=== PATIENT | female | born 1940 | race Caucasian/White ===

== ENCOUNTER → 2017-09-05 13:53 | Outpatient (CLI) | payer MEDICARE, OTHER, SELFPAY ==
[2017-09-05 15:58] LABS: Absolute Lymphocyte Count 2.33 X10^3/ul (0.83-4.51); Absolute Neutrophil Count 4.5 X10^3/uL (2.0-7.7); Basophil# 0.06 X10^3/uL; Basophil% 0.8 % (0-1); Eosinophil# 0.36 X10^3/uL; Eosinophils% 4.6 % (0-5); Hematocrit 37.7 % (37-47); Hemoglobin 11.7 g/dl (12.0-15.0); Lymphocyte # 2.33 X10^3/ul (4.0); Lymphocyte % 29.8 % (19-41); Mean Corpuscular Volume 93.5 fL (81-99); Mean Platelet Vol. 10.2 fl (6.2-12.0); Monocyte% 7.7 % (0-10); Neutrophil # 4.47 X10^3/uL (2.7-7.7); Platelet Count 322 K/mm3 (150-450); RBC Distribution Width CV 15.4 % (11.6-14.6); RBC Distribution Width SD 52.4 fl (35.1-43.9); Red Blood Count 4.03 M/mm3 (4.2-5.4); White Blood Count 7.8 K/mm3 (4.4-11.0)
[2017-09-05 16:03] LABS: POSITIVE COUNT NO; POSITIVE DIFFERENTIAL NO; POSITIVE MORPHOLOGY NO
[2017-09-05 16:24] LABS: AST(SGOT) 40 U/L (15-37); Alanine Aminotransfer ALT/SGPT 72 U/L (13-56); Albumin, Serum 3.3 g/dL (3.2-5.0); Alkaline Phosphatase 80 U/L (45-117); Anion Gap 7 (5-15); BUN 26 mg/dL (7-18); Calcium,Total 8.6 mg/dL (8.5-10.1); Chloride 104 mmol/L (98-107); Creatinine, Serum 1.13 mg/dL (0.55-1.02); EST Glomerular Filtration Rate 50 mL/min (>60); Est Glom Filt Rate - Afr Amer 60 mL/min (>60); Globulin 3.4 g/dL (2.2-4.2); Glucose 125 mg/dL (70-110); Potassium 3.7 mmol/L (3.5-5.1); Protein, Total 6.7 g/dL (6.4-8.2); Sodium Level 141 mmol/L (136-145); T4 Free Direct 1.46 ng/dL (0.76-1.46); Thyroid Stim Hormone (TSH) 1.63 uIU/mL (0.358-3.74)
== END ==
PROVIDERS: Family Provider Family Medicine; PCP Family Medicine; Visit Provider Family Medicine
DX: E11.9 Type 2 diabetes mellitus without complications (principal); E78.5 Hyperlipidemia, unspecified; R53.83 Other fatigue; L74.9 Eccrine sweat disorder, unspecified; M19.90 Unspecified osteoarthritis, unspecified site; I82.409 Acute embolism and thrombosis of unspecified deep veins of unspecified lower extremity; Z79.899 Other long term (current) drug therapy
CPT/HCPCS: 36415; 80053; 84439; 84443; 85025

== ENCOUNTER → 2017-12-13 07:47 | Outpatient (CLI) | payer MEDICARE, OTHER, SELFPAY ==
--- NOTE | 2017-12-13 13:46 | PFT ---
INTRODUCTION: The patient is a 77-year-old female currently under the care of Dr. Kolb the presents for pulmonary function testing secondary to a diagnosis of high risk medication use. Respiratory therapy reports good patient effort and reports no other concerns. Bronchodilators were used during testing. INTERPRETATION: Forced expiration spirometry demonstrates the presence of a mild large airways obstructive ventilatory defect. There was no significant response to aerosolized bronchodilators, based upon strict ATS criteria. Spirograms are of good quality and plateau gradually indicating slow emptying of the lungs. Body plethysmography was performed and reveals an increased RV to 146% of predicted, indicative of underlying air trapping. Diffusing capacity by single breath CO is mildly reduced at 74% of predicted. IMPRESSION: These pulmonary function studies demonstrate the presence of an irreversible mild large airways obstructive ventilatory defect with associated air trapping and symmetric reduction in diffusing capacity. There are no previous pulmonary function studies available for comparison.
== END ==
PROVIDERS: Family Provider Family Medicine; PCP Family Medicine; Visit Provider Internal Medicine Cardiovascular Disease
DX: Z79.899 Other long term (current) drug therapy (principal)
CPT/HCPCS: 94060; 94726; 94729

== ENCOUNTER 2018-02-13 15:40 | Emergency (ER) | payer MEDICARE, OTHER, SELFPAY ==
[2018-02-13 15:44] VITALS: BP 127/82; PULSE 62; RESP 16; TEMP 36.8; O2SAT 95; BMI 34.4
--- NOTE | 2018-02-13 15:47 | CT_ITS ---
STUDY: CT BRAIN WITHOUT CONTRAST REASON FOR EXAM: Female, 78 years old. Status post fall Coumadin had back of head RADIATION DOSAGE (If Supplied By Facility): CTDIvol = ( 44.99 ) mGy, DLP = ( 880.47 ) mGycm TECHNIQUE: Transaxial CT imaging of the brain was performed without administration of intravenous contrast material. Individualized dose optimization techniques were used for this CT. COMPARISON: MRI July 11, 2014 FINDINGS: There is a focus of right posterior parietal soft tissue swelling. There is soft tissue calcification which is likely chronic in the right parietal region as well seen on prior study. There is hyperostosis frontalis internus. There is mild cerebral atrophy with widening of the extra-axial spaces and ventricular dilatation. There is a focal mostly calcified mass within the left parietal lobe that measures 3.6 x 3.0 x 3.3 cm. On prior study July 11, 2014 this was measured 2.6 x 2.2 x 2 cm. Prior study there was some adjacent mild edema however now the mass is larger and does contain greater than expected edema for a simple meningioma. There is a slightly effaced appearance of the left posterior horn. Normal basal ganglia and thalami. Normal brainstem. There is mild cerebellar atrophy. There is no intracranial hemorrhage. There are no findings of an acute ischemic infarction. Normal visualized paranasal sinuses. CT/Brain/Head without Contrast IMPRESSION: There is a 3.6 x 3.0 x 3.3 cm calcified mass in the left parietal lobe which is larger than prior study when it measured 2.6 x 2.2 x 2 cm and showing more adjacent edema than prior. Although this may represent a meningioma edema is not ordinarily expected. In addition this is greater enlargement of the mass than would be expected with a benign meningioma meningiomas are typically slow in growth. Attention atypical meningioma could potentially have this appearance. Recommend follow-up MRI with gadolinium when clinically appropriate. Right posterior parietal soft tissue swelling no evidence of acute hemorrhage. Electronically Signed: Brisa Soriano MD at 16:18 EDT Tel , Service support ,
--- NOTE | 2018-02-13 15:51 | ED.VISSUMM ---
- ER Visit Summary Date of Service: 02/13/18 Chief Complaint: Patient presents from Dr. balbuena' office because of head trauma. History of Present Illness: The patient is a 78 F who had an appointment to see Dr. Balbuena, her PCP for blood work. Patient's on Coumadin for chronic A. fib. INR is 3.0. She states she uses a walker to ambulate. Her feet became entangled and she fell striking the back of her head. She denies loss of conscious. She denies being dazed. She does complain of mild headache. She denies any neck pain. She denies any paresthesia, anesthesia motor is upper lower extremity. She denies chest pain, palpitations or rapid heartbeat. She denies shortness of breath or difficulty breathing. She denies nausea or vomiting. She denies any upper or lower back pain. She denies any pelvic pain. She denies pain of her upper or lower extremity. Physical Examination: Vital signs are unremarkable. Patient has a sub-cutaneous hematoma with abrasion right occipital area. There is no clinical findings of basal skull fracture. Pupils equal round reactive. Extra muscle intact. There is no subconjunctival hemorrhage. There is no septal deviation hematoma. Uvula is midline. Trachea is midline. There is no stridor or carotid bruit. There is no midline tenderness and she has full active range of motion of the neck without pain. Heart is regular. Lungs are clear to auscultation with good air bilaterally. There is no crepitus or subcutaneous air. Abdomen soft nontender. Is no pain the patient the pelvis. She is alert oriented ?3 with a GCS of 15. Motor is 5/5. Sensations intact. DTRs are symmetric with no clonus or Babinski. Cranial 2 through 12 are intact. Test Results: INR performed at PCPs office is 3.0. Will obtain a CT of the head to rule out intracranial bleed. CT of the head without contrast reveals an enlarging calcific mass that may represent an atypical meningioma. However radiologist commented this has grown and may represent an atypical meningioma. Recommended MRI since there is surrounding edema. There is no evidence of acute intracranial bleed i.e. contusion, subarachnoid hemorrhage, epidural or subdural. Emergency Department Course and Treatment: Patient's primary care physician Dr. Ramirez was paged to arrange outpatient MRI to evaluate this atypical calcific enlarging mass with mild edema. Treatment Plan: Appropriate home-going instructions for closed head injury and outpatient MRI to evaluate calcific mass. Disposition: Discharged to home with outpatient follow-up/MRI. Dr. Hortensia lawrence will make arrangements for outpatient MRI to evaluate enlarging calcific parietal mass Impression: 1. Closed head injury 2. High risk medication, Coumadin 3. Enlarging calcific left parietal mass uncertain etiology This note was generated with [employer] dictation software. It may contain incorrect words, spelling, and punctuation that were not noted in review of the chart prior to signing ED Disposition - Plan for ED Patient: Disposition: Home or Assisted Living Chief Complaint: Fall Instructions: ED Head Injury Closed Referrals: Hortensia Balbuena, [Primary Care Provider] - 5-7 Days Additional Instructions: Contact Dr. Ramirez's office. She will make appropriate arrangements for outpatient MRI to evaluate calcified mass.
[2018-02-13] MEDS: Diphth,Pertuss(Acell),Tet Vac 0.5 ML Vial IM (16:28)
--- NOTE | 2018-02-13 16:39 | NURSING ---
DR CHERI JACOB
[2018-02-13 16:56] VITALS: BP 110/62; PULSE 63; RESP 18; O2SAT 98
== END 2018-02-13 16:57 | disposition home or self-care (01) ==
PROVIDERS: Emergency Provider Emergency Medicine; Family Provider Family Medicine; PCP Family Medicine
DX: S00.03XA Contusion of scalp, initial encounter (principal); W01.0XXA Fall on same level from slipping, tripping and stumbling without subsequent striking against object, initial encounter; Y93.9 Activity, unspecified; Y92.9 Unspecified place or not applicable; Y99.9 Unspecified external cause status; G93.9 Disorder of brain, unspecified; I48.2 Chronic atrial fibrillation; I10 Essential (primary) hypertension; E66.9 Obesity, unspecified; Z79.01 Long term (current) use of anticoagulants; Z79.84 Long term (current) use of oral hypoglycemic drugs; Z79.899 Other long term (current) drug therapy; Z86.711 Personal history of pulmonary embolism
CPT/HCPCS: 70450; 90715; 99283

== ENCOUNTER → 2018-02-17 16:58 | Outpatient (CLI) | payer MEDICARE, OTHER, SELFPAY ==
--- NOTE | 2018-02-17 17:00 | MRI_ITS ---
STUDY: MRI BRAIN WITH AND WITHOUT CONTRAST REASON FOR EXAM: Female, 78 years old. Left parietal lobe mass TECHNIQUE: Standardized multiplanar fat and water weighted pulse sequences were obtained. 8 ml of Gadavist contrast material was administered intravenously for the contrast portion of the examination. COMPARISON: CT of the brain on February 13, 2018 FINDINGS: Normal size of the ventricles and extra-axial spaces for the patient's age. Normal white matter tracts of the supratentorial brain. Normal bilateral basal ganglia. Normal thalami. There is no extra-axial fluid accumulation. Normal flow voids within the major intracranial circulation suggesting patency by spin echo criteria. Normal venous enhancement. There is a dural based relatively homogeneously enhancing mass in left parietal lobe measuring approximately 3.2 x 3.17 cm demonstrating foci of calcification. There is vasogenic edema and mass effect upon the occipital horn of the left lateral ventricle. Differential diagnosis includes atypical meningioma versus extradural metastasis. Clinical correlation recommended Normal sella turcica, pituitary gland, infundibular stalk, optic chiasm and hypothalamus. Normal tectal plate and pineal gland. Normal midbrain, anastacio and medulla. Normal cerebellum. Normal basal cisterns. Normal bilateral temporal bones. Normal bilateral internal auditory canals. Postsurgical changes of the orbits.. Normal visualized paranasal sinuses. Normal calvarium and skull base. Normal visualized soft tissue structures. Normal visualized upper cervical spine. MRI/Brain W/WO Contrast IMPRESSION: Dural based mass in the left parietal lobe with vasogenic edema most likely representing atypical meningioma or perhaps extradural metastasis. Clinical correlation recommended Electronically Signed: Armen Mauro MD at 19:08 EDT , Service support ,
== END ==
PROVIDERS: Family Provider Family Medicine; PCP Family Medicine; Visit Provider Family Medicine
DX: D42.0 Neoplasm of uncertain behavior of cerebral meninges (principal)
CPT/HCPCS: 70553

== ENCOUNTER → 2018-09-11 10:44 | Outpatient (CLI) | payer MEDICARE, OTHER, SELFPAY ==
[2018-09-11 13:05] LABS: BUN 28 mg/dL (7-18); Creatinine, Serum 1.31 mg/dL (0.55-1.02); EST Glomerular Filtration Rate 42 mL/min (>60); Est Glom Filt Rate - Afr Amer 50 mL/min (>60)
== END ==
PROVIDERS: Family Provider Family Medicine; PCP Family Medicine
DX: D32.9 Benign neoplasm of meninges, unspecified (principal)
CPT/HCPCS: 36415; 82565; 84520

== ENCOUNTER → 2018-09-19 13:19 | Outpatient (CLI) | payer MEDICARE, OTHER, SELFPAY ==
[2018-05-01 12:52] VITALS: BMI 32.8
--- NOTE | 2018-09-19 13:25 | MRI_ITS ---
STUDY: MRI BRAIN WITH AND WITHOUT CONTRAST REASON FOR EXAM: Female, 78 years old. Meningioma TECHNIQUE: Standardized multiplanar fat and water weighted pulse sequences were obtained. 8 ml of Gadavist contrast material was administered intravenously for the contrast portion of the examination. COMPARISON: February 17, 2018 FINDINGS: Normal size of the ventricles and extra-axial spaces for the patient's age. There is minor periventricular white matter ischemic change. There is a dural based mass in the left parietal lobe measuring approximately 3.6 x 3.5 x 3.33 cm demonstrating slightly heterogeneous enhancement exhibiting foci of calcification and exhibiting of vasogenic edema and producing mild mass effect upon the occipital horn of the left lateral ventricle. The lesion demonstrates findings consistent with an atypical meningioma. The lesion has increased very slightly in size since prior exam. Normal bilateral basal ganglia. Normal thalami. There is no extra-axial fluid accumulation. Normal flow voids within the major intracranial circulation suggesting patency by spin echo criteria. Normal venous enhancement. There is no enhancing intra-axial or extra-axial abnormality. Normal sella turcica, pituitary gland, infundibular stalk, optic chiasm and hypothalamus. Normal tectal plate and pineal gland. Normal midbrain, anastacio and medulla. Normal cerebellum. Normal basal cisterns. Normal bilateral temporal bones. Normal bilateral internal auditory canals. Postsurgical changes of the orbits. Normal visualized paranasal sinuses. Normal calvarium and skull base. Normal visualized soft tissue structures. Normal visualized upper cervical spine. MRI/Brain W/WO Contrast IMPRESSION: Dural based mass in the left parietal lobe demonstrating characteristics most consistent with atypical meningioma which has increased slightly in size since prior exam. No other significant change Electronically Signed: Armen Mauro MD at 15:56 EST , Service support ,
== END ==
PROVIDERS: Family Provider Family Medicine; PCP Family Medicine
DX: D32.9 Benign neoplasm of meninges, unspecified (principal)
CPT/HCPCS: 70553; A9585

== ENCOUNTER → 2019-01-29 08:36 | Outpatient (CLI) | payer MEDICARE, OTHER, SELFPAY ==
[2018-12-04 13:27] VITALS: BMI 32.1
--- NOTE | 2019-01-29 08:49 | RAD_ITS ---
STUDY: X-RAY CHEST REASON FOR EXAM: Female, 79 years old. Amiodarone therapy TECHNIQUE: PA and lateral views of the chest. COMPARISON: July 11, 2016 chest x-ray FINDINGS: Interstitial markings are minimally prominent. There is a pattern of hyperlucency in the upper lung zones which may represent emphysematous change. Density in the right upper lobe that was seen on prior study is no longer visualized. There is no demonstrated pleural abnormality. Normal size heart. Normal mediastinum and avtar. Normal visualized pulmonary arteries. Normal visualized aortic arch and descending thoracic aorta. There are diffuse degenerative changes of the visualized thoracic spine. Normal visualized ribs, clavicles, and shoulders. There is no demonstrated abnormality of the visualized soft tissue structures of the upper abdomen. RAD/Chest PA and Lateral IMPRESSION: Chronic appearing lung markings no evidence of acute focal infiltrate. Electronically Signed: Brisa Soriano MD at 15:53 EDT Tel , Service support ,
[2019-01-29 09:34] LABS: AST(SGOT) 26 U/L (15-37); Alanine Aminotransfer ALT/SGPT 36 U/L (13-56); Albumin, Serum 3.6 g/dL (3.2-5.0); Alkaline Phosphatase 130 U/L (45-117); Bilirubin, Direct 0.14 mg/dL (0.00-0.30); Cholesterol 178 mg/dL (200); Globulin 3.4 g/dL (2.2-4.2); High Density Lipoprotein 84 mg/dL; T4 Free Direct 1.49 ng/dL (0.76-1.46); Thyroid Stim Hormone (TSH) 1.87 uIU/mL (0.358-3.74); Triglycerides 113 mg/dL; Very Low Density Lipoprotein 23 mg/dL (5-40)
== END ==
PROVIDERS: Family Provider Family Medicine; PCP Family Medicine; Referring Provider Internal Medicine Cardiovascular Disease; Visit Provider Internal Medicine Cardiovascular Disease
DX: I48.0 Paroxysmal atrial fibrillation (principal); I25.10 Atherosclerotic heart disease of native coronary artery without angina pectoris; I10 Essential (primary) hypertension; E78.5 Hyperlipidemia, unspecified
CPT/HCPCS: 36415; 71046; 80061; 80076; 84439; 84443

== ENCOUNTER → 2020-03-26 09:10 | Outpatient (CLI) | payer MEDICARE, OTHER, SELFPAY ==
[2019-05-31 13:18] VITALS: BMI 33.5
[2020-01-02 08:45] VITALS: BMI 33.5
[2020-03-26 09:49] LABS: Absolute Lymphocyte Count 2.83 X10^3/uL (0.83-4.51); Absolute Neutrophil Count 4.7 X10^3/uL (2.0-7.7); Basophil# 0.09 X10^3/uL; Basophil% 1.1 % (0-1); Eosinophil# 0.31 X10^3/uL; Eosinophils% 3.7 % (0-5); Hematocrit 40.5 % (37-47); Hemoglobin 12.8 g/dL (12.0-15.0); Lymphocyte # 2.83 X10^3/ul (4.0); Lymphocyte % 33.4 % (19-41); Mean Corp Hgb Conc 31.6 g/dL (32-36); Mean Corpuscular Hgb 28.4 pg (27.0-32.0); Mean Platelet Vol. 9.9 fl (6.2-12.0); Monocyte# 0.57 X10^3/uL; Monocyte% 6.7 % (0-10); NRBC Flagged by Analyzer 0 % (0-5); Neutrophil # 4.65 X10^3/uL (2.7-7.7); Neutrophil % 54.9 % (47-70); Platelet Count 415 K/mm3 (150-450); RBC Distribution Width CV 15.4 % (11.6-14.6); RBC Distribution Width SD 50.6 fl (35.1-43.9); White Blood Count 8.5 K/mm3 (4.4-11.0)
[2020-03-26 10:04] LABS: International Normalized Ratio 2.8; Prothrombin Time (Protime)PT. 29.4 SECONDS (11.7-14.9)
[2020-03-26 10:28] LABS: AST(SGOT) 21 U/L (15-37); Alanine Aminotransfer ALT/SGPT 30 U/L (13-56); Albumin, Serum 3.6 g/dL (3.2-5.0); Alkaline Phosphatase 144 U/L (45-117); Anion Gap 6 (5-15); BUN 25 mg/dL (7-18); BUN/Creat Ratio 18.8 RATIO (10-20); Calcium,Total 8.9 mg/dL (8.5-10.1); Chloride 107 mmol/L (98-107); Creatinine, Serum 1.33 mg/dL (0.55-1.02); EST Glomerular Filtration Rate 41 mL/min (>60); Est Glom Filt Rate - Afr Amer 49 mL/min (>60); Free T3 2.2 pg/mL (2.18-3.98); Globulin 3.7 g/dL (2.2-4.2); Glucose 157 mg/dL (74-106); Protein, Total 7.3 g/dL (6.4-8.2); Sodium Level 141 mmol/L (136-145); T4 Free Direct 1.38 ng/dL (0.76-1.46); Thyroid Stim Hormone (TSH) 2.08 uIU/mL (0.358-3.74)
== END ==
PROVIDERS: PCP Family Medicine; Referring Provider Family Medicine; Visit Provider Family Medicine
DX: Z51.81 Encounter for therapeutic drug level monitoring (principal); Z79.01 Long term (current) use of anticoagulants; I82.409 Acute embolism and thrombosis of unspecified deep veins of unspecified lower extremity; D68.59 Other primary thrombophilia; E03.9 Hypothyroidism, unspecified; E78.5 Hyperlipidemia, unspecified; R53.83 Other fatigue; I34.1 Nonrheumatic mitral (valve) prolapse
CPT/HCPCS: 36415; 80053; 84439; 84443; 84481; 85025; 85610

== ENCOUNTER 2020-04-23 09:14 | Outpatient (RCR) | payer MEDICARE, OTHER, SELFPAY ==
[2020-01-02 08:45] VITALS: BMI 33.5
[2020-04-23 09:51] LABS: International Normalized Ratio 2.8; Prothrombin Time (Protime)PT. 28.7 SECONDS (11.7-14.9)
== END 2020-04-23 18:00 | disposition home or self-care (01) ==
LOC: LAB 09:14
PROVIDERS: PCP Family Medicine; Referring Provider Family Medicine; Visit Provider Family Medicine
DX: I34.1 Nonrheumatic mitral (valve) prolapse (principal); I82.409 Acute embolism and thrombosis of unspecified deep veins of unspecified lower extremity; Z79.01 Long term (current) use of anticoagulants
CPT/HCPCS: 36415; 85610

== ENCOUNTER 2020-07-13 14:51 | Emergency (ER) | payer MEDICARE, OTHER, SELFPAY ==
[2020-06-26 13:35] VITALS: BMI 34.3
[2020-07-13 14:52] VITALS: BP 144/85; PULSE 80; RESP 16; TEMP 36.3; O2SAT 98; BMI 31.3
--- NOTE | 2020-07-13 15:18 | CT_ITS ---
STUDY: CT ABDOMEN AND PELVIS WITH CONTRAST REASON FOR EXAM: Female, 80 years old. ruq pain RADIATION DOSAGE (If Supplied By Facility): CTDIvol = ( 14.73 ) mGy, DLP = ( 1077.94 ) mGycm TECHNIQUE: Transaxial images were obtained from the dome of the diaphragm to the symphysis pubis without oral contrast. 100 ML ISOVUE 370 was administered. Sagittal and coronal images were reconstructed. Individualized dose optimization techniques were used for this CT. COMPARISON: None. FINDINGS: The visualized lung bases are unremarkable. The visualized portions of the heart are within normal limits. Normal liver. Normal gallbladder and extrahepatic biliary system. Normal spleen. Normal pancreas. There is a small, circumscribed, smooth, low attenuation left adrenal mass, consistent with an adrenal adenoma. Normal right adrenal gland. Normal right kidney. Normal left kidney. Normal visualized stomach. Normal small intestine. There are multiple colonic diverticula consistent with diverticulosis. There is fecal residue of the right (including hepatic flexure) more than left colon. The appendix is visualized and appears normal. There is diffuse atherosclerotic calcification of the abdominal aorta, without a demonstrated aneurysm. Normal inferior vena cava. Normal retroperitoneum. Normal urinary bladder. There is atrophy of the uterus. There are injection granulomata of the right buttock. There are facet dominant degenerative changes of the lumbar spine. T12 compression fracture appears chronic. CT/Abdomen/Pelvis W IV Cont ONLY IMPRESSION: 1. No acute inflammatory process or bowel obstruction. 2. Colonic fecal retention. 3. Chronic changes, as above. Electronically Signed: Maulik Cui MD ([place]) at 17:21 EST , Service support ,
--- NOTE | 2020-07-13 15:30 | EKG12_ITS ---
Test Reason : BACK Blood Pressure : / mmHG Vent. Rate : 067 BPM Atrial Rate : 067 BPM P-R Int : 156 ms QRS Dur : 116 ms QT Int : 428 ms P-R-T Axes : 000 -48 102 degrees QTc Int : 452 ms Normal sinus rhythm Left axis deviation Incomplete left bundle branch block Abnormal ECG Confirmed by ARGELIA LLOYD, LORI ([id number]), desk editor HERNANDO PEREZ ([id number]) on 07/15/2020 8:45:44 AM Referred By: Confirmed By:LORI STOUT MD
--- NOTE | 2020-07-13 15:31 | ED.VISSUMM ---
- ER Visit Summary Date of Service: 07/13/20 Chief Complaint: Back pain History of Present Illness: The patient is a 80 F presenting with back pain. She states this has been going on for the past 1.5 weeks. She states she fell 2 days before Thanksgiving and is unsure if this is related. She states the pain did not start until after Thanksgiving. She has pain of her right shoulder down into her right upper quadrant. She has tried Tylenol at home. She states it worsens with different positions. She denies change when she eats. Denies nausea or vomiting. Denies diarrhea. Denies chest pain or shortness of breath. Denies fever or recent illness. Physical Examination: Vitals are stable. Patient is afebrile. Alert no acute distress. HEENT exam is unremarkable. Neck is supple. Lungs are clear and equal bilaterally. Heart is regular rate and rhythm. Abdomen is soft right upper quadrant tenderness with no guarding or rebound Extremities right shoulder mild posterior tenderness with active full range of motion. Back: No midline tenderness Skin is warm and dry. No focal neurologic deficit. Remainder of exam is unremarkable. Emergency Department Course and Treatment: Patient was given IV fluids, morphine, Zofran. Right rib series shows RIBS: No demonstrated rib fracture. CHEST: Nonacute x-ray examination of the chest. CT abdomen shows no acute inflammatory process or bowel obstruction. Colonic fecal retention. Chronic changes. CBC, chemistries unremarkable other than BUN 24, creatinine 1.37, this is near her baseline. Lipase is normal. Troponin is negative. Patient is feeling improved on reevaluation. She is given prescription for MiraLAX. She will take Tylenol for pain. Advised to follow-up with her primary care physician. Advised return to the ED for worsening complaints. Disposition: Discharge home Impression: Back pain, constipation This note was generated with [employer] dictation software. It may contain incorrect words, spelling, and punctuation that were not noted in review of the chart prior to signing ED Disposition - Plan for ED Patient: Instructions: ED Back and Neck Pain, General Prescriptions: Polyethylene Glycol 3350 [Miralax] 17 gm PO DAILY #10 packet Prescription Printed Referrals: Hortensia Balbuena DO [Primary Care Provider] -
[2020-07-13 15:37] LABS: Absolute Neutrophil Count 5.6 X10^3/uL (2.0-7.7); Basophil# 0.07 X10^3/uL; Basophil% 0.8 % (0-1); Eosinophil# 0.11 X10^3/uL; Eosinophils% 1.3 % (0-5); Hematocrit 39.7 % (37-47); Hemoglobin 12.6 g/dL (12.0-15.0); Lymphocyte % 20.6 % (19-41); Mean Corp Hgb Conc 31.7 g/dL (32-36); Mean Corpuscular Hgb 28.3 pg (27.0-32.0); Mean Corpuscular Volume 89.2 fL (81-99); Mean Platelet Vol. 9.6 fl (6.2-12.0); Monocyte# 0.69 X10^3/uL; Monocyte% 8.4 % (0-10); NRBC Flagged by Analyzer 0 % (0-5); Neutrophil # 5.64 X10^3/uL (2.7-7.7); Neutrophil % 68.5 % (47-70); Platelet Count 379 K/mm3 (150-450); RBC Distribution Width CV 15.9 % (11.6-14.6); RBC Distribution Width SD 51.9 fl (35.1-43.9); Red Blood Count 4.45 M/mm3 (4.2-5.4); White Blood Count 8.2 K/mm3 (4.4-11.0)
[2020-07-13] MEDS: Morphine 4 MG/ML Syringe IV (15:42)
[2020-07-13] MEDS: Ondansetron 4 MG/2 ML Vial IV (15:43)
[2020-07-13 16:14] VITALS: RESP 17
[2020-07-13 16:14] LABS: ALB/GLOB Ratio 0.9 RATIO (0.9-2.4); AST(SGOT) 19 U/L (15-37); Alanine Aminotransfer ALT/SGPT 28 U/L (13-56); Albumin, Serum 3.4 g/dL (3.2-5.0); Alkaline Phosphatase 159 U/L (45-117); Anion Gap 9 (5-15); BUN 24 mg/dL (7-18); BUN/Creat Ratio 17.5 RATIO (10-20); Calcium,Total 8.7 mg/dL (8.5-10.1); Chloride 105 mmol/L (98-107); Creatinine, Serum 1.37 mg/dL (0.55-1.02); EST Glomerular Filtration Rate 39 mL/min (>60); Est Glom Filt Rate - Afr Amer 48 mL/min (>60); Estimated Creatinine Clearance 30.66 ml/min; Globulin 3.6 g/dL (2.2-4.2); Glucose 118 mg/dL (74-106); Lipase 140 U/L (73-393); Potassium 4.1 mmol/L (3.5-5.1); Sodium Level 141 mmol/L (136-145)
--- NOTE | 2020-07-13 16:45 | RAD_ITS ---
STUDY: X-RAY - UNILATERAL RIBS ( RIGHT ) WITH CHEST REASON FOR EXAM: Female, 80 years old. FALL BEFORE THANKSGIVING, CONTINUED PAIN RT POSTERIOR LOWER RIBS, NEAR MIDLINE AND UPPER LUMBAR AREA TECHNIQUE - RIBS: 4 view(s) of the ribs. TECHNIQUE - CHEST: PA COMPARISON: None. FINDINGS - RIBS: Normal visualized ribs without a demonstrated fracture. FINDINGS - CHEST: The lungs are clear and expanded. There is no demonstrated pleural abnormality. Normal size heart. Normal mediastinum and avtar. Normal visualized pulmonary arteries. There is atherosclerotic tortuosity of the aortic arch and descending thoracic aorta. There is demineralization of the osseous structures. There is no demonstrated abnormality of the visualized soft tissue structures of the upper abdomen. RAD/Ribs Uni Min 3V w/PA Chest IMPRESSION: RIBS: No demonstrate a rib fracture. CHEST: Nonacute x-ray examination of the chest. Electronically Signed: Maulik Cui MD ([place]) at 17:16 EST , Service support ,
--- NOTE | 2020-07-13 17:36 | ED.DEP ---
ED Disposition - Plan for ED Patient: Instructions: ED Back and Neck Pain, General Prescriptions: Polyethylene Glycol 3350 [Miralax] 17 gm PO DAILY #10 packet Prescription Printed Referrals: Hortensia Balbuena DO [Primary Care Provider] -
[2020-07-13 18:00] VITALS: BP 119/69; RESP 18; O2SAT 97
== END 2020-07-13 18:01 | disposition home or self-care (01) ==
LOC: ED 16:23
PROVIDERS: Emergency Provider Emergency Medicine; PCP Family Medicine
DX: M54.9 Dorsalgia, unspecified (principal); K59.00 Constipation, unspecified; R10.11 Right upper quadrant pain; M25.511 Pain in right shoulder; I48.91 Unspecified atrial fibrillation; E11.9 Type 2 diabetes mellitus without complications; I10 Essential (primary) hypertension; F41.9 Anxiety disorder, unspecified; Z79.01 Long term (current) use of anticoagulants; Z79.84 Long term (current) use of oral hypoglycemic drugs; Z79.899 Other long term (current) drug therapy
CPT/HCPCS: 71101; 74177; 80053; 83690; 84484; 85025; 93005; 96361; 96374; 96375; 99283; J7030; Q9967; A4216; J2405

== ENCOUNTER 2020-10-09 15:09 | Outpatient (RCR) | payer MEDICARE, OTHER, SELFPAY ==
[2020-09-25 13:30] VITALS: BMI 30.2
[2020-10-09] MEDS: COVID-19 VACC, MRNA(PFIZER)/PF 30 MCG/0.3 ML SYRINGE IM (15:42)
[2020-10-30] MEDS: COVID-19 VACC, MRNA(PFIZER)/PF 30 MCG/0.3 ML SYRINGE IM (15:07)
== END 2021-01-13 23:59 ==
LOC: IMMUN 15:09
PROVIDERS: PCP Family Medicine; Visit Provider Family Medicine
DX: Z23 Encounter for immunization (principal)
CPT/HCPCS: 0001A; 0002A; 91300

== ENCOUNTER → 2020-10-10 13:04 | Outpatient (CLI) | payer MEDICARE, OTHER, SELFPAY ==
[2020-09-25 13:30] VITALS: BMI 30.2
[2020-10-10 15:00] LABS: International Normalized Ratio 1.3; Prothrombin Time (Protime)PT. 15.8 SECONDS (11.7-14.9)
== END ==
PROVIDERS: PCP Family Medicine; Visit Provider Family Medicine
DX: I34.1 Nonrheumatic mitral (valve) prolapse (principal); Z79.01 Long term (current) use of anticoagulants
CPT/HCPCS: 36415; 85610

== ENCOUNTER → 2020-10-17 14:49 | Outpatient (CLI) | payer MEDICARE, OTHER, SELFPAY ==
[2020-09-25 13:30] VITALS: BMI 30.2
[2020-10-17 17:48] LABS: International Normalized Ratio 1.3; Prothrombin Time (Protime)PT. 15.9 SECONDS (11.7-14.9)
== END ==
PROVIDERS: PCP Family Medicine; Visit Provider Family Medicine
DX: I34.1 Nonrheumatic mitral (valve) prolapse (principal); Z79.01 Long term (current) use of anticoagulants
CPT/HCPCS: 36415; 85610

== ENCOUNTER 2021-07-01 15:16 | Emergency (ER) | payer MEDICARE, OTHER, SELFPAY ==
[2021-07-01 15:16] VITALS: BP 125/65; PULSE 89; RESP 16; TEMP 36.2; O2SAT 97; BMI 34.2
--- NOTE | 2021-07-01 15:36 | CT_ITS ---
STUDY: CT SOFT TISSUE NECK WITH CONTRAST REASON FOR EXAM: Female, 81 years old. Right facial and neck swelling RADIATION DOSAGE (If Supplied By Facility): CTDIvol = ( 12.45 ) mGy, DLP = ( 586.37 ) mGycm TECHNIQUE: The patient was scanned in a multi-detector CT scanner. High resolution transaxial imaging was performed following intravenous administration of IV 100mL Isovue-300. Sagittal and coronal images were reconstructed. Individualized dose optimization techniques were used for this CT. COMPARISON: None. FINDINGS: There is induration of the subcutaneous fat lateral to the right mandible there is also associated asymmetric thickening of the right genioglossus muscle medial to the mandible with a few subcentimeter lymph nodes and mild disruption of the perimandibular fat planes. Findings suggest an inflammatory process within the mandible likely due to periodontal disease around a right mandibular molar. There is no organized abscess cavity or air-fluid levels. Normal bilateral parotid glands. Normal bilateral telecommunications engineer spaces. Normal bilateral parapharyngeal spaces. Normal bilateral carotid spaces. Normal bilateral sublingual and submandibular glands and spaces. Normal visualized nasopharynx. Normal retropharyngeal space. Normal perivertebral space. Normal visualized bilateral faucial tonsils. The visualized tongue, tongue base and oropharynx are normal. The visualized cervical lymph nodes (levels I-) are within normal size limits, and maintain normal morphology. There is no demonstrated solid or cystic mass lesion. There is no abnormal contrast enhancement. Normal epiglottis, bilateral vallecula and hypopharynx. The pre-epiglottic and paraglottic adipose spaces are normal. Normal visualized bilateral piriform sinuses, aryepiglottic folds, vocal cords, and arytenoid-cricoid articulations. Normal subglottic trachea. Normal bilateral lobes of the thyroid gland. Normal visualized pulmonary apices. Normal visualized paranasal sinuses. There is multilevel degenerative changes of the cervical spine. CT/Soft Tissue Neck WITH Contrast IMPRESSION: Periodontal disease suspected around the right mandibular molar seen on bone windows 56 through 61, series 2. There is associated soft tissue swelling both medial to and lateral to the right mandible suggesting an inflammatory process. There is no abscess or cutaneous emphysema. There are a few nearby lymph nodes likely reactive. Dental consultation recommended No demonstrated fracture, there are degenerative bony changes No airway narrowing or deviation Electronically Signed: Hernesto Reilly MD at 17:09 EST , Service support ,
--- NOTE | 2021-07-01 15:37 | EX.ED.DYSGE1 ---
HPI History of Present Illness Chief Complaint: Dental Detail of Chief Complaint: Facial swelling Informant: patient Narrative Narrative: Patient presents to the emergency department with facial swelling that initially started about 4 5 days ago. Patient states that she saw ear nose and throat physician the following day on Tuesday and was started on antibiotics. Patient saw a dentist today to have a root canal and they referred her to the emergency department. Patient complains of difficulty swallowing and pain mostly to the right side of her face where the swelling is. Patient denies fevers or chills or sweats. Patient cannot remember what antibiotic she is on in which your nose and throat physician she saw. 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 Depression Essential hypertension Family history of CVA History of DVT (deep vein thrombosis) Hyperlipidemia Hypertension Long-term use of high-risk medication Menieres disease Meningioma Nonrheumatic mitral (valve) prolapse Osteoarthritis Palpitations Paroxysmal atrial fibrillation Type 2 diabetes mellitus Home Medications mirabegron 50 mg PO DAILY 07/11/16 [History Last Taken Unknown] venlafaxine 75 mg PO BID 07/11/16 [History Last Taken Unknown] furosemide 40 mg tablet 40 mg PO DAILY #30 tab 04/12/18 [Rx Last Taken Unknown] lisinopril 5 mg tablet 2.5 mg PO DAILY tab 12/04/18 [History Last Taken Unknown] meclizine 25 mg tablet 12.5 mg PO TID PRN PRN tab 05/16/19 [History Last Taken Unknown] latanoprost 0.005 % eye drops 1 drp OPHTHALMIC DAILY 01/02/20 [History Last Taken Unknown] metformin 500 mg tablet 250 mg PO BID tab 05/22/20 [History Last Taken Unknown] timolol 0.5 % eye drops 1 drp OPHTHALMIC DAILY 05/22/20 [History Last Taken Unknown] warfarin 2 mg tablet 7 mg PO Q OTHER DAY 06/16/20 [History Last Taken Unknown] warfarin 5 mg tablet 5 mg PO QTUTHSASU 06/16/20 [History Last Taken Unknown] amiodarone 200 mg tablet 100 mg PO DAILY #45 tab 07/01/20 [Rx Last Taken Unknown] polyethylene glycol 3350 17 gm PO DAILY #10 packet 07/13/20 [Rx Last Taken Unknown] azelastine 137 mcg (0.1 %) nasal spray aerosol 2 spray INTRANASAL BID #30 ml 09/25/20 [Rx Last Taken Unknown] fluticasone propionate 50 mcg/actuation nasal spray,suspension 2 spray INTRANASAL DAILY #16 g 09/25/20 [Rx Last Taken Unknown] atorvastatin 40 mg tablet 40 mg PO QHS 05/13/21 [History Last Taken Unknown] diltiazem HCl 180 mg capsule,extended release 24 hr 180 mg PO BID #180 cap 05/29/21 [Rx Last Taken Unknown] Allergy/AdvReac Type Severity Reaction Status Date / Time benzonatate Allergy Hives Verified 07/01/21 15:18 [From Ruthann Vazquez] cat dander Allergy Unknown Verified 07/01/21 15:18 Family History Father CAD (coronary artery disease) CHF (congestive heart failure) History of DVT (deep vein thrombosis) Mother Diabetes Grandfather CAD (coronary artery disease) History of DVT (deep vein thrombosis) Grandmother CVA (cerebral vascular accident) Surgical History History of cataract extraction History of tonsillectomy and adenoidectomy History of tubal ligation Social History (Updated 11/13/20 @ 15:02 by Ruben Nunez TANDEM MILL OPERATOR, TANDEM MILL OPERATOR-C) Smoking Status: Former smoker second hand exposure: No alcohol intake: never substance use type: does not use caffeine: No what type of physical activity do you participate in: none ROS ROS ED Constitutional Constitutional ED: Reports systems reviewed and no addt'l complaints, except as documented; Denies body ache(s), change in weight or chills Eyes Eyes: Denies acute decrease in peripheral vision, change in vision, double vision or loss of vision ENT ENT ED: Reports none and other Details: Right-sided facial swelling and redness to skin of face and neck. ; Denies ear pain, lip swelling, loss taste/smell, neck pain, otalgia or sore throat Cardiovascular Cardiovascular: Reports none; Denies abdominal pain, chest pain with activity, leg edema, lightheadedness, palpitations, rapid heart rate or syncope Respiratory/Chest Respiratory/Chest: Reports none; Denies change in mental status, dry cough, dyspnea, hemoptysis, shortness of breath at rest or shortness of breath with exertion Gastrointestinal Gastrointestinal: Reports none; Denies abdominal pain, change in stool character, diarrhea, hematemesis, hematochezia, melena, rectal bleeding or vomiting Genitourinary Genitourinary ED: Reports none; Denies abdominal discomfort, anuria, dysuria, genital pain or polyuria Musculoskeletal Musculoskeletal: Reports none; Denies arthralgias, back pain, difficulty walking, extremity pain, muscle weakness or myalgias Integumentary Reports none; Denies abscess or rash Neurologic Neurologic: Reports none; Denies abnormal gait, confusion, focal weakness, frequent falls, headache(s), loss of vision, numbness, paresthesias, radicular pain, vertigo or weakness Psychiatric Psychiatric: Reports systems reviewed and no addt'l complaints, except as documented and none; Denies behavioral changes, confusion, difficulty concentrating, hallucinations, suicidal ideation, tactile hallucinations or visual hallucinations Endocrine Endocrinology: Denies none, cold intolerance, excessive sweating, fatigue or heat intolerance Hematologic/Lymphatic Hematologic/Lymphatic: Reports none; Denies anemia, easy bleeding or easy bruising Allergic/Immunologic Allergic/Immunologic ED: Denies as per HPI, none, lip swelling, mouth swelling, throat swelling, tongue swelling or hives EXAM Physical Exam Const Vital Signs: 07/01/21 15:16 Temperature 97.2 F L Temperature Source Temporal Pulse Rate 89 Respiratory Rate 16 Blood Pressure 125/65 H Blood Pressure Mean 85 Pulse Ox 97 Oxygen Delivery Method Room Air Positive well nourished and well developed General Appearance ED: well developed and NAD HEENT Reports TM's clear and moist mucous membranes HEENT Narrative: Patient has soft tissue swelling over the right submandibular gland onto the right side of the face over the mandible. There are cellulitic changes and erythema noted involving the right side of the face as well as submandibular region diffusely. normocephalic and atraumatic; Negative for trauma or tenderness Tympanic Membrane ED: Yes TM's clear Eyes PERRL and EOMs intact bilaterally General Eye ED: Negative for pale conjunctiva or scleral icterus Neck no lymphadenopathy, supple and no JVD General: Negative for tenderness Chest Wall inspection of chest normal and palpation of chest normal Chest: Negative for tenderness Resp normal respiratory effort and clear to auscultation bilaterally Effort and Inspection: Negative for respiratory distress or pain with movement Auscultation: Negative for rhonchi, wheezes or diminished lung sounds Cardio regular rate, regular rhythm, S1 normal heart sound, S2 normal heart sound and no murmurs Peripheral Pulses: pulses 2+ throughout GI normal to inspection, nondistended, normoactive bowel sounds, soft to palpation, non-tender, non-distended and no masses Back/Spine no CVA tenderness and no thoracic nor lumbar tenderness Extremity normal to inspection General Extremety ED: Negative for edema General Extremity: Negative for edema Neuro oriented x3, CN's II-XII intact bilaterally, no sensory deficits noted and gait normal Sensorium / Orientation: awake, alert, oriented to person, oriented to place and oriented to time Motor Exam: strength 5/5 throughout and strength abnormal Psych mental status grossly normal Skin no rashes or lesions noted and no wounds MDM MDM MDM Narrative Medical decision making narrative: IV tablets on arrival. Blood cultures were ordered. Patient was started on Zosyn IV. Labs and CT scan of the neck with IV contrast were ordered and those results will be pending. Care of patient will be turned over to evening physician awaiting results and final disposition Discharge Plan Triage Chief Complaint: Dental ED Provider: Konstantin Gee Dx/Rx/DC Orders Prescriptions: No Action timolol 0.5 % drops 1 drp OPHTHALMIC DAILY RF: 0 latanoprost 0.005 % drops 1 drp OPHTHALMIC DAILY RF: 0 warfarin 5 mg tablet 5 mg PO QTUTHSASU RF: 0 warfarin 2 mg tablet 7 mg PO Q OTHER DAY RF: 0 fluticasone propionate 50 mcg/actuation spray,suspension 2 spray INTRANASAL DAILY Qty: 16 RF: 11 azelastine 137 mcg (0.1 %) aerosol,spray 2 spray INTRANASAL BID Qty: 30 RF: 11 atorvastatin 40 mg tablet 40 mg PO QHS RF: 0 venlafaxine 75 MG tablet 75 mg PO BID RF: 0 mirabegron 50 MG tablet extended release 24 hr 50 mg PO DAILY RF: 0 lisinopril 5 mg tablet 2.5 mg PO DAILY RF: 0 metformin 500 mg tablet 250 mg PO BID RF: 0 meclizine 25 mg tablet 12.5 mg PO TID PRN PRN (Reason: Dizziness) RF: 0 polyethylene glycol 3350 17 GM packet 17 gm PO DAILY Qty: 10 RF: 0 furosemide 40 mg tablet 40 mg PO DAILY Qty: 30 RF: 11 amiodarone 200 mg tablet 100 mg PO DAILY Qty: 45 RF: 4 diltiazem HCl 180 mg capsule,extended release 24hr 180 mg PO BID Qty: 180 RF: 3 Primary Care Provider: Hortensia Balbuena
[2021-07-01 16:09] LABS: Absolute Lymphocyte Count 1.65 X10^3/uL (0.83-4.51); Absolute Neutrophil Count 10.9 X10^3/uL (2.0-7.7); Basophil% 0.7 % (0-1); Eosinophils% 1.4 % (0-5); Hematocrit 33.9 % (37-47); Hemoglobin 10.8 g/dL (12.0-15.0); Lymphocyte # 1.65 X10^3/ul (0.83-4.51); Lymphocyte % 11.5 % (19-41); Mean Corp Hgb Conc 31.9 g/dL (32-36); Mean Corpuscular Hgb 27.2 pg (27.0-32.0); Mean Corpuscular Volume 85.4 fL (81-99); Mean Platelet Vol. 9.9 fl (6.2-12.0); Monocyte# 1.45 X10^3/uL; Monocyte% 10.1 % (0-10); NRBC Flagged by Analyzer 0 % (0-5); Neutrophil # 10.94 X10^3/uL (2.7-7.7); Neutrophil % 75.8 % (47-70); Platelet Count 358 K/mm3 (150-450); RBC Distribution Width CV 16.9 % (11.6-14.6); RBC Distribution Width SD 52.6 fl (35.1-43.9); Red Blood Count 3.97 M/mm3 (4.2-5.4); White Blood Count 14.4 K/mm3 (4.4-11.0)
[2021-07-01 16:24] LABS: Anion Gap 9 (5-15); BUN 25 mg/dL (7-18); BUN/Creat Ratio 15.1 RATIO (10-20); Calcium,Total 8.9 mg/dL (8.5-10.1); Chloride 104 mmol/L (98-107); Creatinine, Serum 1.66 mg/dL (0.55-1.02); EST Glomerular Filtration Rate 32 mL/min (>60); Est Glom Filt Rate - Afr Amer 38 mL/min (>60); Estimated Creatinine Clearance 21.99 ml/min; Glucose 154 mg/dL (74-106); Potassium 3.5 mmol/L (3.5-5.1); Sodium Level 139 mmol/L (136-145)
[2021-07-01 16:44] LABS: Lactic Acid 2.4 mmol/L (0.4-1.9)
[2021-07-01] MEDS: 0.9% Normal Saline 1,000 ML 150 ML IV (17:02)
--- NOTE | 2021-07-01 17:46 | NURSING ---
CALLED [facility]. DR HENRY TALKING TO YOSEPH
--- NOTE | 2021-07-01 18:18 | NURSING ---
PENG ON LINE WITH HOSPITALIST
[2021-07-01 19:08] VITALS: BP 125/89; PULSE 76; RESP 17; TEMP 37.6; O2SAT 95
--- NOTE | 2021-07-01 19:25 | ED.RN ---
Sharlene giving report to [facility] at this time as they have called back.
[2021-07-01 19:26] VITALS: BP 131/72; PULSE 78; RESP 16; TEMP 37.1; O2SAT 96
[2021-07-01 20:06] LABS: Reflex Lactate? Y
[2021-07-01 21:08] LABS: Lactic Acid 0.8 mmol/L (0.4-1.9)
== END 2021-07-01 20:50 | disposition short-term general hospital (02) ==
LOC: ED 16:21
PROVIDERS: Emergency Provider Emergency Medicine; PCP Family Medicine
DX: K04.7 Periapical abscess without sinus (principal); R13.10 Dysphagia, unspecified; Z20.822 Contact with and (suspected) exposure to COVID-19; I25.10 Atherosclerotic heart disease of native coronary artery without angina pectoris; E11.9 Type 2 diabetes mellitus without complications; I48.0 Paroxysmal atrial fibrillation; I49.1 Atrial premature depolarization; I34.1 Nonrheumatic mitral (valve) prolapse; E78.5 Hyperlipidemia, unspecified; J45.909 Unspecified asthma, uncomplicated; M19.90 Unspecified osteoarthritis, unspecified site; F32.A Depression, unspecified; F41.9 Anxiety disorder, unspecified; Z79.01 Long term (current) use of anticoagulants; Z79.84 Long term (current) use of oral hypoglycemic drugs; Z79.899 Other long term (current) drug therapy; Z86.718 Personal history of other venous thrombosis and embolism; Z87.891 Personal history of nicotine dependence
CPT/HCPCS: 70491; 80048; 83605; 85025; 87040; 87426; 96361; 96365; 99285; J7030; Q9967; A4216

== ENCOUNTER 2021-10-16 08:29 | Outpatient (CLI) | payer MEDICARE, OTHER, SELFPAY ==
--- NOTE | 2021-10-16 08:40 | RAD_ITS ---
STUDY: X-RAY CHEST REASON FOR EXAM: Female, 81 years old. AMIODARONE therapy. TECHNIQUE: PA and lateral views of the chest. COMPARISON: Chest and right RIBS, 07/13/2020. Two-view chest, 01/29/2019. FINDINGS: The lungs well expanded. There is no acute infiltrate or mass. There is no demonstrated pleural abnormality. Normal size heart. Normal mediastinum and avtar. Normal visualized pulmonary arteries. There is mild atherosclerotic calcification of the aortic arch with tortuosity. Osteopenia of the thoracic spine. There is a compression deformity of what is thought to be the T7 vertebra with accentuation of the thoracic kyphosis. There is an approximate 45% loss of vertebral axial height. This was not present on the prior 2 view chest of 01/29/2019. There is degenerative osteoarthritis of the bilateral shoulders. There is no demonstrated abnormality of the visualized soft tissue structures of the upper abdomen. RAD/Chest PA and Lateral IMPRESSION: 1. No acute cardiopulmonary disease or major intrathoracic change. 2. Age-indeterminate compression deformity of what is thought to be T7 vertebral. Electronically Signed: Jim Mustafa DO at 17:04 EST Reading Location ID and State: [id number] Tel [phone], Service support ,
[2021-10-16 09:55] LABS: AST(SGOT) 16 U/L (15-37); Alanine Aminotransfer ALT/SGPT 21 U/L (13-56); Albumin, Serum 3.7 g/dL (3.2-5.0); Alkaline Phosphatase 112 U/L (45-117); Bilirubin, Direct 0.12 mg/dL (0.00-0.30); Cholesterol 175 mg/dL (200); Globulin 3.4 g/dL (2.2-4.2); High Density Lipoprotein 95 mg/dL; Protein, Total 7.1 g/dL (6.4-8.2); Thyroid Stim Hormone (TSH) 1.82 uIU/mL (0.358-3.74); Triglycerides 116 mg/dL; Very Low Density Lipoprotein 23 mg/dL (5-40)
== END 2021-10-16 23:59 | disposition home or self-care (01) ==
PROVIDERS: PCP Family Medicine; Referring Provider Internal Medicine Cardiovascular Disease; Visit Provider Internal Medicine Cardiovascular Disease
DX: E78.00 Pure hypercholesterolemia, unspecified (principal); I48.0 Paroxysmal atrial fibrillation; Z79.899 Other long term (current) drug therapy
CPT/HCPCS: 36415; 71046; 80061; 80076; 84443

== ENCOUNTER → 2023-05-24 | Outpatient (CLI) | payer MEDICARE, OTHER, SELFPAY ==
--- NOTE | 2023-05-24 14:35 | RAD_ITS ---
STUDY: X-RAY CHEST REASON FOR EXAM: Female, 83 years old. Amiodarone TECHNIQUE: Frontal and lateral views of the chest. COMPARISON: 10/16/2021. FINDINGS: There is hyperinflation of the lungs consistent with chronic obstructive lung disease (COPD). No infiltrates or effusions. There is no demonstrated pleural abnormality. There is borderline cardiomegaly. Normal mediastinum and avtar. Normal visualized pulmonary arteries. Normal visualized aortic arch and descending thoracic aorta. There are diffuse degenerative changes of the visualized thoracic spine. Stable multiple partial compression fractures, most pronounced at T7. Normal visualized ribs, clavicles, and shoulders. There is no demonstrated abnormality of the visualized soft tissue structures of the upper abdomen. RAD/Chest PA and Lateral IMPRESSION: There are findings consistent with COPD. There is no evidence of acute chest disease. Electronically Signed: Alvarado Shea MD at 17:58 EDT ,
[2023-05-24 16:14] LABS: ALB/GLOB Ratio 0.9 RATIO (0.9-2.4); AST(SGOT) 17 U/L (15-37); Alanine Aminotransfer ALT/SGPT 25 U/L (13-56); Albumin, Serum 3.6 g/dL (3.2-5.0); Alkaline Phosphatase 138 U/L (45-117); Anion Gap 6 (5-15); BUN 42 mg/dL (7-18); Calcium,Total 9.1 mg/dL (8.5-10.1); Chloride 108 mmol/L (98-107); Cholesterol 220 mg/dL (200); Creatinine, Serum 2.21 mg/dL (0.55-1.02); EST Glomerular Filtration Rate 23 mL/min (>60); Est Glom Filt Rate - Afr Amer 27 mL/min (>60); Globulin 3.9 g/dL (2.2-4.2); Glucose 128 mg/dL (74-106); High Density Lipoprotein 71 mg/dL; Potassium 4.7 mmol/L (3.5-5.1); Protein, Total 7.5 g/dL (6.4-8.2); Sodium Level 141 mmol/L (136-145); Thyroid Stim Hormone (TSH) 1.97 uIU/mL (0.358-3.74); Triglycerides 134 mg/dL; Very Low Density Lipoprotein 27 mg/dL (5-40)
== END | disposition home or self-care (01) ==
LOC: RAD 14:32
PROVIDERS: PCP Family Medicine; Referring Provider Nurse Practitioner Gerontology; Visit Provider Nurse Practitioner Gerontology
DX: Z79.899 Other long term (current) drug therapy (principal)
CPT/HCPCS: 36415; 71046; 80053; 80061; 84443

== ENCOUNTER → 2023-06-08 | Outpatient (CLI) | payer MEDICARE, OTHER, SELFPAY ==
[2023-06-08 12:34] LABS: Anion Gap 5 (5-15); BUN 36 mg/dL (7-18); BUN/Creat Ratio 23.4 RATIO (10-20); Calcium,Total 8.9 mg/dL (8.5-10.1); Chloride 111 mmol/L (98-107); Creatinine, Serum 1.54 mg/dL (0.55-1.02); EST Glomerular Filtration Rate 34 mL/min (>60); Est Glom Filt Rate - Afr Amer 41 mL/min (>60); Glucose 141 mg/dL (74-106); Potassium 5.3 mmol/L (3.5-5.1); Sodium Level 142 mmol/L (136-145)
== END | disposition home or self-care (01) ==
LOC: LAB 10:17
PROVIDERS: PCP Family Medicine; Referring Provider Nurse Practitioner Gerontology; Visit Provider Nurse Practitioner Gerontology
DX: I10 Essential (primary) hypertension (principal)
CPT/HCPCS: 36415; 80048

== ENCOUNTER → 2023-09-05 | Outpatient (CLI) | payer MEDICARE, OTHER, SELFPAY ==
--- NOTE | 2023-09-06 05:43 | PFTCOMP_ITS ---
COMPLETE PULMONARY FUNCTION TEST INTERPRETATION Brief HPI: Patient is an 83-year-old female, currently under the care of Nereida Alejandre, who presents to [facility] for complete pulmonary function tests secondary to diagnosis of long-term amiodarone. Respiratory therapist reports good effort and reproducible results. Interpretation: Forced expiration spirometry shows a mild large airways obstructive ventilatory defect with an FEV1 of 75% predicted. There is no significant bronchodilator r esponse by strict ATS criteria. Spirograms are of good quality and plateau slowly, indicating slowly emptying areas of the lungs. The respiratory flow volume loop shows decreased expiratory flow rates at all lung volumes consistent with airway obstruction. Lung volumes by body plethysmography show a normal total lung capacity at 5.19 L, 109% predicted. FRC and RV are elevated out of proportion. Lung volume measurements are consistent with hyperinflation and air-trapping. Diffusion capacity by carbon monoxide is normal at 75% predicted. The airway resistance is normal. Compared to previous pulmonary function tests from 12/13/2017, there has been a mild decrease in spirometric values with continued air trapping. Impression: Irreversible mild large airways obstructive ventilatory defect, resulting in air trapping with hyperinflation, and a symmetric reduction diffusing capacity
== END | disposition home or self-care (01) ==
LOC: PSN 13:02
PROVIDERS: PCP Family Medicine; Referring Provider Nurse Practitioner Gerontology; Visit Provider Nurse Practitioner Gerontology
DX: Z79.899 Other long term (current) drug therapy (principal)
CPT/HCPCS: 94060; 94726; 94729

== ENCOUNTER → 2023-09-14 | Outpatient (CLI) | payer MEDICARE, OTHER, SELFPAY ==
[2023-09-14 10:34] LABS: Absolute Lymphocyte Count 1.61 X10^3/uL (0.83-4.51); Absolute Neutrophil Count 5.2 X10^3/uL (2.0-7.7); Basophil# 0.08 X10^3/uL; Basophil% 1.1 % (0-1); Eosinophil# 0.21 X10^3/uL; Eosinophils% 2.8 % (0-5); Hematocrit 38.2 % (37-47); Hemoglobin 11.5 g/dL (12.0-15.0); Lymphocyte # 1.61 X10^3/ul (0.83-4.51); Lymphocyte % 21.2 % (19-41); Mean Corp Hgb Conc 30.1 g/dL (32-36); Mean Corpuscular Hgb 24.5 pg (27.0-32.0); Mean Corpuscular Volume 81.4 fL (81-99); Mean Platelet Vol. 10.2 fl (6.2-12.0); Monocyte# 0.49 X10^3/uL; Monocyte% 6.4 % (0-10); NRBC Flagged by Analyzer 0 % (0-5); Neutrophil # 5.19 X10^3/uL (2.7-7.7); Neutrophil % 68.2 % (47-70); Platelet Count 361 K/mm3 (150-450); RBC Distribution Width CV 17.4 % (11.6-14.6); RBC Distribution Width SD 51.4 fl (35.1-43.9); Red Blood Count 4.69 M/mm3 (4.2-5.4); White Blood Count 7.6 K/mm3 (4.4-11.0)
[2023-09-14 11:24] LABS: Vitamin B12 372 pg/mL (211-911); Vitamin D,25 Hydroxy 22.5 ng/mL
[2023-09-14 11:38] LABS: Hemoglobin A1c 6.2 % (3.8-5.6)
[2023-09-14 12:02] LABS: ALB/GLOB Ratio 1.1 RATIO (0.9-2.4); AST(SGOT) 21 U/L (15-37); Alanine Aminotransfer ALT/SGPT 30 U/L (13-56); Albumin, Serum 3.8 g/dL (3.2-5.0); Alkaline Phosphatase 123 U/L (45-117); Anion Gap 6 (5-15); BUN 29 mg/dL (7-18); BUN/Creat Ratio 16.1 RATIO (10-20); Calcium,Total 9.4 mg/dL (8.5-10.1); Chloride 107 mmol/L (98-107); Cholesterol 167 mg/dL (200); EST Glomerular Filtration Rate 29 mL/min (>60); Est Glom Filt Rate - Afr Amer 35 mL/min (>60); Ferritin 11 ng/mL (8-252); Free T3 1.8 pg/mL (2.18-3.98); Globulin 3.6 g/dL (2.2-4.2); Glucose 157 mg/dL (74-106); High Density Lipoprotein 81 mg/dL; Iron 33 ug/dL (50-170); Potassium 3.9 mmol/L (3.5-5.1); Protein, Total 7.4 g/dL (6.4-8.2); Sodium Level 138 mmol/L (136-145); T4 Free Direct 1.45 ng/dL (0.76-1.46); Thyroid Stim Hormone (TSH) 1.48 uIU/mL (0.358-3.74); Triglycerides 90 mg/dL; Troponin-I HS 7 pg/mL (3.0-54.0); Very Low Density Lipoprotein 18 mg/dL (5-40)
[2023-09-21 11:04] LABS: Microalbumin,Random Urine < 5.0 mg/L (NO RANGE EST.)
[2023-09-21 14:09] LABS: ACHR Recep AB, Blocking 17 % (0-25)
== END | disposition home or self-care (01) ==
LOC: LAB 09:21
PROVIDERS: PCP Family Medicine; Referring Provider Family Medicine; Visit Provider Family Medicine
DX: E03.9 Hypothyroidism, unspecified (principal); E11.9 Type 2 diabetes mellitus without complications; R13.10 Dysphagia, unspecified; H02.409 Unspecified ptosis of unspecified eyelid; R53.1 Weakness; H53.2 Diplopia; E78.5 Hyperlipidemia, unspecified; E55.9 Vitamin D deficiency, unspecified; R53.83 Other fatigue; D50.9 Iron deficiency anemia, unspecified; E53.8 Deficiency of other specified B group vitamins
CPT/HCPCS: 36415; 80053; 80061; 82043; 82306; 82570; 82607; 82728; 83036; 83519; 83540; 84439; 84443; 84481; 84484; 85025; 87086; 87088

== ENCOUNTER 2023-10-31 15:54 | Emergency (ER) | payer MEDICARE, OTHER, SELFPAY ==
[2023-10-31 15:56] VITALS: BP 126/43; PULSE 57; RESP 18; TEMP 36.4; O2SAT 95; BMI 34.2
--- NOTE | 2023-10-31 16:05 | VDLE_ITS ---
Reason For Study: Swelling LLE RIGHT LEFT CFV is compressible, spontaneous, phasic, CFV is compressible, spontaneous, phasic, competent and demonstrates normal competent, and demonstrates normal augmentation. augmentation. Procedure FV is compressible, spontaneous, phasic, This is a venous duplex using B-mode, color competent and demonstrates normal flow and spectral Doppler. augmentation. Exam performed portable in ED. Lt PopV, Lt T/P Trunk, Lt PTV, and Lt PeroV A preliminary report was called and/or faxed are DILATED and NON COMPRESSIBLE consistent to Dr. Corral. with acute DVT Lt GSV in the calf is DILATED and NON COMPRESSIBLE consistent with acute SVT. VL/Venous Duplex US, Unilateral Interpretation Summary Acute deep venous thrombosis left popliteal, tibioperoneal trunk, posterior tib ial, and peroneal veins Superficial thrombophlebitis left great saphenous vein of the calf. Normal flow patterns right common femoral vein Ordering Physician: Mandy Corral Referring Physician: Hortensia Balbuena Performed By: Amparo Nunez, [place], RVT
--- NOTE | 2023-10-31 16:06 | EX.ED.DYSGE1 ---
HPI History of Present Illness Chief Complaint: Lower Extremity Injury Informant: patient Onset/Context/Timing Onset: Days Context: Gradual Onset Narrative Narrative: Patient presents secondary to swelling and redness to her left lower extremity. She states that she sleeps on her side when she woke up the morning and turned to her back she noted her left leg was painful and slightly swollen. She denies any obvious injury. She does have a history of A-fib and DVT and is currently on Eliquis. She denies missing any doses. She has had no fever or chills. 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 Depression Essential hypertension Family history of CVA History of DVT (deep vein thrombosis) Hyperlipidemia Hypertension Long-term use of high-risk medication Menieres disease Meningioma Nonrheumatic mitral (valve) prolapse On amiodarone therapy Osteoarthritis Palpitations Paroxysmal atrial fibrillation Type 2 diabetes mellitus Home Medications mirabegron 50 mg tablet,extended release 24 hr 50 mg PO DAILY 07/11/16 [History Last Taken 07/01/21] venlafaxine 75 mg tablet 75 mg PO BID 07/11/16 [History Last Taken 07/01/21] furosemide 40 mg tablet 40 mg PO DAILY #30 tabs 04/12/18 [Rx Last Taken 07/01/21] meclizine 25 mg tablet 12.5 mg PO TID PRN PRN Dizziness 05/16/19 [History Last Taken Unknown] atorvastatin 40 mg tablet 40 mg PO QHS 05/13/21 [History Last Taken 06/30/21] famotidine 20 mg tablet 20 mg PO BID GERD 07/01/21 [History Last Taken 07/01/21] lisinopril 2.5 mg tablet 2.5 mg PO DAILY BP 07/01/21 [History Last Taken 07/01/21] latanoprost 0.005 % eye drops 1 drp ophthalmic (eye) DAILY 02/09/22 [History Last Taken Unknown] donepezil 10 mg tablet 10 mg PO QHS 06/09/22 [History Last Taken Unknown] metformin 500 mg tablet 500 mg PO BID 06/09/22 [History Last Taken Unknown] amiodarone 200 mg tablet 100 mg (1/2 x 200 mg) PO DAILY #90 tabs 11/08/22 [Rx Last Taken Unknown] apixaban 2.5 mg tablet (Eliquis) 2.5 mg PO BID BLOOD THINNER 05/24/23 [History Last Taken Unknown] azelastine 137 mcg (0.1 %) nasal spray aerosol 2 spray intranasal BID #30 mL 09/05/23 [Rx Last Taken Unknown] fluticasone propionate 50 mcg/actuation nasal spray,suspension 2 spray intranasal DAILY #16 grams 09/05/23 [Rx Last Taken Unknown] diltiazem HCl 180 mg capsule,extended release 24 hr 180 mg PO BID #180 caps 09/08/23 [Rx Last Taken Unknown] Allergy/AdvReac Type Severity Reaction Status Date / Time benzonatate Allergy Hives Verified 10/31/23 15:56 [From Ruthann Vazquez] cat dander Allergy Unknown Verified 10/31/23 15:56 Family History Father CAD (coronary artery disease) CHF (congestive heart failure) History of DVT (deep vein thrombosis) Mother Diabetes Grandfather CAD (coronary artery disease) History of DVT (deep vein thrombosis) Grandmother CVA (cerebral vascular accident) Surgical History History of cataract extraction History of tonsillectomy and adenoidectomy History of tubal ligation Social History Smoking Status: Never smoker second hand exposure: No alcohol intake: never substance use type: does not use caffeine: No what type of physical activity do you participate in: none ROS ROS ED Constitutional Constitutional ED: Denies chills or fever(s) Eyes Eyes: Denies discharge from eye(s) ENT ENT ED: Denies discharge from eye(s), rhinorrhea or sore throat Cardiovascular Cardiovascular: Denies chest pain or palpitations Respiratory/Chest Respiratory/Chest: Denies cough or dyspnea Gastrointestinal Gastrointestinal: Denies abdominal pain, nausea or vomiting Musculoskeletal Musculoskeletal: Reports extremity pain; Denies back pain Integumentary Reports rash; Denies Abrasions Neurologic Neurologic: Denies headache(s) or weakness Psychiatric Psychiatric: Denies anxiety or depression Allergic/Immunologic Allergic/Immunologic ED: Denies lip swelling or urticaria EXAM Physical Exam Const Vital Signs: 10/31/23 15:56 Temperature 97.5 F L Temperature Source Temporal Pulse Rate 57 L Respiratory Rate 18 Blood Pressure 126/43 H Blood Pressure Mean 70 Pulse Ox 95 Oxygen Delivery Method Room Air Positive well nourished and well developed General Appearance ED: well developed HEENT Reports moist mucous membranes Eyes EOMs intact bilaterally Neck no lymphadenopathy Chest Wall inspection of chest normal and palpation of chest normal Resp normal respiratory effort and clear to auscultation bilaterally Cardio regular rate and regular rhythm GI non-tender Palpation: soft Extremity Extremity Narrative: 3+ edema to the left lower extremity distal to the knee. Erythema noted over the distal portion of the lower leg. Few superficial scratches are noted. No blisters or open wounds. Superficial scratches noted to the right lower extremity without evidence of redness or swelling. Neuro oriented x3 MDM MDM MDM Narrative Medical decision making narrative: Patient is concerned for possible DVT despite taking her Eliquis. Venous ultrasound is ordered. Treatment and Re-Evaluation :: Venous ultrasound is positive for clot in the popliteal vein and distal. Test results are discussed with the patient. She initially tells me that she has been compliant with her apixaban and has not missed any doses or been taken off of it recently. I paged her PCP to discuss this, but then was notified by nursing staff that patient now states she is just recently been putting her medication in a pill organizer for the past 2 days or so. Prior to this she thinks that she may have missed doses of her Eliquis. I did speak with her primary care physician. Patient is to remain compliant with her Eliquis twice a day and will have a repeat ultrasound of her leg obtained in a few days. Patient is to call the office tomorrow to have this scheduled. Return instructions given. Discharge Plan Triage Chief Complaint: Lower Extremity Injury ED Provider: Mandy Corral Dx/Rx/DC Orders Clinical Impression: DVT (deep venous thrombosis) Instructions: ED Deep Vein Thrombosis (DVT) Prescriptions: No Action atorvastatin 40 mg tablet 40 mg PO QHS latanoprost 0.005 % drops 1 drp ophthalmic (eye) DAILY Patient Comments: place 1 drop into both eyes once daily metformin 500 mg tablet 500 mg PO BID donepezil 10 mg tablet 10 mg PO QHS fluticasone propionate 50 mcg/actuation spray,suspension 2 spray INTRANASAL DAILY Qty: 16 11RF azelastine 137 mcg (0.1 %) aerosol,spray 2 spray INTRANASAL BID Qty: 30 11RF Rx Instructions: administer into each nostril venlafaxine 75 MG tablet 75 mg PO BID mirabegron 50 MG tablet extended release 24 hr 50 mg PO DAILY meclizine 25 mg tablet 12.5 mg PO TID PRN PRN (Reason: Dizziness) famotidine 20 mg tablet 20 mg PO BID lisinopril 2.5 mg tablet 2.5 mg PO DAILY Eliquis 2.5 mg tablet 2.5 mg PO BID furosemide 40 mg tablet 40 mg PO DAILY Qty: 30 11RF amiodarone 200 mg tablet 100 mg PO DAILY Qty: 90 3RF diltiazem HCl 180 mg capsule,extended release 24hr 180 mg PO BID Qty: 180 3RF Primary Care Provider: Hortensia Balbuena Referrals: Hortensia Balbuena DO [Primary Care Provider] - 3-5 Days Activity Restrictions/Additional Instructions: Please call your doctors office tomorrow. Let them know that you have a blood clot in your leg and need to be scheduled for a repeat ultrasound in a couple days. Please be sure to take your Eliquis as scheduled twice a day. Disposition Disposition: Home, Self Care
[2023-10-31 19:05] VITALS: BP 147/72; PULSE 78; RESP 16; TEMP 36.6; O2SAT 98
== END 2023-10-31 19:06 | disposition home or self-care (01) ==
PROVIDERS: Emergency Provider Emergency Medicine; PCP Family Medicine; Visit Provider Emergency Medicine
DX: I82.432 Acute embolism and thrombosis of left popliteal vein (principal); I82.442 Acute embolism and thrombosis of left tibial vein; I82.452 Acute embolism and thrombosis of left peroneal vein; I48.0 Paroxysmal atrial fibrillation; E11.9 Type 2 diabetes mellitus without complications; I25.10 Atherosclerotic heart disease of native coronary artery without angina pectoris; I10 Essential (primary) hypertension; E78.5 Hyperlipidemia, unspecified; Z79.01 Long term (current) use of anticoagulants; Z79.84 Long term (current) use of oral hypoglycemic drugs; Z79.899 Other long term (current) drug therapy
CPT/HCPCS: 93971; 99282; A4216

== ENCOUNTER → 2023-11-03 | Outpatient (CLI) | payer MEDICARE, OTHER, SELFPAY ==
--- NOTE | 2023-11-03 09:48 | VDLE_ITS ---
Reason For Study: DVT RIGHT LEFT CFV is compressible, spontaneous, phasic, CFV is compressible, spontaneous, phasic, competent and demonstrates normal competent, and demonstrates normal augmentation. augmentation. Procedure FV is compressible, spontaneous, phasic, This is a venous duplex using B-mode, color competent and demonstrates normal flow and spectral Doppler. augmentation. Exam performed in department. Lt PopV, Lt T/P Trunk, Lt PTV, and Lt PeroV The exam was diagnostic. are DILATED and NON COMPRESSIBLE consistent with acute DVT Lt GSV in the calf is DILATED and NON COMPRESSIBLE consistent with acute SVT. No significant change from previous study done 10/31/23. VL/Venous Duplex US, Unilateral Interpretation Summary Deep venous thrombosis left popliteal, tibioperoneal trunk, posterior tibial, a nd peroneal veins. Superficial thrombophlebitis left great saphenous vein. Normal flow patterns right common femoral vein No change from the previous examination of October 31, 2023 Ordering Physician: Hortensia Balbuena Referring Physician: Hortensia Balbuena Performed By: Bryon Castellano RVT
== END | disposition home or self-care (01) ==
LOC: CVS 09:46
PROVIDERS: PCP Family Medicine; Referring Provider Family Medicine; Visit Provider Family Medicine
DX: I82.432 Acute embolism and thrombosis of left popliteal vein (principal); I82.442 Acute embolism and thrombosis of left tibial vein; I82.452 Acute embolism and thrombosis of left peroneal vein; Z79.01 Long term (current) use of anticoagulants
CPT/HCPCS: 93971

== ENCOUNTER → 2023-11-10 | Outpatient (CLI) | payer MEDICARE, OTHER, SELFPAY ==
--- NOTE | 2023-11-10 10:52 | VDLE_ITS ---
Reason For Study: HX LLE DVT RIGHT LEFT CFV is compressible, spontaneous, phasic, CFV is compressible, spontaneous, phasic, competent and demonstrates normal competent, and demonstrates normal augmentation. augmentation. Procedure FV is compressible, spontaneous, phasic, This is a venous duplex using B-mode, color competent and demonstrates normal flow and spectral Doppler. augmentation. Exam performed in department. Acute deep vein thrombosis is noted in the The exam was diagnostic. POP V. It is dilated and NONCOMPRESSIBLE. Acute deep vein thrombosis is noted in the T/P Trunk. It is dilated and NONCOMPRESSIBLE. Acute deep vein thrombosis is noted in the PTV. It is dilated and NONCOMPRESSIBLE. LT PerV is compressible. Lt GSV in the calf is DILATED and NON COMPRESSIBLE consistent with acute SVT. GSV from Distal thigh to SFJ is compressible. Compare to study on 11/03/2023. VL/Venous Duplex US, Unilateral Interpretation Summary Acute deep venous thrombosis left popliteal, tibioperoneal trunk, posterior tib ial vein. The deep venous thrombosis within the left popliteal vein appears partially, mo bile Superficial thrombophlebitis left great saphenous vein of the calf. Normal flow patterns right common femoral vein Most recent exam of November 03, 2023 also demonstrated the above extensive deep v enous thrombosis. Ordering Physician: Hortensia Balbuena Referring Physician: Hortensia Balbuena Performed By: Oskar Huynh RVT and Student
== END | disposition home or self-care (01) ==
PROVIDERS: PCP Family Medicine; Referring Provider Family Medicine; Visit Provider Family Medicine
DX: I82.432 Acute embolism and thrombosis of left popliteal vein (principal); Z79.01 Long term (current) use of anticoagulants
CPT/HCPCS: 93971

== ENCOUNTER → 2023-12-08 | Outpatient (CLI) | payer MEDICARE, OTHER, SELFPAY ==
[2023-12-08 16:57] LABS: Basophil# 0.08 X10^3/uL; Basophil% 0.8 % (0-1); Eosinophil# 0.15 X10^3/uL; Eosinophils% 1.5 % (0-5); Hematocrit 32.8 % (37-47); Hemoglobin 9.8 g/dL (12.0-15.0); Mean Corp Hgb Conc 29.9 g/dL (32-36); Mean Corpuscular Hgb 24.6 pg (27.0-32.0); Mean Corpuscular Volume 82.4 fL (81-99); Mean Platelet Vol. 9.8 fl (6.2-12.0); Monocyte# 0.73 X10^3/uL; Monocyte% 7.3 % (0-10); NRBC Flagged by Analyzer 0 % (0-5); Neutrophil # 6.99 X10^3/uL (2.7-7.7); Platelet Count 395 K/mm3 (150-450); RBC Distribution Width CV 18.8 % (11.6-14.6); RBC Distribution Width SD 56.1 fl (35.1-43.9); Red Blood Count 3.98 M/mm3 (4.2-5.4)
[2023-12-08 17:33] LABS: Anion Gap 5 (5-15); BUN 35 mg/dL (7-18); BUN/Creat Ratio 17.4 RATIO (10-20); Calcium,Total 8.9 mg/dL (8.5-10.1); Chloride 111 mmol/L (98-107); Creatinine, Serum 2.01 mg/dL (0.55-1.02); EST Glomerular Filtration Rate 25 mL/min (>60); Est Glom Filt Rate - Afr Amer 30 mL/min (>60); Glucose 119 mg/dL (74-106); Potassium 3.6 mmol/L (3.5-5.1); Sodium Level 141 mmol/L (136-145); Thyroid Stim Hormone (TSH) 0.66 uIU/mL (0.358-3.74)
== END | disposition home or self-care (01) ==
LOC: LAB 16:02
PROVIDERS: PCP Family Medicine; Referring Provider Physician Assistant Medical; Visit Provider Physician Assistant Medical
DX: R53.83 Other fatigue (principal); I25.10 Atherosclerotic heart disease of native coronary artery without angina pectoris
CPT/HCPCS: 36415; 80048; 84443; 85025

== ENCOUNTER 2023-12-19 20:11 | Inpatient (IN) | payer MEDICARE, OTHER, SELFPAY ==
[2023-12-19 20:12] VITALS: BP 144/67; PULSE 65; RESP 18; TEMP 36.4; O2SAT 98; BMI 30.9
--- NOTE | 2023-12-19 20:22 | CT_ITS ---
STUDY: CT BRAIN WITHOUT CONTRAST REASON FOR EXAM: Female, 83 years old. fall RADIATION DOSAGE (If Supplied By Facility): CTDIvol = ( 44.99 ) mGy, DLP = ( 897.35 ) mGycm TECHNIQUE: Transaxial CT imaging of the brain was performed without administration of intravenous contrast material. Individualized dose optimization techniques were used for this CT. COMPARISON: February 13, 2018. Report only FINDINGS: Normal soft tissue structures. Normal calvarium. Normal size ventricles and extra-axial spaces for the patient''s age. Normal white matter tracts of the cerebral hemispheres. Normal basal ganglia and thalami. Normal brainstem. Normal cerebellum. There is no intracranial hemorrhage. There are no findings of an acute ischemic infarction. Large dural-based partially calcified mass arising from the inner table of left parietal bone likely representing meningioma measuring approximately 3.1 x 3.4 cm Normal visualized paranasal sinuses. Postsurgical changes of the orbits CT/Brain/Head without Contrast IMPRESSION: Probable meningioma in the left parietal lobe. No evidence for acute hemorrhage. Electronically Signed: Armen Mauro MD at 21:19 EDT ,
--- NOTE | 2023-12-19 20:23 | EDS_ITS ---
HPI History of Present Illness Chief Complaint: Weakness Informant: patient Onset/Context/Timing Onset: Days Context: Gradual Onset Narrative Narrative: Patient presents with increasing weakness over the past week or so. She lives alone and ambulates with a walker. She states she is able to get into the bathroom and sit on the commode. When she gets up she will usually prop her head against the wall to help balance herself to pull her bridges up, but states she did not do that today. She got very shaky when she stood up and fell. She states that she hit her lower back and pelvis. 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 Depression Essential hypertension Family history of CVA History of DVT (deep vein thrombosis) Hyperlipidemia Hypertension Long-term use of high-risk medication Menieres disease Meningioma Nonrheumatic mitral (valve) prolapse On amiodarone therapy Osteoarthritis Palpitations Paroxysmal atrial fibrillation Type 2 diabetes mellitus Home Medications mirabegron 50 mg tablet,extended release 24 hr 50 mg PO DAILY 07/11/16 [History Last Taken 07/01/21] meclizine 25 mg tablet 12.5 mg PO TID PRN PRN Dizziness 05/16/19 [History Last Taken Unknown] atorvastatin 40 mg tablet 40 mg PO QHS 05/13/21 [History Last Taken 06/30/21] famotidine 20 mg tablet 20 mg PO BID GERD 07/01/21 [History Last Taken 07/01/21] lisinopril 2.5 mg tablet 2.5 mg PO DAILY BP 07/01/21 [History Last Taken 07/01/21] latanoprost 0.005 % eye drops 1 drp ophthalmic (eye) DAILY 02/09/22 [History Last Taken Unknown] donepezil 10 mg tablet 10 mg PO QHS 06/09/22 [History Last Taken Unknown] metformin 500 mg tablet 500 mg PO BID 06/09/22 [History Last Taken Unknown] apixaban 2.5 mg tablet (Eliquis) 2.5 mg PO BID BLOOD THINNER 05/24/23 [History Last Taken Unknown] azelastine 137 mcg (0.1 %) nasal spray aerosol 2 spray intranasal BID #30 mL 09/05/23 [Rx Last Taken Unknown] fluticasone propionate 50 mcg/actuation nasal spray,suspension 2 spray intranasal DAILY #16 grams 09/05/23 [Rx Last Taken Unknown] diltiazem HCl 180 mg capsule,extended release 24 hr 180 mg PO BID #180 caps 09/08/23 [Rx Last Taken Unknown] amiodarone 200 mg tablet 100 mg (1/2 x 200 mg) PO DAILY #90 tabs 12/01/23 [Rx Last Taken Unknown] citalopram 10 mg tablet (Celexa) 10 mg PO DAILY 12/16/23 [History Last Taken Unknown] Allergy/AdvReac Type Severity Reaction Status Date / Time benzonatate Allergy Hives Verified 12/19/23 20:14 [From Ruthann Vazquez] cat dander Allergy Unknown Verified 12/19/23 20:14 Family History Father CAD (coronary artery disease) CHF (congestive heart failure) History of DVT (deep vein thrombosis) Mother Diabetes Grandfather CAD (coronary artery disease) History of DVT (deep vein thrombosis) Grandmother CVA (cerebral vascular accident) Surgical History History of cataract extraction History of tonsillectomy and adenoidectomy History of tubal ligation Social History Smoking Status: Never smoker second hand exposure: No alcohol intake: never substance use type: does not use caffeine: No what type of physical activity do you participate in: none ROS ROS ED Constitutional Constitutional ED: Denies chills or fever(s) Eyes Eyes: Denies discharge from eye(s) ENT ENT ED: Denies discharge from eye(s), rhinorrhea or sore throat Cardiovascular Cardiovascular: Denies chest pain or palpitations Respiratory/Chest Respiratory/Chest: Denies cough or dyspnea Gastrointestinal Gastrointestinal: Denies abdominal pain, nausea or vomiting Genitourinary Genitourinary ED: Denies dysuria Musculoskeletal Musculoskeletal: Reports back pain; Denies extremity pain Integumentary Denies Abrasions or rash Neurologic Neurologic: Reports weakness; Denies headache(s) Psychiatric Psychiatric: Denies anxiety or depression Allergic/Immunologic Allergic/Immunologic ED: Denies lip swelling or urticaria EXAM Physical Exam Const Vital Signs: 12/19/23 20:12 12/19/23 20:14 Temperature 97.6 F L Temperature Source Temporal Pulse Rate 65 Respiratory Rate 18 Respiratory Effort Normal Respiratory Pattern Normal Blood Pressure 144/67 H Blood Pressure Mean 92 Pulse Ox 98 Oxygen Delivery Method Room Air Positive well nourished and well developed General Appearance ED: well developed HEENT Reports moist mucous membranes Eyes EOMs intact bilaterally Neck Neck Narrative: No C-spine tenderness. Chest Wall inspection of chest normal and palpation of chest normal Resp normal respiratory effort and clear to auscultation bilaterally Cardio regular rate and regular rhythm GI non-tender Palpation: soft Extremity Extremity Narrative: 2-3+ bilateral lower extremity edema. No pain to the hips or knees. Neuro oriented x3 Neuro Narrative: No focal neurologic deficit. Psych mental status grossly normal Skin no rashes or lesions noted MDM MDM MDM Narrative Medical decision making narrative: CT scan of the head obtained given her fall and on anticoagulant. Pelvis x-ray obtained as patient is complaining of pain over her buttocks from her fall. Labwork obtained to evaluate for leukocytosis, anemia, and electrolyte derangement. History & Record Review Discussion w/independent historian: Patient Lab Data Attestation: I reviewed the patient's lab results. Labs: Laboratory Results - last 24 hr 12/19/23 12/19/23 20:26 21:06 WBC 8.6 RBC 3.82 L Hgb 9.6 L Hct 31.3 L MCV 81.9 MCH 25.1 L MCHC 30.7 L RDW Std Deviation 54.5 H RDW Coeff of Jacobo 18.4 H Plt Count 344 MPV 10.7 Immature Gran % (Auto) 0.300 Neut % (Auto) 51.7 Lymph % (Auto) 35.2 [place] % (Auto) 8.9 Eos % (Auto) 3.0 Baso % (Auto) 0.9 Absolute Neuts (auto) 4.5 Absolute Lymphs (auto) 3.04 Nucleated RBC % 0 Sodium 138 Potassium 4.2 Chloride 109 H Carbon Dioxide 23.0 Anion Gap 6 BUN 34 H Creatinine 2.04 H Estim Creat Clear Calc 20.82 Est GFR (MDRD) Af Amer 30 L Est GFR (MDRD) Non-Af 25 L BUN/Creatinine Ratio 16.7 Glucose 124 H Calcium 8.8 Urine Color Yellow Urine Clarity Sl. Cloudy Urine pH 5.0 Ur Specific [place] 1.015 Urine Protein 30 H Urine Glucose (UA) Normal Urine Ketones Negative Urine Occult Blood 25 H Urine Nitrite Negative Urine Bilirubin Negative Urine Urobilinogen Normal Ur Leukocyte Esterase 500 H Urine RBC 0-5 SEEN Urine WBC 25-50 SEEN Ur Squamous Epith Cells 0-5 SEEN Urine Bacteria 2+ Urine Mucus RARE Radiography Diagnostic Testing: Clinical Impression(s) from Imaging Studies Brain CT 12/19/23 20:22 IMPRESSION: Probable meningioma in the left parietal lobe. No evidence for acute hemorrhage. Electronically Signed: Armen Mauro MD at 21:19 EDT , Pelvis X-Ray 12/19/23 20:45 IMPRESSION: No evidence for acute hip or pelvic fracture Electronically Signed: Armen Mauro MD at 21:20 EDT , Treatment and Re-Evaluation :: CBC was normal white count 8.6 with normal differential. Hemoglobin is 9.6. This is consistent with her blood counts from earlier this month. Chemistry studies reveal a BUN of 34 and a creatinine of 2.04. Glucose is 124. Renal function is at baseline. Urinalysis reveals 2+ bacteria with 25-50 white cells and 500 leukocyte esterase. Urine culture has been sent and patient given a dose of IV Rocephin. CT scan of the head reveals meningioma in the left parietal lobe. No evidence of acute hemorrhage. Pelvis x-ray per my interpretation reveals no evidence of fracture. Radiology interpretation r eviewed and agrees. Test results are discussed with patient. Family is now at bedside. Patient does live alone and is having trouble getting around secondary to leg weakness. I think this is likely secondary to her acute UTI. I will discuss with hospitalist for admission overnight and evaluation by physical therapy tomorrow. Patient and family are in agreement. Discharge Plan Triage Chief Complaint: Weakness ED Provider: Mandy Corral Dx/Rx/DC Orders Clinical Impression: UTI (urinary tract infection), Weakness, Fall Prescriptions: No Action atorvastatin 40 mg tablet 40 mg PO QHS latanoprost 0.005 % drops 1 drp ophthalmic (eye) DAILY Patient Comments: place 1 drop into both eyes once daily metformin 500 mg tablet 500 mg PO BID donepezil 10 mg tablet 10 mg PO QHS citalopram [Celexa] 10 mg tablet 10 mg PO DAILY fluticasone propionate 50 mcg/actuation spray,suspension 2 spray INTRANASAL DAILY Qty: 16 11RF azelastine 137 mcg (0.1 %) aerosol,spray 2 spray INTRANASAL BID Qty: 30 11RF Rx Instructions: administer into each nostril mirabegron 50 MG tablet extended release 24 hr 50 mg PO DAILY meclizine 25 mg tablet 12.5 mg PO TID PRN PRN (Reason: Dizziness) famotidine 20 mg tablet 20 mg PO BID lisinopril 2.5 mg tablet 2.5 mg PO DAILY Eliquis 2.5 mg tablet 2.5 mg PO BID diltiazem HCl 180 mg capsule,extended release 24hr 180 mg PO BID Qty: 180 3RF amiodarone 200 mg tablet 100 mg PO DAILY Qty: 90 3RF Primary Care Provider: Hortensia Balbuena Referrals: Hortensia Balbuena DO [Primary Care Provider] - Disposition Disposition: Acute Care Hospital [facility]
--- NOTE | 2023-12-19 20:45 | RAD_ITS ---
STUDY: X-RAY - PELVIS REASON FOR EXAM: Female, 83 years old. fall TECHNIQUE: One view of the pelvis was obtained. COMPARISON: None. FINDINGS: Postsurgical changes in the pelvis likely due to tubal ligation. Normal visualized soft tissue structures. Normal bilateral iliac wings, sacroiliac joints and visualized sacrum. Normal visualized bilateral superior and inferior pubic rami. Normal pubic symphysis. Normal ischial tuberosities. Normal visualized right femoral head. Normal right acetabulum. Normal right hip joint. Normal visualized left femoral head. Normal left acetabulum. Normal left hip joint. RAD/Pelvis 1 or 2 Views IMPRESSION: No evidence for acute hip or pelvic fracture Electronically Signed: Armen Mauro MD at 21:20 EDT ,
[2023-12-19 20:49] LABS: Absolute Lymphocyte Count 3.04 X10^3/uL (0.83-4.51); Absolute Neutrophil Count 4.5 X10^3/uL (2.0-7.7); Basophil# 0.08 X10^3/uL; Basophil% 0.9 % (0-1); Eosinophil# 0.26 X10^3/uL; Hematocrit 31.3 % (37-47); Hemoglobin 9.6 g/dL (12.0-15.0); Lymphocyte # 3.04 X10^3/ul (0.83-4.51); Lymphocyte % 35.2 % (19-41); Mean Corp Hgb Conc 30.7 g/dL (32-36); Mean Corpuscular Hgb 25.1 pg (27.0-32.0); Mean Corpuscular Volume 81.9 fL (81-99); Mean Platelet Vol. 10.7 fl (6.2-12.0); Monocyte# 0.77 X10^3/uL; Monocyte% 8.9 % (0-10); NRBC Flagged by Analyzer 0 % (0-5); Neutrophil # 4.45 X10^3/uL (2.7-7.7); Neutrophil % 51.7 % (47-70); Platelet Count 344 K/mm3 (150-450); RBC Distribution Width CV 18.4 % (11.6-14.6); RBC Distribution Width SD 54.5 fl (35.1-43.9); Red Blood Count 3.82 M/mm3 (4.2-5.4); White Blood Count 8.6 K/mm3 (4.4-11.0)
[2023-12-19 21:03] LABS: Anion Gap 6 (5-15); BUN 34 mg/dL (7-18); BUN/Creat Ratio 16.7 RATIO (10-20); Calcium,Total 8.8 mg/dL (8.5-10.1); Chloride 109 mmol/L (98-107); Creatinine, Serum 2.04 mg/dL (0.55-1.02); EST Glomerular Filtration Rate 25 mL/min (>60); Est Glom Filt Rate - Afr Amer 30 mL/min (>60); Estimated Creatinine Clearance 20.82 ml/min; Glucose 124 mg/dL (74-106); Potassium 4.2 mmol/L (3.5-5.1); Sodium Level 138 mmol/L (136-145)
[2023-12-19 21:29] LABS: Color, Urine Yellow (Yellow); Glucose, Dipstick Normal (Normal); Ketone-Dipstick Negative (Negative); Leukocyte Esterase-Dipstick 500 /ul (Negative); Nitrite-Dipstick Negative (Negative); Occult Blood-Urine 25 /ul (Negative); Protein-Dipstick 30 mg/dl (Negative); Specific Gravity, Urine 1.015 (1.002-1.030); Urine Bilirubin Dipstick Negative (Negative); Urine Clarity Sl. Cloudy (Clear); Urine Urobilinogen Normal (Normal)
[2023-12-19 21:40] LABS: Bacteria 2+ /hpf (None Seen); Red Blood Cells-Urine 0-5 SEEN /hpf (0-5); Squamous Epithelial Cells - UA 0-5 SEEN /hpf (5-10); White Blood Cells 25-50 SEEN /hpf (0-5)
[2023-12-19 21:41] LABS: Mucous, Urine RARE /hpf (<or=2+)
[2023-12-19 22:11] VITALS: BP 139/51; PULSE 55; RESP 16; O2SAT 99
--- NOTE | 2023-12-19 22:19 | HP.PCM.HOS_ITS ---
[facility] - General General Date of Admission: 12/19/23 Date of Service: 12/19/23 Chief Complaint: Fall with Weakness in Legs. HPI Narrative RAJAT PASTRANA, is a 83 F with a past medical history of essential hypertension, hyperlipidemia, obesity; with BMI of 30.9 this admission, DM-2; of unknown control on metformin, history of DVT, paroxysmal atrial fibrillation; on Eliquis and amiodarone, history of nonrheumatic mitral valve prolapse, history of asthma, glaucoma, overactive bladder, history of M?ni?re's disease, history of BPPV; on as needed meclizine, mild dementia; on donepezil, depression, GERD and osteoarthritis who presents to [facility] ER complaining of fall due to weakness in her legs. Ms. Pastrana reports her symptoms began approximately 1 week prior to admission with a gradual-onset of increasing weakness in both of her legs. She lives alone and typically ambulates with a walker and until recently had been able to get into the bathroom and sit on the commode and get up normally without difficulty. Recently when she gets up in the bathroom she has to prop her head against the wall to help balance herself while she pull her pants up - but she did not do that today. When she stood up she became very shaky and fell and hit the lower portion of her back and pelvis with subsequent increased pain and decreased mobility. She denies associated fever, chills, nausea, vomiting, cough, shortness of breath, chest pain or shortness of breath. In the ER she was noted to have a UA positive for acute cystitis; without hematuria along with a CT scan of the head that revealed a meningioma in the Left parietal lobe with no evidence for acute hemorrhage and her pelvic x-rays revealed no evidence of acute fracture or dislocation but she was noted to have clinical evidence of generalized weakness with ambulatory dysfunction causing her family to be uneasy about her going home since she lives alone. She was then admitted to the general medical floor for ongoing care for stay that is expected to be greater than 2 midnights. [facility] Medical History (Updated 12/20/23 @ 05:[address] Matheus Freeman, DO) Depression Diabetes GERD (gastroesophageal reflux disease) Atrial fibrillation Irregular heart beat Hypertension DVT (deep venous thrombosis) On amiodarone therapy Essential hypertension Abnormal pulmonary function test Nonrheumatic mitral (valve) prolapse History of DVT (deep vein thrombosis) Menieres disease Depression Anxiety Meningioma Hyperlipidemia Atherosclerotic heart disease of [place] coronary artery without angina pectoris Palpitations Long-term use of high-risk medication Type 2 diabetes mellitus Asthma Osteoarthritis Family history of CVA Atrial ectopic tachycardia Paroxysmal atrial fibrillation Hypertension Home Medications mirabegron 50 mg tablet,extended release 24 hr 50 mg PO DAILY URINARY FREQUENCY 07/11/16 [History Last Taken 07/01/21] meclizine 25 mg tablet 12.5 mg PO TID PRN PRN Dizziness 05/16/19 [History Last Taken Unknown] atorvastatin 40 mg tablet 40 mg PO QHS 05/13/21 [History Last Taken 06/30/21] famotidine 20 mg tablet 20 mg PO BID GERD 07/01/21 [History Last Taken 07/01/21] lisinopril 2.5 mg tablet 2.5 mg PO DAILY BP 07/01/21 [History Last Taken 07/01/21] donepezil 10 mg tablet 10 mg PO QHS 06/09/22 [History Last Taken Unknown] metformin 500 mg tablet 250 mg PO BID DM 06/09/22 [History Last Taken Unknown] apixaban 2.5 mg tablet (Eliquis) 2.5 mg PO BID BLOOD THINNER 05/24/23 [History Last Taken Unknown] azelastine 137 mcg (0.1 %) nasal spray aerosol 2 spray intranasal BID #30 mL 09/05/23 [Rx Last Taken Unknown] fluticasone propionate 50 mcg/actuation nasal spray,suspension 2 spray intranasal DAILY #16 grams 09/05/23 [Rx Last Taken Unknown] diltiazem HCl 180 mg capsule,extended release 24 hr 180 mg PO BID #180 caps 09/08/23 [Rx Last Taken Unknown] amiodarone 200 mg tablet 100 mg (1/2 x 200 mg) PO DAILY #90 tabs 12/01/23 [Rx Last Taken Unknown] citalopram 10 mg tablet (Celexa) 10 mg PO DAILY 12/16/23 [History Last Taken Unknown] furosemide 40 mg tablet 40 mg PO DAILY 12/19/23 [History Last Taken Unknown] timolol maleate 0.5 % eye drops 1 drp ophthalmic (eye) BID 12/19/23 [History Last Taken Unknown] Allergy/AdvReac Type Severity Reaction Status Date / Time benzonatate (From Tessalon Allergy Hives Verified 12/19/23 20:14 [place]) cat dander Allergy Unknown Verified 12/19/23 20:14 Family History Father CAD (coronary artery disease) CHF (congestive heart failure) History of DVT (deep vein thrombosis) Mother Diabetes Grandfather CAD (coronary artery disease) History of DVT (deep vein thrombosis) Grandmother CVA (cerebral vascular accident) Surgical History History of cataract extraction History of tonsillectomy and adenoidectomy History of tubal ligation Social History Smoking Status: Never smoker second hand exposure: No alcohol intake: never substance use type: does not use caffeine: No what type of physical activity do you participate in: none ROS ROS Narrative Review of systems: General: Patient denies fever or chills. HENT: Denies headache, denies stuffy nose, denies sore throat EYES: Denies changes in vision or discharge from eyes. Resp: Denies cough, denies shortness of breath Cardiac: Denies chest pain, palpitations or heart racing. GI: Denies abdominal pain, denies changes in bowel, denies nausea or vomiting. : Denies changes in urination Extremity: Denies swelling Musculoskeletal: Patient admits to back pain since fall and feels somewhat generally weak and unwell. Neuro: Patient denies headache, paresthesias or focal neurologic deficits. Heme: Denies any bleeding or bruising Skin: Denies rashes Psychiatric: No complaints voiced related uncontrolled depression or anxiety. Endocrine: No polyuria, polydipsia or polyphagia. The rest of the 14 point ROS was negative except for positives in HPI. Vital Signs Vital Signs Vital Signs: 12/19/23 20:12 12/19/23 20:14 Temperature 97.6 F L Temperature Source Temporal Pulse Rate 65 Respiratory Rate 18 Respiratory Effort Normal Respiratory Pattern Normal Blood Pressure 144/67 H Blood Pressure Mean 92 Pulse Ox 98 Oxygen Delivery Method Room Air Weight Weight: 174 lb 9.698 oz Body Mass Index (BMI) 30.9 Results Medical Records Data Attestation: I reviewed the patient's medical records Lab / Micro Data Attestation: I reviewed the patient's lab results. 12/19/23 20:26 12/19/23 20:26 Labs: Laboratory Results - last 24 hr 12/19/23 20:26: WBC 8.6, RBC 3.82 L, Hgb 9.6 L, Hct 31.3 L, MCV 81.9, MCH 25.1 L , MCHC 30.7 L, RDW Std Deviation 54.5 H, RDW Coeff of Jacobo 18.4 H, Plt Count 344, MPV 10.7, Immature Gran % (Auto) 0.300, Neut % (Auto) 51.7, Lymph % (Auto) 35.2, [place] % (Auto) 8.9, Eos % (Auto) 3.0, Baso % (Auto) 0.9, Absolute Neuts (auto) 4.5, Absolute Lymphs (auto) 3.04, Nucleated RBC % 0, Sodium 138, Potassium 4.2, Chloride 109 H, Carbon Dioxide 23.0, Anion Gap 6, BUN 34 H, Creatinine 2.04 H, Estim Creat Clear Calc 20.82, Est GFR (MDRD) Af Amer 30 L, Est GFR (MDRD) Non-Af 25 L, BUN/Creatinine Ratio 16.7, Glucose 124 H, Calcium 8.8 12/19/23 21:06: Urine Color Yellow, Urine Clarity Sl. Cloudy, Urine pH 5.0, Ur Specific [place] 1.015, Urine Protein 30 H, Urine Glucose (UA) Normal, Urine Ketones Negative, Urine Occult Blood 25 H, Urine Nitrite Negative, Urine Bilirubin Negative, Urine Urobilinogen Normal, Ur Leukocyte Esterase 500 H, Urine RBC 0-5 SEEN, Urine WBC 25-50 SEEN, Ur Squamous Epith Cells 0-5 SEEN, Urine Bacteria 2+, Urine Mucus RARE Imaging Radiology Impression Brain CT 12/19/23 20:22 IMPRESSION: Probable meningioma in the left parietal lobe. No evidence for acute hemorrhage. Electronically Signed: Armen Mauro MD at 21:19 EDT , Pelvis X-Ray 12/19/23 20:45 IMPRESSION: No evidence for acute hip or pelvic fracture Electronically Signed: Armen Mauro MD at 21:20 EDT Reading Location ID and State: [address] [place] [address] Tel , Service support , Assessment & Plan Assessment/Plan (1) Acute cystitis without hematuria: (2) Meningioma: (3) Generalized weakness: (4) Ambulatory dysfunction: (5) Fall: QUALIFIERS: Encounter type: initial encounter Qualified Code(s): W19.XXXA - Unspecified fall, initial encounter (6) Fatigue: QUALIFIERS: Fatigue type: unspecified Qualified Code(s): R53.83 - Other fatigue (7) PAF (paroxysmal atrial fibrillation): PLAN: Plan 1. UA positive for acute cystitis; without hematuria - Admit to general medical floor. Continue IV Rocephin begun in the ER and await culture and sensitivity data. Give Tylenol as needed pain or fever. 2. CT scan of the head that revealed a meningioma in the Left parietal lobe complicating #1 - Apparently stable at this time with no signs of hemorrhage. Continue to monitor. 3. Generalized weakness with ambulatory dysfunction and recent fall arising from #1 & #2 in the setting of previously documented M?ni?re's disease and BPPV - Continue prn Meclizine and treat supportively. PT/OT and case management consult and treat on rounds in the a.m. further recommendations with help appreciated in advance. 4. Paroxysmal atrial fibrillation; on Eliquis and amiodarone adding to the pathology of #1 - #3 - If patient continues to have falls Eliquis will likely need to be stopped as the risks are likely outweigh any potential benefit. 5. Essential hypertension - Resume home regimen as previous plus give as needed IV hydralazine for systolic blood pressure greater than 160 mmHg. 6. Hyperlipidemia - Resume statin and check lipid profile this admission. 7. Obesity; with BMI of 30.9 this admission - Weight loss will be recommended. Check TSH in light of obesity and #3. 8. DM-2; of unknown control on metformin - ADA diet. Fingerstick blood sugars before every meal at bedtime plus lowest intensity sign scale insulin. Check hemoglobin A1c to objectively evaluate quality of diabetic control. Hold metformin for now and resume as outpatient if deemed appropriate. 9. History of DVT - Noted. 10. History of nonrheumatic mitral valve prolapse - Noted. Check echocardiogram to evaluate LVEF. 11. History of asthma - Stable with no evidence of flare at this time. Continue as needed nebulizers. 12. Glaucoma - Resume eyedrops as previous. 13. Overactive bladder - Continue current medication. 14. History of M?ni?re's disease - Noted. 15. Mild dementia; on donepezil - Resume donepezil as previous. 16. Depression - Current treatment to be maintained. 17. GERD - Continue Pepcid as previous. 18. Osteoarthritis - Give Tylenol as needed. 19. DVT prophylaxis - Patient is already on Eliquis for #4 which will be continued at this time. Total time: Approximately 75 minutes. Charges/Coding Visit Charges Inpatient E&M: 95800 Init Hosp L3
[2023-12-19] MEDS: Ceftriaxone 1 GM/50 ML BAG IV (22:50)
[2023-12-19 22:51] VITALS: BP 141/65; PULSE 54; PULSE 55; RESP 15; RESP 16; TEMP 36.6; O2SAT 99
[2023-12-19 23:43] VITALS: BMI 28.5
[2023-12-20] VITALS (9 sets, daily range): BP systolic 125–145; BP diastolic 46–59; PULSE 52–66; RESP 16–18; TEMP 36.4–37.3; O2SAT 93–98; BMI 28.4
[2023-12-20] MEDS: 0.9% Normal Saline (1000mL) 1,000 ML 70 ML IV ×2 (00:34→14:07)
[2023-12-20] MEDS: 0.9% Saline Lock 10 ML Syringe IV (00:34)
[2023-12-20] MEDS: Acetaminophen 325 MG Tablet 650 MG PO ×2 (06:42→20:13)
[2023-12-20 07:41] LABS: Absolute Lymphocyte Count 2.18 X10^3/uL (0.83-4.51); Absolute Neutrophil Count 4.8 X10^3/uL (2.0-7.7); Basophil# 0.07 X10^3/uL; Basophil% 0.9 % (0-1); Eosinophil# 0.29 X10^3/uL; Eosinophils% 3.6 % (0-5); Hematocrit 30.2 % (37-47); Lymphocyte # 2.18 X10^3/ul (0.83-4.51); Lymphocyte % 26.7 % (19-41); Mean Corp Hgb Conc 29.8 g/dL (32-36); Mean Corpuscular Hgb 24.3 pg (27.0-32.0); Mean Corpuscular Volume 81.6 fL (81-99); Mean Platelet Vol. 10.3 fl (6.2-12.0); Monocyte# 0.81 X10^3/uL; Monocyte% 9.9 % (0-10); NRBC Flagged by Analyzer 0 % (0-5); Neutrophil # 4.77 X10^3/uL (2.7-7.7); Neutrophil % 58.5 % (47-70); Platelet Count 317 K/mm3 (150-450); RBC Distribution Width CV 18.4 % (11.6-14.6); RBC Distribution Width SD 54.4 fl (35.1-43.9); White Blood Count 8.2 K/mm3 (4.4-11.0)
[2023-12-20 08:22] LABS: Cholesterol 122 mg/dL (200); High Density Lipoprotein 69 mg/dL; Triglycerides 82 mg/dL; Very Low Density Lipoprotein 16 mg/dL (5-40)
--- NOTE | 2023-12-20 09:15 | CASEMGMT ---
Discharge Planning A list of?SNF providers including quality and resource use data and consistent with the patient's preferred geographic region, medical needs, and insurance network was created in [employer] Guide.? This list was provided to the SW. Christen Mello Discharge Planning Asst.
[2023-12-20 09:37] LABS: ALB/GLOB Ratio 0.8 RATIO (0.9-2.4); AST(SGOT) 41 U/L (15-37); Alanine Aminotransfer ALT/SGPT 61 U/L (13-56); Albumin, Serum 2.7 g/dL (3.2-5.0); Alkaline Phosphatase 90 U/L (45-117); Anion Gap 7 (5-15); BUN 27 mg/dL (7-18); BUN/Creat Ratio 14.9 RATIO (10-20); Calcium,Total 8.6 mg/dL (8.5-10.1); Chloride 111 mmol/L (98-107); Creatinine, Serum 1.81 mg/dL (0.55-1.02); EST Glomerular Filtration Rate 28 mL/min (>60); Est Glom Filt Rate - Afr Amer 34 mL/min (>60); Estimated Creatinine Clearance 23.44 ml/min; Globulin 3.3 g/dL (2.2-4.2); Glucose 93 mg/dL (74-106); Magnesium 2.2 mg/dL (1.6-2.6); Phosphorus 2.9 mg/dL (2.5-4.9); Potassium 3.9 mmol/L (3.5-5.1); Sodium Level 141 mmol/L (136-145); Thyroid Stim Hormone (TSH) 0.94 uIU/mL (0.358-3.74)
[2023-12-20] MEDS: Menthol/Lanolin/Calamine/Znox 113 GM Tube 1 APPLIC TOPICAL ×2 (09:38→21:33)
[2023-12-20] MEDS: Ceftriaxone 1 GM/50 ML BAG IV (09:38)
[2023-12-20] MEDS: Azelastine HCl NASAL.SRY 2 SPRAY NASAL ×2 (09:39→21:33)
[2023-12-20] MEDS: Timolol 0.5% 5ML OPTH.BTL 1 DRP OPHTHALMIC ×2 (10:34→21:37)
[2023-12-20] MEDS: Citalopram 10 MG Tablet PO (10:35)
[2023-12-20] MEDS: APIXABAN 2.5 MG TABLET (WCH) PO ×2 (10:35→21:38)
[2023-12-20] MEDS: Lactobacillis Acidophilus 2 CAP PO ×2 (10:35→21:32)
[2023-12-20] MEDS: Famotidine 20 MG Tablet PO (10:35)
[2023-12-20] MEDS: Vibegron 75 MG TABLET PO (10:35)
[2023-12-20] MEDS: Amiodarone 200 MG Tablet 100 MG PO (10:35)
--- NOTE | 2023-12-20 12:17 | CASEMGMT ---
AUSTEN RAMOS Assessment Face to Face with patient for initial transition planning/care coordination assessment. AUSTEN RAMOS introduced self and role at [facility], pt voices understanding. Pt is A&Ox4 and is resting comfortably in bed and is calm. Care providers, pharmacy, and demographics verified. Admitting dx: Acute Cystitis and Fall PCP: Hortensia Balbuena Specialists: [facility] Preferred Pharmacy: [facility] [place] Insurance: [facility] A/B, AARP Prescription Benefit: Yes LNOK: Phil Padgett (SON), Lesly Camejo (KADI) Living Arrangements: Pt lives alone in a single story home without a BM with 1 step to enter ADLs/IADLs: Pt states that she was ind until recently Transportation: Pt states that she has not driven for years. Pt states that she uses [facility] Van for doctors appts. Pt also states that her kids and neighbor drive her when available DME: Working [employer] and enough supplies. Rollator. Walk in shower with GB and chair. HHC/SNF: Denies HHC history. States SNF a long time ago but could not recall the name or the reason Pt?s goal: SNF for further rehab to return to PLOF Plan: Pt states that she is interested in and would like to go to a SNF at time of DC for further rehab to return to PLOF. SW is aware and to follow for now. Juan Jose Turpin RN, CM
[2023-12-20] MEDS: Fluticasone 0.05% 1 SPRAY NASAL.SRY 2 SPRAY NASAL (14:07)
--- NOTE | 2023-12-20 14:44 | PN_ITS ---
Subjective Subjective Patient seen and examined. She complained of back pain due to her mechanical fall that resulted in her admission. She denied any fever, chills, cough, chest pain, palpitations, dizziness, nausea, vomiting or any other systems. Review of systems is otherwise negative. She has remained hemodynamically stable. Objective Data Objective Data Vital Signs: Vital Signs Temp Pulse Resp BP Pulse Ox O2 Del Method 98.5 F 66 18 130/47 H 95 Room Air 12/20/23 14:28 12/20/23 14:28 12/20/23 14:28 12/20/23 14:28 12/20/23 14:12/20/23 14:28 Oxygen Delivery Method Room Air Weight: 166 lb 10.711 oz Body Mass Index (BMI) 28.4 Intake & Output: Intake and Output for Last 24 Hours 12/18/23 12/19/23 12/20/23 23:59 23:59 23:59 Intake Total 50 / 50 963.50 / 963.50 Output Total 650 / 650 Balance 50 / 50 313.50 / 313.50 Lab / Micro Data 12/20/23 07:15 12/20/23 07:15 Labs: Laboratory Results - last 24 hr 12/19/23 20:26: WBC 8.6, RBC 3.82 L, Hgb 9.6 L, Hct 31.3 L, MCV 81.9, MCH 25.1 L , MCHC 30.7 L, RDW Std Deviation 54.5 H, RDW Coeff of Jacobo 18.4 H, Plt Count 344, MPV 10.7, Immature Gran % (Auto) 0.300, Neut % (Auto) 51.7, Lymph % (Auto) 35.2, [place] % (Auto) 8.9, Eos % (Auto) 3.0, Baso % (Auto) 0.9, Absolute Neuts (auto) 4.5, Absolute Lymphs (auto) 3.04, Nucleated RBC % 0, Sodium 138, Potassium 4.2, Chloride 109 H, Carbon Dioxide 23.0, Anion Gap 6, BUN 34 H, Creatinine 2.04 H, Estim Creat Clear Calc 20.82, Est GFR (MDRD) Af Amer 30 L, Est GFR (MDRD) Non-Af 25 L, BUN/Creatinine Ratio 16.7, Glucose 124 H, Calcium 8.8 12/19/23 21:06: Urine Color Yellow, Urine Clarity Sl. Cloudy, Urine pH 5.0, Ur Specific [place] 1.015, Urine Protein 30 H, Urine Glucose (UA) Normal, Urine Ketones Negative, Urine Occult Blood 25 H, Urine Nitrite Negative, Urine Bilirubin Negative, Urine Urobilinogen Normal, Ur Leukocyte Esterase 500 H, Urine RBC 0-5 SEEN, Urine WBC 25-50 SEEN, Ur Squamous Epith Cells 0-5 SEEN, Urine Bacteria 2+, Urine Mucus RARE 12/20/23 07:15: WBC 8.2, RBC 3.70 L, Hgb 9.0 L, Hct 30.2 L, MCV 81.6, MCH 24.3 L , MCHC 29.8 L, RDW Std Deviation 54.4 H, RDW Coeff of Jacobo 18.4 H, Plt Count 317, MPV 10.3, Immature Gran % (Auto) 0.400, Neut % (Auto) 58.5, Lymph % (Auto) 26.7, [place] % (Auto) 9.9, Eos % (Auto) 3.6, Baso % (Auto) 0.9, Absolute Neuts (auto) 4.8, Absolute Lymphs (auto) 2.18, Nucleated RBC % 0, Sodium 141, Potassium 3.9, Chloride 111 H, Carbon Dioxide 23.0, Anion Gap 7, BUN 27 H, Creatinine 1.81 H, Estim Creat Clear Calc 23.44, Est GFR (MDRD) Af Amer 34 L, Est GFR (MDRD) Non-Af 28 L, BUN/Creatinine Ratio 14.9, Glucose 93, Calcium 8.6, Phosphorus 2.9, Magnesium 2.2, Total Bilirubin 0.30, AST 41 H, ALT 61 H, Alkaline Phosphatase 90, Total Protein 6.0 L, Albumin 2.7 L, Globulin 3.3, Albumin/Globulin Ratio 0.8 L, Triglycerides 82, Cholesterol 122, LDL Cholesterol 37, VLDL Cholesterol 16, HDL Cholesterol 69, TSH 0.94 Micro: Microbiology 12/19/23 21:06 Urine, Catheterized Urine Culture - Preliminary GNR lactose gaming associate Radiography Diagnostic Testing: Radiology Impression Brain CT 12/19/23 20:22 IMPRESSION: Probable meningioma in the left parietal lobe. No evidence for acute hemorrhage. Electronically Signed: Armen Mauro MD at 21:19 EDT , Pelvis X-Ray 12/19/23 20:45 IMPRESSION: No evidence for acute hip or pelvic fracture Electronically Signed: Armen Mauro MD at 21:20 EDT , Physical Exam Const alert, oriented x3 and no apparent distress General Appearance: cooperative and well developed HEENT normocephalic, head/scalp atraumatic, moist oral mucous membranes and oropharynx normal Eyes PERRL and EOMs intact bilaterally Neck no lymphadenopathy and supple Lymph Lymphatic: no lymphadenopathy noted and no lymphedema noted Resp normal respiratory effort, normal air movement and clear to auscultation bilaterally Cardio regular rate, regular rhythm, S1 normal heart sound, S2 normal heart sound and no murmurs GI normal to inspection, nondistended, normoactive bowel sounds and soft to palpation Extremity normal capillary refill, no clubbing, cyanosis or edema and no calf tenderness General Extremity: no tenderness to palpation of joints or extremities Skin General Skin Exam: no breakdown Neuro CN's II-XII intact bilaterally, no focal motor deficits, no sensory deficits noted and deep tendon reflexes 2+ bilaterally Motor Exam: strength 5/5 throughout and general weakness Psych thought process normal, cooperative and affect normal Appearance: appropriate Assessment & Plan Assessment/Plan (1) Generalized weakness: (2) UTI (urinary tract infection): PLAN: Plan #UTI * urinalysis showed evidence of UTI. * on IV rocephin. urine cultures pending * #Debililty and weakness with frequent falls * has history of Meniere's disease and BPPV. * on meclizine prn * PT/OT On board. * Fall precautions * #Paroxysmal atrial fibrillation: on eliquis and amiodarone. #Benign essential hypertension: #Glaucoma: on eyedrops #Dementia: on donepezil #GERD on pepcid #Hyperlipidemia: on statin. #Type 2 diabetes mellitus: on ISS Metformin held on admission. ISS. Accuchecks ACHS. DVT prophylaxis: on eliquis Charges/Coding Visit Charges Inpatient E&M: 65634 Subs Hosp L2
--- NOTE | 2023-12-20 15:32 | CHAPLAIN ---
Type of Pastoral Visit _x__ Initial Visit ___ Follow-up Visit ___ On-call Visit ___ General Patient Visit ___ Spiritual Assessment ___ Family Conference ___ Bereavement ___ Rapid Response ___ Code Blue ___ Other (describe below) Pastoral Care Referral From _x__ Patient ___ Family ___ Nurse ___ Physician ___ Patient Relations Manager ___ Java Sybase Developer ___ Other (describe below) Sacrament/Intervention _x__ Active listening ___ Anointing ___ Yarsanism ___ Bereavement ___ Communion ___ Shelbi exploration ___ _x__ Life review _x__ Prayer ___ Reconciliation ___ Sacrament of Sick _x__ Supportive presence ___ Wedding ___ Other (describe below) Pastoral Comments patient is welcoming and gives a full account of her life and what she has going now in health and decisions for future care; pt does have family in the area and has a faith although she hasn't attended since the pandemic; prayer and presence were welcomed
[2023-12-20] MEDS: Sodium Chloride 0.65% 1 SPRAY SPRAY.BTL 2 SPRAY NASAL (20:30)
[2023-12-20] MEDS: Donepezil HCl 10 MG Tablet PO (21:33)
[2023-12-20] MEDS: dilTIAZem CD 180 MG Capsule PO (21:36)
[2023-12-20] MEDS: Atorvastatin Calcium 40 MG Tablet PO (21:37)
[2023-12-21 02:29] VITALS: BP 154/67; PULSE 59; RESP 18; TEMP 36.6; O2SAT 93
[2023-12-21 05:45] VITALS: BMI 28.3
[2023-12-21] MEDS: 0.9% Normal Saline (1000mL) 1,000 ML 70 ML IV (06:24)
[2023-12-21 06:55] VITALS: O2SAT 94
[2023-12-21 07:37] LABS: Basophil# 0.08 X10^3/uL; Eosinophil# 0.32 X10^3/uL; Eosinophils% 4.2 % (0-5); Hematocrit 29.7 % (37-47); Hemoglobin 8.8 g/dL (12.0-15.0); Lymphocyte % 30.2 % (19-41); Mean Corp Hgb Conc 29.6 g/dL (32-36); Mean Corpuscular Hgb 24.6 pg (27.0-32.0); Mean Corpuscular Volume 83.2 fL (81-99); Mean Platelet Vol. 9.8 fl (6.2-12.0); Monocyte# 0.92 X10^3/uL; Monocyte% 12.1 % (0-10); NRBC Flagged by Analyzer 0 % (0-5); Neutrophil # 3.97 X10^3/uL (2.7-7.7); Neutrophil % 52.1 % (47-70); Platelet Count 318 K/mm3 (150-450); RBC Distribution Width CV 18.6 % (11.6-14.6); RBC Distribution Width SD 56.4 fl (35.1-43.9); Red Blood Count 3.57 M/mm3 (4.2-5.4); White Blood Count 7.6 K/mm3 (4.4-11.0)
[2023-12-21 08:22] LABS: Anion Gap 4 (5-15); BUN 21 mg/dL (7-18); BUN/Creat Ratio 13.5 RATIO (10-20); Calcium,Total 8.2 mg/dL (8.5-10.1); Chloride 116 mmol/L (98-107); Creatinine, Serum 1.55 mg/dL (0.55-1.02); EST Glomerular Filtration Rate 34 mL/min (>60); Est Glom Filt Rate - Afr Amer 41 mL/min (>60); Estimated Creatinine Clearance 27.31 ml/min; Glucose 91 mg/dL (74-106); Potassium 3.9 mmol/L (3.5-5.1); Sodium Level 142 mmol/L (136-145)
[2023-12-21] MEDS: Ceftriaxone 1 GM/50 ML BAG IV (09:06)
[2023-12-21 10:30] VITALS: BP 147/63; PULSE 60; RESP 18; TEMP 37.1; O2SAT 95
[2023-12-21] MEDS: Amiodarone 200 MG Tablet 100 MG PO (10:34)
[2023-12-21] MEDS: Citalopram 10 MG Tablet PO (10:34)
[2023-12-21] MEDS: Timolol 0.5% 5ML OPTH.BTL 1 DRP OPHTHALMIC ×2 (10:34→21:21)
[2023-12-21] MEDS: Azelastine HCl NASAL.SRY 2 SPRAY NASAL ×2 (10:34→21:20)
[2023-12-21] MEDS: Lactobacillis Acidophilus 2 CAP PO ×2 (10:34→21:19)
[2023-12-21] MEDS: dilTIAZem CD 180 MG Capsule PO ×2 (10:34→21:20)
[2023-12-21] MEDS: APIXABAN 2.5 MG TABLET (WCH) PO ×2 (10:35→21:20)
[2023-12-21] MEDS: Famotidine 20 MG Tablet PO (10:35)
[2023-12-21] MEDS: Vibegron 75 MG TABLET PO (10:35)
[2023-12-21] MEDS: Menthol/Lanolin/Calamine/Znox 113 GM Tube 1 APPLIC TOPICAL ×2 (10:35→21:25)
--- NOTE | 2023-12-21 12:05 | PN_ITS ---
Subjective Subjective Patient seen and examined. She says she is having a lot of sinus drainage. She denies any fever, chills, cough, chest pain, palpitations, dizziness, nausea, vomiting or any other symptoms. She has remained hemodynamically stable. Objective Data Objective Data Vital Signs: Vital Signs Temp Pulse Resp BP Pulse Ox O2 Del Method 98.7 F 60 18 147/63 H 95 Room Air 12/21/23 10:30 12/21/23 10:30 12/21/23 10:30 12/21/23 10:30 12/21/23 10:30 12/21/23 10:30 Oxygen Delivery Method Room Air Weight: 165 lb 12.602 oz Body Mass Index (BMI) 28.3 Intake & Output: Intake and Output for Last 24 Hours 12/19/23 12/20/23 12/21/23 23:59 23:59 23:59 Intake Total 50 / 50 963.50 / 963.50 1439 / 1439 Output Total 950 / 950 300 / 300 Balance 50 / 50 13.50 / 13.50 1139 / 1139 Lab / Micro Data 12/21/23 07:11 12/21/23 07:11 Labs: Laboratory Results - last 24 hr 12/21/23 07:11: WBC 7.6, RBC 3.57 L, Hgb 8.8 L, Hct 29.7 L, MCV 83.2, MCH 24.6 L , MCHC 29.6 L, RDW Std Deviation 56.4 H, RDW Coeff of Jacobo 18.6 H, Plt Count 318, MPV 9.8, Immature Gran % (Auto) 0.400, Neut % (Auto) 52.1, Lymph % (Auto) 30.2, [place] % (Auto) 12.1 H, Eos % (Auto) 4.2, Baso % (Auto) 1.0, Absolute Neuts (auto) 4.0, Absolute Lymphs (auto) 2.30, Nucleated RBC % 0, Sodium 142, Potassium 3.9, Chloride 116 H, Carbon Dioxide 22.0, Anion Gap 4 L, BUN 21 H, Creatinine 1.55 H, Estim Creat Clear Calc 27.31, Est GFR (MDRD) Af Amer 41 L, Est GFR (MDRD) Non-Af 34 L, BUN/Creatinine Ratio 13.5, Glucose 91, Calcium 8.2 L Micro: Microbiology 12/19/23 21:06 Urine, Catheterized Urine Culture - Final Escherichia coli Physical Exam Const alert, oriented x3 and no apparent distress General Appearance: cooperative and well developed HEENT normocephalic, head/scalp atraumatic, moist oral mucous membranes and oropharynx normal Eyes PERRL and EOMs intact bilaterally Neck no lymphadenopathy and supple Lymph Lymphatic: no lymphadenopathy noted and no lymphedema noted Resp normal respiratory effort, normal air movement and clear to auscultation bilaterally Cardio regular rate, regular rhythm, S1 normal heart sound, S2 normal heart sound and no murmurs GI normal to inspection, nondistended, normoactive bowel sounds and soft to palpation Extremity normal capillary refill, no clubbing, cyanosis or edema and no calf tenderness General Extremity: no tenderness to palpation of joints or extremities Skin General Skin Exam: no breakdown Neuro CN's II-XII intact bilaterally, no focal motor deficits, no sensory deficits noted and deep tendon reflexes 2+ bilaterally Motor Exam: strength 5/5 throughout and general weakness Psych thought process normal, cooperative and affect normal Appearance: appropriate Assessment & Plan Assessment/Plan (1) Generalized weakness: (2) UTI (urinary tract infection): PLAN: Plan #UTI * urinalysis showed evidence of UTI. * on IV rocephin. urine cultures growiing E coli. * #Debililty and weakness with frequent falls * has history of Meniere's disease and BPPV. * on meclizine prn * PT/OT On board. * Fall precautions * #Dysphagia * patient says she has a lot of sinus drainage; however she was noted to e having problems with phlegm as soon as she started eating * speech therapy consulted. Keep patient NPO for now pending speech evaluation * #Paroxysmal atrial fibrillation: on eliquis and amiodarone as well as cardizem #Benign essential hypertension: on cardizem #Glaucoma: on timolol eyedrops #Dementia: on donepezil #GERD on pepcid #Hyperlipidemia: on statin. #Type 2 diabetes mellitus: on ISS Metformin held on admission. ISS. Accuchecks ACHS. DVT prophylaxis: on eliquis Charges/Coding Visit Charges Inpatient E&M: 87050 Subs Hosp L2
[2023-12-21] MEDS: Fluticasone 0.05% 1 SPRAY NASAL.SRY 2 SPRAY NASAL (13:27)
--- NOTE | 2023-12-21 14:46 | CASEMGMT ---
Addendum entered by Christen Mello 12/22/23 12:53: W updated that patient has chosen another provider. Christen Mello DC Planning Asst. Addendum entered by Christen Mello 12/22/23 09:40: W has accepted. updated. Christen Mello DC Planning Asst. Original Note: Discharge Planning Referral sent via [facility]Port to [facility]. Christen Mello DC Planning Asst.
[2023-12-21 14:57] VITALS: BP 131/54; PULSE 61; RESP 18; TEMP 37; O2SAT 97
--- NOTE | 2023-12-21 15:29 | CASEMGMT ---
Social Work- SW met with pt to discuss pt's plans for d/c. A list of SNF providers including quality and resource use data and consistent with the patient?s preferred geographic region, medical needs, and insurance network were provided from the CarePort Guide. Pt chose [facility], as she had previously been there as FOC. Pt asked to review the list for other options. PT indicates that she definitely wants to d/c to a facility, as she lives alone and wants to build strength prior to return home. [facility] coordinated with [facility] for referral. OMID Marino
[2023-12-21] MEDS: Donepezil HCl 10 MG Tablet PO (21:19)
[2023-12-21] MEDS: Atorvastatin Calcium 40 MG Tablet PO (21:21)
[2023-12-21 22:12] VITALS: BP 127/55; PULSE 60; RESP 12; TEMP 37; O2SAT 92
[2023-12-22 04:12] VITALS: BMI 28.4
[2023-12-22 04:37] VITALS: BP 119/74; PULSE 54; RESP 16; TEMP 36.6; O2SAT 91
[2023-12-22 07:54] LABS: Absolute Lymphocyte Count 2.07 X10^3/uL (0.83-4.51); Absolute Neutrophil Count 4.1 X10^3/uL (2.0-7.7); Basophil# 0.05 X10^3/uL; Basophil% 0.7 % (0-1); Eosinophil# 0.36 X10^3/uL; Eosinophils% 4.9 % (0-5); Hematocrit 31.7 % (37-47); Hemoglobin 9.4 g/dL (12.0-15.0); Lymphocyte # 2.07 X10^3/ul (0.83-4.51); Lymphocyte % 28.3 % (19-41); Mean Corp Hgb Conc 29.7 g/dL (32-36); Mean Corpuscular Hgb 24.6 pg (27.0-32.0); Monocyte# 0.75 X10^3/uL; Monocyte% 10.3 % (0-10); NRBC Flagged by Analyzer 0 % (0-5); Neutrophil # 4.06 X10^3/uL (2.7-7.7); Neutrophil % 55.5 % (47-70); Platelet Count 308 K/mm3 (150-450); RBC Distribution Width CV 18.7 % (11.6-14.6); RBC Distribution Width SD 55.8 fl (35.1-43.9); Red Blood Count 3.82 M/mm3 (4.2-5.4); White Blood Count 7.3 K/mm3 (4.4-11.0)
[2023-12-22 08:22] VITALS: BP 129/64; PULSE 60; RESP 16; TEMP 36.9; O2SAT 93
[2023-12-22 08:24] LABS: Anion Gap 4 (5-15); BUN 18 mg/dL (7-18); BUN/Creat Ratio 12.2 RATIO (10-20); Calcium,Total 8.4 mg/dL (8.5-10.1); Chloride 115 mmol/L (98-107); Creatinine, Serum 1.48 mg/dL (0.55-1.02); EST Glomerular Filtration Rate 36 mL/min (>60); Est Glom Filt Rate - Afr Amer 43 mL/min (>60); Estimated Creatinine Clearance 28.67 ml/min; Glucose 100 mg/dL (74-106); Potassium 3.8 mmol/L (3.5-5.1); Sodium Level 143 mmol/L (136-145)
[2023-12-22 08:25] VITALS: O2SAT 93
--- NOTE | 2023-12-22 09:02 | CASEMGMT ---
Social Work- SW received a message from pt daughter that she visited with pt yesterday and they would like to make TCU FOC. SW completed referral to [facility] for TCU. OMID Marino
--- NOTE | 2023-12-22 09:05 | CASEMGMT ---
Discharge Planning Call received from patients daughter, Lesly, requesting a referral to TCU. She states that her mother is in agreement. This information was given to the SW. Christen Mello DC Planning Asst.
--- NOTE | 2023-12-22 09:25 | SP.MBSS_ITS ---
Modified Barium Swallow Patient Information Study Date: 12/22/23 Study Time: 10:30 Direct Billable Minutes: 83 Total Minutes procedure & reportin Diagnosis: Dysphagia R13.10, Meningioma D32.9 Referring Physician: Candy Sneed Reason for Referral: Objectively assess swallow function, assess risk for aspiration, and determine recommendations for least restrictive diet textures and compensatory strategies to improve safety of swallow. Medical History: The patient presented to [facility] ED 12/19/23 complaining of a fall due to weakness in her legs. Symptoms began ~1 week prior to admission with a gradual-onset of increasing weakness in both of her legs. In the ER, she was noted to have a UA positive for acute cystitis without hematuria along with a CT scan of the head that revealed a meningioma in the left parietal lobe with no evidence for acute hemorrhage and her pelvic x-rays revealed no evidence of acute fracture or dislocation but she was noted to have clinical evidence of generalized weakness with ambulatory dysfunction causing her family to be uneasy about her going home since she lives alone. She was then admitted to [facility]. She was referred for ST consult due to swallowing difficulty. BSE 12/21/23 recommended puree textures / thin liquids with plans for MBSS in upcoming sessions. PMH: Depression, DM type 2, GERD, A fib, irregular heartbeat, HTN, DVT, Meniere's disease, mild dementia, meningioma, HLD, atherosclerotic heart disease of [place] coronary artery without angina pectoris, palpitations, asthma, osteoarthritis, atrial ectopic tachycardia. Current Diet Ordered: Puree / Thin liquids Dentition: Natural Teeth Mental Status: Impaired (Hx of mild dementia; however, patient was able to follow commands without difficulty during the evaluation.) Respiratory Status: Oxygenating on Room Air Penetration-Aspiration Scale Penetration-Aspiration Scale: OBJECTIVE ASSESSMENT OF SWALLOW FUNCTION (QUANTITATIVE ? PER TRIAL): PENETRATION / ASPIRATION SCALE (MONTILLA): 1 = does not enter airway 2 = enters airway/above vocal folds/ejected 3 = enters airway/above vocal folds/not ejected 4 = enters airway/contacts vocal folds/ejected 5 = enters airway/contacts vocal folds/not ejected 6 = enters airway/below vocal folds/ejected 7 = enters airway/below vocal folds/not ejected despite effort 8 = enters airway/below vocal folds/no effort VIDEOFLOROSCOPIC SCALE SCORE (MONTILLA): Grade I = aspiration of material that has penetrated into the laryngeal vestibule, intact cough reflex Grade II = aspiration < 10 % of the bolus, intact cough reflex Grade III = aspiration of < 10 % of the bolus, reduced cough reflex or aspiration of > 10 % of the bolus, intact cough reflex Grade IV = aspiration of > 10 % of the bolus, reduced cough reflex Penetration-Aspiration Scale Score Thin Liquid via teaspoon: Result: 1= does not enter airway Thin Liquid via teaspoon Trial 2: Result: 2= enter airway/above vocal folds/ejected Thin Liquid via large single sip: cup: Result: 1= does not enter airway [place] Thick Liquid via large single sip: cup: Result: 1= does not enter airway Comment: Esophageal screen - Severe retention with little to no emptying through the LES. Pudding via teaspoon: Result: 1= does not enter airway Comment: Esophageal screen - Severe retention with little to no emptying through the LES. Oral Phase Labial Seal: Interlabial escape, no progression to anterior lip Tongue Control During Bolus Hold: Posterior escape of less than half of bolus Bolus Transport/Lingual Motion: Delayed initiation of tongue motion Oral Residue: Trace residue lining oral structures Pharyngeal Phase Initiation of Pharyngeal Swallow: Bolus head in pyriforms (posterior loss of thin by tsp trial 2 to the laryngeal vestibule prior to swallow onset) Soft Palate Elevation: Trace column of contrast/air between soft palate and pharyngeal wall Laryngeal Elevation: Comp. Superior move thyroid cart w/comp. apprx arytenoid cart-epig pet Anterior Hyoid Excursion: Partial anterior movement Epiglottic Movement: Partial inversion Laryngeal Vestibule Closure at Height of Swallow: Incomplete; narrow column of air/contrast in laryngeal vestibule Pharyngoesophageal Segment Opening: Complete distension and complete duration; no obstruction of flow Tongue Base Retraction: Trace column of contrast between tongue base & post. pharyngeal wall Pharyngeal Residue: Trace residue within or on pharyngeal structures Esophageal Phase Esophageal Clearance: Esophageal retention w/ retrograde flow below pharyngoesophageal seg. Diagnosis/Impression Diagnosis: Mild oropharyngeal dysphagia R13.12; Severe esophageal dysphagia R13.14 Impression: Patient has very kyphotic posture and was slightly reclined to have her neck in a more upright position. The oral phase is primarily marked by... -Decreased bolus control with <1/2 of tsp sip spilling to the laryngeal vestibule prior to swallow onset increasing her risk for aspiration before the swallow. -Delayed tongue motion for A-P transport. -Did not assess cookie due to limited esophageal clearance. Of note, she demonstrated adequate mastication of Christina Doone cookie during BSE on 12/21/23. The pharyngeal phase is primarily marked by... -Delayed swallow onset. -Decreased anterior hyoid excursion and partial epiglottic inversion; however, the patient demonstrated complete laryngeal elevation with only trace laryngeal penetration 1X with thin liquids. No aspiration was observed during the study. The esophageal phase is primarily marked by... -Severe retention of liquids and pudding with little to no emptying through the LES. Esophagus appears tortuous with very narrow lower esophagus. Esophagus also appears to have food particles suspended in the barium. Patient reports regurgitating 1X/week. Will recommend full thin liquid diet prior to GI consult and intervention. Figure 1. Esophageal screen - Pudding by tsp (thin and nectar thick liquids trials were consumed prior to pudding). Recommendations Diet: Thin Liquids (Full Liquid diet - THIN LIQUIDS ONLY) Comment: Ok to advance diet per Dr. Hooker's recommendation following GI intervention. Compensatory Strategies: Small Sips, Slow Rate and Sitting upright (Slightly recline so that head/neck are in a more neutral position due to kyphosis, Remain sitting upright 60 min after PO intake) Supervision: 1:1 Close Supervision (STOP drinking if sensation of fullness, reflux, or regurgitation and resume meal at a later time) Recommend Repeat Modified Barium Swallow: TBD Need for Skilled Speech Therapy Services: Yes Comment: -Train the patient in use of strategies to decrease risk for aspiration and reflux aspiration. -Ongoing assessment of diet tolerance of recommended textures. Ok to advance diet per Dr. Hooker's recommendation following GI intervention -Train the patient oropharyngeal exercise program to improve bolus control and swallow onset (lingual resistance, Rivera). Recommended Referrals: GI Consult Education Completed: 1. Described result of evaluation., 2. Pt understands evaluation & agrees with goals and treatment plan. and 7. Pt requires further education on strategies & risks. Comment: BLAST FURNACE TENDER called dietary and left a VM to inform the kitchen of the full THIN liquid diet recommendation. Status Active ST Patient: Active Contact Information [facility]:: Roro Mancuso M.A. AYESHA-BLAST FURNACE TENDER? Speech-Language Pathologist?? [facility] Manuel Kim?? [place] [id number]?? [email or web address]?? [phone]
[2023-12-22] MEDS: Azelastine HCl NASAL.SRY 2 SPRAY NASAL ×2 (09:35→20:14)
[2023-12-22] MEDS: Lactobacillis Acidophilus 2 CAP PO ×2 (09:35→20:14)
[2023-12-22] MEDS: Menthol/Lanolin/Calamine/Znox 113 GM Tube 1 APPLIC TOPICAL ×2 (09:37→20:15)
[2023-12-22] MEDS: Amiodarone 200 MG Tablet 100 MG PO (09:38)
[2023-12-22] MEDS: Citalopram 10 MG Tablet PO (09:38)
[2023-12-22] MEDS: dilTIAZem CD 180 MG Capsule PO ×2 (09:38→20:13)
[2023-12-22] MEDS: APIXABAN 2.5 MG TABLET (WCH) PO ×2 (09:39→20:13)
[2023-12-22] MEDS: Fluticasone 0.05% 1 SPRAY NASAL.SRY 2 SPRAY NASAL (09:39)
[2023-12-22] MEDS: Famotidine 20 MG Tablet PO (09:40)
[2023-12-22] MEDS: Vibegron 75 MG TABLET PO (09:40)
[2023-12-22] MEDS: Timolol 0.5% 5ML OPTH.BTL 1 DRP OPHTHALMIC ×2 (09:40→20:15)
[2023-12-22] MEDS: Cefdinir 300 MG Capsule PO ×2 (09:47→20:14)
--- NOTE | 2023-12-22 09:50 | PCM.PROGNOTE ---
Subjective Subjective Patient seen and examined. She had no active complaints. She said she was just waking up. Review of systems otherwise negative. She has been switched to p.o. cefdinir. She is awaiting placement. Objective Data Objective Data Vital Signs: Vital Signs Temp Pulse Resp BP Pulse Ox O2 Del Method 98.5 F 60 16 129/64 H 93 Room Air 12/22/23 08:22 12/22/23 08:22 12/22/23 08:22 12/22/23 08:22 12/22/23 08:25 12/22/23 08:25 Oxygen Delivery Method Room Air Weight: 166 lb 10.711 oz Body Mass Index (BMI) 28.4 Intake & Output: Intake and Output for Last 24 Hours 12/20/23 12/21/23 12/22/23 23:59 23:59 23:59 Intake Total 963.50 / 963.50 1439 / 1679 240 / 240 Output Total 950 / 950 300 / 300 Balance 13.50 / 13.50 1139 / 1379 240 / 240 Lab / Micro Data 12/22/23 06:59 12/22/23 06:59 Labs: Laboratory Results - last 24 hr 12/22/23 06:59: WBC 7.3, RBC 3.82 L, Hgb 9.4 L, Hct 31.7 L, MCV 83.0, MCH 24.6 L, MCHC 29.7 L, RDW Std Deviation 55.8 H, RDW Coeff of Jacobo 18.7 H, Plt Count 308, MPV 10.0, Immature Gran % (Auto) 0.300, Neut % (Auto) 55.5, Lymph % (Auto) 28.3, [place] % (Auto) 10.3 H, Eos % (Auto) 4.9, Baso % (Auto) 0.7, Absolute Neuts (auto) 4.1, Absolute Lymphs (auto) 2.07, Nucleated RBC % 0, Sodium 143, Potassium 3.8, Chloride 115 H, Carbon Dioxide 24.0, Anion Gap 4 L, BUN 18, Creatinine 1.48 H, Estim Creat Clear Calc 28.67, Est GFR (MDRD) Af Amer 43 L, Est GFR (MDRD) Non-Af 36 L, BUN/Creatinine Ratio 12.2, Glucose 100, Calcium 8.4 L Micro: Microbiology 12/19/23 21:06 Urine, Catheterized Urine Culture - Final Escherichia coli Physical Exam Const alert, oriented x3 and no apparent distress General Appearance: cooperative and well developed HEENT normocephalic, head/scalp atraumatic, moist oral mucous membranes and oropharynx normal Eyes PERRL and EOMs intact bilaterally Neck no lymphadenopathy and supple Lymph Lymphatic: no lymphadenopathy noted and no lymphedema noted Resp normal respiratory effort, normal air movement and clear to auscultation bilaterally Cardio regular rate, regular rhythm, S1 normal heart sound, S2 normal heart sound and no murmurs GI normal to inspection, nondistended, normoactive bowel sounds and soft to palpation Extremity normal capillary refill, no clubbing, cyanosis or edema and no calf tenderness General Extremity: no tenderness to palpation of joints or extremities Skin General Skin Exam: no breakdown Neuro CN's II-XII intact bilaterally, no focal motor deficits, no sensory deficits noted and deep tendon reflexes 2+ bilaterally Motor Exam: strength 5/5 throughout and general weakness Psych thought process normal, cooperative and affect normal Appearance: appropriate Assessment & Plan Assessment/Plan (1) Generalized weakness: (2) UTI (urinary tract infection): PLAN: Plan #UTI urinalysis showed evidence of UTI. on IV rocephin. urine cultures growiing E coli. based on sensitivities, patient switched to PO cefdinir to complete a 5 day course. #Debililty and weakness with frequent falls has history of Meniere's disease and BPPV. on meclizine prn PT/OT On board. Fall precautions #Dysphagia patient says she has a lot of sinus drainage; however she was noted to e having problems with phlegm as soon as she started eating speech therapy on board. For [employer] swallow test today. #Paroxysmal atrial fibrillation: on eliquis and amiodarone as well as cardizem #Benign essential hypertension: on cardizem #Glaucoma: on timolol eyedrops #Dementia: on donepezil #GERD on pepcid #Hyperlipidemia: on statin. #Type 2 diabetes mellitus: on ISS Metformin held on admission. ISS. Accuchecks ACHS. #CKD 3B: C is 1.48. Baseline Cr is around 1.8. Will continue to monitor. DVT prophylaxis: on eliquis Disposition: Awaiting placement Charges/Coding Visit Charges Inpatient E&M: 87282 Subs Hosp L2
--- NOTE | 2023-12-22 10:20 | NURSING ---
This RN is aware of shift assessment findings and Vital Signs taken by Belgica Mann RN
--- NOTE | 2023-12-22 10:48 | DS.PCM_ITS ---
Providers Date of Admission: 12/19/23 Date of Discharge: 12/22/23 Primary Care Physician: Dr. Hortensia Balbuena DO Reason For Visit: ACUTE CYSITIS; WITHOUT HEMATURIA AND FALL Diagnosis Discharge Diagnosis (1) Generalized weakness: Status: Acute Code(s): R53.1 - Weakness (2) UTI (urinary tract infection): Status: Acute Code(s): N39.0 - Urinary tract infection, site not specified Plan #UTI * urinalysis showed evidence of UTI. * on IV rocephin. urine cultures growiing E coli. * based on sensitivities, patient switched to PO cefdinir to complete a 5 day course. * #Debililty and weakness with frequent falls * has history of Meniere's disease and BPPV. * on meclizine prn * PT/OT On board. * Fall precautions * #Dysphagia * patient says she has a lot of sinus drainage; however she was noted to e having problems with phlegm as soon as she started eating * speech therapy on board. For [employer] swallow test today. * #Paroxysmal atrial fibrillation: on eliquis and amiodarone as well as cardizem #Benign essential hypertension: on cardizem #Glaucoma: on timolol eyedrops #Dementia: on donepezil #GERD on pepcid #Hyperlipidemia: on statin. #Type 2 diabetes mellitus: on ISS Metformin held on admission. ISS. Accuchecks ACHS. #CKD 3B: C is 1.48. Baseline Cr is around 1.8. Will continue to monitor. DVT prophylaxis: on eliquis Disposition: Awaiting placement Medications at Discharge Home Medications mirabegron 50 mg tablet,extended release 24 hr 50 mg PO DAILY URINARY FREQUENCY 07/11/16 meclizine 25 mg tablet 12.5 mg PO TID PRN PRN Dizziness 05/16/19 atorvastatin 40 mg tablet 40 mg PO QHS 05/13/21 famotidine 20 mg tablet 20 mg PO BID GERD 07/01/21 lisinopril 2.5 mg tablet 2.5 mg PO DAILY BP 07/01/21 donepezil 10 mg tablet 10 mg PO QHS 06/09/22 metformin 500 mg tablet 250 mg PO BID DM 06/09/22 apixaban 2.5 mg tablet (Eliquis) 2.5 mg PO BID BLOOD THINNER 05/24/23 azelastine 137 mcg (0.1 %) nasal spray aerosol 2 spray intranasal BID #30 mL 09/05/23 fluticasone propionate 50 mcg/actuation nasal spray,suspension 2 spray intranasal DAILY #16 grams 09/05/23 diltiazem HCl 180 mg capsule,extended release 24 hr 180 mg PO BID #180 caps 09/08/23 amiodarone 200 mg tablet 100 mg (1/2 x 200 mg) PO DAILY #90 tabs 12/01/23 citalopram 10 mg tablet (Celexa) 10 mg PO DAILY 12/16/23 furosemide 40 mg tablet 40 mg PO DAILY 12/19/23 timolol maleate 0.5 % eye drops 1 drp ophthalmic (eye) BID 12/19/23 cefdinir 300 mg capsule 300 mg PO Q12 #9 caps 12/22/23 Hospital Course Operations None Procedures None Summary of Care Provided Minutes Spent on Discharge: 48 Hospital Course: Patient is an 83-year-old female with a past medical history as outlined was admitted through the ED on 12/24/2023 with a complaint of weakness and mechanical fall. Symptoms had began about a week prior to admission and weakness that gradually worsened. She said she lived alone and had been getting weaker because trying to ambulate with her walker. She says she went to the bathroom and had to prop head against the wall due to weakness and was even unable to pull her pants up. She subsequently fell and hit the lower portion of her back and pelvis resulting in significant pain. She therefore pressed her alert button and EMS brought her into the ED. Urinalysis showed evidence of UTI. CT of the brain showed no acute intracranial pathology and showed a meningioma of the left parietal lobe. Pelvic x-ray showed no evidence of any acute fracture or dislocation. She was admitted and managed for UTI as well as debility and weakness due to mechanical fall. She was hydrated with IV fluids and started on IV ceftriaxone. PT OT was consulted. Urine cultures grew E. coli which was pansensitive. Antibiotics were therefore switched to p.o. cefdinir. She worked with physical therapy and was deemed as needing further skilled care. She was discharged to SNF on 12/22/2023. She is to follow-up with her primary care doctor within 1 to 2 weeks. She was given a prescription for p.o. cefdinir to complete a 5-day course. Patient seen and examined prior to discharge. She had no active complaints and had an uneventful night. Review of systems otherwise negative. Labs and vitals reviewed. Home medication reviewed and reconciled. Physical Exam Const alert, oriented x3 and no apparent distress General Appearance: cooperative, comfortable, well kempt and well developed Orientation / Consciousness: awake HEENT normocephalic, head/scalp atraumatic, hearing grossly normal bilaterally, moist oral mucous membranes and oropharynx normal Mouth: oral and palatal mucosa normal Eyes PERRL, EOMs intact bilaterally and conjunctivae normal Neck no lymphadenopathy and supple Lymph Lymphatic: no lymphadenopathy noted and no lymphedema noted Resp normal respiratory effort, normal air movement and clear to auscultation bilaterally Cardio regular rate, regular rhythm, S1 normal heart sound, S2 normal heart sound and no murmurs GI normal to inspection, nondistended, normoactive bowel sounds and soft to palpation Extremity normal to inspection, full ROM, normal capillary refill, no clubbing, cyanosis or edema and no calf tenderness General Extremity: no tenderness to palpation of joints or extremities Skin no rashes or lesions noted and no wounds General Skin Exam: no breakdown Neuro oriented x3, CN's II-XII intact bilaterally, moves all extremities, no focal motor deficits, no sensory deficits noted and deep tendon reflexes 2+ bilaterally Sensorium / Orientation: awake and alert Motor Exam: strength 5/5 throughout and general weakness Psych thought process normal, cooperative and affect normal Appearance: appropriate Weight / BMI Weight Weight: 166 lb 10.711 oz Body Mass Index (BMI) 28.4 ABG / Lab / Microbiology Data 12/22/23 06:59 12/22/23 06:59 Laboratory: Laboratory Results - last 24 hr 12/22/23 06:59: WBC 7.3, RBC 3.82 L, Hgb 9.4 L, Hct 31.7 L, MCV 83.0, MCH 24.6 L , MCHC 29.7 L, RDW Std Deviation 55.8 H, RDW Coeff of Jacobo 18.7 H, Plt Count 308, MPV 10.0, Immature Gran % (Auto) 0.300, Neut % (Auto) 55.5, Lymph % (Auto) 28.3, [place] % (Auto) 10.3 H, Eos % (Auto) 4.9, Baso % (Auto) 0.7, Absolute Neuts (auto) 4.1, Absolute Lymphs (auto) 2.07, Nucleated RBC % 0, Sodium 143, Potassium 3.8, Chloride 115 H, Carbon Dioxide 24.0, Anion Gap 4 L, BUN 18, Creatinine 1.48 H, Estim Creat Clear Calc 28.67, Est GFR (MDRD) Af Amer 43 L, Est GFR (MDRD) Non-Af 36 L, BUN/Creatinine Ratio 12.2, Glucose 100, Calcium 8.4 L Microbiology: Microbiology 12/19/23 21:06 Urine, Catheterized Urine Culture - Final Escherichia coli D/C Instructions Discharge Diet: Low fat / Low cholesterol Discharge Activity: Return to Normal Activity Call your doctor if you observe: Fever of 101 or Higher, Shortness of breath, Dizziness, Swelling in the ankles and Chest pain Meaningful Use Info Meaningful Use Meaningful Use Diagnoses (Choose all that apply): None applicable Ischemic Stroke Statin Dosing Therapy Reference: STATIN DOSE THERAPY REFERENCE: * Patients > 75 years receive moderate or high dose statin therapy. * Patients 75 years or YOUNGER should receive HIGH intensity statin dose unless contraindicated. You will be required to document reason for non-treatment if statin daily dose does not meet guidelines. HIGH DOSE STATIN THERAPY DAILY Atorvastatin > than or = to 40 mg Rosuvastatin > than or = to 20 mg Amlodipine + Atorvastatin > than or = to 2.5/40 mg Ezetimibe + Simvastatin 10/80 mg Simvastatin 80mg Discharge Plan Admission Admit Date/Time: 12/19/23 23:01 Primary Reason for Your Visit: UTI Attending Provider: Candy Sneed Primary Care Provider: Hortensia Balbuena Consulting Providers: Matheus Freeman Instructions Patient Instructions: ED UTI Fem Ch, ED UTIs Women Discharge Orders/Prescriptions Prescriptions: New cefdinir 300 mg Capsule 300 mg PO Q12 Qty: 9 0RF Continued atorvastatin 40 mg tablet 40 mg PO QHS metformin 500 mg tablet 250 mg PO BID donepezil 10 mg tablet 10 mg PO QHS citalopram [Celexa] 10 mg tablet 10 mg PO DAILY fluticasone propionate 50 mcg/actuation spray,suspension 2 spray INTRANASAL DAILY Qty: 16 11RF azelastine 137 mcg (0.1 %) aerosol,spray 2 spray INTRANASAL BID Qty: 30 11RF Rx Instructions: administer into each nostril mirabegron 50 MG tablet extended release 24 hr 50 mg PO DAILY meclizine 25 mg tablet 12.5 mg PO TID PRN PRN (Reason: Dizziness) famotidine 20 mg tablet 20 mg PO BID lisinopril 2.5 mg tablet 2.5 mg PO DAILY Eliquis 2.5 mg tablet 2.5 mg PO BID furosemide 40 mg tablet 40 mg PO DAILY Patient Comments: ON HOLD D/T KIDNEY FUNCTION timolol maleate 0.5 % drops 1 drp ophthalmic (eye) BID diltiazem HCl 180 mg capsule,extended release 24hr 180 mg PO BID Qty: 180 3RF amiodarone 200 mg tablet 100 mg PO DAILY Qty: 90 3RF Referrals / Follow Up: Hortensia Balbuena DO [Primary Care Provider] - Within 1 Week Disposition Disposition (needs filled in before D/C Order can be placed): [facility] Charges/Coding Visit Charges Inpatient E&M: 14807 Disch Hosp >30min
--- NOTE | 2023-12-22 10:48 | TREXTCAR_ITS ---
Diet Diet Order/Speech Therapy: 12/21/23 13:19 Diet: Cardiac - Heart Healthy Food consistency:: Pureed Liquid Consistency:: Regular/Thin Is pt able to select menu?: No Diet Comments: close supervision Routine Orders/Code Status Enema Type: Fleetz Enema Frequency: Daily PRN Suppository Type: Dulcolax 10mg Suppository Frequency: Daily PRN O2 Frequency: PRN Keep PO Greater than or Equal to (%): 90 Therapies Weight Bearing: Weight bearing as tolerated Physical Therapy: Eval and Treat Occupational Therapy: Eval and Treat Problem/Diagnosis (1) Generalized weakness: Status: Acute Code(s): R53.1 - Weakness (2) UTI (urinary tract infection): Status: Acute Code(s): N39.0 - Urinary tract infection, site not specified Plan #UTI * urinalysis showed evidence of UTI. * on IV rocephin. urine cultures growiing E coli. * based on sensitivities, patient switched to PO cefdinir to complete a 5 day course. * #Debililty and weakness with frequent falls * has history of Meniere's disease and BPPV. * on meclizine prn * PT/OT On board. * Fall precautions * #Dysphagia * patient says she has a lot of sinus drainage; however she was noted to e having problems with phlegm as soon as she started eating * speech therapy on board. For [employer] swallow test today. * #Paroxysmal atrial fibrillation: on eliquis and amiodarone as well as cardizem #Benign essential hypertension: on cardizem #Glaucoma: on timolol eyedrops #Dementia: on donepezil #GERD on pepcid #Hyperlipidemia: on statin. #Type 2 diabetes mellitus: on ISS Metformin held on admission. ISS. Accuchecks ACHS. #CKD 3B: C is 1.48. Baseline Cr is around 1.8. Will continue to monitor. DVT prophylaxis: on eliquis Disposition: Awaiting placement Allergies/Procedures Done in Hospital Allergies benzonatate (From Ruthann Vazquez) Allergy (Verified 12/19/23 20:14) Hives cat dander Allergy (Verified 12/19/23 20:14) Unknown Procedures: None Type of Care/Length of Stay Estimated LOS: Convalescent Care Less Than 30 days Type of Care Needed: Skilled Rehab Potential: Fair Prognosis: Fair Additional Orders/Day of Discharge Day of Discharge: 12/22/23 Discharge Plan Admission Admit Date/Time: 12/19/23 23:01 Primary Reason for Your Visit: UTI Attending Provider: Candy Sneed Primary Care Provider: Hortensia Balbuena Consulting Providers: Matheus Freeman Instructions Patient Instructions: ED UTI Fem Ch, ED UTIs Women Discharge Orders/Prescriptions Prescriptions: New cefdinir 300 mg Capsule 300 mg PO Q12 Qty: 9 0RF Continued atorvastatin 40 mg tablet 40 mg PO QHS metformin 500 mg tablet 250 mg PO BID donepezil 10 mg tablet 10 mg PO QHS citalopram [Celexa] 10 mg tablet 10 mg PO DAILY fluticasone propionate 50 mcg/actuation spray,suspension 2 spray INTRANASAL DAILY Qty: 16 11RF azelastine 137 mcg (0.1 %) aerosol,spray 2 spray INTRANASAL BID Qty: 30 11RF Rx Instructions: administer into each nostril mirabegron 50 MG tablet extended release 24 hr 50 mg PO DAILY meclizine 25 mg tablet 12.5 mg PO TID PRN PRN (Reason: Dizziness) famotidine 20 mg tablet 20 mg PO BID lisinopril 2.5 mg tablet 2.5 mg PO DAILY Eliquis 2.5 mg tablet 2.5 mg PO BID furosemide 40 mg tablet 40 mg PO DAILY Patient Comments: ON HOLD D/T KIDNEY FUNCTION timolol maleate 0.5 % drops 1 drp ophthalmic (eye) BID diltiazem HCl 180 mg capsule,extended release 24hr 180 mg PO BID Qty: 180 3RF amiodarone 200 mg tablet 100 mg PO DAILY Qty: 90 3RF Referrals / Follow Up: Hortensia Balbuena DO [Primary Care Provider] - Within 1 Week Disposition Disposition (needs filled in before D/C Order can be placed): [facility]
--- NOTE | 2023-12-22 11:20 | CASEMGMT ---
Social Work- Pt received acceptance for TCU. Physician notified. Pt transfer summary and med list faxed to TCU. Pt nurse advised. Pt daughter called and notified. Pt sleeping. SW will notify pt upon awakening. OMID Miranda
--- NOTE | 2023-12-22 14:52 | NURSING ---
Report given to Alycia on TCU. TCU will call david when room is ready.
[2023-12-22 15:21] VITALS: BP 126/51; PULSE 57; RESP 16; TEMP 37.2; O2SAT 93
--- NOTE | 2023-12-22 16:52 | NURSING ---
Returned phone call to daughterLesly. Update provided.
[2023-12-22 20:09] VITALS: BP 151/59; PULSE 60; RESP 18; TEMP 36.8; O2SAT 93
[2023-12-22] MEDS: 0.9% Saline Lock 10 ML Syringe IV (20:13)
[2023-12-22] MEDS: Atorvastatin Calcium 40 MG Tablet PO (20:13)
[2023-12-22] MEDS: Donepezil HCl 10 MG Tablet PO (20:14)
== END 2023-12-22 20:49 | disposition skilled nursing facility (03) | DRG 690 ==
LOC: ED 22:10 → MS3 12-20 00:48
PROVIDERS: Admitting Provider Internal Medicine; Emergency Provider Emergency Medicine; PCP Family Medicine; Visit Provider Student in an Organized Health Care Education/Training Program
DX: N30.00 Acute cystitis without hematuria (principal); E11.22 Type 2 diabetes mellitus with diabetic chronic kidney disease; D32.0 Benign neoplasm of cerebral meninges; E11.39 Type 2 diabetes mellitus with other diabetic ophthalmic complication; B96.20 Unspecified Escherichia coli [E. coli] as the cause of diseases classified elsewhere; N18.32 Chronic kidney disease, stage 3b; I48.0 Paroxysmal atrial fibrillation; F03.A0 Unspecified dementia, mild, without behavioral disturbance, psychotic disturbance, mood disturbance, and anxiety; I12.9 Hypertensive chronic kidney disease with stage 1 through stage 4 chronic kidney disease, or unspecified chronic kidney disease; J45.909 Unspecified asthma, uncomplicated; F32.A Depression, unspecified; M19.90 Unspecified osteoarthritis, unspecified site; I25.10 Atherosclerotic heart disease of native coronary artery without angina pectoris; K21.9 Gastro-esophageal reflux disease without esophagitis; E78.5 Hyperlipidemia, unspecified; H81.10 Benign paroxysmal vertigo, unspecified ear; E66.9 Obesity, unspecified; H40.9 Unspecified glaucoma; N32.81 Overactive bladder; R53.81 Other malaise; Z79.899 Other long term (current) drug therapy; Z79.01 Long term (current) use of anticoagulants; Z68.30 Body mass index [BMI] 30.0-30.9, adult; Z79.84 Long term (current) use of oral hypoglycemic drugs; Z86.718 Personal history of other venous thrombosis and embolism; H81.09 Meniere's disease, unspecified ear; R13.10 Dysphagia, unspecified
CPT/HCPCS: 36415; 70450; 72170; 74230; 80048; 80053; 80061; 81001; 83735; 84100; 84443; 85025; 87077; 87086; 87088; 87186; 92610; 92611; 94668; 97162; 97166; 99285; J7030; J7050; P9612; A4216

== ENCOUNTER 2023-12-22 21:00 | Inpatient (IN) | payer MEDICARE, OTHER, SELFPAY ==
[2023-12-22 21:30] VITALS: BP 156/63; PULSE 60; RESP 20; TEMP 36.3; O2SAT 88
--- NOTE | 2023-12-22 22:12 | HP.PCM_ITS ---
HPI - General General Date of Admission: 12/22/23 Date of Service: 12/23/23 Chief Complaint: Here for rehabilitation. HPI Narrative 12/19/2023 RAJAT PASTRANA, is a 83 Female who presents to [facility] ED with weakness. Worsening weakness, lives alone, walks with walker. Able to go to bathroom, sit on toilet. Shaky, stood up, fell, hit low back, pelvis. Hemoglobin 9.6, BUN 34, Creatinine 2.04. UA c/w UTI, Rocephin iv given, urine culture sent. X-ray pelvis negative. 12/19/2023 Admit [facility]. Rocephin iv for UTI, urine culture pending. CT head stable left parietal meningioma. PT/OT Debility. Consider stopping Eliquis due to falls. 12/20/2023 Back pain 2/2 fall. History Meniere's disease, BPPV. 12/21/2023 Sinus drainage. Rocephin iv for E. Coli UTI. ST to rule out aspiration due to sinus drainage. 12/22/2023 Rocephin iv to po Cefdinir for E. Coli UTI. Cookie swallow today. MBS showed esophageal retention. Recommend thin liquid diet, GI consult. 12/22/2023 Admit to TCU with debility, here for rehabilitation, strengthening, prior to discharge home alone. [facility] Medical History (Updated 12/22/23 @ 22:[address] Newton Ulloa MD) Depression Diabetes GERD (gastroesophageal reflux disease) Atrial fibrillation Irregular heart beat Hypertension DVT (deep venous thrombosis) On amiodarone therapy Essential hypertension Abnormal pulmonary function test Nonrheumatic mitral (valve) prolapse History of DVT (deep vein thrombosis) Menieres disease Depression Anxiety Meningioma Hyperlipidemia Atherosclerotic heart disease of [place] coronary artery without angina pectoris Palpitations Long-term use of high-risk medication Type 2 diabetes mellitus Asthma Osteoarthritis Family history of CVA Atrial ectopic tachycardia Paroxysmal atrial fibrillation Hypertension Home Medications ?Medication ?Instructions ?Recorded ?Last Taken ?Type mirabegron 50 mg tablet,extended 50 mg PO DAILY URINARY FREQUENCY 07/11/16 07/01/21 History release 24 hr meclizine 25 mg tablet 12.5 mg PO TID PRN PRN Dizziness 05/16/19 Unknown History atorvastatin 40 mg tablet 40 mg PO QHS 05/13/21 06/30/21 History famotidine 20 mg tablet 20 mg PO BID GERD 07/01/21 07/01/21 History lisinopril 2.5 mg tablet 2.5 mg PO DAILY BP 07/01/21 07/01/21 History donepezil 10 mg tablet 10 mg PO QHS 06/09/22 Unknown History metformin 500 mg tablet 250 mg PO BID DM 06/09/22 Unknown History apixaban 2.5 mg tablet (Eliquis) 2.5 mg PO BID BLOOD THINNER 05/24/23 Unknown History azelastine 137 mcg (0.1 %) nasal 2 spray intranasal BID #30 mL 09/05/23 Unknown Rx spray aerosol fluticasone propionate 50 2 spray intranasal DAILY #16 grams 09/05/23 Unknown Rx mcg/actuation nasal spray,suspension diltiazem HCl 180 mg 180 mg PO BID #180 caps 09/08/23 Unknown Rx capsule,extended release 24 hr amiodarone 200 mg tablet 100 mg (1/2 x 200 mg) PO DAILY #90 12/01/23 Unknown Rx tabs citalopram 10 mg tablet (Celexa) 10 mg PO DAILY 12/16/23 Unknown History furosemide 40 mg tablet 40 mg PO DAILY 12/19/23 Unknown History timolol maleate 0.5 % eye drops 1 drp ophthalmic (eye) BID 12/19/23 Unknown History cefdinir 300 mg capsule 300 mg PO Q12 #9 caps 12/22/23 Unknown Rx Allergy/AdvReac Type Severity Reaction Status Date / Time benzonatate (From Tessalon Allergy Hives Verified 12/19/23 20:14 Perlmaricel) cat dander Allergy Unknown Verified 12/19/23 20:14 Family History Father CAD (coronary artery disease) CHF (congestive heart failure) History of DVT (deep vein thrombosis) Mother Diabetes Grandfather CAD (coronary artery disease) History of DVT (deep vein thrombosis) Grandmother CVA (cerebral vascular accident) Surgical History History of cataract extraction History of tonsillectomy and adenoidectomy History of tubal ligation Social History (Updated 12/22/23 @ 22:[address] Newton Ulloa MD) household members: none Smoking Status: Never smoker second hand exposure: No alcohol intake: never substance use type: does not use caffeine: No what type of physical activity do you participate in: none ROS Constitutional Constitutional: Reports weakness; Denies chills, fever(s) or weight gain ENT HEENT: Denies headache(s), nasal congestion or nasal discharge Cardiovascular Cardiovascular: Denies chest pain or palpitations Respiratory/Chest Respiratory/Chest: Denies cough, excessive phlegm production or shortness of breath with exertion Gastrointestinal Gastrointestinal: Denies abdominal pain, nausea or vomiting Genitourinary Genitourinary: Denies dysuria Musculoskeletal Musculoskeletal: Denies joint pain or joint swelling Integumentary Integumentary: Denies rash or wounds Neurologic Neurologic: Denies focal weakness, numbness or tingling Psychiatric Psychiatric: Denies anxiety, auditory hallucinations, depression, homicidal ideation or suicidal ideation Physical Exam Const alert General Appearance: cooperative HEENT normocephalic Eyes PERRL and EOMs intact bilaterally Neck supple, no JVD and no carotid bruits Resp normal respiratory effort, normal air movement and clear to auscultation bilaterally Cardio regular rate and regular rhythm GI normal to inspection, nondistended, normoactive bowel sounds, non-tender and non-distended Extremity normal capillary refill General Extremity: Negative for edema Skin no rashes or lesions noted General Skin Exam: no breakdown Psych affect normal Appearance: appropriate Results Lab / Micro Data 12/23/23 05:20 12/23/23 05:20 Assessment & Plan Assessment/Plan (1) Debility: (2) UTI (urinary tract infection): (3) Difficulty swallowing: QUALIFIERS: Dysphagia type: oropharyngeal phase Qualified Code(s): R13.12 - Dysphagia, oropharyngeal phase (4) Esophageal motility disorder: (5) Overactive bladder: (6) BPPV (benign paroxysmal positional vertigo): (7) Hyperlipidemia: QUALIFIERS: Hyperlipidemia type: unspecified Qualified Code(s): E 78.5 - Hyperlipidemia, unspecified (8) GERD (gastroesophageal reflux disease): (9) Glaucoma: (10) Diabetes: (11) Atrial fibrillation: (12) Allergic rhinitis: (13) Depression: PLAN: Plan 83 year old female with below past medical history hospitalized for weakness 2/2 E. Coli UTI complicated by esophageal retention requiring thin liquid diet, admitted to TCU with debility, here for rehabilitation, strengthening, prior to discharge home alone. * Debility - PT/OT. * Dysphagia - ST, consult Dr. Hooker. * Pain - Tylenol 1000mg q6 prn pain (1-10). * Bowel - senna/colace 1 tablet bid, Dulcolax 10mg pr daily prn. * Adult immunization - Administer pneumonia vaccine, covid vaccine, flu vaccine as appropriate. * DVT prophylaxis - on Eliquis. * Atrial fibrillation - Diltiazem 180mg bid, Amiodarone 100mg daily, Eliquis 2.5mg bid. * Hyperlipidemia - Atorvastatin 40mg qhs. * Allergic rhinitis - Astelin 2 sprays nasal bid, Flonase 2 sprays nasal daily. * E. Coli UTI - Cefdinir 300mg q12 thru 12/27/2023. * Depression - Citalopram 10mg daily, stable chronic intermediate use, GDR not recommended. * Alzheimer Disease - Donepezil 10mg qhs. * GERD - Famotidine 20mg bid. * Hypertension - Dilitiazem 180mg bid, Lisinopril 2.5mg daily. * BPPV - Meclizine 12.5mg tid prn. * Diabetes Mellitus II - Metformin 250mg bid. * Overactive bladder - Myrbetriq 50mg daily. * Glaucoma - Timolol 0.5% 1gtt ou bid.
[2023-12-23 00:37] VITALS: O2SAT 98
[2023-12-23 05:54] LABS: Absolute Lymphocyte Count 2.68 X10^3/uL (0.83-4.51); Absolute Neutrophil Count 4.7 X10^3/uL (2.0-7.7); Basophil# 0.08 X10^3/uL; Basophil% 0.9 % (0-1); Eosinophil# 0.41 X10^3/uL; Eosinophils% 4.6 % (0-5); Hematocrit 32.8 % (37-47); Hemoglobin 9.7 g/dL (12.0-15.0); Lymphocyte # 2.68 X10^3/ul (0.83-4.51); Lymphocyte % 30.3 % (19-41); Mean Corp Hgb Conc 29.6 g/dL (32-36); Mean Corpuscular Hgb 24.6 pg (27.0-32.0); Mean Corpuscular Volume 83.2 fL (81-99); Mean Platelet Vol. 9.8 fl (6.2-12.0); Monocyte# 0.89 X10^3/uL; Monocyte% 10.1 % (0-10); NRBC Flagged by Analyzer 0 % (0-5); Neutrophil # 4.73 X10^3/uL (2.7-7.7); Neutrophil % 53.5 % (47-70); Platelet Count 338 K/mm3 (150-450); RBC Distribution Width CV 18.6 % (11.6-14.6); Red Blood Count 3.94 M/mm3 (4.2-5.4); White Blood Count 8.8 K/mm3 (4.4-11.0)
[2023-12-23 06:20] LABS: Anion Gap 4 (5-15); BUN 15 mg/dL (7-18); BUN/Creat Ratio 11.4 RATIO (10-20); Calcium,Total 8.6 mg/dL (8.5-10.1); Chloride 111 mmol/L (98-107); Creatinine, Serum 1.32 mg/dL (0.55-1.02); EST Glomerular Filtration Rate 41 mL/min (>60); Est Glom Filt Rate - Afr Amer 49 mL/min (>60); Glucose 106 mg/dL (74-106); Potassium 4.1 mmol/L (3.5-5.1); Sodium Level 141 mmol/L (136-145)
[2023-12-23 06:58] LABS: Bedside Glucose 99 mg/dL (74-106)
[2023-12-23] MEDS: Amiodarone 200 MG Tablet 100 MG PO (09:08)
[2023-12-23] MEDS: Azelastine HCl NASAL.SRY 2 SPRAY NASAL ×2 (09:08→20:34)
[2023-12-23] MEDS: dilTIAZem CD 180 MG Capsule PO ×2 (09:08→20:36)
[2023-12-23] MEDS: metFORMIN HCl 500 MG Tablet 250 MG PO ×2 (09:08→17:30)
[2023-12-23] MEDS: Timolol 0.5% 5ML OPTH.BTL 1 DRP OPHTHALMIC ×2 (09:09→20:35)
[2023-12-23] MEDS: Fluticasone 0.05% 1 SPRAY NASAL.SRY 2 SPRAY NASAL (09:09)
[2023-12-23] MEDS: Famotidine 20 MG Tablet PO (09:09)
[2023-12-23] MEDS: Cefdinir 300 MG Capsule PO ×2 (09:09→20:36)
[2023-12-23] MEDS: Vibegron 75 MG TABLET PO (09:09)
[2023-12-23] MEDS: Lisinopril 2.5 MG Tablet PO (09:09)
[2023-12-23] MEDS: Senna/Docusate Sodium 1 Tablet PO ×2 (09:09→20:37)
[2023-12-23] MEDS: APIXABAN 2.5 MG TABLET (WCH) PO (09:09)
[2023-12-23] MEDS: Citalopram 10 MG Tablet PO (09:11)
[2023-12-23] MEDS: Tuberculin,Purif.prot.deriv. 50 TU/ML Vial 0.1 ML ID (10:28)
--- NOTE | 2023-12-23 13:15 | PHA.CONS_ITS ---
Documented by User: Sabina Mckeon 12/23/23 15:09 TCU RX Drug Regimen Review Subjective/Objective Subjective/Objective: Subjective: TCU Admission. 83 YOF presented to the ER with weakness. Hospitalized for weakness 2/2 E. Coli UTI complicated by esophageal retention requiring thin liquid diet. Admitted to TCU with debility for strengthening and rehabilitation. Objective: Allergies benzonatate (From [employer] Entertainmentmaricel) Allergy (Verified 12/19/23 20:14) Hives cat dander Allergy (Verified 12/19/23 20:14) Unknown Current Medications Generic Name Dose Route Start Last Admin Trade Name Freq PRN Reason Stop Dose Admin Amiodarone HCl 100 mg 12/23/23 10:00 12/23/23 09:08 Amiodarone 200 Mg Tablet PO 100 mg DAILY JAMEY Administration Apixaban 2.5 mg 12/23/23 10:00 12/23/23 09:09 Apixaban 2.5 Mg Tablet (Wch) PO 2.5 mg BID JAMEY Administration Atorvastatin Calcium 40 mg 12/23/23 22:00 Atorvastatin Calcium 40 Mg Tablet PO QHS JAMEY Azelastine HCl 2 spray 12/23/23 10:00 12/23/23 09:08 Azelastine Hcl Nasal.Sry NASAL 2 spray BID JAMEY Administration Bisacodyl 10 mg 12/22/23 22:34 Bisacodyl 10 Mg Suppository RC DAILY PRN Constipation Cefdinir 300 mg 12/23/23 10:00 12/23/23 09:09 Cefdinir 300 Mg Capsule PO 12/27/23 10:01 300 mg Q12 JAMEY Administration Citalopram Hydrobromide 10 mg 12/23/23 10:00 12/23/23 09:11 Citalopram 10 Mg Tablet PO 10 mg DAILY JAMEY Administration Diltiazem HCl 180 mg 12/23/23 10:00 12/23/23 09:08 Diltiazem Cd 180 Mg Capsule PO 180 mg BID JAMEY Administration Protocol Donepezil HCl 10 mg 12/23/23 22:00 Donepezil Hcl 10 Mg Tablet PO QHS JAMEY Famotidine 20 mg 12/23/23 10:00 12/23/23 09:09 Famotidine 20 Mg Tablet PO 20 mg BID JAMEY Administration Fluticasone Propionate 2 spray 12/23/23 10:00 12/23/23 09:09 Fluticasone 0.05% 1 [place] Nasal.Sry NASAL 2 spray DAILY JAMEY Administration Lisinopril 2.5 mg 12/23/23 10:00 12/23/23 09:09 Lisinopril 2.5 Mg Tablet PO 2.5 mg DAILY JAMEY Administration Protocol Meclizine HCl 12.5 mg 12/22/23 22:07 Meclizine 12.5 Mg Tablet PO TID PRN PRN Dizziness Metformin HCl 250 mg 12/23/23 08:00 12/23/23 09:08 Metformin Hcl 500 Mg Tablet PO 250 mg BIDCM JAMEY Administration Senna/Docusate Sodium 1 tablet 12/23/23 10:00 12/23/23 09:09 Senna/Docusate Sodium 1 Tablet PO 1 tablet BID JAMEY Administration Timolol Maleate 1 drp 12/23/23 10:00 12/23/23 09:09 Timolol 0.5% 5ml Opth.Btl OPHTHALMIC 1 drp BID JAMEY Administration Tuberculin PPD 0.1 ml 12/30/23 10:00 Tuberculin,Purif.Prot.Deriv. 50 Tu/Ml Vial ID 12/30/23 10:01 X1 ONE Problem List Depression (Acute) Allergic rhinitis (Acute) Atrial fibrillation (Acute) Diabetes (Acute) Glaucoma (Acute) GERD (gastroesophageal reflux disease) (Acute) BPPV (benign paroxysmal positional vertigo) (Acute) Overactive bladder (Acute) Esophageal motility disorder (Acute) Debility (Acute) UTI (urinary tract infection) (Acute) Difficulty swallowing (Chronic) Hyperlipidemia (Chronic) Vital Signs Temp Pulse Resp BP Pulse Ox O2 Del Method O2 Flow Rate 97.3 F L 60 20 H 156/63 H 98 Nasal Cannula 2 12/22/23 21:30 12/22/23 21:30 12/22/23 21:30 12/22/23 21:30 12/23/23 00:37 12/23/23 00:37 12/23/23 00:37 Oxygen Flow Rate (L/min) 2 Oxygen Delivery Method Nasal Cannula Sodium 141 mmol/L (136-145) 12/23/23 05:20 Potassium 4.1 mmol/L (3.5-5.1) 12/23/23 05:20 Chloride 111 mmol/L (98-107) H 12/23/23 05:20 Carbon Dioxide 26.0 mmol/L (21.0-32.0) 12/23/23 05:20 Anion Gap 4 (5-15) L 12/23/23 05:20 BUN 15 mg/dL (7-18) 12/23/23 05:20 Creatinine 1.32 mg/dL (0.55-1.02) H 12/23/23 05:20 Est GFR (MDRD) Af Amer 49 mL/min (>60) L 12/23/23 05:20 Est GFR (MDRD) Non-Af 41 mL/min (>60) L 12/23/23 05:20 BUN/Creatinine Ratio 11.4 RATIO (10-20) 12/23/23 05:20 Glucose 106 mg/dL (74-106) 12/23/23 05:20 Assessment/Plan: 1. Bowel: senna/docusate 1T PO BID and bisacodyl 10mg RC daily PRN constipation. No PRN doses given. Please continue to monitor for constipation and PRN usage. Last documented bowel movement 12/22/23. 2. E coli UTI: cefdinir 300mg PO Q12 thru 12/27/23. Please continue to monitor for S/S of infection, stool discoloration, diarrhea and renal function (CrCl 32 mL/min, dose appropriate). 3. Atrial fibrillation/hypertension: diltiazem CD 180mg PO BID, amiodarone 100mg PO daily, lisinopril 2.5mg PO daily and apixaban 2.5mg PO BID. Please continue to monitor HR (last 60), BP (last 156/63), potassium (last 4.1mmol/L), sodium, cough, renal function, constipation, S/S of bleeding and hemoglobin (last 9.7g/dL). At this time, apixaban dose should be increased to 5mg because she only meets 1/3 criteria for reduced dose (age> 80 but weight is > 60kg and SCr is <1.5mg/dL). Please consider changing dose to 5mg. Thanks. 4. Hyperlipidemia: atorvastatin 40mg PO QHS. Please continue to monitor lipid panel (last 12/20/23), LFTs (last 12/20/23) and muscle pain. 5. Diabetes mellitus II: metformin 250mg PO BIDCM. Please continue to monitor hemoglobin A1c (last 6.2% 09/14/23), glucose (last 106mg/dL), GFr (last 41 mL/min) and diarrhea. 6. Alzheimer disease: donepezil 10mg PO QHS. Please continue to monitor for GI side effects and BP. 7. GERD: famotidine 20mg PO daily. Dose decreased for renal function (CrCl 32mL/min). Please continue to monitor for S/S of GERD and renal function. 8. BPPV: meclizine 12.5mg PO TID PRN dizziness. Please continue to monitor for dizziness and PRN usage. No doses given so far. 9. Overactive bladder: vibegron 75mg PO daily. Please continue to monitor for S/S of overactive bladder. 10. Allergic rhinitis: azelastine 2 sprays nasal BID and fluticasone 0.05% nasal spray 2 sprays nasal daily. Please continue to monitor for allergies and dry nares. 11. Glaucoma: timolol 0.5% 1gtt OU BID. Please continue to monitor for S/S of glaucoma and dry eyes. Assessment/Plan for indications treated with psychotropic medications: 1. Depression: citalopram 10mg PO daily. Please see physician note regarding GDR. Please continue to monitor for suicidal ideation (black box warning), falls/fractures (BEERs medication) and sodium (last 141mmol/L). Medical chart and medication regimen reviewed. The following medication irregularities or issues were identified: 2. Apixaban 2.5mg PO BID. At this time, apixaban dose should be increased to 5mg because she only meets 1/3 criteria for reduced dose (age> 80 but weight is > 60kg and SCr is <1.5mg/dL). Please consider changing dose to 5mg. Thanks. Date Date of Note:: 12/23/23 Documented by User: Dr. Newton Ulloa MD 12/23/23 15:18 TCU RX Drug Regimen Review Provider Comments Provider responsibility Provider Comments to Recommendations by Pharmacy: Agree
[2023-12-23 13:45] VITALS: BMI 29.4
[2023-12-23 14:50] VITALS: BP 132/60; PULSE 64; RESP 16; TEMP 36.4; O2SAT 93
--- NOTE | 2023-12-23 15:40 | CASEMGMT ---
TCU Admission Note [employer] Sw met with patient to complete initial assessment. Sw introduced self and explained sw role. Verified patients' contact and made update. Patient confirmed code status as Full, asked to remain the same. Patient states that she is not sure if she has completed advanced directives, and did not want to do so at this time. Educated to Medicare benefit and copay coverage. Patient states that her ultimate goal is to return home, but she states that she may be too weak to do so, and if that is the case she states she is receptive to long term acute care registered nurse nursing care. Patient scored 12/ 15 on BIMS- unable to identify day of the week, or recall bed even with prompting/ reminder. Sw will remain involved throughout admission to provide assistance with discharge planning. Jeyson Meza, ASSET ANALYST, LEADER ASSEMBLER
[2023-12-23 16:00] VITALS: O2SAT 92
[2023-12-23] MEDS: Donepezil HCl 10 MG Tablet PO (20:35)
[2023-12-23] MEDS: APIXABAN 5 MG TABLET PO (20:36)
[2023-12-23] MEDS: Atorvastatin Calcium 40 MG Tablet PO (20:37)
[2023-12-24 06:34] LABS: Bedside Glucose 84 mg/dL (74-106)
[2023-12-24 06:59] VITALS: O2SAT 94
[2023-12-24] MEDS: Lisinopril 2.5 MG Tablet PO (11:39)
[2023-12-24] MEDS: dilTIAZem CD 180 MG Capsule PO ×2 (11:39→23:28)
[2023-12-24] MEDS: Famotidine 20 MG Tablet PO (11:39)
[2023-12-24] MEDS: Cefdinir 300 MG Capsule PO ×2 (11:39→23:25)
[2023-12-24] MEDS: Vibegron 75 MG TABLET PO (11:40)
[2023-12-24] MEDS: metFORMIN HCl 500 MG Tablet 250 MG PO ×2 (11:40→17:43)
[2023-12-24] MEDS: Senna/Docusate Sodium 1 Tablet PO ×2 (11:40→23:25)
[2023-12-24] MEDS: Citalopram 10 MG Tablet PO (11:41)
[2023-12-24] MEDS: APIXABAN 5 MG TABLET PO ×2 (11:41→23:26)
[2023-12-24] MEDS: Amiodarone 200 MG Tablet 100 MG PO (11:41)
[2023-12-24] MEDS: Fluticasone 0.05% 1 SPRAY NASAL.SRY 2 SPRAY NASAL (11:42)
[2023-12-24] MEDS: Timolol 0.5% 5ML OPTH.BTL 1 DRP OPHTHALMIC ×2 (11:44→23:29)
[2023-12-24] MEDS: Azelastine HCl NASAL.SRY 2 SPRAY NASAL ×2 (11:46→23:28)
[2023-12-24 12:59] VITALS: O2SAT 98
[2023-12-24 14:06] VITALS: BP 134/64; PULSE 63; RESP 20; TEMP 36.4; O2SAT 95
[2023-12-24] MEDS: Atorvastatin Calcium 40 MG Tablet PO (23:25)
[2023-12-24] MEDS: Donepezil HCl 10 MG Tablet PO (23:26)
[2023-12-25 06:33] LABS: Bedside Glucose 87 mg/dL (74-106)
[2023-12-25 07:42] VITALS: O2SAT 94
[2023-12-25] MEDS: Azelastine HCl NASAL.SRY 2 SPRAY NASAL ×2 (09:48→21:52)
[2023-12-25] MEDS: metFORMIN HCl 500 MG Tablet 250 MG PO ×2 (09:48→17:49)
[2023-12-25] MEDS: Citalopram 10 MG Tablet PO (09:49)
[2023-12-25] MEDS: Senna/Docusate Sodium 1 Tablet PO ×2 (09:49→21:51)
[2023-12-25] MEDS: APIXABAN 5 MG TABLET PO ×2 (09:50→21:51)
[2023-12-25] MEDS: Lisinopril 2.5 MG Tablet PO (09:50)
[2023-12-25] MEDS: Vibegron 75 MG TABLET PO (09:50)
[2023-12-25] MEDS: Famotidine 20 MG Tablet PO (09:50)
[2023-12-25] MEDS: Cefdinir 300 MG Capsule PO ×2 (09:51→21:51)
[2023-12-25] MEDS: dilTIAZem CD 180 MG Capsule PO ×2 (09:51→21:50)
[2023-12-25] MEDS: Timolol 0.5% 5ML OPTH.BTL 1 DRP OPHTHALMIC ×2 (09:57→21:51)
[2023-12-25] MEDS: Amiodarone 200 MG Tablet 100 MG PO (10:00)
[2023-12-25] MEDS: Fluticasone 0.05% 1 SPRAY NASAL.SRY 2 SPRAY NASAL (10:01)
[2023-12-25 13:15] VITALS: PULSE 84; RESP 16; O2SAT 93
[2023-12-25 14:55] VITALS: BP 115/59; PULSE 63; RESP 17; TEMP 36; O2SAT 93
[2023-12-25] MEDS: Donepezil HCl 10 MG Tablet PO (21:50)
[2023-12-25] MEDS: Atorvastatin Calcium 40 MG Tablet PO (21:51)
[2023-12-26 06:46] LABS: Bedside Glucose 79 mg/dL (74-106)
[2023-12-26] MEDS: metFORMIN HCl 500 MG Tablet 250 MG PO ×2 (08:47→17:01)
[2023-12-26 08:59] VITALS: O2SAT 93
[2023-12-26] MEDS: Azelastine HCl NASAL.SRY 2 SPRAY NASAL ×2 (10:12→22:01)
[2023-12-26] MEDS: dilTIAZem CD 180 MG Capsule PO (10:12)
[2023-12-26] MEDS: APIXABAN 5 MG TABLET PO ×2 (10:12→21:58)
[2023-12-26] MEDS: Vibegron 75 MG TABLET PO (10:12)
[2023-12-26] MEDS: Citalopram 10 MG Tablet PO (10:13)
[2023-12-26] MEDS: Amiodarone 200 MG Tablet 100 MG PO (10:13)
[2023-12-26] MEDS: Cefdinir 300 MG Capsule PO ×2 (10:14→21:58)
[2023-12-26] MEDS: Lisinopril 2.5 MG Tablet PO (10:14)
[2023-12-26] MEDS: Fluticasone 0.05% 1 SPRAY NASAL.SRY 2 SPRAY NASAL (10:14)
[2023-12-26] MEDS: Famotidine 20 MG Tablet PO (10:14)
[2023-12-26] MEDS: Senna/Docusate Sodium 1 Tablet PO (10:14)
[2023-12-26] MEDS: Timolol 0.5% 5ML OPTH.BTL 1 DRP OPHTHALMIC ×2 (10:15→22:02)
[2023-12-26 14:14] VITALS: BP 126/53; PULSE 61; RESP 18; TEMP 36.7; O2SAT 96
--- NOTE | 2023-12-26 14:24 | NS ---
MST score = 2
[2023-12-26] MEDS: Donepezil HCl 10 MG Tablet PO (21:58)
[2023-12-26] MEDS: Atorvastatin Calcium 40 MG Tablet PO (21:58)
--- NOTE | 2023-12-27 00:27 | NURSING ---
Per physician order 10pm cardizem held for bradycardia.
[2023-12-27 06:29] LABS: Bedside Glucose 92 mg/dL (74-106)
[2023-12-27 06:52] VITALS: O2SAT 94
[2023-12-27 08:20] VITALS: BP 122/54; PULSE 62; RESP 16; TEMP 36.5; O2SAT 95
[2023-12-27] MEDS: Fluticasone 0.05% 1 SPRAY NASAL.SRY 2 SPRAY NASAL (08:23)
[2023-12-27] MEDS: Senna/Docusate Sodium 1 Tablet PO (08:24)
[2023-12-27] MEDS: Amiodarone 200 MG Tablet 100 MG PO (08:24)
[2023-12-27] MEDS: Famotidine 20 MG Tablet PO (08:24)
[2023-12-27] MEDS: Lisinopril 2.5 MG Tablet PO (08:24)
[2023-12-27] MEDS: Timolol 0.5% 5ML OPTH.BTL 1 DRP OPHTHALMIC ×2 (08:25→22:11)
[2023-12-27] MEDS: Azelastine HCl NASAL.SRY 2 SPRAY NASAL ×2 (08:25→22:15)
[2023-12-27] MEDS: Citalopram 10 MG Tablet PO (08:26)
[2023-12-27] MEDS: metFORMIN HCl 500 MG Tablet 250 MG PO ×2 (08:26→17:18)
[2023-12-27] MEDS: APIXABAN 5 MG TABLET PO ×2 (08:26→22:17)
[2023-12-27] MEDS: Cefdinir 300 MG Capsule PO (08:26)
[2023-12-27] MEDS: Vibegron 75 MG TABLET PO (08:26)
[2023-12-27] MEDS: dilTIAZem CD 180 MG Capsule PO ×2 (08:26→22:18)
[2023-12-27 10:05] VITALS: BMI 29.4
--- NOTE | 2023-12-27 14:33 | CHAPLAIN ---
Type of Pastoral Visit ___ Initial Visit _x__ Follow-up Visit ___ On-call Visit ___ General Patient Visit ___ Spiritual Assessment ___ Family Conference ___ Bereavement ___ Rapid Response ___ Code Blue ___ Other (describe below) Pastoral Care Referral From _x__ Patient ___ Family ___ Nurse ___ Physician ___ Coper Hand ___ Guest Relations Coordinator ___ Other (describe below) Sacrament/Intervention _x__ Active listening ___ Anointing ___ Adventism ___ Bereavement ___ Communion ___ Shelbi exploration ___ ___ Life review _x__ Prayer ___ Reconciliation ___ Sacrament of Sick _x__ Supportive presence ___ Wedding ___ Other (describe below) Pastoral Comments patient has been previously seen in [facility]; pt is wanting to take a nap but says she is willing for a visit; pt asks questions of this toll test worker; pt is admitting that thinking about her future causes concern for her but she has some hope of returning home; pt has family support but not always available to her; pt welcomes prayer
[2023-12-27 16:10] VITALS: O2SAT 97
--- NOTE | 2023-12-27 17:30 | EX.PCM.CON.G ---
HPI Consult Data Date of Consult: 12/27/23 HPI Narrative Reason for Consultation: Esophageal dysphagia and abnormal swallow study HPI Narrative: 83-year-old female with a past medical history as outlined was admitted through the ED on 12/24/2023 with a complaint of weakness and mechanical fall. Symptoms had began about a week prior to admission and weakness that gradually worsened. She said she lived alone and had been getting weaker because trying to ambulate with her walker. She says she went to the bathroom and had to prop head against the wall due to weakness and was even unable to pull her pants up. She subsequently fell and hit the lower portion of her back and pelvis resulting in significant pain. She therefore pressed her alert button and EMS brought her into the ED. Urinalysis showed evidence of UTI. CT of the brain showed no acute intracranial pathology and showed a meningioma of the left parietal lobe. Pelvic x-ray showed no evidence of any acute fracture or dislocation. She was admitted and managed for UTI as well as debility and weakness due to mechanical fall. She was hydrated with IV fluids and started on IV ceftriaxone. PT OT was consulted. Urine cultures grew E. coli which was pansensitive. Antibiotics were therefore switched to p.o. cefdinir. She worked with physical therapy and was deemed as needing further skilled care. She was discharged to SNF on 12/22/2023. She was given a prescription for p.o. cefdinir to complete a 5-day course.She was referred for ST consult due to swallowing difficulty. BSE 12/21/23 recommended puree textures / thin liquids with plans for MBSS in upcoming sessions. She underwent video swallow and it displayed. Severe retention of liquids and pudding with little to no emptying through the LES. Esophagus appears tortuous with very narrow lower esophagus. Esophagus also appears to have food particles suspended in the barium. Patient reports regurgitating 1X/week. Recommended thin liquid in GI consultation. [facility] Medical History (Updated 12/22/23 @ 22:[address] Newton Ulloa MD) Depression Diabetes GERD (gastroesophageal reflux disease) Atrial fibrillation Irregular heart beat Hypertension DVT (deep venous thrombosis) On amiodarone therapy Essential hypertension Abnormal pulmonary function test Nonrheumatic mitral (valve) prolapse History of DVT (deep vein thrombosis) Menieres disease Depression Anxiety Meningioma Hyperlipidemia Atherosclerotic heart disease of [place] coronary artery without angina pectoris Palpitations Long-term use of high-risk medication Type 2 diabetes mellitus Asthma Osteoarthritis Family history of CVA Atrial ectopic tachycardia Paroxysmal atrial fibrillation Hypertension Home Medications ?Medication ?Instructions ?Recorded ?Last Taken ?Type mirabegron 50 mg tablet,extended 50 mg PO DAILY URINARY FREQUENCY 07/11/16 07/01/21 History release 24 hr meclizine 25 mg tablet 12.5 mg PO TID PRN PRN Dizziness 05/16/19 Unknown History atorvastatin 40 mg tablet 40 mg PO QHS 05/13/21 06/30/21 History famotidine 20 mg tablet 20 mg PO BID GERD 07/01/21 07/01/21 History lisinopril 2.5 mg tablet 2.5 mg PO DAILY BP 07/01/21 07/01/21 History donepezil 10 mg tablet 10 mg PO QHS 06/09/22 Unknown History metformin 500 mg tablet 250 mg PO BID DM 06/09/22 Unknown History apixaban 2.5 mg tablet (Eliquis) 2.5 mg PO BID BLOOD THINNER 05/24/23 Unknown History azelastine 137 mcg (0.1 %) nasal 2 spray intranasal BID #30 mL 09/05/23 Unknown Rx spray aerosol fluticasone propionate 50 2 spray intranasal DAILY #16 grams 09/05/23 Unknown Rx mcg/actuation nasal spray,suspension diltiazem HCl 180 mg 180 mg PO BID #180 caps 09/08/23 Unknown Rx capsule,extended release 24 hr amiodarone 200 mg tablet 100 mg (1/2 x 200 mg) PO DAILY #90 12/01/23 Unknown Rx tabs citalopram 10 mg tablet (Celexa) 10 mg PO DAILY 12/16/23 Unknown History furosemide 40 mg tablet 40 mg PO DAILY 12/19/23 Unknown History timolol maleate 0.5 % eye drops 1 drp ophthalmic (eye) BID 12/19/23 Unknown History cefdinir 300 mg capsule 300 mg PO Q12 #9 caps 12/22/23 Unknown Rx Allergy/AdvReac Type Severity Reaction Status Date / Time benzonatate (From Tessalon Allergy Hives Verified 12/19/23 20:14 [place]) cat dander Allergy Unknown Verified 12/19/23 20:14 Family History Father CAD (coronary artery disease) CHF (congestive heart failure) History of DVT (deep vein thrombosis) Mother Diabetes Grandfather CAD (coronary artery disease) History of DVT (deep vein thrombosis) Grandmother CVA (cerebral vascular accident) Surgical History History of cataract extraction History of tonsillectomy and adenoidectomy History of tubal ligation Social History (Updated 12/22/23 @ 22:[address] Newton Ulloa MD) household members: none Smoking Status: Never smoker second hand exposure: No alcohol intake: never substance use type: does not use caffeine: No what type of physical activity do you participate in: none ROS Constitutional Constitutional: Reports weakness; Denies chills, fever(s) or weight gain ENT HEENT: Denies headache(s), nasal congestion or nasal discharge Cardiovascular Cardiovascular: Denies chest pain or palpitations Respiratory/Chest Respiratory/Chest: Denies cough, excessive phlegm production or shortness of breath with exertion Gastrointestinal Gastrointestinal: Denies abdominal pain, nausea or vomiting Genitourinary Genitourinary: Denies dysuria Musculoskeletal Musculoskeletal: Denies joint pain or joint swelling Integumentary Integumentary: Denies rash or wounds Neurologic Neurologic: Denies focal weakness, numbness or tingling Psychiatric Psychiatric: Denies anxiety, auditory hallucinations, depression, homicidal ideation or suicidal ideation Physical Exam Const alert General Appearance: cooperative HEENT normocephalic Eyes PERRL and EOMs intact bilaterally Neck supple, no JVD and no carotid bruits Resp normal respiratory effort, normal air movement and clear to auscultation bilaterally Cardio regular rate and regular rhythm GI normal to inspection, nondistended, normoactive bowel sounds, non-tender and non-distended Extremity normal capillary refill General Extremity: Negative for edema Skin no rashes or lesions noted General Skin Exam: no breakdown Psych affect normal Appearance: appropriate Lab / Micro Data 12/23/23 05:20 12/23/23 05:20 Labs: Laboratory Results - last 24 hr 12/27/23 06:05: POC Glucose 92 Assessment & Plan Assessment/Plan (1) Esophageal motility disorder: PLAN: Her images resemble achalasia. This could be pseudo achalasia or true achalasia. She should undergo EGD with evaluation of the distal esophagus for possible dilation and possible Botox. I do not think she can tolerate manometry. I will get the procedure pre-CERT prior to me scheduling the procedure. I was alerted by administration that the procedures had to be pre-CERT it prior to them being scheduled through the operating room. Continue full liquid diet. Charges/Coding Visit Charges Inpatient E&M: 51356 SNF Init L2
[2023-12-27] MEDS: COVID VAC 23-24(12UP)(ANDU)/PF 50 MCG/0.5 ML SYRINGE IM (17:36)
[2023-12-27 22:00] VITALS: PULSE 59; RESP 16; O2SAT 94
[2023-12-27] MEDS: Atorvastatin Calcium 40 MG Tablet PO (22:17)
[2023-12-27] MEDS: Donepezil HCl 10 MG Tablet PO (22:18)
--- NOTE | 2023-12-28 06:19 | NURSING ---
OJ given for blood sugar of 82.
[2023-12-28 06:34] LABS: Bedside Glucose 82 mg/dL (74-106)
[2023-12-28 08:14] VITALS: O2SAT 91
[2023-12-28] MEDS: Timolol 0.5% 5ML OPTH.BTL 1 DRP OPHTHALMIC ×2 (08:22→22:15)
[2023-12-28] MEDS: Azelastine HCl NASAL.SRY 2 SPRAY NASAL ×2 (08:22→22:15)
[2023-12-28] MEDS: metFORMIN HCl 500 MG Tablet 250 MG PO ×2 (08:23→17:08)
[2023-12-28] MEDS: dilTIAZem CD 180 MG Capsule PO (08:24)
[2023-12-28] MEDS: Amiodarone 200 MG Tablet 100 MG PO (08:25)
[2023-12-28] MEDS: Famotidine 20 MG Tablet PO (08:25)
[2023-12-28] MEDS: Senna/Docusate Sodium 1 Tablet PO (08:25)
[2023-12-28] MEDS: Citalopram 10 MG Tablet PO (08:25)
[2023-12-28] MEDS: Lisinopril 2.5 MG Tablet PO (08:25)
[2023-12-28] MEDS: Vibegron 75 MG TABLET PO (08:25)
[2023-12-28] MEDS: APIXABAN 5 MG TABLET PO (08:25)
[2023-12-28] MEDS: Fluticasone 0.05% 1 SPRAY NASAL.SRY 2 SPRAY NASAL (08:34)
--- NOTE | 2023-12-28 09:24 | CASEMGMT ---
Social Work Care Plan IDT met with patient and daughterLesly at bedside to complete care plan meeting. Discussed patient progress with therapy PT/OT/ST, nursing, and dietary. Patient is currently on modified diet for; swallowing, diabetes,cardiac. Patient has been progressing with therapy and requires mod A; ambulating 40ft with therapy. GI has plans for potential EGD. Speech will continue to monitor for swallow exam. Patient's goal is to advance her diet to regular. Therapy recommends continued therapy due to weakness; current recommendations for discharge 24/hr care pending progress with therapy. SW educated patient and daughter regarding Medicare insurance coverage and benefits. SW informed patient and daughter that Medicare provides 100 days for SNF days; 20 days are covered 100% and 21-100 has co-pay of 204.00/ day. Patient has ; family to contact to navigate secondary coverage. Patient goal is to return home with support. SW discussed VA coverage for senior living care. Patient's son is [facility] staff; son will look into senior living care via [place] spousal support. [employer] provided patient and family with contact information. SW will continue to monitor to provide support for discharge planning. VALDEZ Banks
--- NOTE | 2023-12-28 11:45 | NURSING ---
Addendum entered by Teresa Vazquez 12/28/23 12:06: Updated patient and left VM for daughter Lesly. Addendum entered by Teresa Vazquez 12/28/23 12:00: Call back from endoscopy that they will move patient to tomorrow for egd. Will make NPO tonight at midnight. They plan on doing procedure tomorrow around 11:00 or 11:30. Original Note: Bridgett from ENDO calls at this time regarding patient to receive endoscopy today but has not been NPO overnight. Bridgett made aware that patient had breakfast today but no lunch, but did have an iced coffee at 1130. Bridgett reports there is a chance they can do endoscopy this evening and request that we make patient NPO at this time. Order placed and patient made aware.
--- NOTE | 2023-12-28 12:26 | NURSING ---
Anastacia from preadmission testing calls at this time to make nursing aware of medications for patient to take prior to EGD on 12/29/23. Patient to take Pepcid, Lisinopril, Diltiazem, Amiodarone morning of procedure and Eliquis to be on hold 12hrs prior to procedure.
[2023-12-28 15:35] VITALS: BP 119/60; PULSE 65; RESP 14; TEMP 37.1; O2SAT 94
[2023-12-28 22:10] VITALS: BP 116/44; PULSE 52
[2023-12-28] MEDS: Atorvastatin Calcium 40 MG Tablet PO (22:15)
[2023-12-28] MEDS: Donepezil HCl 10 MG Tablet PO (22:15)
[2023-12-29 06:23] LABS: Bedside Glucose 95 mg/dL (74-106)
[2023-12-29 09:32] VITALS: BP 119/47; PULSE 60; RESP 16; TEMP 36.9; O2SAT 92
[2023-12-29] MEDS: dilTIAZem CD 180 MG Capsule PO (09:35)
[2023-12-29] MEDS: Lisinopril 2.5 MG Tablet PO (09:36)
[2023-12-29] MEDS: Amiodarone 200 MG Tablet 100 MG PO (09:36)
[2023-12-29] MEDS: Famotidine 20 MG Tablet PO (09:37)
[2023-12-29] MEDS: Azelastine HCl NASAL.SRY 2 SPRAY NASAL ×2 (09:40→20:54)
[2023-12-29] MEDS: Fluticasone 0.05% 1 SPRAY NASAL.SRY 2 SPRAY NASAL (09:40)
[2023-12-29] MEDS: Timolol 0.5% 5ML OPTH.BTL 1 DRP OPHTHALMIC ×2 (09:40→20:54)
--- NOTE | 2023-12-29 10:33 | NURSING ---
Patient exited the unit at this time for EGD.
--- NOTE | 2023-12-29 12:32 | NURSING ---
Addendum entered by Teresa Vazquez 12/29/23 12:46: Orders for full liquid diet and to continue all previously ordered medications. Original Note: Patient returned to floor from procedure.
[2023-12-29] MEDS: Citalopram 10 MG Tablet PO (12:43)
[2023-12-29 12:44] VITALS: BP 99/45; PULSE 56; RESP 14; TEMP 35.9; O2SAT 92
[2023-12-29] MEDS: Vibegron 75 MG TABLET PO (12:44)
[2023-12-29] MEDS: metFORMIN HCl 500 MG Tablet 250 MG PO (18:18)
--- NOTE | 2023-12-29 18:32 | CASEMGMT ---
Addendum entered by Marcia Jones 12/29/23 18:36: PhQ-2 (08/08) Patient reported feeling down when she first arrived to TCU because she did not want to be in rehab. Patient reports that mood has since improved. Original Note: Social Work SW met with patient at bedside to complete MDS. Patient BIM () and PhQ-2 () VALDEZ Banks
[2023-12-29 20:52] VITALS: BP 112/46; PULSE 60
[2023-12-29] MEDS: Atorvastatin Calcium 40 MG Tablet PO (20:53)
[2023-12-29] MEDS: Donepezil HCl 10 MG Tablet PO (20:53)
[2023-12-29] MEDS: APIXABAN 5 MG TABLET PO (20:54)
[2023-12-30 06:04] LABS: Absolute Lymphocyte Count 2.14 X10^3/uL (0.83-4.51); Absolute Neutrophil Count 3.2 X10^3/uL (2.0-7.7); Basophil# 0.05 X10^3/uL; Basophil% 0.8 % (0-1); Eosinophil# 0.21 X10^3/uL; Eosinophils% 3.2 % (0-5); Hematocrit 30.4 % (37-47); Hemoglobin 8.9 g/dL (12.0-15.0); Lymphocyte # 2.14 X10^3/ul (0.83-4.51); Mean Corp Hgb Conc 29.3 g/dL (32-36); Mean Corpuscular Hgb 24.5 pg (27.0-32.0); Mean Corpuscular Volume 83.5 fL (81-99); Mean Platelet Vol. 9.8 fl (6.2-12.0); Monocyte# 0.86 X10^3/uL; Monocyte% 13.3 % (0-10); NRBC Flagged by Analyzer 0 % (0-5); Neutrophil % 49.2 % (47-70); Platelet Count 294 K/mm3 (150-450); RBC Distribution Width SD 57.1 fl (35.1-43.9); Red Blood Count 3.64 M/mm3 (4.2-5.4); White Blood Count 6.5 K/mm3 (4.4-11.0)
[2023-12-30 06:23] LABS: Anion Gap 4 (5-15); BUN 19 mg/dL (7-18); BUN/Creat Ratio 13.7 RATIO (10-20); Calcium,Total 8.3 mg/dL (8.5-10.1); Chloride 109 mmol/L (98-107); Creatinine, Serum 1.39 mg/dL (0.55-1.02); EST Glomerular Filtration Rate 38 mL/min (>60); Est Glom Filt Rate - Afr Amer 47 mL/min (>60); Estimated Creatinine Clearance 30.95 ml/min; Glucose 90 mg/dL (74-106); Potassium 5.3 mmol/L (3.5-5.1); Sodium Level 139 mmol/L (136-145)
[2023-12-30 06:49] VITALS: O2SAT 94
[2023-12-30] MEDS: Citalopram 10 MG Tablet PO (07:51)
[2023-12-30] MEDS: Amiodarone 200 MG Tablet 100 MG PO (07:51)
[2023-12-30] MEDS: Azelastine HCl NASAL.SRY 2 SPRAY NASAL ×2 (07:51→21:34)
[2023-12-30] MEDS: metFORMIN HCl 500 MG Tablet 250 MG PO ×2 (07:51→16:27)
[2023-12-30] MEDS: Vibegron 75 MG TABLET PO (07:52)
[2023-12-30] MEDS: Senna/Docusate Sodium 1 Tablet PO ×2 (07:52→21:32)
[2023-12-30] MEDS: APIXABAN 5 MG TABLET PO ×2 (07:52→21:31)
[2023-12-30] MEDS: Lisinopril 2.5 MG Tablet PO (07:52)
[2023-12-30] MEDS: Timolol 0.5% 5ML OPTH.BTL 1 DRP OPHTHALMIC ×2 (07:52→21:34)
[2023-12-30] MEDS: Famotidine 20 MG Tablet PO (07:52)
[2023-12-30] MEDS: Fluticasone 0.05% 1 SPRAY NASAL.SRY 2 SPRAY NASAL (07:53)
[2023-12-30] MEDS: dilTIAZem CD 180 MG Capsule PO ×2 (08:01→21:32)
[2023-12-30] MEDS: Tuberculin,Purif.prot.deriv. 50 TU/ML Vial 0.1 ML ID (09:29)
[2023-12-30 16:00] VITALS: BP 146/65; PULSE 56; RESP 15; TEMP 36.6; O2SAT 90
[2023-12-30] MEDS: Donepezil HCl 10 MG Tablet PO (21:33)
[2023-12-30] MEDS: Atorvastatin Calcium 40 MG Tablet PO (21:33)
[2023-12-31 06:36] LABS: Bedside Glucose 103 mg/dL (74-106)
[2023-12-31] MEDS: Timolol 0.5% 5ML OPTH.BTL 1 DRP OPHTHALMIC (08:22)
[2023-12-31] MEDS: Fluticasone 0.05% 1 SPRAY NASAL.SRY 2 SPRAY NASAL (08:22)
[2023-12-31] MEDS: Azelastine HCl NASAL.SRY 2 SPRAY NASAL (08:22)
[2023-12-31] MEDS: Citalopram 10 MG Tablet PO (08:25)
[2023-12-31] MEDS: dilTIAZem CD 180 MG Capsule PO (08:25)
[2023-12-31] MEDS: metFORMIN HCl 500 MG Tablet 250 MG PO (08:25)
[2023-12-31] MEDS: Amiodarone 200 MG Tablet 100 MG PO (08:25)
[2023-12-31] MEDS: Lisinopril 2.5 MG Tablet PO (08:26)
[2023-12-31] MEDS: APIXABAN 5 MG TABLET PO (08:26)
[2023-12-31] MEDS: Senna/Docusate Sodium 1 Tablet PO (08:26)
[2023-12-31] MEDS: Vibegron 75 MG TABLET PO (08:26)
[2023-12-31] MEDS: Famotidine 20 MG Tablet PO (08:26)
--- NOTE | 2023-12-31 10:37 | PN_ITS ---
Subjective Subjective Asked by nursing to evaluate patient for sudden onset hypoxemia requiring oxygen supplementation. EMR was reviewed including the H&P by Dr. Ulloa. Is known to have a large esophageal diverticulum with esophageal dysmotility with severe dysphagia. I reviewed the operative report by Dr. Hooker. No history of congestive heart failure. She does have a history of atrial fibrillation. Haley is c/o chest heaviness. She denies history of angina or coronary artery disease. CAD is not listed on her past medical history in the EMR. She denies radiation of the pain to her arms or neck. She also denies nausea. She tells me that the shortness of breath and chest heaviness started very suddenly this morning when she was coughing with eating. She was 92 to 94% saturated on room air yesterday throughout the day. She apparently gets placed on oxygen at night. Nursing tells me she is now on 3 L of nasal O2 and the pulse ox is 90- 92. All lab from today was personally reviewed. The white blood cell count is 6.5 with an unremarkable differential and hemoglobin is 8.9 which is down from 9.7 on 12/23/2023. Platelets are within normal limits. Sodium today is 139 and the potassium is elevated at 5.3 which is up from 4.1 on 12/23/2023. The BUN is 19 with a stable creatinine at 1.39. Creatinine has ranged from 1.32-2.04 since June 2023. Afebrile Blood pressure over the past 24 hours has ranged from 81/47 to 146/65 currently. She denies lightheadedness at the present time. Heart rate is ranged from 56- 63. Antihypertensives include diltiazem 180 mg twice daily and lisinopril 2.5 mg daily Good food intake Weight is stable. The blood sugar record was reviewed and the blood sugars have ranged from 79-99 over the past few days. She is on metformin 250 mg twice daily. She became diaphoretic. BP WNL at 136/61 and the blood sugar is 131. CXR shows infiltrate in the RLL more likely than not due to aspiration. Objective Data Objective Data Vital Signs: Vital Signs Temp Pulse Resp BP Pulse Ox O2 Del Method O2 Flow Rate 97.8 F 56 L 15 146/65 H 90 Room Air 2 12/30/23 16:00 12/30/23 16:00 12/30/23 16:00 12/30/23 16:00 12/30/23 16:00 12/31/23 09:42 12/30/23 10:00 Oxygen Flow Rate (L/min) 2 Oxygen Delivery Method Room Air Weight: 171 lb 8 oz Body Mass Index (BMI) 29.4 Intake & Output: Intake and Output for Last 24 Hours 12/29/23 12/30/23 12/31/23 23:59 23:59 23:59 Intake Total 360 / 360 1380 / 1380 120 / 120 Balance 360 / 360 1380 / 1380 120 / 120 Lab / Micro Data 12/30/23 05:30 12/30/23 05:30 Labs: Laboratory Results - last 24 hr 12/31/23 06:15: POC Glucose 103 Physical Exam Const alert Constitutional Narrative: appropriate. Diaphoretic and pale. Resp Resp Narrative: diffuse inspiratory and expiratory wheezing. No rales appreciated. Not tachypneic at rest. No accessory muscle use. Cardio regular rate, regular rhythm and no gallops Cardio Narrative: Occasional ectopic. GI normal to inspection, nondistended, normoactive bowel sounds, soft to palpation and non-tender GI Narrative: Denies nausea, no epigastric pain with palpation. Extremity no calf tenderness General Extremity: Negative for edema Skin Rashes: no rashes Assessment & Plan Assessment/Plan (1) Acute respiratory distress: (2) Hypoxemia: (3) Chest pain: (4) Aspiration pneumonia: (5) Abnormal EKG: (6) Type 2 diabetes mellitus: (7) Dysphagia: (8) Esophageal diverticulum: PLAN: Very large. The opening to the diverticulum is much larger than the opening for the esophagus. She also has esophageal dysmotility. At the time of EGD she had retained pills and food in the diverticulum. PLAN: Plan 1. Chest x-ray was obtained and showed infiltrate in the right base. There was also some mild blunting of the right costophrenic angle. 2. EKG showed mild J-point elevation in the anterior leads with no reciprocal changes. She has poor R wave progression and a left anterior hemiblock. 3. She was given an albuterol treatment with significant improvement in the diffuse wheezing. Following the breathing treatment she had just expiratory wheezing that was mild and scattered. 4. She was sent to the emergency room to be evaluated and will likely need admitted to the acute side of the hospital for acute respiratory distress secondary to aspiration pneumonia 5. She was made n.p.o. prior to going to the emergency department. 6. I ordered a dose of Zosyn and a dose of Solu-Medrol however she did not receive either prior to being transported to the emergency department. Charges/Coding Visit Charges Inpatient E&M: 13567 SNF Subs L2
--- NOTE | 2023-12-31 10:40 | RAD_ITS ---
EXAM: XR CHEST, 1 VIEW CLINICAL INDICATION: Hypoxemia TECHNIQUE: Frontal view of the chest. COMPARISON: XR Chest dated 05/24/2023 FINDINGS: LUNGS AND PLEURAL SPACES: Pleural-parenchymal density right lung base which may represent acute or chronic inflammatory change. HEART: Borderline cardiomegaly. MEDIASTINUM: No mediastinal or hilar mass. BONES/JOINTS: No acute abnormality. RAD/Chest 1 View (Portable) IMPRESSION: Right basilar pleural-parenchymal density which may represent acute or chronic inflammatory or infectious change. Stable borderline cardiomegaly. Electronically Signed: Chicho Gibson MD at 12:29 EDT ,
--- NOTE | 2023-12-31 10:45 | EKG12_ITS ---
Test Reason : CP Blood Pressure : / mmHG Vent. Rate : 054 BPM Atrial Rate : 054 BPM P-R Int : 174 ms QRS Dur : 140 ms QT Int : 480 ms P-R-T Axes : 097 -49 033 degrees QTc Int : 455 ms Sinus bradycardia LAD Non-specific intra-ventricular conduction block Minimal voltage criteria for LVH, may be normal variant ( Roderick product ) Cannot rule out Anterior infarct , age undetermined Abnormal ECG Confirmed by Bruce Graham ([id number]), restaurant expeditor SHERI [address] ([id number]) on 01/02/2024 8:02:57 AM Referred By: Confirmed By:Bruce Graham
[2023-12-31 11:25] VITALS: PULSE 56; RESP 18; O2SAT 95
[2023-12-31 11:28] VITALS: BP 136/61; PULSE 56
[2023-12-31 11:38] LABS: Bedside Glucose 131 mg/dL (74-106)
--- NOTE | 2023-12-31 11:56 | NURSING ---
pt off unit to ER for possible MT via bed at this time
--- NOTE | 2023-12-31 12:22 | NURSING ---
PT. sent to ER with respiratory distress and chest pain. Report given to ER nurse. Message left for Neo.
[2023-12-31] MEDS: Albuterol 2.5 MG/3 ML VIAL.NEB. INHALATION (12:34)
[2023-12-31 12:54] LABS: Bedside Glucose 144 mg/dL (74-106)
--- NOTE | 2024-01-03 21:00 | DS.PCM_ITS ---
Providers Date of Admission: 12/22/23 Primary Care Physician: Dr. Hortensia Balbuena, Consultations 12/22/23 22:24 Consult: Gastroenterology Routine Consulting Provider: [facility] Reason for Consult: Esophageal retention on modified barium swallow. EMERGENT Consult: No MD Notified: Yes Date Notified: 12/22/23 Time Notified: 22:24 Method of Notification: Text Reason For Visit: ACUTE CYSTITIS, FALL Diagnosis Discharge Diagnosis (1) Acute respiratory distress: Status: Acute Code(s): R06.03 - Acute respiratory distress (2) Hypoxemia: Status: Acute Code(s): R09.02 - Hypoxemia (3) Chest pain: Status: Acute Code(s): R07.9 - Chest pain, unspecified (4) Aspiration pneumonia: Status: Acute Code(s): J69.0 - Pneumonitis due to inhalation of food and vomit (5) Abnormal EKG: Status: Acute Code(s): R94.31 - Abnormal electrocardiogram [ECG] [EKG] (6) Type 2 diabetes mellitus: Status: Chronic Code(s): E11.9 - Type 2 diabetes mellitus without complications (7) Dysphagia: Status: Acute Code(s): R13.10 - Dysphagia, unspecified (8) Esophageal diverticulum: Status: Acute Code(s): Q39.6 - Congenital diverticulum of esophagus Plan 83 year old female with below past medical history hospitalized for weakness 2/2 E. Coli UTI complicated by esophageal retention requiring thin liquid diet, admitted to TCU with debility, here for rehabilitation, strengthening, prior to discharge home alone. * Debility - PT/OT. * Dysphagia - ST, consult Dr. Hooker. * Pain - Tylenol 1000mg q6 prn pain (1-10). * Bowel - senna/colace 1 tablet bid, Dulcolax 10mg pr daily prn. * Adult immunization - Administer pneumonia vaccine, covid vaccine, flu vaccine as appropriate. * DVT prophylaxis - on Eliquis. * Atrial fibrillation - Diltiazem 180mg bid, Amiodarone 100mg daily, Eliquis 2.5mg bid. * Hyperlipidemia - Atorvastatin 40mg qhs. * Allergic rhinitis - Astelin 2 sprays nasal bid, Flonase 2 sprays nasal daily. * E. Coli UTI - Cefdinir 300mg q12 thru 12/27/2023. * Depression - Citalopram 10mg daily, stable chronic correction use, GDR not recommended. * Alzheimer Disease - Donepezil 10mg qhs. * GERD - Famotidine 20mg bid. * Hypertension - Dilitiazem 180mg bid, Lisinopril 2.5mg daily. * BPPV - Meclizine 12.5mg tid prn. * Diabetes Mellitus II - Metformin 250mg bid. * Overactive bladder - Myrbetriq 50mg daily. * Glaucoma - Timolol 0.5% 1gtt ou bid. Medications at Discharge Home Medications mirabegron 50 mg tablet,extended release 24 hr 50 mg PO DAILY URINARY FREQUENCY 07/11/16 meclizine 25 mg tablet 12.5 mg PO TID PRN PRN Dizziness 05/16/19 atorvastatin 40 mg tablet 40 mg PO QHS 05/13/21 famotidine 20 mg tablet 20 mg PO BID GERD 07/01/21 lisinopril 2.5 mg tablet 2.5 mg PO DAILY BP 07/01/21 donepezil 10 mg tablet 10 mg PO QHS 06/09/22 metformin 500 mg tablet 250 mg PO BID DM 06/09/22 apixaban 2.5 mg tablet (Eliquis) 2.5 mg PO BID BLOOD THINNER 05/24/23 azelastine 137 mcg (0.1 %) nasal spray aerosol 2 spray intranasal BID #30 mL 09/05/23 fluticasone propionate 50 mcg/actuation nasal spray,suspension 2 spray intranasal DAILY #16 grams 09/05/23 diltiazem HCl 180 mg capsule,extended release 24 hr 180 mg PO BID #180 caps 09/08/23 amiodarone 200 mg tablet 100 mg (1/2 x 200 mg) PO DAILY #90 tabs 12/01/23 citalopram 10 mg tablet (Celexa) 10 mg PO DAILY 12/16/23 furosemide 40 mg tablet 40 mg PO DAILY 12/19/23 timolol maleate 0.5 % eye drops 1 drp ophthalmic (eye) BID 12/19/23 cefdinir 300 mg capsule 300 mg PO Q12 #9 caps 12/22/23 Hospital Course Operations None Procedures EGD Summary of Care Provided Minutes Spent on Discharge: 15 Hospital Course: 83 year old female with below past medical history hospitalized for weakness 2/2 E. Coli UTI complicated by esophageal retention requiring thin liquid diet, admitted to TCU with debility, here for rehabilitation, strengthening, prior to discharge home alone. 12/31/2023 Resident developed acute respiratory failure with hypoxia 2/2 aspiration pneumonia. Discharge to [facility] ED 12/31/2023 for evaluation, possible admission to [facility]. Weight / BMI Weight Weight: 77.791 kg Body Mass Index (BMI) 29.4 ABG / Lab / Microbiology Data 12/30/23 05:30 12/30/23 05:30 D/C Instructions Discharge Diet: No restrictions Discharge Activity: Return to Normal Activity, May Shower and Use Walker Weight Bearing Status: Weight bearing as tolerated Call your doctor if you observe: Fever of 101 or Higher, Inability to urinate, Inability to have a bowel movement, Shortness of breath, Dizziness, Fainting spells, Swelling in the ankles, Chest pain and Uncontrolled pain Additional Instructions: Discharge to [facility] ED 12/31/2023 for evaluation, possible admission to [facility]. Meaningful Use Info Meaningful Use Meaningful Use Diagnoses (Choose all that apply): None applicable Ischemic Stroke Statin Dosing Therapy Reference: STATIN DOSE THERAPY REFERENCE: * Patients > 75 years receive moderate or high dose statin therapy. * Patients 75 years or YOUNGER should receive HIGH intensity statin dose unless contraindicated. You will be required to document reason for non-treatment if statin daily dose does not meet guidelines. HIGH DOSE STATIN THERAPY DAILY Atorvastatin > than or = to 40 mg Rosuvastatin > than or = to 20 mg Amlodipine + Atorvastatin > than or = to 2.5/40 mg Ezetimibe + Simvastatin 10/80 mg Simvastatin 80mg Discharge Plan Admission Admit Date/Time: 12/22/23 21:00 Primary Reason for Your Visit: Debility. Attending Provider: Newton Ulloa Chi Primary Care Provider: Hortensia Balbuena Instructions Additional Instructions / Restrictions: Discharge to [facility] ED 12/31/2023 for evaluation, possible admission to [facility]. Discharge Orders/Prescriptions Prescriptions: No Action atorvastatin 40 mg tablet 40 mg PO QHS metformin 500 mg tablet 250 mg PO BID donepezil 10 mg tablet 10 mg PO QHS citalopram [Celexa] 10 mg tablet 10 mg PO DAILY fluticasone propionate 50 mcg/actuation spray,suspension 2 spray INTRANASAL DAILY Qty: 16 11RF azelastine 137 mcg (0.1 %) aerosol,spray 2 spray INTRANASAL BID Qty: 30 11RF Rx Instructions: administer into each nostril mirabegron 50 MG tablet extended release 24 hr 50 mg PO DAILY meclizine 25 mg tablet 12.5 mg PO TID PRN PRN (Reason: Dizziness) famotidine 20 mg tablet 20 mg PO BID lisinopril 2.5 mg tablet 2.5 mg PO DAILY Eliquis 2.5 mg tablet 2.5 mg PO BID furosemide 40 mg tablet 40 mg PO DAILY Patient Comments: ON HOLD D/T KIDNEY FUNCTION timolol maleate 0.5 % drops 1 drp ophthalmic (eye) BID cefdinir 300 mg Capsule 300 mg PO Q12 Qty: 9 0RF diltiazem HCl 180 mg capsule,extended release 24hr 180 mg PO BID Qty: 180 3RF amiodarone 200 mg tablet 100 mg PO DAILY Qty: 90 3RF Referrals / Follow Up: Hortensia Balbuena DO [Primary Care Provider] - Disposition Disposition (needs filled in before D/C Order can be placed): Acute [facility] Hospital
--- NOTE | 2024-01-04 10:59 | MDS.RN ---
Information for the MDS was obtained from review of the clinical record, interview of resident, staff, and direct observation of resident?s care.
== END 2023-12-31 12:00 | disposition short-term general hospital (02) | DRG 689 ==
PROVIDERS: Admitting Provider Family Medicine Geriatric Medicine; PCP Family Medicine; Visit Provider Family Medicine Geriatric Medicine
DX: N39.0 Urinary tract infection, site not specified (principal); J69.0 Pneumonitis due to inhalation of food and vomit; K22.0 Achalasia of cardia; E11.39 Type 2 diabetes mellitus with other diabetic ophthalmic complication; E78.5 Hyperlipidemia, unspecified; B96.20 Unspecified Escherichia coli [E. coli] as the cause of diseases classified elsewhere; F02.80 Dementia in other diseases classified elsewhere, unspecified severity, without behavioral disturbance, psychotic disturbance, mood disturbance, and anxiety; G30.9 Alzheimer's disease, unspecified; I48.91 Unspecified atrial fibrillation; I10 Essential (primary) hypertension; F32.A Depression, unspecified; I25.10 Atherosclerotic heart disease of native coronary artery without angina pectoris; J30.9 Allergic rhinitis, unspecified; K21.9 Gastro-esophageal reflux disease without esophagitis; H81.10 Benign paroxysmal vertigo, unspecified ear; K22.5 Diverticulum of esophagus, acquired; I44.4 Left anterior fascicular block; N32.81 Overactive bladder; H40.9 Unspecified glaucoma; R13.12 Dysphagia, oropharyngeal phase; Z79.899 Other long term (current) drug therapy; Z79.01 Long term (current) use of anticoagulants; Z86.718 Personal history of other venous thrombosis and embolism; Z79.51 Long term (current) use of inhaled steroids; R09.02 Hypoxemia; Z79.84 Long term (current) use of oral hypoglycemic drugs; Z23 Encounter for immunization
CPT/HCPCS: 36415; 71045; 80048; 82962; 85025; 90480; 92508; 92526; 92610; 93005; 94640; 97110; 97116; 97162; 97166; 97530; 97535; 97802; 91322

== ENCOUNTER 2023-12-29 10:37 | Day surgery (SDC) | payer MEDICARE, OTHER, SELFPAY ==
[2023-12-29] VITALS (7 sets, daily range): BP systolic 81–146; BP diastolic 42–63; PULSE 59–63; RESP 14–16; TEMP 36.8–37.1; O2SAT 93–95; BMI 28.6
[2023-12-29] MEDS: Lactated Ringers 1,000 ML 15 ML IV (11:03)
[2023-12-29 11:26] LABS: Bedside Glucose 96 mg/dL (74-106)
--- NOTE | 2023-12-29 12:02 | OP.CCLET_ITS ---
12/29/2023 Hortensia Balbuena [address] [facility] [place] [address] Re : Upper GI endoscopy procedure for Haley Padgett Dear Dr. Balbuena This procedure was performed on December. My impressions and recommendations are as follows: Impressions : - Abnormal esophageal motility, suspicious for esophageal spasm. 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 - Normal stomach. - No gross lesions in the first portion of the duodenum. - No specimens collected. Recommendations : - Return patient to [facility] for ongoing care. - Full liquid diet. - Continue present medications. -Consider PEG tube versus esophageal stent with Botox injection throughout the esophagus for vigorous esophageal spasm. Patient may need manometry prior to getting Botox. Because of her advanced age and other comorbidities she may not be a candidate for surgical treatment of esophageal diverticulum. I will have to discuss the options with the patient and family members. My findings are described in the full procedure note, which is enclosed. If I can be of further assistance, please feel free to contact me at . Sincerely, Isra Hooker DO 12/29/2023 12:01:34 PM This report has been signed electronically.
--- NOTE | 2023-12-29 12:02 | OP.EGD_ITS ---
Patient Name: Haley Padgett Procedure Date: 12/29/2023 11:27 AM Date of : 1940 Age: 83 Procedure: Upper GI endoscopy Indications: Dysphagia Providers: Isra Hooker DO Medicines: Monitored Anesthesia Care Patient Profile: This is an 83 year old female. Refer to note in patient chart for documentation of history and physical. Patient has symptoms of dysphagia with both liquids and solids. Complications: No immediate complications. Procedure: Pre-Anesthesia Assessment: - Prior to the procedure, a History and Physical was performed, and patient medications and allergies were reviewed. The patient is competent. The risks and benefits of the procedure and the sedation options and risks were discussed with the patient. All questions were answered and informed consent was obtained. Patient identification and proposed procedure were verified by the physician. Mental Status Examination: normal. Prophylactic Antibiotics: The patient does not require prophylactic antibiotics. Prior Anticoagulants: The patient has taken no anticoagulant or antiplatelet agents. After reviewing the risks and benefits, the patient was deemed in satisfactory condition to undergo the procedure. The anesthesia plan was to use monitored anesthesia care (MAC). Immediately prior to administration of medications, the patient was re-assessed for adequacy to receive sedatives. The heart rate, respiratory rate, oxygen saturations, blood pressure, adequacy of pulmonary ventilation, and response to care were monitored throughout the procedure. The physical status of the patient was re-assessed after the procedure. After obtaining informed consent, the endoscope was passed under direct vision. Throughout the procedure, the patient's blood pressure, pulse, and oxygen saturations were monitored continuously. The Endoscope was introduced through the mouth, and advanced to the second part of duodenum. The upper GI endoscopy was accomplished without difficulty. The patient tolerated the procedure well. The upper GI endoscopy was accomplished with ease. The patient tolerated the procedure well. Scope In: 11:41:46 AM Scope Out: 11:46:38 AM Total Procedure Duration Time 0 hours 4 minutes 52 seconds Findings: Abnormal motility was noted in the esophagus. The cricopharyngeus was abnormal. There is spasticity of the esophageal body. The distal esophagus/lower esophageal sphincter is spastic, but gives up passage to the endoscope. Tertiary peristaltic waves are noted. The proximal esophagus begins a 16 cm from the incisors and she has multiple sites of vigorous contraction throughout the esophagus. A non-bleeding diverticulum with a large opening and no stigmata of recent bleeding was found in the middle third of the esophagus. The large diverticulum is at 34 cm from the incisors and the GE junction is at 43 cm from the incisors. The entire examined stomach was normal. No gross lesions were noted in the first portion of the duodenum. Impression: - Abnormal esophageal motility, suspicious for esophageal spasm. 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 - Normal stomach. - No gross lesions in the first portion of the duodenum. - No specimens collected. Recommendation: - Return patient to hospital [facility] for ongoing care. - Full liquid diet. - Continue present medications. -Consider PEG tube versus esophageal stent with Botox injection throughout the esophagus for vigorous esophageal spasm. Patient may need manometry prior to getting Botox. Because of her advanced age and other comorbidities she may not be a candidate for surgical treatment of esophageal diverticulum. I will have to discuss the options with the patient and family members. Procedure Code(s): --- Professional --- 53830, Esophagogastroduodenoscopy, flexible, transoral; diagnostic, including collection of specimen(s) by brushing or washing, when performed (separate procedure) CPT copyright 2021 [employer]. All rights reserved. The codes documented in this report are preliminary and upon dredge engineer review may be revised to meet current compliance requirements. Isra Hooker DO 12/29/2023 12:01:34 PM This report has been signed electronically. Number of Addenda: 0 Note Initiated On: 12/29/2023 11:27 AM
[2023-12-30 16:11] LABS: Bedside Glucose 89 mg/dL (74-106)
[2023-12-30 16:11] LABS: Bedside Glucose 97 mg/dL (74-106)
== END 2023-12-29 12:27 | disposition home or self-care (01) ==
LOC: EN 10:38 → AC 10:39
PROVIDERS: PCP Family Medicine; Referring Provider Family Medicine; Visit Provider Internal Medicine Gastroenterology
PROC: 0DJ08ZZ Inspection of Upper Intestinal Tract, Via Natural or Artificial Opening Endoscopic (ICD-10-PCS; CPT 43235; principal; 2023-12-29 11:25)
DX: R13.10 Dysphagia, unspecified (principal); K22.5 Diverticulum of esophagus, acquired
CPT/HCPCS: J7120; 82962; J2405

== ENCOUNTER 2023-12-31 11:59 | Inpatient (IN) | payer MEDICARE, OTHER, SELFPAY ==
[2023-12-31] VITALS (12 sets, daily range): BP systolic 108–138; BP diastolic 57–83; PULSE 54–71; RESP 14–22; TEMP 36.2–36.7; O2SAT 92–98; BMI 27.8
--- NOTE | 2023-12-31 12:09 | EKG12_ITS ---
Test Reason : AM EKG Blood Pressure : / mmHG Vent. Rate : 056 BPM Atrial Rate : 056 BPM P-R Int : 212 ms QRS Dur : 132 ms QT Int : 558 ms P-R-T Axes : 081 -41 189 degrees QTc Int : 538 ms Sinus bradycardia with 1st degree A-V block with Premature atrial complexes Left axis deviation Non-specific intra-ventricular conduction block Minimal voltage criteria for LVH, may be normal variant ( Roderick product ) Cannot rule out Anteroseptal infarct , age undetermined T wave abnormality, consider inferolateral ischemia Abnormal ECG When compared with ECG of 02-JAN-2024 05:09, MANUAL COMPARISON REQUIRED, DATA IS UNCONFIRMED Confirmed by ELAYNE LLOYD, NORRIS ([id number]), offline editor HERNANDO PEREZ ([id number]) on 01/05/2024 6:59:20 AM Referred By: KACY Confirmed By:ZACHARY HOLLY MD
--- NOTE | 2023-12-31 12:15 | EDS_ITS ---
HPI History of Present Illness Chief Complaint: Shortness of Breath Informant: patient Onset/Context/Timing Onset: Today Context: gradual Timing: Continuous Quality: Positive for Wheezing Current Severity: Mild Maximum Severity: Mild Worsened by: Nothing Relieved by: Nothing Associated Symptoms cough Chest Pain: Positive for Dull Narrative Narrative: 83-year-old female history of A-fib on Eliquis, diabetes and esophageal diverticulum reticulum. Patient was recent admitted to the hospital and has been moved to the transitional care unit. They are concerned she may have had an aspiration. She is having some mild dull chest discomfort with wheezing. Has no underlying history of lung disease. I spoke to the hospitalist who was caring for the patient in the TCU. She wonders brought down the emergency department and admitted. PE Risk Factors: Positive for Recent immobilization; Negative for Cancer, OCP + Smoking + > 35, Prior DVT or PE, Recent surgery or Recent travel Prior similar symptoms: No Recent Illness/Hospitalization: Yes PFSH PFSH Medical History Dysphagia Transition of care Forgetfulness Wears glasses Diabetes Walker as ambulation aid Blood disorder Dietary restriction History of diverticulitis Difficulty swallowing Gastric reflux On home oxygen therapy History of stress test Cardiology follow-up encounter History of edema History of echocardiogram PAF (paroxysmal atrial fibrillation) Ambulatory dysfunction Generalized weakness Acute cystitis without hematuria Depression Diabetes GERD (gastroesophageal reflux disease) Atrial fibrillation Irregular heart beat Hypertension DVT (deep venous thrombosis) Fall Weakness UTI (urinary tract infection) Fatigue On amiodarone therapy Essential hypertension Abnormal pulmonary function test Nonrheumatic mitral (valve) prolapse Menieres disease Depression Meningioma Hyperlipidemia Atherosclerotic heart disease of [place] coronary artery without angina pectoris Palpitations Long-term use of high-risk medication Type 2 diabetes mellitus Osteoarthritis Family history of CVA Atrial ectopic tachycardia Paroxysmal atrial fibrillation Hypertension Home Medications ?Medication ?Instructions ?Recorded ?Last Taken ?Type mirabegron 50 mg tablet,extended 50 mg PO DAILY URINARY FREQUENCY 07/11/16 07/01/21 History release 24 hr meclizine 25 mg tablet 12.5 mg PO TID PRN PRN Dizziness 05/16/19 Unknown History atorvastatin 40 mg tablet 40 mg PO QHS 05/13/21 06/30/21 History famotidine 20 mg tablet 20 mg PO BID GERD 07/01/21 12/29/23 History lisinopril 2.5 mg tablet 2.5 mg PO DAILY BP 07/01/21 12/29/23 09:30 History donepezil 10 mg tablet 10 mg PO QHS 06/09/22 Unknown History metformin 500 mg tablet 250 mg PO BID DM 06/09/22 Unknown History apixaban 2.5 mg tablet (Eliquis) 2.5 mg PO BID BLOOD THINNER 05/24/23 12/27/23 History azelastine 137 mcg (0.1 %) nasal 2 spray intranasal BID #30 mL 09/05/23 12/29/23 09:30 Rx spray aerosol fluticasone propionate 50 2 spray intranasal DAILY #16 grams 09/05/23 Unknown Rx mcg/actuation nasal spray,suspension diltiazem HCl 180 mg 180 mg PO BID #180 caps 09/08/23 12/29/23 09:30 Rx capsule,extended release 24 hr amiodarone 200 mg tablet 100 mg (1/2 x 200 mg) PO DAILY #90 12/01/23 12/29/23 09:30 Rx tabs citalopram 10 mg tablet (Celexa) 10 mg PO DAILY 12/16/23 Unknown History furosemide 40 mg tablet 40 mg PO DAILY 12/19/23 Unknown History timolol maleate 0.5 % eye drops 1 drp ophthalmic (eye) BID 12/19/23 Unknown History cefdinir 300 mg capsule 300 mg PO Q12 #9 caps 12/22/23 Unknown Rx Allergy/AdvReac Type Severity Reaction Status Date / Time benzonatate (From Tessalon Allergy Hives Verified 12/31/23 12:05 Taylor) cat dander Allergy Unknown Verified 12/31/23 12:05 Family History Father CAD (coronary artery disease) CHF (congestive heart failure) History of DVT (deep vein thrombosis) Mother Diabetes Grandfather CAD (coronary artery disease) History of DVT (deep vein thrombosis) Grandmother CVA (cerebral vascular accident) Surgical History History of cardiac catheterization Hx of colonoscopy History of esophagogastroduodenoscopy (EGD) History of cataract extraction History of tonsillectomy and adenoidectomy History of tubal ligation Social History household members: none Smoking Status: Never smoker second hand exposure: No alcohol intake: never substance use type: does not use caffeine: No what type of physical activity do you participate in: none ROS ROS ED ROS Narrative Cough. Wheezing. Shortness of breath. Review of Systems ROS Unobtainable: Denies due to encephalopathy Constitutional Constitutional ED: Reports chills and fever(s) ENT ENT ED: Denies ear pain Cardiovascular Cardiovascular: Reports chest pain Respiratory/Chest Respiratory/Chest: Reports cough and dyspnea Gastrointestinal Gastrointestinal: Denies abdominal pain, constipation, diarrhea, melena, nausea or vomiting Genitourinary Genitourinary ED: Denies dysuria or hematuria Musculoskeletal Musculoskeletal: Denies arthralgias Integumentary Denies abscess Neurologic Neurologic: Denies headache(s) Psychiatric Psychiatric: Denies anxiety Endocrine Endocrinology: Denies cold intolerance Hematologic/Lymphatic Hematologic/Lymphatic: Denies lymphadenopathy Allergic/Immunologic Allergic/Immunologic ED: Denies mouth swelling, tongue swelling or urticaria EXAM Physical Exam Narrative Exam Narrative: 83-year-old female vital signs are stable on 3 L she is 95%. H EENT exam unremarkable. [employer] members. Neck nontender no lymphadenopathy. Lungs expiratory wheezing throughout. No rales or rhonchi. Equal symmetrical. Heart bradycardic rate about 55. No appreciable murmur. Abdomen soft, nontender, nondistended normal bowel sounds no peritoneal signs. Patient moving all 4 extremities. Calves are nontender without edema or cords. Neurologically she is awake and alert. Answer questions following commands. Const Vital Signs: 12/31/23 12:00 12/31/23 12:06 12/31/23 12:15 Temperature 97.5 F L Temperature Source Temporal Pulse Rate 55 L 55 L Respiratory Rate 14 22 H Respiratory Effort Respiratory Depth Respiratory Pattern Blood Pressure 138/83 H 138/83 H Blood Pressure Mean 101 101 Pulse Ox 95 96 95 Oxygen Delivery Method Nasal Cannula Nasal Cannula Nasal Cannula Oxygen Flow Rate (L/min) 3 3 3 12/31/23 12:33 12/31/23 13:00 12/31/23 13:40 Temperature Temperature Source Pulse Rate 55 L 54 L Respiratory Rate 16 18 Respiratory Effort Short of Breath Labored Respiratory Depth Shallow Respiratory Pattern Normal Tachypnea Blood Pressure 110/62 Blood Pressure Mean 78 Pulse Ox 96 Oxygen Delivery Method Nasal Cannula Oxygen Flow Rate (L/min) 05/25/24 13:41 Temperature 97.1 F L Temperature Source Pulse Rate 55 L Respiratory Rate 19 H Respiratory Effort Respiratory Depth Respiratory Pattern Blood Pressure 108/60 Blood Pressure Mean 76 Pulse Ox 96 Oxygen Delivery Method Oxygen Flow Rate (L/min) Positive well nourished and well developed; Negative for cachectic, contractures or unkempt General Appearance ED: well developed; Negative for unkempt, cachectic, contractures, NAD or pallor Nutritional Appearance: Negative for cachectic HEENT Reports moist mucous membranes atraumatic; Negative for trauma or tenderness Eyes PERRL and EOMs intact bilaterally General Eye ED: Negative for pale conjunctiva or scleral icterus Neck no lymphadenopathy, supple, no meningeal signs and no JVD General: Negative for tenderness Lymph Lymphatic: Negative for other Chest Wall Chest: Negative for other Resp No normal respiratory effort and No clear to auscultation bilaterally Resp Narrative: Expiratory wheezing. Auscultation: wheezes; Negative for rales or rhonchi Cardio regular rhythm, S1 normal heart sound, S2 normal heart sound and no murmurs; Negative for regular rate Cardio Narrative: Bradycardia. Rate: bradycardia GI non-tender, non-distended and no masses Inspection: Negative for other Auscultation: normoactive bowel sounds Palpation: soft; Negative for tender, guarding, hepatomegaly, splenomegaly, mass or rebound tenderness present Bladder / Kidney Exam: No other Back/Spine no CVA tenderness and normal to inspection General Back: Negative for CVA tenderness or tenderness Extremity normal to inspection General Extremety ED: Negative for edema or tenderness General Extremity: Negative for edema Neuro oriented x3 and CN's II-XII intact bilaterally Sensorium / Orientation: alert, oriented to person and oriented to place Speech: speech normal Motor Exam: strength 5/5 throughout Psych mental status grossly normal Appearance: Negative for unkempt Attitude: No agitated Mood & Affect: Negative for depressed, anxious or tearful Skin no wounds General Skin Exam: Negative for jaundice or pallor Lesions: No no lesions Rashes: no rashes Trauma: Negative for abrasion or laceration MDM MDM MDM Narrative Medical decision making narrative: 83-year-old female with wheezing and shortness of breath. Concerns for aspiration pneumonia due to a large esophageal diverticulum. Labs and x-ray being obtained. I believe there may have been an x-ray done in the TCU within the last few hours if I can visualize that I am a canceled x-ray ordered. Repeat exam at 1:38 PM patient doing well. Improved but still has a few scattered wheezes. Hospitalist on page for admission. Possible aspiration pneumonia. I discussed with them antibiotic therapy. Patient be started on IV Unasyn. She will be admitted to the PCU. History & Record Review Discussion w/independent historian: Patient Additional record(s) reviewed:: Prior inpatient record, Prior outpatient record, Prior ED visit, Prior labs and No prior records Lab Data Attestation: I reviewed the patient's lab results. Lab results narrative: CBC shows white count 10. H&H 10.9 and 37. Platelets 360. Electrolytes show gap 7. BUN of 18 creatinine 1.5. Glucose 145. Troponin is 60. Outpatient chest x-ray done earlier today showed right lower lobe infiltrate that may be secondary to aspiration. Labs: Laboratory Results - last 24 hr 12/31/23 12:08 WBC 10.2 RBC 4.45 Hgb 10.9 L Hct 37.2 MCV 83.6 MCH 24.5 L MCHC 29.3 L RDW Std Deviation 57.9 H RDW Coeff of Jacobo 19.3 H Plt Count 360 MPV 9.8 Immature Gran % (Auto) 0.400 Neut % (Auto) 61.6 Lymph % (Auto) 24.5 [place]ferro % (Auto) 9.1 Eos % (Auto) 3.8 Baso % (Auto) 0.6 Absolute Neuts (auto) 6.3 Absolute Lymphs (auto) 2.50 Nucleated RBC % 0 Sodium 136 Potassium 5.1 Chloride 105 Carbon Dioxide 24.0 Anion Gap 7 BUN 18 Creatinine 1.52 H Estim Creat Clear Calc 30.64 Est GFR (MDRD) Af Amer 42 L Est GFR (MDRD) Non-Af 35 L BUN/Creatinine Ratio 11.8 Glucose 145 H Calcium 9.0 Troponin I High Sens 60 H Radiography Chest X-Ray - ED: 1 View, Read by ED Physician, Read by Radiologist, Mediastinum, Bony Structures, Cardiomegaly and Right Infiltrate Diagnostic Testing: Chest x-ray, portable, single view shows chronic cardiomegaly with right lower lobe infiltrate may or may not be aspiration. Interpreted both by myself and the radiologist. Rhythm Strip Rhythm Strip: Sinus bradycardia Rate: 54 Ectopy: None EKG Initial EKG: Attestation: I personally reviewed and interpreted this EKG as follows: Interpretation: Sinus Bradycardia Comments: Bradycardia rate of 54. Nonspecific interventricular conduction delay. Acute signs of MT or ischemia. Discharge Plan Dx/Rx/DC Orders Clinical Impression: Acute dyspnea, Aspiration pneumonia, Hypoxia, Bilateral wheezing, History of diabetes mellitus, History of chronic atrial fibrillation, Chronic anticoagulation Disposition Disposition: Acute Care Hospital [facility]
[2023-12-31 12:24] LABS: Absolute Neutrophil Count 6.3 X10^3/uL (2.0-7.7); Basophil# 0.06 X10^3/uL; Basophil% 0.6 % (0-1); Eosinophil# 0.39 X10^3/uL; Eosinophils% 3.8 % (0-5); Hematocrit 37.2 % (37-47); Hemoglobin 10.9 g/dL (12.0-15.0); Lymphocyte % 24.5 % (19-41); Mean Corp Hgb Conc 29.3 g/dL (32-36); Mean Corpuscular Hgb 24.5 pg (27.0-32.0); Mean Corpuscular Volume 83.6 fL (81-99); Mean Platelet Vol. 9.8 fl (6.2-12.0); Monocyte# 0.93 X10^3/uL; Monocyte% 9.1 % (0-10); NRBC Flagged by Analyzer 0 % (0-5); Neutrophil # 6.27 X10^3/uL (2.7-7.7); Neutrophil % 61.6 % (47-70); Platelet Count 360 K/mm3 (150-450); RBC Distribution Width CV 19.3 % (11.6-14.6); RBC Distribution Width SD 57.9 fl (35.1-43.9); Red Blood Count 4.45 M/mm3 (4.2-5.4); White Blood Count 10.2 K/mm3 (4.4-11.0)
[2023-12-31] MEDS: Ipratropium/Albuterol Sulfate 3 ML AMPUL.NEB INHALATION ×2 (12:32→19:38)
[2023-12-31] MEDS: MethylPREDNISolone 125 MG/2 ML Vial IV (12:34)
[2023-12-31 12:35] LABS: Anion Gap 7 (5-15); BUN 18 mg/dL (7-18); BUN/Creat Ratio 11.8 RATIO (10-20); Chloride 105 mmol/L (98-107); Creatinine, Serum 1.52 mg/dL (0.55-1.02); EST Glomerular Filtration Rate 35 mL/min (>60); Est Glom Filt Rate - Afr Amer 42 mL/min (>60); Estimated Creatinine Clearance 30.64 ml/min; Glucose 145 mg/dL (74-106); Potassium 5.1 mmol/L (3.5-5.1); Sodium Level 136 mmol/L (136-145); Troponin-I HS 60 pg/mL (3.0-54.0)
--- NOTE | 2023-12-31 14:00 | HP.PCM.HOS_ITS ---
HPI - General General Date of Admission: 12/31/23 Date of Service: 12/31/23 Chief Complaint: Shortness of breath/hypoxia HPI Narrative RAJAT PASTRANA, is a 83 F who presented to the emergency department at [facility] from the transitional care unit at [facility] due to acute onset hypoxia and wheezing. Patient had a recent admission here from 12/18/2022 through 12/21/2022 at which time she was found to have an acute urinary tract infection and frequent falls along with dysphagia. She was treated and transferred to the transitional care unit on the and has been getting care since that point in time. Today she started having worsening respiratory distress and required supplemental oxygen which is not typical for her at baseline. Of note, she recently had an EGD done by Dr. Hooker on 12/28/2022 which showed concern for esophageal motility issues as well as an esophageal diverticulum and there is documentation indicating that they recommended a soft diet with potential lesion for PEG versus stenting versus Botox injection and this would be addressed further with the family. Unfortunately the patient developed respiratory distress today and therefore required transfer to the emergency department. The patient denies any chest pain. She reports shortness of breath and wheezing. She has no other symptoms. She denies any chills or fevers. She has a cough which she states this is chronic. She states that it may be a little bit worse today. It does look like a modified barium swallow was done on the and recommended GI consultation as there is mild oropharyngeal dysphagia but severe esophageal dysphagia. She was discharged on the same day to transitional care unit and GI evaluated her at transitional care unit on the with concomitant EGD done on the . Vital signs on presentation showed a temperature of 97.5, heart rate 55, blood pressure 138/83, respiratory rate was 22 and oxygen saturation was 96%. It is documented that she was hypoxic over at the transitional care unit on room air however that particular number is not documented in the chart and I am unclear what that is at this time. Her CBC shows a stable anemia with no white count or left shift. Chemistry panel shows chronically elevated serum creatinine at 1.52 but stable, elevated glucose at 145. Initial troponin was 60 and BNP was 163.7. Chest x-ray was obtained and shows right lower lobe infiltrate that appears to be consistent either with chronic or acute inflammatory changes versus an infectious process. [facility] Medical History Chronic anemia CKD stage 3b, GFR 30-44 ml/min Dysphagia Transition of care Forgetfulness Wears glasses Diabetes Walker as ambulation aid Blood disorder Dietary restriction History of diverticulitis Difficulty swallowing Gastric reflux On home oxygen therapy History of stress test Cardiology follow-up encounter History of edema History of echocardiogram PAF (paroxysmal atrial fibrillation) Ambulatory dysfunction Generalized weakness Acute cystitis without hematuria Depression Diabetes GERD (gastroesophageal reflux disease) Atrial fibrillation Irregular heart beat Hypertension DVT (deep venous thrombosis) Fall Weakness UTI (urinary tract infection) Fatigue On amiodarone therapy Essential hypertension Abnormal pulmonary function test Nonrheumatic mitral (valve) prolapse Menieres disease Depression Meningioma Hyperlipidemia Atherosclerotic heart disease of [place] coronary artery without angina pectoris Palpitations Long-term use of high-risk medication Type 2 diabetes mellitus Osteoarthritis Family history of CVA Atrial ectopic tachycardia Paroxysmal atrial fibrillation Hypertension Home Medications ?Medication ?Instructions ?Recorded ?Last Taken ?Type mirabegron 50 mg tablet,extended 50 mg PO DAILY URINARY FREQUENCY 07/11/16 07/01/21 History release 24 hr meclizine 25 mg tablet 12.5 mg PO TID PRN PRN Dizziness 05/16/19 Unknown History atorvastatin 40 mg tablet 40 mg PO QHS 05/13/21 06/30/21 History famotidine 20 mg tablet 20 mg PO BID GERD 07/01/21 12/29/23 History lisinopril 2.5 mg tablet 2.5 mg PO DAILY BP 07/01/21 12/29/23 09:30 History donepezil 10 mg tablet 10 mg PO QHS 06/09/22 Unknown History metformin 500 mg tablet 250 mg PO BID DM 06/09/22 Unknown History apixaban 2.5 mg tablet (Eliquis) 2.5 mg PO BID BLOOD THINNER 05/24/23 12/27/23 History azelastine 137 mcg (0.1 %) nasal 2 spray intranasal BID #30 mL 09/05/23 12/29/23 09:30 Rx spray aerosol fluticasone propionate 50 2 spray intranasal DAILY #16 grams 09/05/23 Unknown Rx mcg/actuation nasal spray,suspension diltiazem HCl 180 mg 180 mg PO BID #180 caps 09/08/23 12/29/23 09:30 Rx capsule,extended release 24 hr amiodarone 200 mg tablet 100 mg (1/2 x 200 mg) PO DAILY #90 12/01/23 12/29/23 09:30 Rx tabs citalopram 10 mg tablet (Celexa) 10 mg PO DAILY 12/16/23 Unknown History furosemide 40 mg tablet 40 mg PO DAILY 12/19/23 Unknown History timolol maleate 0.5 % eye drops 1 drp ophthalmic (eye) BID 12/19/23 Unknown History cefdinir 300 mg capsule 300 mg PO Q12 #9 caps 12/22/23 Unknown Rx Allergy/AdvReac Type Severity Reaction Status Date / Time benzonatate (From Tessalon Allergy Hives Verified 12/31/23 12:05 Taylor) cat dander Allergy Unknown Verified 12/31/23 12:05 Family History Father CAD (coronary artery disease) CHF (congestive heart failure) History of DVT (deep vein thrombosis) Mother Diabetes Grandfather CAD (coronary artery disease) History of DVT (deep vein thrombosis) Grandmother CVA (cerebral vascular accident) Surgical History History of cardiac catheterization Hx of colonoscopy History of esophagogastroduodenoscopy (EGD) History of cataract extraction History of tonsillectomy and adenoidectomy History of tubal ligation Social History housing: long-term Smoking Status: Former smoker second hand exposure: No alcohol intake: never substance use type: does not use caffeine: No what type of physical activity do you participate in: none ROS Constitutional Constitutional: Reports fatigue, malaise and weakness; Denies anorexia, change in weight, chills, fever(s), night sweats or other Eyes Eyes: Denies blurry vision, change in eye color, change in vision, discharge from eye(s), double vision, erythema, eye pain, loss of vision or other ENT HEENT: Reports abnormal hearing and hearing loss; Denies dysphagia, ear pain, epistaxis, headache(s), nasal congestion, nasal discharge, post nasal drip, sinus pressure, sore throat or other Cardiovascular Cardiovascular: Reports dyspnea on exertion; Denies chest pain, claudication, edema, lightheadedness, orthopnea, palpitations, paroxysmal nocturnal dyspnea, rapid heart rate, syncope or other Respiratory/Chest Respiratory/Chest: Reports cough, dyspnea, shortness of breath at rest, shortness of breath with exertion and wheezing; Denies excessive phlegm production, hemoptysis, productive cough or other Gastrointestinal Gastrointestinal: Reports other Details: Swallowing difficulties ; Denies abdominal pain, coffee ground emesis, constipation, diarrhea, dyspepsia, hematemesis, hematochezia, loose stools, melena, nausea or vomiting Genitourinary Genitourinary: Reports urinary incontinence; Denies burning urination, difficulty urinating, dysuria, hematuria, nocturia, urinary frequency, urinary hesitancy, urinary urgency or other Musculoskeletal Musculoskeletal: Reports joint pain, joint stiffness and other Details: Generalized musculoskeletal weakness Neurologic Neurologic: Reports abnormal gait; Denies abnormal speech, confusion, disequilibrium, dizziness, focal weakness, headache(s), numbness, paresthesias, seizure-like activity, seizures, syncope, tingling, tremor(s) or other Psychiatric Psychiatric: Denies anxiety, depression, homicidal ideation, suicidal ideation or other Endocrine Endocrinology: Denies change in body appearance, cold intolerance, excessive sweating, heat intolerance, polydipsia, polyuria or other Hematologic/Lymphatic Hematologic/Lymphatic: Denies anemia, easy bleeding, easy bruising, lymphadenopathy or other Allergic/Immunologic Allergic/Immunologic: Denies rhinitis, hives, eczemia, asthma or other Vital Signs Vital Signs Vital Signs: 12/31/23 12:00 12/31/23 12:06 12/31/23 12:15 Temperature 97.5 F L Temperature Source Temporal Pulse Rate 55 L 55 L Respiratory Rate 14 22 H Respiratory Effort Respiratory Depth Respiratory Pattern Blood Pressure 138/83 H 138/83 H Blood Pressure Mean 101 101 Pulse Ox 95 96 95 Oxygen Delivery Method Nasal Cannula Nasal Cannula Nasal Cannula Oxygen Flow Rate (L/min) 3 3 3 12/31/23 12:33 12/31/23 13:00 12/31/23 13:40 Temperature Temperature Source Pulse Rate 55 L 54 L Respiratory Rate 16 18 Respiratory Effort Short of Breath Labored Respiratory Depth Shallow Respiratory Pattern Normal Tachypnea Blood Pressure 110/62 Blood Pressure Mean 78 Pulse Ox 96 Oxygen Delivery Method Nasal Cannula Oxygen Flow Rate (L/min) 12/31/23 13:41 Temperature 97.1 F L Temperature Source Pulse Rate 55 L Respiratory Rate 19 H Respiratory Effort Respiratory Depth Respiratory Pattern Blood Pressure 108/60 Blood Pressure Mean 76 Pulse Ox 96 Oxygen Delivery Method Oxygen Flow Rate (L/min) Weight Weight: 80.6 kg Body Mass Index (BMI) 27.8 Physical Exam Const alert, oriented x3 and no apparent distress; Negative for average body habitus, healthy appearing or well nourished Constitutional Narrative: Elderly, overweight, chronically ill-appearing and debilitated white female, sitting up in bed, appears comfortable at this time, mild tachypnea but no signs of extremis, does not appear toxic General Appearance: cooperative HEENT normocephalic, head/scalp atraumatic and moist oral mucous membranes HEENT Narrative: Mild hearing loss, dentition is poor, Mallampati is 3, no thrush, posture is flexed Eyes PERRL, EOMs intact bilaterally and conjunctivae normal Eyes Narrative: No scleral icterus, mild to moderate ptosis present Neck no lymphadenopathy and supple Neck Narrative: Trachea midline, no thyroid enlargement, upper airway wheeze noted Resp Resp Narrative: Mild tachypnea but no signs of extremis, diffuse inspiratory and expiratory wheezing also sewed with upper airway wheeze and crackles noted in the right base Auscultation: crackles and wheezes; Negative for rhonchi Cardio regular rhythm, S1 normal heart sound, S2 normal heart sound, no murmurs, no rub, no gallops and no clicks Cardio Narrative: Bradycardia GI normal to inspection, nondistended, normoactive bowel sounds, soft to palpation and non-tender Extremity Extremity Narrative: Trace lower extremity edema, no cyanosis or clubbing, decreased lean muscle mass Skin skin turgor normal, no jaundice, no petechiae and no mottling Skin Narrative: Skin is pale, scattered seborrheic keratoses Neuro oriented x3 and moves all extremities Neuro Narrative: Bilateral ptosis noted but all other cranial nerves are normal, no focal deficits but patient with considerable generalized weakness proximal greater than distal Speech: speech normal Psych Psych Narrative: Affect is flat but patient interacts appropriately and answers all questions Results Lab / Micro Data 12/31/23 12:08 12/31/23 12:08 Labs: Laboratory Results - last 24 hr 12/31/23 12:08: WBC 10.2, RBC 4.45, Hgb 10.9 L, Hct 37.2, MCV 83.6, MCH 24.5 L, MCHC 29.3 L, RDW Std Deviation 57.9 H, RDW Coeff of Jacobo 19.3 H, Plt Count 360, MPV 9.8, Immature Gran % (Auto) 0.400, Neut % (Auto) 61.6, Lymph % (Auto) 24.5, [place] % (Auto) 9.1, Eos % (Auto) 3.8, Baso % (Auto) 0.6, Absolute Neuts (auto) 6.3, Absolute Lymphs (auto) 2.50, Nucleated RBC % 0, Sodium 136, Potassium 5.1, Chloride 105, Carbon Dioxide 24.0, Anion Gap 7, BUN 18, Creatinine 1.52 H, Estim Creat Clear Calc 30.64, Est GFR (MDRD) Af Amer 42 L, Est GFR (MDRD) Non-Af 35 L, BUN/Creatinine Ratio 11.8, Glucose 145 H, Calcium 9.0, Troponin I High Sens 60 H Rhythm Strip Rhythm Strip: Sinus bradycardia Rate: 54 Ectopy: None Assessment & Plan Assessment/Plan (1) Acute hypoxic respiratory failure: (2) Aspiration pneumonia: (3) Esophageal dysmotility: (4) Dysphagia: (5) Esophageal diverticulum: (6) Elevated troponin: (7) Bradycardia: PLAN: Plan Acute hypoxic respiratory failure secondary to suspected aspiration pneumonia/+/- COPD exacerbation -Patient with sudden onset hypoxia today requiring supplemental oxygen--> new hypoxia, tachypnea, wheezing -Maximal oxygen supplementation was 3 L and I was able to wean her to 2 L however patient is not oxygen dependent at baseline -Chest x-ray was performed and showed a right basilar pleural/parenchymal density which was concerning for acute versus chronic inflammatory change versus infectious change -BNP is also elevated so could be contributed to heart failure however no recent echocardiogram -Remote history of tobacco abuse -Also esophageal issues with concern for aspiration -Start Unasyn for aspiration coverage day 1 of -Speech therapy consultation -N.p.o. except for p.o. meds in applesauce until speech therapy can further evaluate -GI consult -Solu-Medrol 40 every 8 -I-S -Acapella 10 times every 2 hours while awake -DuoNebs every 6 hours while awake with as needed albuterol -Check echocardiogram Esophageal motility dysfunction/dysphagia -GI consult -EGD done on 12/29/2023 that showed abnormal motility suspicious for esophageal spasm, diverticulum in the middle third of esophagus with a normal stomach and no gross lesions to the first portion of the duodenum -Full liquid diet recommended with consideration for PEG tube versus esophageal stent with Botox injection throughout the esophagus due to spasm -GI indicated they would discuss further with patient and family -Speech therapy consultation -MBS done on 12/22/2023 showed mild oropharyngeal dysphagia and severe esophageal dysphagia -N.p.o. for now except for p.o. meds until further investigation can be performed Elevated BNP/elevated troponin -Suspect troponin elevation is reactive to hypoxia earlier but will cycle -Has previously been on Lasix which was held due to some renal dysfunction -BNP elevation may be related to this but will check echocardiogram -Last echocardiogram from 2015 showed an EF of 70% with mild concentric LVH, moderate KALYN, right ventricular systolic pressure of 30 mmHg, moderate mitral valve annular calcification and trivial mitral valve insufficiency -Lasix 40 mg IV daily -baseline dose is 40 p.o. daily Bradycardia -Patient with a history of A-fib with RVR -Hold donepezil -Decrease diltiazem from 180 mg p.o. twice daily to 120 mg p.o. twice daily -continue home amiodarone -Continue home timolol drops -Monitor on telemetry Generalized weakness/debility due to advancing age and multiple comorbidities/M?ni?re's disease -PT/OT consultation -Will likely need to transition back to the transitional care unit at discharge once medically stable PAF -Hold Eliquis in case procedure is needed for GI -Continue amiodarone -Continue Cardizem but decrease dose to 120 mg p.o. twice daily due to bradycardia Mild cognitive impairment/dementia-type unknown -Donepezil on hold -Patient is alert and oriented x 3 on presentation HTN/HPL -Continue home statin -Decrease diltiazem dose as noted above for bradycardia -Continue home lisinopril GERD -Continue home famotidine if verified DM-2 -Hold metformin -Accu-Cheks every 6 with SSI every 6 -Once diet initiated start cardiac/carb controlled diet CKD stage IIIb -Baseline serum creatinine appears to run between 1.3 and 1.6 -Currently 1.5 -May need to be a bit drier attendant to help with respiratory status M?ni?re's disease/BPPV -Hold meclizine for now -PT/OT Seasonal allergies -Continue nasal sprays Nocturnal hypoxia -Supplemental oxygen as needed DVT prophylaxis -Hold Eliquis for potential procedures related to esophageal issues -Subcu heparin 3 times daily CODE STATUS -DNR CCA but okay for short-term intubation per discussion with patient at the time of admission Charges/Coding Visit Charges Inpatient E&M: 25147 Init Hosp L3
[2023-12-31 14:27] LABS: BNP,B-Type NATRIURETIC PEPTIDE 163.7 pg/mL (0-100)
--- NOTE | 2023-12-31 15:14 | ECHOD_ITS ---
Reason For Study: CONGESTIVE HEART FAILURE Procedure This was a 2D Doppler, Color Flow transthoracic echocardiogram. Exam performed in department. Left Ventricle Normal LV size. The estimated ejection fraction is 40 %. There is evidence of diastolic dysfunction. Base of the LV is winsome well. Rest of the LV is severely hypokinetic suggestive of Takotsubo Cardiomyopathy. Right Ventricle Normal RV size. Normal systolic function. Atria The left atrium is mildly enlarged. Normal right atrium. No doppler evidence for ASD. Mitral Valve There is severe mitral annular calcification. There is no mitral valve stenosis. Trivial mitral valve insufficiency. Tricuspid Valve There is no tricuspid stenosis. Trivial tricuspid valve insufficiency. Unable to estimate RV systolic pressure due to insufficient tricuspid regurgitant envelope. Aortic Valve Trisinus/trileaflet aortic valve. There is no aortic stenosis. No aortic valve insufficiency. Pulmonic Valve There is no pulmonic valvular stenosis. No pulmonic valve insufficiency. Great Vessels Normal aortic root. Pericardium/Pleural No pericardial effusion. MMode/2D Measurements & Calculations LVIDd: 5.2 cm IVSd: 1.3 cm LVOT diam: 2.0 cm LVIDs: 3.2 cm LVPWd: 1.0 cm LVOT area: 3.1 cm2 RVDd: 3.2 cm FS: 38.4 % Ao root diam: 3.6 cm LAV(MOD-sp2): 51.7 ml LVAd ap4: 28.5 cm2 LVLd ap4: 7.0 cm EDV(MOD-sp4): 92.2 ml EDV(sp4-el): 98.5 ml LVAs ap4: 22.3 cm2 LVLs ap4: 6.5 cm ESV(MOD-sp4): 59.6 ml ESV(sp4-el): 64.4 ml EF(MOD-sp4): 35.3 % EF(sp4-el): 34.6 % LVAd ap2: 28.9 cm2 SV(MOD-sp4): 32.6 ml SV(MOD-sp2): 31.3 ml LVLd ap2: 7.2 cm EDV(MOD-sp2): 94.8 ml EDV(sp2-el): 99.1 ml LVAs ap2: 23.2 cm2 LVLs ap2: 6.9 cm ESV(MOD-sp2): 63.5 ml ESV(sp2-el): 66.1 ml EF(MOD-sp2): 33.0 % SV(sp4-el): 34.1 ml LA dimension(2D): 4.7 cm TAPSE: 1.9 cm Time Measurements MV dec time: 0.19 sec Doppler Measurements & Calculations MV E max blu: 80.0 cm/sec Lat Peak E' Blu: 7.8 cm/sec Med Peak E' Blu: 5.0 cm/sec MV A max blu: 87.2 cm/sec E/E' lat: 10.2 E/E' med: 16.0 MV E/A: 0.92 Ao V2 max: 167.8 cm/sec LV V1 max: 83.3 cm/sec MV dec slope: 413.8 cm/sec2 Ao max P.3 mmHg LV V1 max P.8 mmHg Ao V2 mean: 112.9 cm/sec LV V1 mean P.5 mmHg Ao mean P.0 mmHg LV V1 mean: 56.2 cm/sec Ao V2 VTI: 36.5 cm LV V1 VTI: 22.5 cm AV (velocity ratio): 0.61 PHOEBE(I,D): 1.9 cm2 PHOEBE(V,D): 1.6 cm2 SV(LVOT): 70.2 ml PA V2 max: 113.4 cm/sec TR max blu: 294.3 cm/sec PA max PG (full): 1.1 mmHg TR max P.6 mmHg PA V2 mean: 75.1 cm/sec PA mean PG (full): 0.53 mmHg ECHO/Echo Complete Interpretation Summary The estimated ejection fraction is 40 %. There is evidence of diastolic dysfunction. The left atrium is mildly enlarged. Base of the LV is winsome well. Rest of the LV is severely hypokinetic sugg estive of Takotsubo Cardiomyopathy Ordering Physician: Merline Kimbrough Referring Physician: Hortensia Balbuena Performed By: Veda Everett, IRAIDA
[2023-12-31] MEDS: Lactated Ringers 1,000 ML 70 ML IV (15:54)
[2023-12-31] MEDS: 0.9% Saline Lock 10 ML Syringe IV ×2 (15:56→16:08)
[2023-12-31] MEDS: Ampicillin/Sulbactam 3 GM in 0.9% Normal Saline (100mL MB+) 100 ML IV ×2 (15:57→23:39)
[2023-12-31] MEDS: Heparin Injection (Vial) 5,000 UNIT/ML VIAL 5000 UNIT SC ×2 (16:03→20:26)
[2023-12-31] MEDS: Furosemide 40 MG/4 ML Vial IV (16:09)
[2023-12-31 16:31] LABS: Troponin-I HS 674 pg/mL (3.0-54.0)
--- NOTE | 2023-12-31 16:40 | EKG12_ITS ---
Test Reason : A FIB Blood Pressure : / mmHG Vent. Rate : 059 BPM Atrial Rate : 059 BPM P-R Int : 208 ms QRS Dur : 148 ms QT Int : 480 ms P-R-T Axes : 102 -44 037 degrees QTc Int : 475 ms Sinus bradycardia Left axis deviation Non-specific intra-ventricular conduction block Abnormal ECG When compared with ECG of 13-JUL-2020 15:37, Non-specific intra-ventricular conduction block has replaced Incomplete left bundle branch block Confirmed by ELAYNE LLOYD, NORRIS ([id number]), supervising editor trailer HERNANDO PEREZ ([id number]) on 01/05/2024 6:35:40 AM Referred By: Hortensia Balbuena Confirmed By:ZACHARY HOLLY MD
[2023-12-31] MEDS: Insulin Lispro 100 UNIT/ML INSULN.PEN SC (17:03)
[2023-12-31 17:16] LABS: Bedside Glucose 160 mg/dL (74-106)
[2023-12-31 19:06] LABS: Troponin-I HS 887 pg/mL (3.0-54.0)
[2023-12-31] MEDS: Azelastine HCl NASAL.SRY 2 SPRAY NASAL (20:24)
[2023-12-31] MEDS: dilTIAZem CD 120 MG Capsule PO (20:25)
[2023-12-31] MEDS: Timolol 0.5% 5ML OPTH.BTL 1 DRP OPHTHALMIC (20:25)
[2023-12-31] MEDS: Atorvastatin Calcium 40 MG Tablet PO (20:26)
[2023-12-31] MEDS: Acetaminophen 325 MG Tablet 650 MG PO (20:26)
[2023-12-31] MEDS: MELATONIN 3 MG TABLET PO (20:26)
[2024-01-01] VITALS (9 sets, daily range): BP systolic 98–112; BP diastolic 37–67; PULSE 58–80; RESP 13–18; TEMP 35.9–36.6; O2SAT 88–98; BMI 26.2
[2024-01-01 00:32] LABS: Bedside Glucose 146 mg/dL (74-106)
[2024-01-01] MEDS: Lactated Ringers 1,000 ML 70 ML IV (04:56)
[2024-01-01] MEDS: Ampicillin/Sulbactam 3 GM in 0.9% Normal Saline (100mL MB+) 100 ML IV ×4 (04:57→22:53)
[2024-01-01] MEDS: Heparin Injection (Vial) 5,000 UNIT/ML VIAL 5000 UNIT SC ×3 (04:59→21:33)
[2024-01-01 06:51] LABS: Absolute Lymphocyte Count 0.89 X10^3/uL (0.83-4.51); Absolute Neutrophil Count 4.3 X10^3/uL (2.0-7.7); Hematocrit 33.4 % (37-47); Lymphocyte # 0.89 X10^3/ul (0.83-4.51); Mean Corp Hgb Conc 29.9 g/dL (32-36); Mean Corpuscular Hgb 24.6 pg (27.0-32.0); Mean Corpuscular Volume 82.1 fL (81-99); Mean Platelet Vol. 10.4 fl (6.2-12.0); Monocyte# 0.07 X10^3/uL; Monocyte% 1.3 % (0-10); NRBC Flagged by Analyzer 0 % (0-5); Neutrophil # 4.26 X10^3/uL (2.7-7.7); Neutrophil % 81.1 % (47-70); Platelet Count 314 K/mm3 (150-450); RBC Distribution Width CV 18.6 % (11.6-14.6); RBC Distribution Width SD 55.4 fl (35.1-43.9); Red Blood Count 4.07 M/mm3 (4.2-5.4); White Blood Count 5.3 K/mm3 (4.4-11.0)
[2024-01-01 07:16] LABS: ALB/GLOB Ratio 0.9 RATIO (0.9-2.4); AST(SGOT) 133 U/L (15-37); Alanine Aminotransfer ALT/SGPT 211 U/L (13-56); Albumin, Serum 2.7 g/dL (3.2-5.0); Alkaline Phosphatase 96 U/L (45-117); Anion Gap 9 (5-15); BUN 22 mg/dL (7-18); BUN/Creat Ratio 14.7 RATIO (10-20); Calcium,Total 8.4 mg/dL (8.5-10.1); Chloride 104 mmol/L (98-107); EST Glomerular Filtration Rate 35 mL/min (>60); Est Glom Filt Rate - Afr Amer 43 mL/min (>60); Estimated Creatinine Clearance 30.22 ml/min; Globulin 3.1 g/dL (2.2-4.2); Glucose 145 mg/dL (74-106); Phosphorus 4.9 mg/dL (2.5-4.9); Potassium 4.8 mmol/L (3.5-5.1); Protein, Total 5.8 g/dL (6.4-8.2); Sodium Level 137 mmol/L (136-145)
[2024-01-01] MEDS: Ipratropium/Albuterol Sulfate 3 ML AMPUL.NEB INHALATION ×3 (07:35→19:28)
--- NOTE | 2024-01-01 10:19 | CON.PCM.CA_ITS ---
Assessment & Plan Assessment/Plan (1) Elevated troponin: PLAN: Patient's initial troponin she was in the emergency department transferred from the [facility]. 674 the delta troponin was 887. Her BNP was 164. The patient has chronic atrial fibrillation and she had no chest pain and no new EKG changes. The patient has known nonobstructive coronary disease by remote catheterization in 2004. This elevation of troponin may be related to hypoxia and her aspiration pneumonia. The patient is asymptomatic at this point in time although she did complain of chest pain yesterday. A 2D echocardiogram is pending she has a history of normal LV function on echo July 2016. I would recommend the patient undergo pharmacologic nuclear stress testing when felt to be medically appropriate from the primary service perspective given the need for potential PEG tube placement the echo shows adequate LV function and a pharmacologic nuclear stress test shows no more than small area of ischemia the patient should be able to proceed with surgical intervention for her PEG tube. It appears this will be important is even if she does have coronary disease requiring intervention she would need to have the PEG tube in place so that anticoagulation/antiplatelet therapy would not be interrupted should that intervention be indicated. If there is significant ischemia or recurrent symptoms with objective evidence of ischemia then invasive evaluation may be indicated. (2) Chronic anticoagulation: PLAN: The patient should be continued on her current oral anticoagulation. Given her age and renal function she is on the appropriate 2.5 mg twice daily dose of Eliquis. This can be interrupted for 3 to 4 days as needed for PEG tube placement. (3) History of chronic atrial fibrillation: PLAN: The patient's atrial fibrillation appears to be adequately controlled on amiodarone. She remains in sinus rhythm with sinus bradycardia at 54 bpm she has an underlying nonspecific interventricular conduction block which is unchanged from her EKG December 08, 2023. (4) Essential hypertension: PLAN: Blood pressure is adequately controlled on her current medical therapy. Continue her current meds. (5) CAD (coronary artery disease): QUALIFIERS: Coronary Disease-Associated Artery/Lesion type: [place] artery [place] vs. transplanted heart: [place] heart Associated angina: u nspecified whether angina present Qualified Code(s): I25.10 - Atherosclerotic heart disease of [place] coronary artery without angina pectoris PLAN: Patient with cath in 2004 and had nonobstructive coronary disease with no more than 10 to 25% stenosis. LV function was stable at that time and remained stable on echocardiogram in 2016. She has been on secondary risk factor modifications. Repeat 2D echocardiogram is pending. The patient will probably need PEG tube placement under anesthesia. I would recommend that we proceed with a pharmacologic nuclear stress test provided her echocardiogram does not show significant wall motion abnormality. PLAN: Plan 1. 2D echocardiogram has been ordered. Will assess LV function as noted above. 2. Pharmacologic nuclear stress test, I placed order today. 3. Hold Eliquis in anticipation of PEG tube placement. 4. Dr. Gunn will be assuming the service starting tomorrow. HPI Consult Data Date of Consult: 01/01/24 HPI Narrative Reason for Consultation: elevated troponins HPI Narrative: RAJAT PASTRANA, is a 83 F who presents with a history of chest discomfort while hospitalized in TCU. Her EKG showed sinus rhythm at 54 bpm with nonspecific interventricular conduction block and a questionable old anterior septal NV and this was unchanged from an EKG December 08, 2023. The patient's enzymes initial set was 600 the second set was 800. The patient currently denies any chest discomfort. She reports she intermittently gets short of breath and she has been hospitalized for aspiration pneumonia. Patient carries a history of a remote left heart catheterization 2004 when she had minimal coronary artery disease and prominent scalloping but no definitive mitral valve prolapse. The most recent echocardiogram was July 2016 that was technically limited as an EF of 70% mild concentric LVH both atrium are moderately dilated there is moderate mitral annular calcification there is trivial mitral valve insufficiency and mild tricuspid insufficiency right ventricular systolic pressure was estimated at 38. The patient does know who she is and that she is in the hospital. She does not remember what happened to her yesterday and there is a history of some short-term memory deficits. Patient does have a history of chronic renal insufficiency diabetes and paroxysmal atrial fibrillation treated with amiodarone. She carries a history of hypertension and her hyperlipidemia. The patient has some transient supraventricular tachycardia associated with shortness of breath. The patient is also being evaluated for possible peg tube placement. [facility] Medical History Chronic anemia CKD stage 3b, GFR 30-44 ml/min Dysphagia Transition of care Forgetfulness Wears glasses Diabetes Walker as ambulation aid Blood disorder Dietary restriction History of diverticulitis Difficulty swallowing Gastric reflux On home oxygen therapy History of stress test Cardiology follow-up encounter History of edema History of echocardiogram PAF (paroxysmal atrial fibrillation) Ambulatory dysfunction Generalized weakness Acute cystitis without hematuria Depression Diabetes GERD (gastroesophageal reflux disease) Atrial fibrillation Irregular heart beat Hypertension DVT (deep venous thrombosis) Fall Weakness UTI (urinary tract infection) Fatigue On amiodarone therapy Essential hypertension Abnormal pulmonary function test Nonrheumatic mitral (valve) prolapse [place] disease Depression Meningioma Hyperlipidemia Atherosclerotic heart disease of [place] coronary artery without angina pectoris Palpitations Long-term use of high-risk medication Type 2 diabetes mellitus Osteoarthritis Family history of CVA Atrial ectopic tachycardia Paroxysmal atrial fibrillation Hypertension Home Medications ?Medication ?Instructions ?Recorded ?Last Taken ?Type mirabegron 50 mg tablet,extended 50 mg PO DAILY URINARY FREQUENCY 07/11/16 07/01/21 History release 24 hr meclizine 25 mg tablet 12.5 mg PO TID PRN PRN Dizziness 05/16/19 Unknown History atorvastatin 40 mg tablet 40 mg PO QHS 05/13/21 06/30/21 History famotidine 20 mg tablet 20 mg PO BID GERD 07/01/21 12/29/23 History lisinopril 2.5 mg tablet 2.5 mg PO DAILY BP 07/01/21 12/29/23 09:30 History donepezil 10 mg tablet 10 mg PO QHS 06/09/22 Unknown History metformin 500 mg tablet 250 mg PO BID DM 06/09/22 Unknown History apixaban 2.5 mg tablet (Eliquis) 2.5 mg PO BID BLOOD THINNER 05/24/23 12/27/23 History azelastine 137 mcg (0.1 %) nasal 2 spray intranasal BID #30 mL 09/05/23 12/29/23 09:30 Rx spray aerosol fluticasone propionate 50 2 spray intranasal DAILY #16 grams 09/05/23 Unknown Rx mcg/actuation nasal spray,suspension diltiazem HCl 180 mg 180 mg PO BID #180 caps 09/08/23 12/29/23 09:30 Rx capsule,extended release 24 hr amiodarone 200 mg tablet 100 mg (1/2 x 200 mg) PO DAILY #90 12/01/23 12/29/23 09:30 Rx tabs citalopram 10 mg tablet (Celexa) 10 mg PO DAILY 12/16/23 Unknown History furosemide 40 mg tablet 40 mg PO DAILY 12/19/23 Unknown History timolol maleate 0.5 % eye drops 1 drp ophthalmic (eye) BID 12/19/23 Unknown History cefdinir 300 mg capsule 300 mg PO Q12 #9 caps 12/22/23 Unknown Rx Allergy/AdvReac Type Severity Reaction Status Date / Time benzonatate (From Tessalon Allergy Hives Verified 12/31/23 12:05 Taylor) cat dander Allergy Unknown Verified 12/31/23 12:05 Family History Father CAD (coronary artery disease) CHF (congestive heart failure) History of DVT (deep vein thrombosis) Mother Diabetes Grandfather CAD (coronary artery disease) History of DVT (deep vein thrombosis) Grandmother CVA (cerebral vascular accident) Surgical History History of cardiac catheterization Hx of colonoscopy History of esophagogastroduodenoscopy (EGD) History of cataract extraction History of tonsillectomy and adenoidectomy History of tubal ligation Social History housing: prison Smoking Status: Former smoker second hand exposure: No alcohol intake: never substance use type: does not use caffeine: No what type of physical activity do you participate in: none ROS Constitutional Constitutional: Reports as per HPI Eyes Eyes: Reports systems reviewed and no addt'l complaints, except as documented ENT HEENT: Reports systems reviewed and no addt'l complaints, except as documented Cardiovascular Cardiovascular: Reports as per HPI Respiratory/Chest Respiratory/Chest: Reports as per HPI Gastrointestinal Gastrointestinal: Reports as per HPI Genitourinary Genitourinary: Reports systems reviewed and no addt'l complaints, except as documented Musculoskeletal Musculoskeletal: Reports systems reviewed and no addt'l complaints, except as documented Integumentary Integumentary: Reports systems reviewed and no addt'l complaints, except as documented Neurologic Neurologic: Reports as per HPI Psychiatric Psychiatric: Reports as per HPI Endocrine Endocrinology: Reports systems reviewed and no addt'l complaints, except as documented Hematologic/Lymphatic Hematologic/Lymphatic: Reports systems reviewed and no addt'l complaints, except as documented Allergic/Immunologic Allergic/Immunologic: Reports systems reviewed and no addt'l complaints, except as documented Physical Exam Const alert Constitutional Narrative: Seems to be oriented x 3 but somewhat slow to answer questions and has some short-term memory issues HEENT normocephalic Eyes EOMs intact bilaterally Neck full ROM and no JVD Carotids: Negative for bruit Chest inspection of chest normal Resp normal respiratory effort Auscultation: rhonchi left lower (Definite bronchial breath sounds in the left posterior lung field.) Cardio regular rate, regular rhythm, S1 normal heart sound, S2 normal heart sound, no murmurs, no rub and no gallops GI soft to palpation Extremity no pedal edema Skin no rashes or lesions noted Neuro Neuro Narrative: Alert Psych Psych Narrative: Thought processes are slow Risk Stratification Risk Stratification Applicable: Yes Age >/= 65: Yes >/= 3 CAD Risk Factors (HTN, HLD, DM, family hx of CAD, or current smoker): Yes Aspirin Use in the Past 7 Days: No Severe Angina (>/= episodes in 24 hours): No EKG ST Changes >/= 0.5mm: No Positive Cardiac Marker: Yes SUMMER Risk Stratification Score: 3 SUMMER % Risk: 13% Risk Charges/Coding Visit Charges Inpatient E&M: 32081 Init Hosp L3 Objective Data Vital Signs: Vital Signs Temp Pulse Resp BP Pulse Ox O2 Del Method O2 Flow Rate 96.7 F L 58 L 16 112/57 L 96 Nasal Cannula 3 01/01/24 08:13 01/01/24 08:13 01/01/24 08:13 01/01/24 08:13 01/01/24 08:13 01/01/24 08:19 01/01/24 08:19 Oxygen Flow Rate (L/min) 3 Oxygen Delivery Method Nasal Cannula Weight: 167 lb 8.821 oz Body Mass Index (BMI) 26.2 Intake & Output: Intake and Output for Last 24 Hours 12/30/23 12/31/23 01/01/24 23:59 23:59 23:59 Intake Total 112 / 112 1137.50 / 1137.50 Output Total 350 / 350 Balance 112 / 112 787.50 / 787.50 Lab / Micro Data Attestation: I reviewed the patient's lab results. 01/01/24 05:30 01/01/24 05:30 Labs: Laboratory Results - last 24 hr 12/31/23 12:08: WBC 10.2, RBC 4.45, Hgb 10.9 L, Hct 37.2, MCV 83.6, MCH 24.5 L, MCHC 29.3 L, RDW Std Deviation 57.9 H, RDW Coeff of Jacobo 19.3 H, Plt Count 360, MPV 9.8, Immature Gran % (Auto) 0.400, Neut % (Auto) 61.6, Lymph % (Auto) 24.5, [place] % (Auto) 9.1, Eos % (Auto) 3.8, Baso % (Auto) 0.6, Absolute Neuts (auto) 6.3, Absolute Lymphs (auto) 2.50, Nucleated RBC % 0, Sodium 136, Potassium 5.1, Chloride 105, Carbon Dioxide 24.0, Anion Gap 7, BUN 18, Creatinine 1.52 H, Estim Creat Clear Calc 30.64, Est GFR (MDRD) Af Amer 42 L, Est GFR (MDRD) Non-Af 35 L, BUN/Creatinine Ratio 11.8, Glucose 145 H, Calcium 9.0, Troponin I High Sens 60 H , B-Natriuretic Peptide 163.7 H 12/31/23 15:34: Troponin I High Sens 674 H* 12/31/23 16:57: POC Glucose 160 H 12/31/23 18:29: Troponin I High Sens 887 H* 12/31/23 23:37: POC Glucose 146 H 01/01/24 05:30: WBC 5.3, RBC 4.07 L, Hgb 10.0 L, Hct 33.4 L, MCV 82.1, MCH 24.6 L, MCHC 29.9 L, RDW Std Deviation 55.4 H, RDW Coeff of Jacobo 18.6 H, Plt Count 314, MPV 10.4, Immature Gran % (Auto) 0.600, Neut % (Auto) 81.1 H, Lymph % (Auto) 17.0 L, [place] % (Auto) 1.3, Eos % (Auto) 0.0, Baso % (Auto) 0.0, Absolute Neuts (auto) 4.3, Absolute Lymphs (auto) 0.89, Nucleated RBC % 0, Sodium 137, Potassium 4.8, Chloride 104, Carbon Dioxide 24.0, Anion Gap 9, BUN 22 H, C reatinine 1.50 H, Estim Creat Clear Calc 30.22, Est GFR (MDRD) Af Amer 43 L, Est GFR (MDRD) Non-Af 35 L, BUN/Creatinine Ratio 14.7, Glucose 145 H, Calcium 8.4 L, Phosphorus 4.9, Magnesium 2.0, Total Bilirubin 0.30, AST 133 H, ALT 211 H, Alkaline Phosphatase 96, Total Protein 5.8 L, Albumin 2.7 L, Globulin 3.1, Albumin/Globulin Ratio 0.9 Rhythm Strip Rhythm Strip: Sinus bradycardia Rate: 55 Ectopy: None Cardiology Labs/Tests 12/31/23 12:08: WBC 10.2, RBC 4.45, Hgb 10.9 L, Hct 37.2, MCV 83.6, MCH 24.5 L, MCHC 29.3 L, Plt Count 360, MPV 9.8, Immature Gran % (Auto) 0.400, Neut % (Auto) 61.6, Lymph % (Auto) 24.5, [place] % (Auto) 9.1, Eos % (Auto) 3.8, Baso % (Auto) 0.6, Absolute Neuts (auto) 6.3, Nucleated RBC % 0, Sodium 136, Potassium 5.1, Chloride 105, Carbon Dioxide 24.0, Anion Gap 7, BUN 18, Creatinine 1.52 H, Est GFR (MDRD) Af Amer 42 L, Est GFR (MDRD) Non-Af 35 L, BUN/Creatinine Ratio 11.8, Glucose 145 H, Calcium 9.0, B-Natriuretic Peptide 163.7 H 01/01/24 05:30: WBC 5.3, RBC 4.07 L, Hgb 10.0 L, Hct 33.4 L, MCV 82.1, MCH 24.6 L, MCHC 29.9 L, Plt Count 314, MPV 10.4, Immature Gran % (Auto) 0.600, Neut % (Auto) 81.1 H, Lymph % (Auto) 17.0 L, [place] % (Auto) 1.3, Eos % (Auto) 0.0, Baso % (Auto) 0.0, Absolute Neuts (auto) 4.3, Nucleated RBC % 0, Sodium 137, Potassium 4.8, Chloride 104, Carbon Dioxide 24.0, Anion Gap 9, BUN 22 H, C reatinine 1.50 H, Est GFR (MDRD) Af Amer 43 L, Est GFR (MDRD) Non-Af 35 L, BUN/Creatinine Ratio 14.7, Glucose 145 H, Calcium 8.4 L, Phosphorus 4.9, Magnesium 2.0, Total Bilirubin 0.30 Rhythm: EKG: ECHO: Stress Test: Cardiac Cath: PCI: CT Surgery: Holter monitor: EPS: PPM: CXR: Chest CT Scan:
[2024-01-01] MEDS: Citalopram 10 MG Tablet PO (10:44)
[2024-01-01] MEDS: Amiodarone 200 MG Tablet 100 MG PO (10:44)
[2024-01-01] MEDS: dilTIAZem CD 120 MG Capsule PO ×2 (10:44→21:33)
[2024-01-01] MEDS: Fluticasone 0.05% 1 SPRAY NASAL.SRY 2 SPRAY NASAL (10:45)
[2024-01-01] MEDS: Furosemide 40 MG/4 ML Vial IV ×2 (10:45→21:33)
[2024-01-01] MEDS: Timolol 0.5% 5ML OPTH.BTL 1 DRP OPHTHALMIC ×2 (10:46→21:35)
[2024-01-01] MEDS: Azelastine HCl NASAL.SRY 2 SPRAY NASAL ×2 (10:46→21:34)
[2024-01-01] MEDS: Insulin Lispro 100 UNIT/ML INSULN.PEN SC ×3 (12:05→22:52)
[2024-01-01 12:27] LABS: Bedside Glucose 151 mg/dL (74-106)
--- NOTE | 2024-01-01 12:49 | PN.GI_ITS ---
Subjective Subjective I had a talk with the patient at the bedside with her daughter and explained her options regarding her frequent aspiration pneumonia. Objective Data Objective Data Vital Signs: Vital Signs Temp Pulse Resp BP Pulse Ox O2 Del Method O2 Flow Rate 97.0 F L 64 18 110/62 95 Nasal Cannula 3.5 01/01/24 10:34 01/01/24 10:34 01/01/24 10:34 01/01/24 10:34 01/01/24 10:34 01/01/24 10:01/01/24 11:37 Oxygen Flow Rate (L/min) 3.5 Oxygen Delivery Method Nasal Cannula Weight: 167 lb 8.821 oz Body Mass Index (BMI) 26.2 Intake & Output: Intake and Output for Last 24 Hours 12/30/23 12/31/23 01/01/24 23:59 23:59 23:59 Intake Total 112 / 112 1466.50 / 1466.50 Output Total 750 / 750 Balance 112 / 112 716.50 / 716.50 Lab / Micro Data 01/01/24 05:30 01/01/24 05:30 Labs: Laboratory Results - last 24 hr 12/31/23 12:08: B-Natriuretic Peptide 163.7 H 12/31/23 15:34: Troponin I High Sens 674 H* 12/31/23 16:57: POC Glucose 160 H 12/31/23 18:29: Troponin I High Sens 887 H* 12/31/23 23:37: POC Glucose 146 H 01/01/24 05:30: WBC 5.3, RBC 4.07 L, Hgb 10.0 L, Hct 33.4 L, MCV 82.1, MCH 24.6 L, MCHC 29.9 L, RDW Std Deviation 55.4 H, RDW Coeff of Jacobo 18.6 H, Plt Count 314, MPV 10.4, Immature Gran % (Auto) 0.600, Neut % (Auto) 81.1 H, Lymph % (Auto) 17.0 L, [place] % (Auto) 1.3, Eos % (Auto) 0.0, Baso % (Auto) 0.0, Absolute Neuts (auto) 4.3, Absolute Lymphs (auto) 0.89, Nucleated RBC % 0, Sodium 137, Potassium 4.8, Chloride 104, Carbon Dioxide 24.0, Anion Gap 9, BUN 22 H, C reatinine 1.50 H, Estim Creat Clear Calc 30.22, Est GFR (MDRD) Af Amer 43 L, Est GFR (MDRD) Non-Af 35 L, BUN/Creatinine Ratio 14.7, Glucose 145 H, Calcium 8.4 L, Phosphorus 4.9, Magnesium 2.0, Total Bilirubin 0.30, AST 133 H, ALT 211 H, Alkaline Phosphatase 96, Total Protein 5.8 L, Albumin 2.7 L, Globulin 3.1, Albumin/Globulin Ratio 0.9 01/01/24 12:04: POC Glucose 151 H Rhythm Strip Rhythm Strip: Sinus bradycardia Rate: 55 Ectopy: None Physical Exam Const alert Constitutional Narrative: appropriate. Diaphoretic and pale. Resp Resp Narrative: diffuse inspiratory and expiratory wheezing. No rales appreciated. Not tachypneic at rest. No accessory muscle use. Cardio regular rate, regular rhythm and no gallops Cardio Narrative: Occasional ectopic. GI normal to inspection, nondistended, normoactive bowel sounds, soft to palpation and non-tender GI Narrative: Denies nausea, no epigastric pain with palpation. Extremity no calf tenderness General Extremity: Negative for edema Skin Rashes: no rashes Assessment & Plan Assessment/Plan (1) Acute respiratory distress: (2) Hypoxemia: (3) Chest pain: (4) Aspiration pneumonia: (5) Abnormal EKG: (6) Type 2 diabetes mellitus: (7) Dysphagia: (8) Esophageal diverticulum: PLAN: Very large. The opening to the diverticulum is much larger than the opening for the esophagus. She also has esophageal dysmotility. At the time of EGD she had retained pills and food in the diverticulum. PLAN: Plan 1. Chest x-ray was obtained and showed infiltrate in the right base. There was also some mild blunting of the right costophrenic angle. 2. EKG showed mild J-point elevation in the anterior leads with no reciprocal changes. She has poor R wave progression and a left anterior hemiblock. She is undergoing stress test tomorrow and is being evaluated by cardiology. 3. I think her options are an esophageal stent because this is admitted epiphrenic esophageal diverticulum being that she does not want a PEG tube at this time. This would depend on her evaluation by cardiology tomorrow. Further recommendations to follow. Charges/Coding Visit Charges Inpatient E&M: 10583 Subs Hosp L3
--- NOTE | 2024-01-01 14:27 | PN.HOSP_ITS ---
Reason for Visit Reason for Visit: SOB/Hypoxia Subjective Subjective No issues overnight. Complain that she is not quite situated well in bed and is cold. Asked me to cover her shoulders and reposition her neck with a small pillow. We did this and she indicated she was having improved comfort. States she still feels short of breath however her breathing looks much better than yesterday. Objective Data Objective Data Vital Signs: Vital Signs Temp Pulse Resp BP Pulse Ox O2 Del Method O2 Flow Rate 97.0 F L 79 18 110/62 93 Nasal Cannula 3 01/01/24 10:34 01/01/24 14:08 01/01/24 14:08 01/01/24 10:34 01/01/24 14:08 01/01/24 14:08 01/01/24 14:08 Oxygen Flow Rate (L/min) 3 Oxygen Delivery Method Nasal Cannula Weight: 76 kg Body Mass Index (BMI) 26.2 Intake & Output: Intake and Output for Last 24 Hours 12/30/23 12/31/23 01/01/24 23:59 23:59 23:59 Intake Total 112 / 112 1578.50 / 1578.50 Output Total 750 / 750 Balance 112 / 112 828.50 / 828.50 Lab / Micro Data 01/01/24 05:30 01/01/24 05:30 Labs: Laboratory Results - last 24 hr 12/31/23 12:08: B-Natriuretic Peptide 163.7 H 12/31/23 15:34: Troponin I High Sens 674 H* 12/31/23 16:57: POC Glucose 160 H 12/31/23 18:29: Troponin I High Sens 887 H* 12/31/23 23:37: POC Glucose 146 H 01/01/24 05:30: WBC 5.3, RBC 4.07 L, Hgb 10.0 L, Hct 33.4 L, MCV 82.1, MCH 24.6 L, MCHC 29.9 L, RDW Std Deviation 55.4 H, RDW Coeff of Jacobo 18.6 H, Plt Count 314, MPV 10.4, Immature Gran % (Auto) 0.600, Neut % (Auto) 81.1 H, Lymph % (Auto) 17.0 L, Levy % (Auto) 1.3, Eos % (Auto) 0.0, Baso % (Auto) 0.0, Absolute Neuts (auto) 4.3, Absolute Lymphs (auto) 0.89, Nucleated RBC % 0, Sodium 137, Potassium 4.8, Chloride 104, Carbon Dioxide 24.0, Anion Gap 9, BUN 22 H, C reatinine 1.50 H, Estim Creat Clear Calc 30.22, Est GFR (MDRD) Af Amer 43 L, Est GFR (MDRD) Non-Af 35 L, BUN/Creatinine Ratio 14.7, Glucose 145 H, Calcium 8.4 L, Phosphorus 4.9, Magnesium 2.0, Total Bilirubin 0.30, AST 133 H, ALT 211 H, Alkaline Phosphatase 96, Total Protein 5.8 L, Albumin 2.7 L, Globulin 3.1, Albumin/Globulin Ratio 0.9 01/01/24 12:04: POC Glucose 151 H Rhythm Strip Rhythm Strip: Sinus bradycardia Rate: 55 Ectopy: None Physical Exam Const alert, oriented x3 and no apparent distress; Negative for average body habitus, healthy appearing or well nourished Constitutional Narrative: Elderly, overweight, chronically ill-appearing and debilitated white female, sitting up in bed, appears comfortable at this time, seems far improved from a respiratory status today, not toxic, watching television and appears comfortable General Appearance: cooperative HEENT normocephalic, head/scalp atraumatic and moist oral mucous membranes HEENT Narrative: Dentition is poor, Mallampati is 2, no thrush Resp normal respiratory effort, no retractions and no use of accessory muscles Resp Narrative: Course but much improved with resolution of wheezing Auscultation: Negative for crackles, rhonchi or wheezes Cardio regular rate, regular rhythm, S1 normal heart sound, S2 normal heart sound, no murmurs, no rub, no gallops and no clicks GI normal to inspection, nondistended, normoactive bowel sounds, soft to palpation and non-tender Extremity Extremity Narrative: Trace lower extremity edema, no cyanosis or clubbing, decreased lean muscle mass Neuro oriented x3 and moves all extremities Neuro Narrative: Bilateral ptosis noted but all other cranial nerves are normal, no focal deficits but patient with considerable generalized weakness proximal greater than distal Speech: speech normal Psych affect normal Psych Narrative: Affect is less flat today, patient interacts more today Assessment & Plan Assessment/Plan (1) Acute hypoxic respiratory failure: (2) Aspiration pneumonia: (3) Esophageal dysmotility: (4) Dysphagia: (5) Esophageal diverticulum: (6) Elevated troponin: (7) Bradycardia: PLAN: Plan Acute hypoxic respiratory failure secondary to suspected aspiration pneumonia/+/- COPD exacerbation -Patient with sudden onset hypoxia today requiring supplemental oxygen--> new hypoxia, tachypnea, wheezing -Has been weaned to 3 L with sats of 93% -Echocardiogram is pending--> should be done tomorrow -Continue Unasyn for aspiration coverage day 2 -Speech therapy is following and has placed on a modified diet -Solu-Medrol 40 every 8--> and will plan on weaning tomorrow -I-S -Acapella 10 times every 2 hours while awake -DuoNebs every 6 hours while awake with as needed albuterol Esophageal motility dysfunction/dysphagia -GI has evaluated the patient and plan is for stent placement -EGD done on 12/29/2023 that showed abnormal motility suspicious for esophageal spasm, diverticulum in the middle third of esophagus with a normal stomach and no gross lesions to the first portion of the duodenum -Full liquid diet recommended with consideration for PEG tube versus esophageal stent with Botox injection throughout the esophagus due to spasm -GI indicated they would discuss further with patient and family -Speech therapy consultation -MBS done on 12/22/2023 showed mild oropharyngeal dysphagia and severe esophageal dysphagia -N.p.o. for now except for p.o. meds until further investigation can be performed Elevated BNP/elevated troponin -Suspect troponin elevation is reactive to hypoxia earlier but will cycle -Has previously been on Lasix which was held due to some renal dysfunction -Echocardiogram is pending -Last echocardiogram from 2015 showed an EF of 70% with mild concentric LVH, moderate KALYN, right ventricular systolic pressure of 30 mmHg, moderate mitral valve annular calcification and trivial mitral valve insufficiency -Cardiology has ordered an a.m. stress test -Continue Lasix 40 mg IV push twice daily Bradycardia -Resolved -Patient with a history of A-fib with RVR -Continue to hold donepezil -Continue decreased dose of diltiazem 120 mg p.o. twice daily -continue home amiodarone -Continue home timolol drops -Monitor on telemetry Generalized weakness/debility due to advancing age and multiple comorbidities/M?ni?re's disease -PT/OT consulted for further evaluation -Will likely need to transition back to the transitional care unit at discharge once medically stable PAF -Hold Eliquis in case procedure is needed for GI -Continue amiodarone -Continue Cardizem 120 mg p.o. 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
[2024-01-01 16:46] LABS: Bedside Glucose 156 mg/dL (74-106)
[2024-01-01] MEDS: Famotidine 20 MG Tablet PO (21:33)
[2024-01-01] MEDS: Atorvastatin Calcium 40 MG Tablet PO (21:33)
[2024-01-01 23:13] LABS: Bedside Glucose 182 mg/dL (74-106)
[2024-01-02] VITALS (8 sets, daily range): BP systolic 91–112; BP diastolic 53–68; PULSE 55–82; RESP 16–20; TEMP 36.2–36.4; O2SAT 90–96; BMI 26.2
[2024-01-02] MEDS: Ampicillin/Sulbactam 3 GM in 0.9% Normal Saline (100mL MB+) 100 ML IV ×3 (04:59→17:08)
[2024-01-02 05:28] LABS: Bedside Glucose 163 mg/dL (74-106)
--- NOTE | 2024-01-02 05:55 | EKG12_ITS ---
Test Reason : Blood Pressure : / mmHG Vent. Rate : 067 BPM Atrial Rate : 067 BPM P-R Int : 212 ms QRS Dur : 136 ms QT Int : 462 ms P-R-T Axes : 119 -46 056 degrees QTc Int : 488 ms Sinus rhythm with 1st degree A-V block Left axis deviation Left bundle branch block Abnormal ECG When compared with ECG of 31-DEC-2023 12:09, MANUAL COMPARISON REQUIRED, DATA IS UNCONFIRMED Confirmed by ELAYNE LLOYD, NORRIS ([id number]), digital editor HERNANDO PEREZ ([id number]) on 01/05/2024 6:38:09 AM Referred By: KACY Confirmed By:ZACHARY HOLLY MD
[2024-01-02] MEDS: Ipratropium/Albuterol Sulfate 3 ML AMPUL.NEB INHALATION ×2 (07:02→19:18)
[2024-01-02 07:07] LABS: Absolute Lymphocyte Count 0.74 X10^3/uL (0.83-4.51); Absolute Neutrophil Count 8.6 X10^3/uL (2.0-7.7); Basophil# 0.01 X10^3/uL; Basophil% 0.1 % (0-1); Hematocrit 33.8 % (37-47); Hemoglobin 10.4 g/dL (12.0-15.0); Lymphocyte # 0.74 X10^3/ul (0.83-4.51); Lymphocyte % 7.6 % (19-41); Mean Corp Hgb Conc 30.8 g/dL (32-36); Mean Corpuscular Hgb 24.6 pg (27.0-32.0); Mean Corpuscular Volume 79.9 fL (81-99); Mean Platelet Vol. 9.9 fl (6.2-12.0); Monocyte# 0.25 X10^3/uL; Monocyte% 2.6 % (0-10); NRBC Flagged by Analyzer 0 % (0-5); Neutrophil # 8.62 X10^3/uL (2.7-7.7); Neutrophil % 89.1 % (47-70); Platelet Count 355 K/mm3 (150-450); RBC Distribution Width CV 18.9 % (11.6-14.6); RBC Distribution Width SD 54.5 fl (35.1-43.9); Red Blood Count 4.23 M/mm3 (4.2-5.4); White Blood Count 9.7 K/mm3 (4.4-11.0)
[2024-01-02 07:27] LABS: ALB/GLOB Ratio 0.9 RATIO (0.9-2.4); AST(SGOT) 99 U/L (15-37); Alanine Aminotransfer ALT/SGPT 202 U/L (13-56); Albumin, Serum 2.8 g/dL (3.2-5.0); Alkaline Phosphatase 92 U/L (45-117); Anion Gap 11 (5-15); BUN 35 mg/dL (7-18); BUN/Creat Ratio 18.8 RATIO (10-20); Calcium,Total 8.2 mg/dL (8.5-10.1); Chloride 103 mmol/L (98-107); Creatinine, Serum 1.86 mg/dL (0.55-1.02); EST Glomerular Filtration Rate 27 mL/min (>60); Est Glom Filt Rate - Afr Amer 33 mL/min (>60); Estimated Creatinine Clearance 24.33 ml/min; Globulin 3.1 g/dL (2.2-4.2); Glucose 168 mg/dL (74-106); Potassium 3.9 mmol/L (3.5-5.1); Protein, Total 5.9 g/dL (6.4-8.2); Sodium Level 140 mmol/L (136-145)
[2024-01-02] MEDS: Amiodarone 200 MG Tablet 100 MG PO (10:34)
[2024-01-02] MEDS: dilTIAZem CD 120 MG Capsule PO ×2 (10:34→20:55)
[2024-01-02] MEDS: Citalopram 10 MG Tablet PO (10:34)
[2024-01-02] MEDS: Famotidine 20 MG Tablet PO (10:35)
[2024-01-02] MEDS: Azelastine HCl NASAL.SRY 2 SPRAY NASAL ×2 (10:35→20:54)
[2024-01-02] MEDS: Fluticasone 0.05% 1 SPRAY NASAL.SRY 2 SPRAY NASAL (10:36)
[2024-01-02] MEDS: Timolol 0.5% 5ML OPTH.BTL 1 DRP OPHTHALMIC ×2 (10:37→20:56)
[2024-01-02] MEDS: Furosemide 40 MG/4 ML Vial IV ×2 (10:39→20:55)
[2024-01-02] MEDS: 0.9% Saline Lock 10 ML Syringe IV (10:44)
[2024-01-02] MEDS: Heparin Injection (Vial) 5,000 UNIT/ML VIAL 5000 UNIT SC ×2 (12:35→20:55)
[2024-01-02 13:02] LABS: Bedside Glucose 144 mg/dL (74-106)
--- NOTE | 2024-01-02 13:51 | STRESSREP_ITS ---
Stress Test Report Date: 01/02/2024 Procedure: Pharmacologic stress nuclear imaging study Indications: Preoperative evaluation Consent: Per the patient Procedure: The patient underwent pharmacologic (Regadenoson) evaluation with a peak heart rate of 72 beats per minute (52%predicted maximal heart rate) and a peak blood pressure of 100/62 mmHg. The baseline ECG demonstrated wandering atrial pacemaker rhythm. EKG during lexiscan infusion revealed no significant ischemic changes. EKG post infusion revealed no significant ischemic changes [There were no cardiac dysrhythmias pretest, during pharmacologic infusion, or recovery]. [There was no complaint of chest discomfort during pharmacologic infusion or recovery]. The examination was discontinued secondary to completion of protocol. Impression: 1. Lexiscan stress test test is negative for Lexiscan infusion induced EKG changes of ischemia. 2. Lexiscan stress test test is negative for Lexiscan infusion induced chest pain. 3. Results of the nuclear portion of the test is as below Myocardial perfusion imaging study: Technique: The patient was injected with 12 millicuries of technetium 99m Cardiolite and subsequently rest SPECT Cardiolite nuclear imaging was obtained in the horizontal long, vertical long, and short axis views. The patient underwent pharmacologic [Regadenoson 0.4mg] evaluation. Please see above for details. The patient was injected with 36 millicuries of technetium 99m Cardiolite and subsequently stress SPECT Cardiolite nuclear imaging was obtained in the horizontal long, vertical long, and short axis views. A gated Cardiolite study at peak stress was obtained. Interpretation: Rest and stress SPECT Cardiolite nuclear imaging status post realignment, normalization, and attenuation correction demonstrate moderate fixed defect in the apex. No significant reversible defects. Gated images reveal normal contraction of base of the LV and severe hypokinesis of the rest of the LV. These findings are suggestive of possible old apical VT. The reported LVEF is 44%. Impression: 1. There is no evidence of significant ischemia. 2. Estimated ejection fraction is 44%. This note was generated with [employer] software. It may contain incorrect words, spelling, and punctuation that were not noted in checking the note before signing.
--- NOTE | 2024-01-02 14:47 | PCM.PN.CARD ---
Subjective Subjective Denies any chest pain. Pt. says she had SOB prior to transfer. She has been upset that her family wasn't visiting her and that she was stuck in the hospital getting rehab. He echo showed wall motion abnormalities suggestive of takotsubo cardiomyopathy. Stress test was reviewed as well. Objective Data Vital Signs: Vital Signs Temp Pulse Resp BP Pulse Ox O2 Del Method O2 Flow Rate 97.2 F L 68 16 111/68 96 Nasal Cannula 2 01/02/24 10:00 01/02/24 10:00 01/02/24 10:00 01/02/24 10:00 01/02/24 10:00 01/02/24 11:00 01/02/24 11:00 Oxygen Flow Rate (L/min) 2 Oxygen Delivery Method Nasal Cannula Weight: 166 lb 14.239 oz Body Mass Index (BMI) 26.2 Intake & Output: Intake and Output for Last 24 Hours 12/31/23 01/01/24 01/02/24 23:59 23:59 23:59 Intake Total 112 / 112 1690.50 / 1690.50 336 / 336 Output Total 1200 / 1200 900 / 900 Balance 112 / 112 490.50 / 490.50 -564 / -564 Lab / Micro Data 01/02/24 06:20 01/02/24 06:20 Labs: Laboratory Results - last 24 hr 01/01/24 16:24: POC Glucose 156 H 01/01/24 22:51: POC Glucose 182 H 01/02/24 04:57: POC Glucose 163 H 01/02/24 06:20: WBC 9.7, RBC 4.23, Hgb 10.4 L, Hct 33.8 L, MCV 79.9 L, MCH 24.6 L, MCHC 30.8 L, RDW Std Deviation 54.5 H, RDW Coeff of Jacobo 18.9 H, Plt Count 355, MPV 9.9, Immature Gran % (Auto) 0.600, Neut % (Auto) 89.1 H, Lymph % (Auto) 7.6 L, Bailey % (Auto) 2.6, Eos % (Auto) 0.0, Baso % (Auto) 0.1, Absolute Neuts (auto) 8.6 H, Absolute Lymphs (auto) 0.74 L, Nucleated RBC % 0, Sodium 140, Potassium 3.9, Chloride 103, Carbon Dioxide 26.0, Anion Gap 11, BUN 35 H, Creatinine 1.86 H, Estim Creat Clear Calc 24.33, Est GFR (MDRD) Af Amer 33 L, Est GFR (MDRD) Non-Af 27 L, BUN/Creatinine Ratio 18.8, Glucose 168 H, Calcium 8.2 L, Total Bilirubin 0.40, AST 99 H, ALT 202 H, Alkaline Phosphatase 92, Total Protein 5.9 L, Albumin 2.8 L, Globulin 3.1, Albumin/Globulin Ratio 0.9 01/02/24 12:26: POC Glucose 144 H Rhythm Strip Rhythm Strip: Sinus bradycardia Rate: 55 Ectopy: None Cardiology Labs/Tests 01/02/24 06:20: WBC 9.7, RBC 4.23, Hgb 10.4 L, Hct 33.8 L, MCV 79.9 L, MCH 24.6 L, MCHC 30.8 L, Plt Count 355, MPV 9.9, Immature Gran % (Auto) 0.600, Neut % (Auto) 89.1 H, Lymph % (Auto) 7.6 L, Bailey % (Auto) 2.6, Eos % (Auto) 0.0, Baso % (Auto) 0.1, Absolute Neuts (auto) 8.6 H, Nucleated RBC % 0, Sodium 140, Potassium 3.9, Chloride 103, Carbon Dioxide 26.0, Anion Gap 11, BUN 35 H, Creatinine 1.86 H, Est GFR (MDRD) Af Amer 33 L, Est GFR (MDRD) Non-Af 27 L, BUN/Creatinine Ratio 18.8, Glucose 168 H, Calcium 8.2 L, Total Bilirubin 0.40 Rhythm: EKG: ECHO: Stress Test: Cardiac Cath: PCI: CT Surgery: Holter monitor: EPS: PPM: CXR: Chest CT Scan: Radiography Diagnostic Testing: Radiology Impression Echocardiogram 12/31/23 15:14 Interpretation Summary The estimated ejection fraction is 40 %. There is evidence of diastolic dysfunction. The left atrium is mildly enlarged. Base of the LV is winsome well. Rest of the LV is severely hypokinetic suggestive of Takotsubo Cardiomyopathy Ordering Physician: Merline Kimbrough Referring Physician: Hortensia Balbuena Performed By: Veda Everett RDCS Physical Exam Const alert and oriented x3 HEENT normocephalic Eyes no scleral icterus Resp normal respiratory effort and clear to auscultation bilaterally Extremity no pedal edema Assessment & Plan Assessment/Plan (1) Elevated troponin: PLAN: Echo and stress test reviewed. This could be due to takotsubo CM vs subacute anterior SD (less likely). Either way, due to lack of angina and no ischemia on stress test, would recommend medical therapy. Change lasix to 40mg daily. Decrease diltiazem to 30mg Q6H and add Metoprolol succinate 100mg daily. If tolerated, in 1-2 days diltiazem could be dc'd and metoprolol increased. Charges/Coding Visit Charges Inpatient E&M: 38766 Subs Hosp L1
--- NOTE | 2024-01-02 15:37 | PCM.PN.HOSP ---
Reason for Visit Reason for Visit: SOB/Hypoxia Subjective Subjective Breathing better today. No CP. No issues overnight. Wants to go home. Aware plan is for esophageal stent to be done this week if imaging is ok. Objective Data Objective Data Vital Signs: Vital Signs Temp Pulse Resp BP Pulse Ox O2 Del Method O2 Flow Rate 97.2 F L 68 16 111/68 96 Nasal Cannula 2 01/02/24 10:00 01/02/24 10:00 01/02/24 10:00 01/02/24 10:00 01/02/24 10:00 01/02/24 11:00 01/02/24 14:43 Oxygen Flow Rate (L/min) 2 Oxygen Delivery Method Nasal Cannula Weight: 75.7 kg Body Mass Index (BMI) 26.2 Intake & Output: Intake and Output for Last 24 Hours 12/31/23 01/01/24 01/02/24 23:59 23:59 23:59 Intake Total 112 / 112 1690.50 / 1690.50 336 / 336 Output Total 1200 / 1200 900 / 900 Balance 112 / 112 490.50 / 490.50 -564 / -564 Lab / Micro Data 01/02/24 06:20 01/02/24 06:20 Labs: Laboratory Results - last 24 hr 01/01/24 16:24: POC Glucose 156 H 01/01/24 22:51: POC Glucose 182 H 01/02/24 04:57: POC Glucose 163 H 01/02/24 06:20: WBC 9.7, RBC 4.23, Hgb 10.4 L, Hct 33.8 L, MCV 79.9 L, MCH 24.6 L, MCHC 30.8 L, RDW Std Deviation 54.5 H, RDW Coeff of Jacobo 18.9 H, Plt Count 355, MPV 9.9, Immature Gran % (Auto) 0.600, Neut % (Auto) 89.1 H, Lymph % (Auto) 7.6 L, [place] % (Auto) 2.6, Eos % (Auto) 0.0, Baso % (Auto) 0.1, Absolute Neuts (auto) 8.6 H, Absolute Lymphs (auto) 0.74 L, Nucleated RBC % 0, Sodium 140, Potassium 3.9, Chloride 103, Carbon Dioxide 26.0, Anion Gap 11, BUN 35 H, Creatinine 1.86 H, Estim Creat Clear Calc 24.33, Est GFR (MDRD) Af Amer 33 L, Est GFR (MDRD) Non-Af 27 L, BUN/Creatinine Ratio 18.8, Glucose 168 H, Calcium 8.2 L, Total Bilirubin 0.40, AST 99 H, ALT 202 H, Alkaline Phosphatase 92, Total Protein 5.9 L, Albumin 2.8 L, Globulin 3.1, Albumin/Globulin Ratio 0.9 01/02/24 12:26: POC Glucose 144 H Radiography Diagnostic Testing: Radiology Impression Echocardiogram 12/31/23 15:14 Interpretation Summary The estimated ejection fraction is 40 %. There is evidence of diastolic dysfunction. The left atrium is mildly enlarged. Base of the LV is winsome well. Rest of the LV is severely hypokinetic suggestive of Takotsubo Cardiomyopathy Ordering Physician: Merline Kimbrough Referring Physician: Hortensia Balbuena Performed By: Veda Everett RDCS Rhythm Strip Rhythm Strip: Sinus bradycardia Rate: 55 Ectopy: None Physical Exam Const alert, oriented x3, no apparent distress and average body habitus; Negative for healthy appearing or well nourished Constitutional Narrative: Elderly, chronically ill appearing WF, sitting up on BSC, appears comfortable, breathing is much improved, nontoxic HEENT head/scalp atraumatic and moist oral mucous membranes HEENT Narrative: Mallampati 2-3, no thrush Head and Scalp: normocephalic Resp normal respiratory effort and no retractions Resp Narrative: Course diffusely but no wheeze or rhonchi, most course in R base Cardio regular rate, regular rhythm, S1 normal heart sound, S2 normal heart sound, no murmurs, no rub, no gallops and no clicks GI normal to inspection, nondistended, normoactive bowel sounds, soft to palpation and non-tender Extremity no clubbing, cyanosis or edema Extremity Narrative: 2+ pedal pulses Neuro oriented x3, moves all extremities and no focal motor deficits Neuro Narrative: Generalized weakness Speech: speech normal Psych affect normal Psych Narrative: pleasant, forgetful with new information, eye contact is good Assessment & Plan Assessment/Plan (1) Bradycardia: (2) Elevated troponin: (3) Acute hypoxic respiratory failure: (4) Esophageal dysmotility: PLAN: Plan Acute hypoxic respiratory failure secondary to suspected aspiration pneumonia/Flash Pulmonary Edema -Patient with sudden onset hypoxia today requiring supplemental oxygen--> new hypoxia, tachypnea, wheezing -Weaned to 2 L and Sats are 93-96% -continue to wean--> pt not O2 dependent at baseline -Echocardiogram c/w Takotsubo CM--> EF 40%, + diastolic dysfunction -Continue Unasyn for aspiration coverage day 3 of 7--> transition to Augmentin tomorrow if stable -Speech therapy is following and has placed on a modified diet -d/c IV steroids and start prednisone 40 mg daily with 5 day burst -I-S -Acapella 10 times every 2 hours while awake -DuoNebs every 6 hours while awake with as needed albuterol Esophageal motility dysfunction/dysphagia -GI has evaluated the patient and plan is for stent placement -EGD done on 12/29/2023 that showed abnormal motility suspicious for esophageal spasm, diverticulum in the middle third of esophagus with a normal stomach and no gross lesions to the first portion of the duodenum -Plan is for Esophageal stent placement after cleared by cardiology -Speech therapy following -on puree TL diet -MBS done on 12/22/2023 showed mild oropharyngeal dysphagia and severe esophageal dysphagia Elevated BNP/elevated troponin 2/2 Takotsubo CM -Last echocardiogram from 2015 showed an EF of 70% with mild concentric LVH, moderate KALYN, right ventricular systolic pressure of 30 mmHg, moderate mitral valve annular calcification and trivial mitral valve insufficiency -EF 40%, + diastolic dysfunction, apical LV ballooning, mild RA enlargement -Stress test unremarkable for inducible ischemia -Continue Lasix 40 mg IV push twice daily--> may be able to switch to PO tomorrow Bradycardia -Resolved -Patient with a history of A-fib with RVR -Continue to hold donepezil -Cardizem weaned to 30 q6 and Metoprolol succinate 100 mg daily started for CM -continue home amiodarone -Continue home timolol drops -Monitor on telemetry Generalized weakness/debility due to advancing age and multiple comorbidities/M?ni?re's disease -PT/OT following -Will likely need to transition back to the transitional care unit at discharge once medically stable PAF -Hold Eliquis in case procedure is needed for GI -Continue amiodarone -Cardizem decreased to 30 q 6 and metoprolol XR 100mg started - may be able to d/c Cardizem and increase BB Mild cognitive impairment/dementia-type unknown -Donepezil on hold--> bradycardia--> HR better -Patient is alert and oriented x 3 on presentation HTN/HPL -Continue home statin -changes as above GERD -Famotidine has been verified will initiate DM-2 -Hold metformin -Accu-Cheks every 6 with SSI every 6 -Once diet initiated start cardiac/carb controlled diet CKD stage IIIb -Baseline serum creatinine appears to run between 1.3 and 1.6 -Currently 1.86 - will likely need to run a bit dry M?ni?re's disease/BPPV -Hold meclizine for now -PT/OT Seasonal allergies -Continue nasal sprays Nocturnal hypoxia -Supplemental oxygen as needed DVT prophylaxis -Hold Eliquis for potential procedures related to esophageal issues -Subcu heparin 3 times daily CODE STATUS -DNR CCA but okay for short-term intubation per discussion with patient at the time of admission Charges/Coding Visit Charges Inpatient E&M: 97093 Subs Hosp L2
[2024-01-02] MEDS: Insulin Lispro 100 UNIT/ML INSULN.PEN SC (17:08)
[2024-01-02 17:38] LABS: Bedside Glucose 178 mg/dL (74-106)
[2024-01-02] MEDS: Atorvastatin Calcium 40 MG Tablet PO (20:55)
[2024-01-02] MEDS: Albuterol 2.5 MG/3 ML VIAL.NEB. INHALATION (22:55)
[2024-01-03] VITALS (11 sets, daily range): BP systolic 98–124; BP diastolic 51–83; PULSE 56–61; RESP 15–18; TEMP 35.8–36.9; O2SAT 83–97; BMI 25.9
[2024-01-03] MEDS: Ampicillin/Sulbactam 3 GM in 0.9% Normal Saline (100mL MB+) 100 ML IV ×3 (00:11→21:46)
[2024-01-03 00:34] LABS: Bedside Glucose 199 mg/dL (74-106)
--- NOTE | 2024-01-03 05:55 | EKG12_ITS ---
Test Reason : PRE-OP Blood Pressure : / mmHG Vent. Rate : 056 BPM Atrial Rate : 056 BPM P-R Int : 230 ms QRS Dur : 132 ms QT Int : 608 ms P-R-T Axes : 061 -40 196 degrees QTc Int : 586 ms Critical Test Result: Long QTc Sinus bradycardia with 1st degree A-V block Left axis deviation Non-specific intra-ventricular conduction block Minimal voltage criteria for LVH, may be normal variant ( Roderick product ) Cannot rule out Anteroseptal infarct , age undetermined T wave abnormality, consider inferolateral ischemia Abnormal ECG When compared with ECG of 31-DEC-2023 17:26, MANUAL COMPARISON REQUIRED, DATA IS UNCONFIRMED Confirmed by ELAYNE LLOYD, NORRIS ([id number]), senior technical editor HERNANDO PEREZ ([id number]) on 01/05/2024 6:37:45 AM Referred By: Confirmed By:ZACHARY HOLLY MD
[2024-01-03 07:03] LABS: Hematocrit 33.3 % (37-47); Hemoglobin 10.2 g/dL (12.0-15.0); Mean Corp Hgb Conc 30.6 g/dL (32-36); Mean Corpuscular Hgb 24.7 pg (27.0-32.0); Mean Corpuscular Volume 80.6 fL (81-99); Mean Platelet Vol. 10.1 fl (6.2-12.0); Platelet Count 348 K/mm3 (150-450); RBC Distribution Width CV 18.8 % (11.6-14.6); RBC Distribution Width SD 54.6 fl (35.1-43.9); Red Blood Count 4.13 M/mm3 (4.2-5.4); White Blood Count 9.5 K/mm3 (4.4-11.0)
[2024-01-03 07:03] LABS: Bedside Glucose 160 mg/dL (74-106)
[2024-01-03] MEDS: Ipratropium/Albuterol Sulfate 3 ML AMPUL.NEB INHALATION ×2 (07:13→19:32)
[2024-01-03 07:32] LABS: Hemoglobin A1c 5.9 % (3.8-5.6)
[2024-01-03 07:35] LABS: ALB/GLOB Ratio 0.9 RATIO (0.9-2.4); AST(SGOT) 48 U/L (15-37); Alanine Aminotransfer ALT/SGPT 137 U/L (13-56); Albumin, Serum 2.7 g/dL (3.2-5.0); Alkaline Phosphatase 80 U/L (45-117); Anion Gap 10 (5-15); BUN 46 mg/dL (7-18); BUN/Creat Ratio 19.7 RATIO (10-20); Calcium,Total 7.5 mg/dL (8.5-10.1); Chloride 103 mmol/L (98-107); Creatinine, Serum 2.33 mg/dL (0.55-1.02); EST Glomerular Filtration Rate 21 mL/min (>60); Est Glom Filt Rate - Afr Amer 26 mL/min (>60); Estimated Creatinine Clearance 19.34 ml/min; Globulin 2.9 g/dL (2.2-4.2); Glucose 170 mg/dL (74-106); Potassium 3.1 mmol/L (3.5-5.1); Protein, Total 5.6 g/dL (6.4-8.2); Sodium Level 140 mmol/L (136-145)
[2024-01-03] MEDS: Fluticasone 0.05% 1 SPRAY NASAL.SRY 2 SPRAY NASAL (08:57)
[2024-01-03] MEDS: Timolol 0.5% 5ML OPTH.BTL 1 DRP OPHTHALMIC ×2 (08:57→21:36)
[2024-01-03] MEDS: Potassium Chloride Oral Soln 20 MEQ/15 ML UDC 60 MEQ PO (08:57)
[2024-01-03] MEDS: Azelastine HCl NASAL.SRY 2 SPRAY NASAL ×2 (08:58→21:36)
[2024-01-03] MEDS: Lactated Ringers 1,000 ML 15 ML IV (11:00)
--- NOTE | 2024-01-03 12:50 | RAD_ITS ---
INDICATION: EGD WITH ESOPHAGEAL STENT EXAMINATION/TECHNIQUE: X-RAY - fluoroscopy for esophageal stent. FL Fluoro (separate procedure), up to 1 hour COMPARISON: No relevant prior comparison study available FINDINGS: Views were obtained on a C-arm for documentation. Examination is nondiagnostic. Number of fluoroscopic images: 6 Fluoroscopy time: 79.8 seconds Radiation dose: 20.15mGy RAD/Fluoroscopy 1 Hr or Less IMPRESSION: Intraprocedural exam as described above. Electronically Signed: Shaun Antonio MD at 15:38 EDT ,
--- NOTE | 2024-01-03 13:52 | OP.CCLET_ITS ---
01/03/2024 Hortensia Balbuena [address] [facility] [place] [address] Re : Upper GI endoscopy procedure for Haley Padgett Dear Dr. Balbuena This procedure was performed on Wednesday, January 03, 2024. My impressions and recommendations are as follows: Impressions : - Abnormal esophageal motility, consistent with presbyesophagus. 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 Prosthesis placed. - Normal stomach. - Normal duodenal bulb. - No specimens collected. Recommendations : - Discharge patient to home. - Resume previous diet. - Continue present medications. My findings are described in the full procedure note, which is enclosed. If I can be of further assistance, please feel free to contact me at . Sincerely, Isra Hooker, 01/03/2024 1:51:46 PM This report has been signed electronically.
--- NOTE | 2024-01-03 13:52 | OP.EGD_ITS ---
Patient Name: Haley Padgett Procedure Date: 01/03/2024 12:35 PM Date of : 1940 Age: 83 Procedure: Upper GI endoscopy Indications: Dysphagia Providers: Isra Hooker DO Medicines: Monitored Anesthesia Care Patient Profile: This is an 83 year old female. Refer to note in patient chart for documentation of history and physical. Patient has symptoms of dysphagia with both liquids and solids. Complications: No immediate complications. Procedure: Pre-Anesthesia Assessment: - Prior to the procedure, a History and Physical was performed, and patient medications and allergies were reviewed. The patient is competent. The risks and benefits of the procedure and the sedation options and risks were discussed with the patient. All questions were answered and informed consent was obtained. Patient identification and proposed procedure were verified by the physician in the pre-procedure area. Mental Status Examination: alert and oriented. Airway Examination: normal oropharyngeal airway and neck mobility. Respiratory Examination: clear to auscultation. CV Examination: normal. Prophylactic Antibiotics: The patient does not require prophylactic antibiotics. Prior Anticoagulants: The patient has taken no anticoagulant or antiplatelet agents. ASA Grade Assessment: IV - A patient with severe systemic disease that is a constant threat to life. After reviewing the risks and benefits, the patient was deemed in satisfactory condition to undergo the procedure. The anesthesia plan was to use monitored anesthesia care (MAC). Immediately prior to administration of medications, the patient was re-assessed for adequacy to receive sedatives. The heart rate, respiratory rate, oxygen saturations, blood pressure, adequacy of pulmonary ventilation, and response to care were monitored throughout the procedure. The physical status of the patient was re-assessed after the procedure. After obtaining informed consent, the endoscope was passed under direct vision. Throughout the procedure, the patient's blood pressure, pulse, and oxygen saturations were monitored continuously. The Endoscope was introduced through the mouth, and advanced to the second part of duodenum. The upper GI endoscopy was accomplished without difficulty. The patient tolerated the procedure well. Scope In: 12:55:59 PM Scope Out: 1:42:32 PM Total Procedure Duration Time 0 hours 46 minutes 33 seconds Findings: Abnormal motility was noted in the esophagus. The cricopharyngeus was abnormal. There are extra peristaltic waves in the esophageal body. The distal esophagus/lower esophageal sphincter is spastic, but gives up passage to the endoscope. Tertiary peristaltic waves are noted. A non-bleeding diverticulum with a large opening and no stigmata of recent bleeding was found in the middle third of the esophagus. This was stented with an 18 mm x 12.3 cm WallFlex covered stent under fluoroscopic guidance. Estimated blood loss was minimal. The entire examined stomach was normal. The duodenal bulb was normal. Impression: - Abnormal esophageal motility, consistent with presbyesophagus. 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 Prosthesis placed. - Normal stomach. - Normal duodenal bulb. - No specimens collected. Recommendation: - Discharge patient to home. - Resume previous diet. - Continue present medications. Procedure Code(s): --- Professional --- 68151, Esophagogastroduodenoscopy, flexible, transoral; with placement of endoscopic stent (includes pre- and post-dilation and guide wire passage, when performed) 42835, 26, Intraluminal dilation of strictures and/or obstructions (eg, esophagus), radiological supervision and interpretation CPT copyright 2021 [employer]. All rights reserved. The codes documented in this report are preliminary and upon infant caregiver review may be revised to meet current compliance requirements. Isra Hooker DO 01/03/2024 1:51:46 PM This report has been signed electronically. Number of Addenda: 0 Note Initiated On: 01/03/2024 12:35 PM
--- NOTE | 2024-01-03 15:19 | CASEMGMT ---
Patient was in [facility] TCU. SW met with patient. Introduced self and role at [facility]. Patient confirmed her plan is to return to [facility] TCU at d/c. Whit KELLOGG
--- NOTE | 2024-01-03 15:37 | PN.HOSP_ITS ---
Reason for Visit Reason for Visit: Acute hypoxia/shortness of breath Subjective Subjective Patient denies any issues overnight. Frustrated that she is n.p.o. for stent placement with EGD later today. She is anxious to get out of the hospital and continue her rehab so she can proceed to home. I did let her know that that is possible tomorrow once we get her procedures done as long as she is stable. She was excited about this. Objective Data Objective Data Vital Signs: Vital Signs Temp Pulse Resp BP Pulse Ox O2 Del Method O2 Flow Rate 96.4 F L 59 L 16 124/69 H 97 Nasal Cannula 2 01/03/24 14:10 01/03/24 14:10 01/03/24 14:10 01/03/24 14:10 01/03/24 14:10 01/03/24 14:10 01/03/24 14:10 Oxygen Flow Rate (L/min) 2 Oxygen Delivery Method Nasal Cannula Weight: 75 kg Body Mass Index (BMI) 25.9 Intake & Output: Intake and Output for Last 24 Hours 01/01/24 01/02/24 01/03/24 23:59 23:59 23:59 Intake Total 1690.50 / 1690.50 448 / 448 224 / 224 Output Total 1200 / 1200 1300 / 1550 750 / 750 Balance 490.50 / 490.50 -852 / -1102 -526 / -526 Lab / Micro Data 01/03/24 06:25 01/03/24 06:25 Labs: Laboratory Results - last 24 hr 01/02/24 17:07: POC Glucose 178 H 01/03/24 00:10: POC Glucose 199 H 01/03/24 06:25: WBC 9.5, RBC 4.13 L, Hgb 10.2 L, Hct 33.3 L, MCV 80.6 L, MCH 24.7 L, MCHC 30.6 L, RDW Std Deviation 54.6 H, RDW Coeff of Jacobo 18.8 H, Plt Count 348, MPV 10.1, Sodium 140, Potassium 3.1 L, Chloride 103, Carbon Dioxide 27.0, Anion Gap 10, BUN 46 H, Creatinine 2.33 H, Estim Creat Clear Calc 19.34, E st GFR (MDRD) Af Amer 26 L, Est GFR (MDRD) Non-Af 21 L, BUN/Creatinine Ratio 19.7, Glucose 170 H, Hemoglobin A1c 5.9 H, Calcium 7.5 L, Total Bilirubin 0.30, AST 48 H, ALT 137 H, Alkaline Phosphatase 80, Total Protein 5.6 L, Albumin 2.7 L , Globulin 2.9, Albumin/Globulin Ratio 0.9 01/03/24 06:41: POC Glucose 160 H Micro: Microbiology 01/02/24 15:50 Stool Clostridioides difficile (PCR) - Final Rhythm Strip Rhythm Strip: Sinus bradycardia Rate: 55 Ectopy: None Physical Exam Const alert, oriented x3, no apparent distress and average body habitus; Negative for healthy appearing or well nourished Constitutional Narrative: Elderly, chronically ill appearing WF, sleeping upon my arrival but awakens easily, nontoxic, appears comfortable General Appearance: cooperative HEENT normocephalic, head/scalp atraumatic and moist oral mucous membranes HEENT Narrative: Mallampati 2-3, dentition is fair for age, no thrush Resp normal respiratory effort, no retractions and no use of accessory muscles Resp Narrative: Very fine crackles diffusely, no wheeze, much improved Auscultation: crackles; Negative for rhonchi or wheezes Cardio regular rate, regular rhythm, S1 normal heart sound, S2 normal heart sound, no murmurs, no rub, no gallops and no clicks GI normal to inspection, nondistended, normoactive bowel sounds, soft to palpation and non-tender Extremity no clubbing, cyanosis or edema Extremity Narrative: 2+ pedal pulses Neuro oriented x3, moves all extremities and no focal motor deficits Neuro Narrative: Generalized weakness Speech: speech normal Psych affect normal Psych Narrative: Pleasant, interacts appropriately Assessment & Plan Assessment/Plan (1) Bradycardia: (2) Elevated troponin: (3) Acute hypoxic respiratory failure: (4) Esophageal dysmotility: PLAN: Plan Acute hypoxic respiratory failure secondary to suspected aspiration pneumonia/Flash Pulmonary Edema -Patient with sudden onset hypoxia today requiring supplemental oxygen--> new hypoxia, tachypnea, wheezing -Remains on 2 L but sats are 97% -I have asked nursing to wean her further to see if we get her off oxygen -Echocardiogram c/w Takotsubo CM--> EF 40%, + diastolic dysfunction -Transition antibiotics to Augmentin day 4 of 7 -Continue speech therapy and modified diet until advanced by speech therapy -Continue prednisone burst day 1 of 5 -I-S -Acapella 10 times every 2 hours while awake -DuoNebs every 6 hours while awake with as needed albuterol Esophageal motility dysfunction/dysphagia -EGD done today with stent placement and findings were consistent with previous with diffuse esophageal spasm and diverticulum noted -Suspect patient may need repeat EGD for Botox injection in the future -Speech therapy following -on puree TL diet -MBS done on 12/22/2023 showed mild oropharyngeal dysphagia and severe esophageal dysphagia Elevated BNP/elevated troponin 2/2 Takotsubo CM -Last echocardiogram from 2015 showed an EF of 70% with mild concentric LVH, moderate KALYN, right ventricular systolic pressure of 30 mmHg, moderate mitral valve annular calcification and trivial mitral valve insufficiency -EF 40%, + diastolic dysfunction, apical LV ballooning, mild RA enlargement -Stress test unremarkable for inducible ischemia -Stop IV Lasix and hold further Lasix today -Will plan to transition to oral Lasix tomorrow 40 mg daily -Continue metoprolol and discontinue Cardizem -If BP goes up will increase metoprolol further -Will need outpatient echocardiogram with cardiology follow-up in the next 6 to 8 weeks -Unable to use ALFRED or ARB due to renal disease Bradycardia -Resolved -Patient with a history of A-fib with RVR -Continue to hold donepezil -Discontinue Cardizem -Continue metoprolol 100 mg daily -continue home amiodarone -Continue home timolol drops -Monitor on telemetry Generalized weakness/debility due to advancing age and multiple comorbidities/M?ni?re's disease -PT/OT following -Plan is for TCU at discharge possibly tomorrow PAF -Restart Eliquis tomorrow as long as patient is stable -Continue amiodarone -Continue metoprolol XR 100 mg daily -Discontinue Cardizem Mild cognitive impairment/dementia-type unknown -Donepezil on hold--> bradycardia--> HR better -Patient is alert and oriented x 3 on presentation HTN/HPL -Continue home statin -changes as above GERD -Famotidine has been verified will initiate DM-2 -Hold metformin -Accu-Cheks every 6 with SSI every 6 -Once diet initiated start cardiac/carb controlled diet CKD stage IIIb -Baseline serum creatinine appears to run between 1.3 and 1.6 -Currently 2.33 - will likely need to run a bit dry -Discontinue IV Lasix and hold Lasix for today -Start Lasix 40 mg daily tomorrow M?ni?re's disease/BPPV -Hold meclizine for now -PT/OT Seasonal allergies -Continue nasal sprays Nocturnal hypoxia -Supplemental oxygen as needed DVT prophylaxis -Hold Eliquis for potential procedures related to esophageal issues -Subcu heparin 3 times daily CODE STATUS -DNR CCA but okay for short-term intubation per discussion with patient at the time of admission Disposition: -Probable discharge back to TCU tomorrow as long as she remains stable through the night. Charges/Coding Visit Charges Inpatient E&M: 21086 Subs Hosp L2
[2024-01-03] MEDS: Heparin Injection (Vial) 5,000 UNIT/ML VIAL 5000 UNIT SC ×2 (15:58→21:36)
[2024-01-03] MEDS: 0.9% Saline Lock 10 ML Syringe IV (15:58)
[2024-01-03] MEDS: Citalopram 10 MG Tablet PO (16:10)
[2024-01-03] MEDS: Amiodarone 200 MG Tablet 100 MG PO (16:10)
[2024-01-03] MEDS: Famotidine 20 MG Tablet PO (16:10)
--- NOTE | 2024-01-03 16:10 | CHAPLAIN ---
Type of Pastoral Visit ___ Initial Visit _x__ Follow-up Visit ___ On-call Visit ___ General Patient Visit ___ Spiritual Assessment ___ Family Conference ___ Bereavement ___ Rapid Response ___ Code Blue ___ Other (describe below) Pastoral Care Referral From _x__ Patient ___ Family ___ Nurse ___ Physician ___ Cdl Driver ___ Maintenance Machinist ___ Other (describe below) Sacrament/Intervention ___ Active listening ___ Anointing ___ Orthodox ___ Bereavement ___ Communion ___ Shelbi exploration ___ ___ Life review _x__ Prayer ___ Reconciliation ___ Sacrament of Sick _x__ Supportive presence ___ Wedding ___ Other (describe below) Pastoral Comments patient was moved from [facility] to [facility] and had just returned from a procedure; pt admitted to being tired and ready to rest but welcomed a short visit and a prayer;
[2024-01-03 16:41] LABS: Bedside Glucose 152 mg/dL (74-106)
[2024-01-03] MEDS: Atorvastatin Calcium 40 MG Tablet PO (21:37)
[2024-01-03] MEDS: Acetaminophen 325 MG Tablet 650 MG PO (22:53)
[2024-01-03] MEDS: Insulin Lispro 100 UNIT/ML INSULN.PEN SC (22:58)
[2024-01-03 23:21] LABS: Bedside Glucose 178 mg/dL (74-106)
[2024-01-04] VITALS (10 sets, daily range): BP systolic 103–126; BP diastolic 65–72; PULSE 52–91; RESP 16–20; TEMP 36.3–37.1; O2SAT 84–95; BMI 26.4
[2024-01-04] MEDS: Insulin Lispro 100 UNIT/ML INSULN.PEN SC ×4 (05:52→23:17)
[2024-01-04] MEDS: Heparin Injection (Vial) 5,000 UNIT/ML VIAL 5000 UNIT SC (05:53)
[2024-01-04 06:14] LABS: Bedside Glucose 161 mg/dL (74-106)
[2024-01-04 06:49] LABS: Absolute Lymphocyte Count 0.63 X10^3/uL (0.83-4.51); Absolute Neutrophil Count 9.5 X10^3/uL (2.0-7.7); Basophil# 0.01 X10^3/uL; Basophil% 0.1 % (0-1); Hematocrit 32.9 % (37-47); Hemoglobin 10.2 g/dL (12.0-15.0); Lymphocyte # 0.63 X10^3/ul (0.83-4.51); Mean Corpuscular Hgb 24.9 pg (27.0-32.0); Mean Corpuscular Volume 80.2 fL (81-99); Mean Platelet Vol. 10.4 fl (6.2-12.0); Monocyte# 0.32 X10^3/uL; NRBC Flagged by Analyzer 0 % (0-5); Neutrophil # 9.49 X10^3/uL (2.7-7.7); Neutrophil % 90.2 % (47-70); Platelet Count 347 K/mm3 (150-450); RBC Distribution Width CV 18.7 % (11.6-14.6); RBC Distribution Width SD 54.2 fl (35.1-43.9); White Blood Count 10.5 K/mm3 (4.4-11.0)
[2024-01-04] MEDS: Ipratropium/Albuterol Sulfate 3 ML AMPUL.NEB INHALATION ×3 (07:07→19:30)
[2024-01-04 08:17] LABS: Anion Gap 8 (5-15); BUN 52 mg/dL (7-18); BUN/Creat Ratio 22.2 RATIO (10-20); Calcium,Total 7.8 mg/dL (8.5-10.1); Chloride 105 mmol/L (98-107); Creatinine, Serum 2.34 mg/dL (0.55-1.02); EST Glomerular Filtration Rate 21 mL/min (>60); Est Glom Filt Rate - Afr Amer 26 mL/min (>60); Estimated Creatinine Clearance 19.41 ml/min; Glucose 169 mg/dL (74-106); Magnesium 2.1 mg/dL (1.6-2.6); Potassium 4.4 mmol/L (3.5-5.1); Sodium Level 140 mmol/L (136-145)
[2024-01-04] MEDS: Fluticasone 0.05% 1 SPRAY NASAL.SRY 2 SPRAY NASAL (10:29)
[2024-01-04] MEDS: Timolol 0.5% 5ML OPTH.BTL 1 DRP OPHTHALMIC ×2 (10:29→20:59)
[2024-01-04] MEDS: Azelastine HCl NASAL.SRY 2 SPRAY NASAL ×2 (10:29→20:59)
[2024-01-04] MEDS: Metoprolol(XL)Succ 100 MG Tablet PO (10:32)
--- NOTE | 2024-01-04 12:04 | CT_ITS ---
STUDY: CT CHEST WITHOUT CONTRAST REASON FOR EXAM: Female, 83 years old. Shortness of breath. Hypertension. History of esophageal diverticulum. RADIATION DOSAGE (If Supplied By Facility): CTDIvol = ( 13.68 ) mGy, DLP = ( 427.42 ) mGycm TECHNIQUE: Transaxial imaging was performed without the administration of intravenous contrast material. Multiplanar coronal and sagittal images were reformatted. Individualized dose optimization techniques were used for this CT. COMPARISON: Comparison is made with prior chest radiograph dated December 31, 2023. FINDINGS: CHEST Bilateral pleural effusions right greater than left with mild bibasilar atelectasis more prominent on the right side. Volume loss and possible bronchiectasis with infiltration in the posterior aspect of the right middle lobe abutting the minor fissure. There are calcifications of the coronary arteries. Cardiomegaly. Normal mediastinum. Normal hilar regions. Normal unenhanced pulmonary arteries. Normal aorta arch and descending thoracic aorta. Normal osseous structures. There is fluid distention of the esophagus. A stent is seen in the distal portion of the esophagus extending into the gastroesophageal region. There is a 2.5 cm x 1.6 cm hypodense nodule in the left adrenal gland suggestive of an adrenal adenoma. CT/Chest without Contrast IMPRESSION: Pleural effusions right greater than left with mild bibasilar atelectasis. Focal area of bronchiectasis and volume loss with possible infiltrate in the posterior aspect of the right middle lobe abutting the minor fissure. Mucous plugging should be ruled out. Fluid-filled esophagus with the evidence of a stent in the distal portion of the esophagus extending to the gastroesophageal junction. Electronically Signed: Yuriy Gonzales MD at 13:16 EDT ,
[2024-01-04] MEDS: Amiodarone 200 MG Tablet 100 MG PO (12:17)
[2024-01-04] MEDS: Acetaminophen 325 MG Tablet 650 MG PO (12:17)
[2024-01-04] MEDS: Famotidine 20 MG Tablet PO (12:18)
[2024-01-04] MEDS: Citalopram 10 MG Tablet PO (12:18)
[2024-01-04] MEDS: Ampicillin/Sulbactam 3 GM in 0.9% Normal Saline (100mL MB+) 100 ML IV ×2 (12:23→21:09)
[2024-01-04] MEDS: 0.9% Saline Lock 10 ML Syringe IV (13:41)
--- NOTE | 2024-01-04 15:00 | PN.HOSP_ITS ---
Reason for Visit Reason for Visit: Shortness of breath/hypoxia Subjective Subjective Patient still reports intermittent short of breath however anxious to get back to transitional care unit. Denies any chest discomfort since stent was placed yesterday. States she has not really eaten well yet because the food has not been to her liking it. No acute complaints at this time. Still requiring supplemental oxygen where at baseline during the day she does not. Objective Data Objective Data Vital Signs: Vital Signs Temp Pulse Resp BP Pulse Ox O2 Del Method O2 Flow Rate 98.7 F 91 16 114/65 92 Nasal Cannula 2 01/04/24 10:23 01/04/24 13:14 01/04/24 13:14 01/04/24 10:32 01/04/24 13:14 01/04/24 13:14 01/04/24 13:14 Oxygen Flow Rate (L/min) 2 Oxygen Delivery Method Nasal Cannula Weight: 76.3 kg Body Mass Index (BMI) 26.4 Intake & Output: Intake and Output for Last 24 Hours 01/02/24 01/03/24 01/04/24 23:59 23:59 23:59 Intake Total 448 / 448 1336 / 1336 212 / 212 Output Total 1300 / 1550 1350 / 1550 200 / 200 Balance -852 / -1102 -14 / -214 Lab / Micro Data 01/04/24 06:10 01/04/24 06:10 Labs: Laboratory Results - last 24 hr 01/03/24 16:08: POC Glucose 152 H 01/03/24 22:55: POC Glucose 178 H 01/04/24 05:50: POC Glucose 161 H 01/04/24 06:10: WBC 10.5, RBC 4.10 L, Hgb 10.2 L, Hct 32.9 L, MCV 80.2 L, MCH 24.9 L, MCHC 31.0 L, RDW Std Deviation 54.2 H, RDW Coeff of Jacobo 18.7 H, Plt Count 347, MPV 10.4, Immature Gran % (Auto) 0.700, Neut % (Auto) 90.2 H, Lymph % (Auto) 6.0 L, [place] % (Auto) 3.0, Eos % (Auto) 0.0, Baso % (Auto) 0.1, Absolute Neuts (auto) 9.5 H, Absolute Lymphs (auto) 0.63 L, Nucleated RBC % 0, Sodium 140, Potassium 4.4, Chloride 105, Carbon Dioxide 27.0, Anion Gap 8, BUN 52 H, C reatinine 2.34 H, Estim Creat Clear Calc 19.41, Est GFR (MDRD) Af Amer 26 L, Est GFR (MDRD) Non-Af 21 L, BUN/Creatinine Ratio 22.2 H, Glucose 169 H, Calcium 7.8 L, Magnesium 2.1 Micro: Microbiology 01/02/24 15:50 Stool Clostridioides difficile (PCR) - Final Radiography Diagnostic Testing: Radiology Impression Fluoroscopy 01/03/24 12:50 IMPRESSION: Intraprocedural exam as described above. Electronically Signed: Shaun Antonio MD at 15:38 EDT , Chest CT 01/04/24 12:04 IMPRESSION: Pleural effusions right greater than left with mild bibasilar atelectasis. Focal area of bronchiectasis and volume loss with possible infiltrate in the posterior aspect of the right middle lobe abutting the minor fissure. Mucous plugging should be ruled out. Fluid-filled esophagus with the evidence of a stent in the distal portion of the esophagus extending to the gastroesophageal junction. Electronically Signed: Yuriy Gonzales MD at 13:16 EDT , Rhythm Strip Rhythm Strip: Sinus bradycardia Rate: 55 Ectopy: None Physical Exam Const alert, oriented x3, no apparent distress and average body habitus; Negative for healthy appearing or well nourished Constitutional Narrative: Elderly, chronically ill appearing WF, sitting up in bed, appears comfortable, does not appear toxic General Appearance: cooperative HEENT normocephalic, head/scalp atraumatic and moist oral mucous membranes HEENT Narrative: Mallampati 2-3, no thrush Eyes PERRL, EOMs intact bilaterally and conjunctivae normal Eyes Narrative: Bilateral mild ptosis noted, no scleral icterus Neck no lymphadenopathy and supple Neck Narrative: Trachea midline, no thyroid enlargement Resp normal respiratory effort, no retractions, no use of accessory muscles and clear to auscultation bilaterally Resp Narrative: Diminished at bases bilaterally but no adventitious sounds noted Auscultation: Negative for crackles, rhonchi or wheezes Cardio regular rate, regular rhythm, S1 normal heart sound, S2 normal heart sound, no murmurs, no rub, no gallops and no clicks GI normal to inspection, nondistended, normoactive bowel sounds, soft to palpation and non-tender Extremity no clubbing, cyanosis or edema Extremity Narrative: 2+ pedal pulses Skin skin turgor normal, no jaundice, no petechiae and no mottling Skin Narrative: Skin is pale, scattered seborrheic keratoses Neuro oriented x3, moves all extremities and no focal motor deficits Neuro Narrative: Generalized weakness Speech: speech normal Psych affect normal Psych Narrative: Pleasant, interacts appropriately Assessment & Plan Assessment/Plan (1) Bradycardia: (2) Elevated troponin: (3) Acute hypoxic respiratory failure: (4) Esophageal dysmotility: (5) Bilateral pleural effusion: PLAN: Plan Acute hypoxic respiratory failure secondary to suspected aspiration pneumonia/Flash Pulmonary Edema/bilateral pleural effusion -Patient with sudden onset hypoxia today requiring supplemental oxygen--> new hypoxia, tachypnea, wheezing -Patient still requiring oxygen at 2 L and 84% on room air -With this I checked CT of the chest and it shows bilateral pleural effusions right slightly greater than left -Suspect transudative but will obtain a thoracentesis bilaterally--> plan for right tomorrow and left on Tuesday if able -Echocardiogram c/w Takotsubo CM--> EF 40%, + diastolic dysfunction -Transition antibiotics to Augmentin day 5 of 7 -Continue speech therapy and modified diet until advanced by speech therapy -Will also recheck modified barium swallow tomorrow after stent placement -Continue prednisone burst day 2 of 5 -I-S -Acapella 10 times every 2 hours while awake -DuoNebs every 6 hours while awake with as needed albuterol Esophageal motility dysfunction/dysphagia -EGD done today with stent placement and findings were consistent with previous with diffuse esophageal spasm and diverticulum noted -Suspect patient may need repeat EGD for Botox injection in the future -Speech therapy following -on puree TL diet -MBS tomorrow for reassessment -MBS done on 12/22/2023 showed mild oropharyngeal dysphagia and severe esophageal dysphagia Elevated BNP/elevated troponin 2/2 Takotsubo CM -Last echocardiogram from 2015 showed an EF of 70% with mild concentric LVH, moderate KALYN, right ventricular systolic pressure of 30 mmHg, moderate mitral valve annular calcification and trivial mitral valve insufficiency -EF 40%, + diastolic dysfunction, apical LV ballooning, mild RA enlargement -Stress test unremarkable for inducible ischemia -Will restart Lasix 40 mg oral tomorrow as long as renal function is stable or trending down -Continue metoprolol 100 mg daily -Will need outpatient echocardiogram with cardiology follow-up in the next 6 to 8 weeks -Unable to use ALFRED or ARB due to renal disease Bilateral pleural effusion -Suspect related to heart failure with reduced ejection fraction -I diuresed her to the point where her kidney function trended up and effusions are still present so we will obtain thoracentesis -Check Light criteria however I do suspect transudative -Serum LDH and liver panel are pending -I do suspect once we were able to get fluid removed that her oxygen saturations will improve Bradycardia -Resolved -Patient with a history of A-fib with RVR -Continue to hold donepezil -Continue metoprolol 100 mg daily -continue home amiodarone -Continue home timolol drops -Monitor on telemetry Generalized weakness/debility due to advancing age and multiple comorbidities/M?ni?re's disease -PT/OT following -Plan is for TCU at discharge suspect Tuesday as long as procedures can be done PAF -Hold Eliquis until thoracentesis done -Continue amiodarone -Continue metoprolol XR 100 mg daily Mild cognitive impairment/dementia-type unknown -Donepezil on hold--> bradycardia--> HR better -Patient is alert and oriented x 3 on presentation HTN/HPL -Continue home statin -Continue metoprolol 100 mg daily GERD -Famotidine has been verified will initiate DM-2 -Hold metformin -Accu-Cheks every 6 with SSI every 6 -Once diet initiated start cardiac/carb controlled diet CKD stage IIIb -Baseline serum creatinine appears to run between 1.3 and 1.6 -Currently 2.34 - will likely need to run a bit dry -Renal function stable today -Will hold Lasix 1 more day and then restart tomorrow as long as renal function is stable or decreasing M?ni?re's disease/BPPV -Hold meclizine for now -PT/OT Seasonal allergies -Continue nasal sprays Nocturnal hypoxia -Will have her continue oxygen at discharge at night 2 to 3 L DVT prophylaxis -Hold Eliquis for potential procedures related to esophageal issues -SCDs until doors can be done then restart Eliquis CODE STATUS -DNR CCA but okay for short-term intubation per discussion with patient at the time of admission Charges/Coding Visit Charges Inpatient E&M: 56168 Subs Hosp L3
[2024-01-04 15:11] LABS: AST(SGOT) 42 U/L (15-37); Alanine Aminotransfer ALT/SGPT 115 U/L (13-56); Albumin, Serum 2.7 g/dL (3.2-5.0); Alkaline Phosphatase 80 U/L (45-117); Globulin 3.3 g/dL (2.2-4.2); LDH 270 U/L (84-246)
[2024-01-04 16:50] LABS: Bedside Glucose 216 mg/dL (74-106)
[2024-01-04 17:07] LABS: Bedside Glucose 193 mg/dL (74-106)
--- NOTE | 2024-01-04 17:47 | PN.GI_ITS ---
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 She has been eating modified diet today. She had a CT scan of the chest today. She denies any chest pain or esophageal dysphagia at this time. CT of the chest : pleural effusions right greater than left with mild bibasilar atelectasis. Focal area of bronchiectasis and volume loss with possible infiltrate in the posterior aspect of the right middle lobe abutting the minor fissure. Mucous plugging should be ruled out. Fluid-filled esophagus with the evidence of a stent in the distal portion of the esophagus extending to the gastroesophageal junction. Objective Data Objective Data Vital Signs: Vital Signs Temp Pulse Resp BP Pulse Ox O2 Del Method O2 Flow Rate 98.7 F 91 16 114/65 92 Nasal Cannula 2 01/04/24 10:23 01/04/24 13:14 01/04/24 13:14 01/04/24 10:32 01/04/24 13:14 01/04/24 13:14 01/04/24 13:14 Oxygen Flow Rate (L/min) 2 Oxygen Delivery Method Nasal Cannula Weight: 168 lb 3.403 oz Body Mass Index (BMI) 26.4 Intake & Output: Intake and Output for Last 24 Hours 01/02/24 01/03/24 01/04/24 23:59 23:59 23:59 Intake Total 448 / 448 1336 / 1336 212 / 212 Output Total 1300 / 1550 1350 / 1550 200 / 200 Balance -852 / -1102 -14 / -214 Lab / Micro Data 01/04/24 06:10 01/04/24 06:10 Labs: Laboratory Results - last 24 hr 01/03/24 22:55: POC Glucose 178 H 01/04/24 05:50: POC Glucose 161 H 01/04/24 06:10: WBC 10.5, RBC 4.10 L, Hgb 10.2 L, Hct 32.9 L, MCV 80.2 L, MCH 24.9 L, MCHC 31.0 L, RDW Std Deviation 54.2 H, RDW Coeff of Jacobo 18.7 H, Plt Count 347, MPV 10.4, Immature Gran % (Auto) 0.700, Neut % (Auto) 90.2 H, Lymph % (Auto) 6.0 L, [place] % (Auto) 3.0, Eos % (Auto) 0.0, Baso % (Auto) 0.1, Absolute Neuts (auto) 9.5 H, Absolute Lymphs (auto) 0.63 L, Nucleated RBC % 0, Sodium 140, Potassium 4.4, Chloride 105, Carbon Dioxide 27.0, Anion Gap 8, BUN 52 H, C reatinine 2.34 H, Estim Creat Clear Calc 19.41, Est GFR (MDRD) Af Amer 26 L, Est GFR (MDRD) Non-Af 21 L, BUN/Creatinine Ratio 22.2 H, Glucose 169 H, Calcium 7.8 L, Magnesium 2.1 01/04/24 13:13: POC Glucose 216 H 01/04/24 14:29: Total Bilirubin 0.30, Direct Bilirubin 0.10, AST 42 H, ALT 115 H , Alkaline Phosphatase 80, Lactate Dehydrogenase 270 H, Total Protein 6.0 L, A lbumin 2.7 L, Globulin 3.3 01/04/24 16:40: POC Glucose 193 H Micro: Microbiology 01/02/24 15:50 Stool Clostridioides difficile (PCR) - Final Radiography Diagnostic Testing: Radiology Impression Chest CT 01/04/24 12:04 IMPRESSION: Pleural effusions right greater than left with mild bibasilar atelectasis. Focal area of bronchiectasis and volume loss with possible infiltrate in the posterior aspect of the right middle lobe abutting the minor fissure. Mucous plugging should be ruled out. Fluid-filled esophagus with the evidence of a stent in the distal portion of the esophagus extending to the gastroesophageal junction. Electronically Signed: Yuriy Gonzales MD at 13:16 EDT , Rhythm Strip Rhythm Strip: Sinus bradycardia Rate: 55 Ectopy: None Physical Exam Const alert and oriented x3 HEENT normocephalic Eyes no scleral icterus Resp normal respiratory effort and clear to auscultation bilaterally Extremity no pedal edema Assessment & Plan Assessment/Plan (1) Acute respiratory distress: (2) Hypoxemia: (3) Chest pain: (4) Aspiration pneumonia: (5) Abnormal EKG: (6) Type 2 diabetes mellitus: (7) Dysphagia: (8) Esophageal diverticulum: PLAN: Very large. The opening to the diverticulum is much larger than the opening for the esophagus. She also has esophageal dysmotility. At the time of EGD she had retained pills and food in the diverticulum. PLAN: Plan Chest x-ray was obtained and showed infiltrate in the right base. There was also some mild blunting of the right costophrenic angle. CT of the chest: Pleural effusions right greater than left with mild bibasilar atelectasis. Focal area of bronchiectasis and volume loss with possible infiltrate in the posterior aspect of the right middle lobe abutting the minor fissure. Mucous plugging should be ruled out. Fluid-filled esophagus with the evidence of a stent in the distal portion of the esophagus extending to the gastroesophageal junction. Await further imaging of her esophageal stent to see if she needs repeat EGD with dilation or further distal displacement of the stent so it crosses the GE junction if anything is in the esophagus at the level of the stent seen in imaging. Charges/Coding Visit Charges Inpatient E&M: 94603 Subs Hosp L3
[2024-01-04] MEDS: Atorvastatin Calcium 40 MG Tablet PO (20:59)
[2024-01-04 23:44] LABS: Bedside Glucose 171 mg/dL (74-106)
[2024-01-05] VITALS (14 sets, daily range): BP systolic 114–135; BP diastolic 63–73; PULSE 50–58; RESP 16–18; TEMP 36.4–37; O2SAT 92–97; BMI 26.5
--- NOTE | 2024-01-05 | FLU_PTH ---
PATIENT: RAJAT PASTRANA LOC: [facility] U#:[id number] AGE/SX: 83/F ROOM: [facility] RE12/31/[address]: Dr. Matheus Sanders MD : 1940 BED: 1 DIS: 01/11/2024 SPEC #: [id number] RECD: 01/05/24 08:37 STATUS: ARMANDO REGaudencio #: [id number] SHANNON: 01/05/24 00:[address]: Merline Kimbrough DEPT: CYTOLOGY RECD BY: Татьяна Mendez ENTERED: 01/05/24 12:00 SP TYPE: Fluid OTHR DR: DO Dr. Bruce Murray MD Tissues: Pleural fluid, NOS Procedures: Special Stain Group II Surgery Specimen Level IV Cytospin Fluid HEADER OPERATION: Thoracentesis PRE-OP DIAGNOSIS: Pleural effusion TISSUE SUBMITTED: Thoracentesis fluid for cytology DIAGNOSIS CYTOLOGY Thoracentesis fluid for cytology (cytospin and cellblock): Negative for malignant cells. AM/mr 01/06/2024 CYTOLOGY STUDY Slides are reviewed. CYTOLOGY GROSS Received is 80 ml of light yellow-cloudy fluid labeled with the patient's name and and designated per the requisition as Thoracentesis. Submitted for cytology preparation including cell block. Mr 01/05/2024 TC:5 CPT: 38243
[2024-01-05 06:12] LABS: Hematocrit 36.3 % (37-47); Mean Corp Hgb Conc 30.3 g/dL (32-36); Mean Corpuscular Hgb 24.8 pg (27.0-32.0); Mean Corpuscular Volume 81.9 fL (81-99); Mean Platelet Vol. 10.7 fl (6.2-12.0); Platelet Count 333 K/mm3 (150-450); RBC Distribution Width CV 18.8 % (11.6-14.6); RBC Distribution Width SD 55.4 fl (35.1-43.9); Red Blood Count 4.43 M/mm3 (4.2-5.4); White Blood Count 9.6 K/mm3 (4.4-11.0)
[2024-01-05] MEDS: Insulin Lispro 100 UNIT/ML INSULN.PEN SC ×4 (06:12→23:00)
[2024-01-05] MEDS: 0.9% Saline Lock 10 ML Syringe IV ×2 (06:14→22:22)
[2024-01-05 06:55] LABS: Anion Gap 10 (5-15); BUN 52 mg/dL (7-18); BUN/Creat Ratio 22.5 RATIO (10-20); Calcium,Total 8.4 mg/dL (8.5-10.1); Chloride 105 mmol/L (98-107); Creatinine, Serum 2.31 mg/dL (0.55-1.02); EST Glomerular Filtration Rate 21 mL/min (>60); Est Glom Filt Rate - Afr Amer 26 mL/min (>60); Estimated Creatinine Clearance 19.66 ml/min; Glucose 181 mg/dL (74-106); Magnesium 2.4 mg/dL (1.6-2.6); Potassium 4.3 mmol/L (3.5-5.1); Sodium Level 140 mmol/L (136-145)
[2024-01-05 06:57] LABS: Bedside Glucose 204 mg/dL (74-106)
[2024-01-05] MEDS: Ipratropium/Albuterol Sulfate 3 ML AMPUL.NEB INHALATION ×3 (07:08→19:18)
[2024-01-05] MEDS: Lidocaine 2% (20 ml mdv) 20 ML Vial INFILT (08:18)
--- NOTE | 2024-01-05 08:34 | RAD_ITS ---
STUDY: X-RAY CHEST REASON FOR EXAM: Female, 83 years old. Post thoracentesis TECHNIQUE: AP inspiration and expiration views. COMPARISON: Comparison is made with prior CT scan of the thorax dated January 04, 2024. FINDINGS: Patient status post right thoracentesis. There is no evidence of pneumothorax. Residual pleural-parenchymal changes persist. RAD/Chest Insp/Exp 2 View IMPRESSION: Status post right thoracentesis. No evidence of pneumothorax. Residual pleural-parenchymal changes persist. Electronically Signed: Yuriy Gonzales MD at 9:05 EDT ,
[2024-01-05 08:41] LABS: Cytology, Body Fluid / CSF SEE PATHOLOGY REPORT
[2024-01-05 10:13] LABS: Body Fluid Mononuclear WBC # 0.128 10^3/uL; Body Fluid Mononuclear WBC % 90.2 %; Body Fluid Polynuclear WBC # 0.014 10^3/uL; Body Fluid Polynuclear WBC % 9.8 %; Body Fluid Total Cells Counted 0.181 10^3/ul; White Blood Count/Body Fluid 0.142 10^3/uL
[2024-01-05 10:58] LABS: Auto B Fluid Analyzer BKGD Ct COUNTS W/IN LIMITS (W/IN LIMITS); Source- Body Fluid THORACENTESIS
[2024-01-05 10:59] LABS: Appearance/Body Fluid CLEAR; Color/Body Fluid LT YEL
[2024-01-05 11:00] LABS: Red Cell Count/Body Fluid 8 /mm3
[2024-01-05 11:10] LABS: Glucose, Body Fluid 192 mg/dL (40-70); LDH,Body Fluid 80 Units/L (Not Establ.); Protein, Body Fluid 1.5 g/dL (Not Establ.)
--- NOTE | 2024-01-05 11:19 | PCM.PN.HOSP ---
Reason for Visit Reason for Visit: Shortness of breath/chest pain Subjective Subjective No issues overnight. Went down for modified barium swallow however radiology was not comfortable as he reviewed the CT of her chest and felt that the esophagus was fluid-filled all the way to the top and she was high risk for aspiration. Discussed with Dr. Hooker and he will have further discussion with patient and family later on today with regards to options for treatment. Thoracentesis was done for removal of 560 cc of fluid. Patient states she has not yet noted change in her breathing however she has not really been paying attention. I did encourage incentive spirometry to help open up her right lung base. Objective Data Objective Data Vital Signs: Vital Signs Temp Pulse Resp BP Pulse Ox O2 Del Method O2 Flow Rate 97.7 F L 51 L 16 130/63 H 92 Nasal Cannula 2 01/05/24 09:00 01/05/24 09:40 01/05/24 09:00 01/05/24 09:00 01/05/24 09:00 01/05/24 09:40 01/05/24 09:40 Oxygen Flow Rate (L/min) 2 Oxygen Delivery Method Nasal Cannula Weight: 76.8 kg Body Mass Index (BMI) 26.5 Intake & Output: Intake and Output for Last 24 Hours 01/03/24 01/04/24 01/05/24 23:59 23:59 23:59 Intake Total 1336 / 1336 324 / 324 Output Total 1350 / 1550 450 / 450 760 / 760 Balance -14 / -214 -126 / -126 -760 / -760 Lab / Micro Data 01/05/24 05:45 01/05/24 05:45 Labs: Laboratory Results - last 24 hr 01/04/24 13:13: POC Glucose 216 H 01/04/24 14:29: Total Bilirubin 0.30, Direct Bilirubin 0.10, AST 42 H, ALT 115 H, Alkaline Phosphatase 80, Lactate Dehydrogenase 270 H, Total Protein 6.0 L, Albumin 2.7 L, Globulin 3.3 01/04/24 16:40: POC Glucose 193 H 01/04/24 23:15: POC Glucose 171 H 01/05/24 05:45: WBC 9.6, RBC 4.43, Hgb 11.0 L, Hct 36.3 L, MCV 81.9, MCH 24.8 L, MCHC 30.3 L, RDW Std Deviation 55.4 H, RDW Coeff of Jacobo 18.8 H, Plt Count 333, MPV 10.7, Sodium 140, Potassium 4.3, Chloride 105, Carbon Dioxide 25.0, Anion Gap 10, BUN 52 H, Creatinine 2.31 H, Estim Creat Clear Calc 19.66, Est GFR (MDRD) Af Amer 26 L, Est GFR (MDRD) Non-Af 21 L, BUN/Creatinine Ratio 22.5 H, Glucose 181 H, Calcium 8.4 L, Magnesium 2.4 01/05/24 06:11: POC Glucose 204 H 01/05/24 08:35: Fluid Source THORACENTESIS, Fluid Color LT YEL, Fluid Appearance CLEAR, Fluid WBC 0.142, Fluid RBC 8, Fluid Tot Cell Count 0.181 H, Fld Polynuclear WBCs # 0.014, Fld Polynuclear WBCs % 9.8, Fluid Mononuclear WBCs 0.128, Fld Mononuclear WBCs % 90.2, Fl Pathologist Comment May follow, Fluid Glucose 192 H, Fluid Total Protein 1.5, Fluid LDH 80, Fluid Comment 2 SEE COMMENT Micro: Microbiology 01/02/24 15:50 Stool Clostridioides difficile (PCR) - Final Radiography Diagnostic Testing: Radiology Impression Chest CT 01/04/24 12:04 IMPRESSION: Pleural effusions right greater than left with mild bibasilar atelectasis. Focal area of bronchiectasis and volume loss with possible infiltrate in the posterior aspect of the right middle lobe abutting the minor fissure. Mucous plugging should be ruled out. Fluid-filled esophagus with the evidence of a stent in the distal portion of the esophagus extending to the gastroesophageal junction. Electronically Signed: Yuriy Gonzales MD at 13:16 EDT , Chest X-Ray 01/05/24 08:34 IMPRESSION: Status post right thoracentesis. No evidence of pneumothorax. Residual pleural-parenchymal changes persist. Electronically Signed: Yuriy Gonzales MD at 9:05 EDT , Thoracentesis Ultrasound 01/05/24 13:07 IMPRESSION: Ultrasound-guided right thoracentesis. Electronically Signed: Yuriy Gonzales MD at 9:37 EDT Reading Location ID and State: [facility] / [place] , Service support , Rhythm Strip Rhythm Strip: Sinus bradycardia Rate: 55 Ectopy: None Physical Exam Const alert, oriented x3, no apparent distress and average body habitus; Negative for healthy appearing or well nourished Constitutional Narrative: Elderly, chronically ill-appearing white female sitting up in bed, watching television, appears comfortable at time however 2 on 2 L nasal cannula, no signs of respiratory distress General Appearance: cooperative HEENT normocephalic, head/scalp atraumatic and moist oral mucous membranes HEENT Narrative: Dentition is poor, Mallampati is 3, no thrush Eyes PERRL, EOMs intact bilaterally and conjunctivae normal Eyes Narrative: Bilateral mild ptosis noted, no scleral icterus Neck no lymphadenopathy and supple Neck Narrative: Trachea midline, no thyroid enlargement Resp normal respiratory effort, no retractions, no use of accessory muscles and clear to auscultation bilaterally Resp Narrative: Improved aeration at the right base but still diminished at the left base Auscultation: Negative for crackles, rhonchi or wheezes Cardio regular rhythm, S1 normal heart sound, S2 normal heart sound, no murmurs, no rub, no gallops and no clicks Cardio Narrative: Bradycardia GI normal to inspection, nondistended, normoactive bowel sounds, soft to palpation and non-tender Extremity no clubbing, cyanosis or edema Extremity Narrative: 2+ pedal pulses Skin skin turgor normal, no jaundice, no petechiae and no mottling Skin Narrative: Skin is pale, scattered seborrheic keratoses Neuro oriented x3, moves all extremities and no focal motor deficits Neuro Narrative: Generalized weakness-proximal greater than distal Speech: speech normal Psych affect normal Psych Narrative: Pleasant, interacts appropriately Assessment & Plan Assessment/Plan (1) Bradycardia: (2) Elevated troponin: (3) Acute hypoxic respiratory failure: (4) Esophageal dysmotility: (5) Bilateral pleural effusion: PLAN: Plan Acute hypoxic respiratory failure secondary to suspected aspiration pneumonia/Flash Pulmonary Edema/bilateral pleural effusion -Patient with sudden onset hypoxia today requiring supplemental oxygen--> new hypoxia, tachypnea, wheezing -Thoracentesis was performed -On 2 L nasal cannula with improved oxygen saturations -Plan for left-sided thoracentesis tomorrow -Right-sided Thora done today awaiting fluid studies and will calculate Lights criteria--> highly suspect transudative -Echocardiogram c/w Takotsubo CM--> EF 40%, + diastolic dysfunction -Transition antibiotics to Augmentin day 6 of 7 -N.p.o. for now -Continue prednisone burst day 3 of 5 -I-S -Acapella 10 times every 2 hours while awake -DuoNebs every 6 hours while awake with as needed albuterol Esophageal motility dysfunction/dysphagia -EGD done today with stent placement and findings were consistent with previous with diffuse esophageal spasm and diverticulum noted -Suspect patient may need repeat EGD for Botox injection in the future -Speech therapy following -on puree TL diet -Unable to perform MBS today due to fluid-filled esophagus -Dr. Hooker to reevaluate and have extensive conversation with family with alternative options -N.p.o. 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 currently -Reassess again tomorrow for initiation -Continue metoprolol 100 mg daily -Will need outpatient echocardiogram with cardiology follow-up in the next 6 to 8 weeks -Unable to use ALFRED or ARB due to renal disease Bilateral pleural effusion -Suspect related to heart failure with reduced ejection fraction -I diuresed her to the point where her kidney function trended up and effusions are still present so we will obtain thoracentesis -Check Light criteria however I do suspect transudative -Serum LDH and liver panel are pending -I do suspect once we were able to get fluid removed that her oxygen saturations will improve Bradycardia -Intermittent and asymptomatic -Patient with a history of A-fib with RVR -Continue to hold donepezil -Continue metoprolol 100 mg daily -continue home amiodarone -Continue home timolol drops -Monitor on telemetry Generalized weakness/debility due to advancing age and multiple comorbidities/M?ni?re's disease -PT/OT following -Plan is for discharge to transitional care unit once medically stable PAF -Hold Eliquis until thoracentesis left and all procedures have been performed -Continue amiodarone -Continue metoprolol XR 100 mg daily Mild cognitive impairment/dementia-type unknown -Donepezil on hold--> bradycardia--> HR better -Patient is alert and oriented x 3 on presentation HTN/HPL -Continue home statin -Continue metoprolol 100 mg daily GERD -Famotidine has been verified will initiate DM-2 -Hold metformin -Accu-Cheks every 6 with SSI every 6 -Once diet initiated start cardiac/carb controlled diet CKD stage IIIb -Baseline serum creatinine appears to run between 1.3 and 1.6 -Currently 2.34 - will likely need to run a bit dry -Renal function stable today -Will hold Lasix 1 more day and then restart tomorrow as long as renal function is stable or decreasing M?ni?re's disease/BPPV -Hold meclizine for now -PT/OT Seasonal allergies -Continue nasal sprays Nocturnal hypoxia -Will have her continue oxygen at discharge at night 2 to 3 L DVT prophylaxis -Hold Eliquis for potential procedures related to esophageal issues and thoracentesis -SCDs until doors can be done then restart Eliquis CODE STATUS -DNR CCA but okay for short-term intubation per discussion with patient at the time of admission Charges/Coding Visit Charges Inpatient E&M: 25009 Subs Hosp L3
[2024-01-05 11:25] LABS: Lymphocytes 40 %; Macrophages 40 %; Mesothelial Cells 4 %; Monocytes 4 %; Neutrophil (Segs) 8 %; Other Cell Type/BF 4 %
[2024-01-05 11:26] LABS: Body Fluid QC Type(s) BF1,BF2
[2024-01-05 12:17] LABS: Bedside Glucose 176 mg/dL (74-106)
[2024-01-05] MEDS: Azelastine HCl NASAL.SRY 2 SPRAY NASAL ×2 (12:25→22:16)
[2024-01-05] MEDS: Fluticasone 0.05% 1 SPRAY NASAL.SRY 2 SPRAY NASAL (12:25)
[2024-01-05] MEDS: Timolol 0.5% 5ML OPTH.BTL 1 DRP OPHTHALMIC ×2 (12:26→22:16)
--- NOTE | 2024-01-05 13:07 | US_ITS ---
PROCEDURE: ULTRASOUND GUIDED THORACENTESIS. DATE: January 05, 2024.. INDICATION: Female, 83 years old. Right pleural effusion. PHYSICIAN: Yuriy Gonzales M.D. PROCEDURE: The risks, benefits, and alternatives to the procedure were explained to the patient. The specific risks of bleeding, infection, and pneumothorax requiring chest tube insertion were discussed and accepted. Written informed consent was obtained. Ultrasonographic evaluation of the right lower pleural space was carried out. An adequate pocket was identified. The patient was placed in the sitting, upright position. The overlying skin was prepped and draped in sterile fashion. 1% lidocaine was administered subcutaneously for local anesthesia. Under ultrasound guidance, a 5 [place]e thoracentesis needle/catheter system was advanced into the right posterior lower pleural fluid collection. Approximately 560 mL of chang-colored fluid was drained. The catheter was removed, and a sterile dressing was applied. A specimen was collected and sent to the laboratory for analysis, as requested by the referring clinician. The patient tolerated the procedure well. A chest x-ray was ordered. US/Thoracentesis W US IMPRESSION: Ultrasound-guided right thoracentesis. Electronically Signed: Yuriy Gonzales MD at 9:37 EDT ,
[2024-01-05] MEDS: Ampicillin/Sulbactam 3 GM in 0.9% Normal Saline (100mL MB+) 100 ML IV ×2 (13:45→22:31)
--- NOTE | 2024-01-05 17:33 | PN.GI_ITS ---
Subjective Subjective Patient underwent imaging and was discovered to have signs of esophageal obstruction at the distal esophagus. Objective Data Objective Data Vital Signs: Vital Signs Temp Pulse Resp BP Pulse Ox O2 Del Method O2 Flow Rate 97.6 F L 51 L 18 114/65 96 Nasal Cannula 2 01/05/24 13:51 01/05/24 16:11 01/05/24 16:11 01/05/24 13:51 01/05/24 16:11 01/05/24 16:11 01/05/24 16:11 Oxygen Flow Rate (L/min) 2 Oxygen Delivery Method Nasal Cannula Weight: 169 lb 5.04 oz Body Mass Index (BMI) 26.5 Intake & Output: Intake and Output for Last 24 Hours 01/03/24 01/04/24 01/05/24 23:59 23:59 23:59 Intake Total 1336 / 1336 324 / 324 Output Total 1350 / 1550 450 / 450 760 / 760 Balance -14 / -214 -126 / -126 -760 / -760 Lab / Micro Data 01/05/24 05:45 01/05/24 05:45 Labs: Laboratory Results - last 24 hr 01/04/24 23:15: POC Glucose 171 H 01/05/24 05:45: WBC 9.6, RBC 4.43, Hgb 11.0 L, Hct 36.3 L, MCV 81.9, MCH 24.8 L, MCHC 30.3 L, RDW Std Deviation 55.4 H, RDW Coeff of Jacobo 18.8 H, Plt Count 333, MPV 10.7, Sodium 140, Potassium 4.3, Chloride 105, Carbon Dioxide 25.0, Anion Gap 10, BUN 52 H, Creatinine 2.31 H, Estim Creat Clear Calc 19.66, Est GFR (MDRD) Af Amer 26 L, Est GFR (MDRD) Non-Af 21 L, BUN/Creatinine Ratio 22.5 H, G lucose 181 H, Calcium 8.4 L, Magnesium 2.4 01/05/24 06:11: POC Glucose 204 H 01/05/24 08:35: Fluid Source THORACENTESIS, Fluid Color LT YEL, Fluid Appearance CLEAR, Fluid WBC 0.142, Fluid RBC 8, Fluid Tot Cell Count 0.181 H, Fld Polynuclear WBCs # 0.014, Fld Polynuclear WBCs % 9.8, Fluid Mononuclear WBCs 0.128, Fld Mononuclear WBCs % 90.2, Fluid Neutrophils 8, Fluid Lymphocytes 40, Fluid Monocytes 4, Fluid Macrophages 40, Fld Mesothelial Cells 4, Fluid Other Cells 4, Fl Pathologist Comment May follow, Fluid Glucose 192 H, Fluid Total Protein 1.5, Fluid LDH 80, Fluid Comment 2 SEE COMMENT 01/05/24 11:58: POC Glucose 176 H Micro: Microbiology 01/05/24 08:35 Fluid - Pleural (Lung) Gram Stain - Final 01/02/24 15:50 Stool Clostridioides difficile (PCR) - Final Radiography Diagnostic Testing: Radiology Impression Chest X-Ray 01/05/24 08:34 IMPRESSION: Status post right thoracentesis. No evidence of pneumothorax. Residual pleural-parenchymal changes persist. Electronically Signed: Yuriy Gonzales MD at 9:05 EDT , Thoracentesis Ultrasound 01/05/24 13:07 IMPRESSION: Ultrasound-guided right thoracentesis. Electronically Signed: Yuriy Gonzales MD at 9:37 EDT , Rhythm Strip Rhythm Strip: Sinus bradycardia Rate: 55 Ectopy: None Physical Exam Const alert and oriented x3 HEENT normocephalic Eyes no scleral icterus Resp normal respiratory effort and clear to auscultation bilaterally Extremity no pedal edema Assessment & Plan Assessment/Plan (1) Acute respiratory distress: (2) Hypoxemia: (3) Chest pain: (4) Aspiration pneumonia: (5) Abnormal EKG: (6) Type 2 diabetes mellitus: (7) Dysphagia: (8) Esophageal diverticulum: PLAN: Very large. The opening to the diverticulum is much larger than the opening for the esophagus. She also has esophageal dysmotility. At the time of EGD she had retained pills and food in the diverticulum. PLAN: Plan Chest x-ray was obtained and showed infiltrate in the right base. There was also some mild blunting of the right costophrenic angle. CT of the chest: Pleural effusions right greater than left with mild bibasilar atelectasis. Focal area of bronchiectasis and volume loss with possible infiltrate in the posterior aspect of the right middle lobe abutting the minor fissure. Mucous plugging should be ruled out. Fluid-filled esophagus with the evidence of a stent in the distal portion of the esophagus extending to the gastroesophageal junction. Await further imaging of her esophageal stent to see if she needs repeat EGD with dilation or further distal displacement of the stent so it crosses the GE junction if anything is in the esophagus at the level of the stent seen in imaging. 01/05/2024-the plan is to remove the current stent and place another stent below the GE junction to allow for proper flow into the stomach. N.p.o. past midnight. Charges/Coding Visit Charges Inpatient E&M: 52554 Subs Hosp L3
[2024-01-05 18:25] LABS: Bedside Glucose 167 mg/dL (74-106)
[2024-01-05 23:19] LABS: Bedside Glucose 173 mg/dL (74-106)
[2024-01-06] VITALS (20 sets, daily range): BP systolic 98–140; BP diastolic 51–93; PULSE 56–67; RESP 16–26; TEMP 35.8–36.9; O2SAT 81–97; BMI 26.4; BMI 26.3
[2024-01-06 06:18] LABS: Absolute Lymphocyte Count 0.49 X10^3/uL (0.83-4.51); Absolute Neutrophil Count 6.7 X10^3/uL (2.0-7.7); Basophil# 0.01 X10^3/uL; Basophil% 0.1 % (0-1); Hematocrit 35.2 % (37-47); Hemoglobin 10.7 g/dL (12.0-15.0); Lymphocyte # 0.49 X10^3/ul (0.83-4.51); Lymphocyte % 6.4 % (19-41); Mean Corp Hgb Conc 30.4 g/dL (32-36); Mean Corpuscular Hgb 24.7 pg (27.0-32.0); Mean Corpuscular Volume 81.3 fL (81-99); Mean Platelet Vol. 11.1 fl (6.2-12.0); Monocyte# 0.44 X10^3/uL; Monocyte% 5.7 % (0-10); NRBC Flagged by Analyzer 0 % (0-5); Neutrophil # 6.71 X10^3/uL (2.7-7.7); Neutrophil % 87.2 % (47-70); POSITIVE COUNT YES; POSITIVE DIFFERENTIAL YES; RBC Distribution Width CV 18.6 % (11.6-14.6); RBC Distribution Width SD 54.5 fl (35.1-43.9); Red Blood Count 4.33 M/mm3 (4.2-5.4); White Blood Count 7.7 K/mm3 (4.4-11.0)
[2024-01-06 06:22] LABS: Differential Indicated SCAN CRITERIA MET
[2024-01-06 07:07] LABS: Bedside Glucose 153 mg/dL (74-106)
[2024-01-06] MEDS: Ipratropium/Albuterol Sulfate 3 ML AMPUL.NEB INHALATION ×3 (07:07→19:58)
[2024-01-06 07:09] LABS: Anion Gap 8 (5-15); BUN 62 mg/dL (7-18); BUN/Creat Ratio 28.7 RATIO (10-20); Calcium,Total 8.4 mg/dL (8.5-10.1); Chloride 107 mmol/L (98-107); Creatinine, Serum 2.16 mg/dL (0.55-1.02); EST Glomerular Filtration Rate 23 mL/min (>60); Est Glom Filt Rate - Afr Amer 28 mL/min (>60); Estimated Creatinine Clearance 21.03 ml/min; Glucose 168 mg/dL (74-106); Magnesium 2.7 mg/dL (1.6-2.6); Potassium 4.9 mmol/L (3.5-5.1); Sodium Level 141 mmol/L (136-145)
[2024-01-06 07:15] LABS: Differential Comment SCANNED; Platelet Estimate ADEQUATE (ADEQ)
--- NOTE | 2024-01-06 07:51 | US_ITS ---
PROCEDURE: ULTRASOUND GUIDED THORACENTESIS. DATE: January 06, 2024. INDICATION: Female, 83 years old. Left pleural effusion. PHYSICIAN: Yuriy Gonzales M.D. PROCEDURE: The risks, benefits, and alternatives to the procedure were explained to the patient. The specific risks of bleeding, infection, and pneumothorax requiring chest tube insertion were discussed and accepted. Written informed consent was obtained. Ultrasonographic evaluation of the left lower pleural space was carried out. An adequate pocket was identified. The patient was placed in the sitting, upright position. The overlying skin was prepped and draped in sterile fashion. 1% lidocaine was administered subcutaneously for local anesthesia. Under ultrasound guidance, a 6 [place] thoracentesis needle/catheter system was advanced into the left posterior lower pleural fluid collection. Approximately 450 mL of chang-colored fluid was drained. The catheter was removed, and a sterile dressing was applied. The patient tolerated the procedure well. A chest x-ray was ordered. US/Thoracentesis W US IMPRESSION: Ultrasound-guided left thoracentesis. Electronically Signed: Yuriy Gonzales MD at 15:24 EDT ,
--- NOTE | 2024-01-06 09:04 | CASEMGMT ---
Patient is not ready for discharge back to TCU until possibly the weekend. SW notified Tonia in TCU and placed green sheet on chart. Plan: d/c back to [facility] TCU under skilled level of care. Whit KELLOGG
[2024-01-06] MEDS: Ampicillin/Sulbactam 3 GM in 0.9% Normal Saline (100mL MB+) 100 ML IV ×2 (09:47→21:52)
[2024-01-06] MEDS: Timolol 0.5% 5ML OPTH.BTL 1 DRP OPHTHALMIC ×2 (09:48→21:52)
[2024-01-06] MEDS: Fluticasone 0.05% 1 SPRAY NASAL.SRY 2 SPRAY NASAL (09:48)
[2024-01-06] MEDS: Azelastine HCl NASAL.SRY 2 SPRAY NASAL ×2 (09:48→21:51)
--- NOTE | 2024-01-06 11:15 | PN.HOSP_ITS ---
Reason for Visit Reason for Visit: Shortness of breath Subjective Subjective Patient states her breathing still feels labored. States she wants to get out of here. Acknowledges that she is going for EGD with new stent placement today across the GE junction. No new complaints other than she is cold at this time. Objective Data Objective Data Vital Signs: Vital Signs Temp Pulse Resp BP Pulse Ox O2 Del Method O2 Flow Rate 97.6 F L 58 L 18 140/82 H 91 Nasal Cannula 5 01/06/24 09:46 01/06/24 09:46 01/06/24 09:46 01/06/24 09:46 01/06/24 09:46 01/06/24 09:46 01/06/24 09:46 Oxygen Flow Rate (L/min) 5 Oxygen Delivery Method Nasal Cannula Weight: 76.34 kg Body Mass Index (BMI) 26.3 Intake & Output: Intake and Output for Last 24 Hours 01/04/24 01/05/24 01/06/24 23:59 23:59 23:59 Intake Total 324 / 324 224 / 224 112 / 112 Output Total 450 / 450 760 / 760 250 / 250 Balance -126 / -126 -536 / -536 -138 / -138 Lab / Micro Data 01/06/24 05:55 01/06/24 05:55 Labs: Laboratory Results - last 24 hr 01/05/24 08:35: Fluid Neutrophils 8, Fluid Lymphocytes 40, Fluid Monocytes 4, Fluid Macrophages 40, Fld Mesothelial Cells 4, Fluid Other Cells 4 01/05/24 11:58: POC Glucose 176 H 01/05/24 17:58: POC Glucose 167 H 01/05/24 22:57: POC Glucose 173 H 01/06/24 05:55: WBC 7.7, RBC 4.33, Hgb 10.7 L, Hct 35.2 L, MCV 81.3, MCH 24.7 L, MCHC 30.4 L, RDW Std Deviation 54.5 H, RDW Coeff of Jacobo 18.6 H, Plt Count , MPV 11.1, Immature Gran % (Auto) 0.600, Neut % (Auto) 87.2 H, Lymph % (Auto) 6.4 L, [place] % (Auto) 5.7, Eos % (Auto) 0.0, Baso % (Auto) 0.1, Absolute Neuts (auto) 6.7, Absolute Lymphs (auto) 0.49 L, Nucleated RBC % 0, Differential Comment SCANNED, Platelet Estimate ADEQUATE, Sodium 141, Potassium 4.9, Chloride 107, Carbon Dioxide 26.0, Anion Gap 8, BUN 62 H, Creatinine 2.16 H, Estim Creat Clear Calc 21.03, Est GFR (MDRD) Af Amer 28 L, Est GFR (MDRD) Non-Af 23 L, B UN/Creatinine Ratio 28.7 H, Glucose 168 H, Calcium 8.4 L, Phosphorus 6.0 H, M agnesium 2.7 H 01/06/24 06:36: POC Glucose 153 H Micro: Microbiology 01/05/24 08:35 Fluid - Pleural (Lung) Gram Stain - Final 01/05/24 08:35 Fluid - Pleural (Lung) Body Fluid Culture - Preliminary No growth-Final to follow 01/02/24 15:50 Stool Clostridioides difficile (PCR) - Final Rhythm Strip Rhythm Strip: Sinus bradycardia Rate: 55 Ectopy: None Physical Exam Const alert, oriented x3, no apparent distress and average body habitus; Negative for healthy appearing or well nourished Constitutional Narrative: Elderly, chronically ill-appearing white female lying flat in bed, therapy is at bedside, appears comfortable at time General Appearance: cooperative HEENT normocephalic, head/scalp atraumatic and moist oral mucous membranes HEENT Narrative: Dentition is poor, Mallampati is 2-3, no thrush Resp normal respiratory effort, no retractions, no use of accessory muscles and clear to auscultation bilaterally Resp Narrative: Crackles at bases bilaterally right greater than left and left base is diminished compared to right Auscultation: crackles; Negative for rhonchi or wheezes Cardio regular rhythm, S1 normal heart sound, S2 normal heart sound, no murmurs, no rub, no gallops and no clicks Cardio Narrative: Bradycardia GI normal to inspection, nondistended, normoactive bowel sounds, soft to palpation and non-tender Extremity no clubbing, cyanosis or edema Extremity Narrative: 2+ pedal pulses Neuro oriented x3, moves all extremities and no focal motor deficits Neuro Narrative: Generalized weakness-proximal greater than distal Speech: speech normal Psych affect normal Psych Narrative: Pleasant, interacts appropriately Assessment & Plan Assessment/Plan (1) Bradycardia: (2) Elevated troponin: (3) Acute hypoxic respiratory failure: (4) Esophageal dysmotility: (5) Bilateral pleural effusion: PLAN: Plan Acute hypoxic respiratory failure secondary to suspected aspiration pneumonia/HFrEF/bilateral pleural effusion -Patient with sudden onset hypoxia today requiring supplemental oxygen--> new hypoxia, tachypnea, wheezing -Thoracentesis was performed -On 2 L nasal cannula with improved oxygen saturations -Plan for left-sided thoracentesis today -Right-sided thoracentesis done for removal of 580 cc on 01/05/2024 -Echocardiogram c/w Takotsubo CM--> EF 40%, + diastolic dysfunction -Continue Unasyn day with stop date tomorrow -Restart diuretics -N.p.o. for now for scopes -Continue prednisone burst day 4 -I-S -Acapella 10 times every 2 hours while awake -DuoNebs every 6 hours while awake with as needed albuterol Esophageal motility dysfunction/dysphagia -EGD done 01/02/2024 with stent placement and findings were consistent with previous with diffuse esophageal spasm and diverticulum noted -Speech therapy following -on puree TL diet when not n.p.o. -Unable to perform MBS today due to fluid-filled esophagus -Plan is for repeat EGD today with stent placement across his GE junction today with Dr. Hooker -Would recommend repeat modified barium swallow be done after stent placement to ensure esophageal emptying -N.p.o. for now -Continue to hold Eliquis Acute heart failure with reduced ejection fraction 2/2 Takotsubo CM -Last echocardiogram from 2015 showed an EF of 70% with mild concentric LVH, moderate KALYN, right ventricular systolic pressure of 30 mmHg, moderate mitral valve annular calcification and trivial mitral valve insufficiency -EF 40%, + diastolic dysfunction, apical LV ballooning, mild RA enlargement -Stress test unremarkable for inducible ischemia -Restart Lasix at 40 IV push twice daily -Fluid restrict diet to 750 cc daily -Sodium restrict diet -Accurate I's and O's -Daily weights -Continue metoprolol 100 mg daily -Will need outpatient echocardiogram with cardiology follow-up in the next 6 to 8 weeks -Unable to use ALFRED or ARB due to renal disease Bilateral pleural effusion-transudative -Suspect related to heart failure with reduced ejection fraction -Restart diuretics -Plan for left-sided thoracentesis today if there is enough to tap Bradycardia -Intermittent and asymptomatic -Patient with a history of A-fib with RVR -Continue to hold donepezil -Continue metoprolol 100 mg daily -continue home amiodarone -Continue home timolol drops -Monitor on telemetry Generalized weakness/debility due to advancing age and multiple comorbidities/M?ni?re's disease -PT/OT following -Plan is for discharge to transitional care unit once medically stable PAF -Hold Eliquis until thoracentesis left and all procedures have been performed -Continue amiodarone -Continue metoprolol XR 100 mg daily Mild cognitive impairment/dementia-type unknown -Donepezil on hold--> bradycardia--> HR better -Patient is alert and oriented x 3 on presentation HTN/HPL -Continue home statin -Continue metoprolol 100 mg daily GERD -Famotidine has been verified will initiate DM-2 -Hold metformin--> would not restart if renal function does not improve -Accu-Cheks every 6 with SSI every 6 -Once diet initiated start cardiac/carb controlled diet NUBIA on CKD stage IIIb -Baseline serum creatinine appears to run between 1.3 and 1.6 -Currently 2.16 - will likely need to run a bit dry -Renal function stable today -Lungs sound wet today and requiring more oxygen so we will restart diuresis at 40 IV twice daily today and transition to 40 p.o. daily tomorrow M?ni?re's disease/BPPV -Hold meclizine for now -PT/OT Seasonal allergies -Continue nasal sprays Nocturnal hypoxia -Will have her continue oxygen at discharge at night 2 to 3 L DVT prophylaxis -Hold Eliquis for potential procedures related to esophageal issues and thoracentesis -SCDs for now CODE STATUS -DNR CCA but okay for short-term intubation per discussion with patient at the time of admission Charges/Coding Visit Charges Inpatient E&M: 01173 Subs Hosp L2
--- NOTE | 2024-01-06 11:49 | EKG12_ITS ---
Test Reason : preop Blood Pressure : / mmHG Vent. Rate : 061 BPM Atrial Rate : 061 BPM P-R Int : 152 ms QRS Dur : 124 ms QT Int : 454 ms P-R-T Axes : 122 -45 146 degrees QTc Int : 457 ms Unusual P axis, possible ectopic atrial rhythm Left axis deviation Anteroseptal infarct , age undetermined T wave abnormality, consider lateral ischemia Abnormal ECG When compared with ECG of 04-JAN-2024 10:43, MANUAL COMPARISON REQUIRED, DATA IS UNCONFIRMED Confirmed by Bruce Graham ([id number]), city editor SHERI WAY ([id number]) on 01/09/2024 9:33:11 AM Referred By: Guy Confirmed By:Bruce Graham
[2024-01-06 12:06] LABS: Troponin-I HS 563 pg/mL (3.0-54.0)
--- NOTE | 2024-01-06 12:45 | SUR.PREOP ---
Pure wick applied to wall suction to anticipate large amounts of urine after IV lasix is given.
[2024-01-06] MEDS: Furosemide 40 MG/4 ML Vial IV ×2 (12:55→18:00)
--- NOTE | 2024-01-06 13:03 | PN.GI_ITS ---
Subjective Subjective Patient denies any chest pain or shortness of breath. She has been NPO. She still remains on 5 L of oxygen. She did undergo thoracentesis yesterday. Objective Data Objective Data Vital Signs: Vital Signs Temp Pulse Resp BP Pulse Ox O2 Del Method O2 Flow Rate 97.6 F L 62 18 140/82 H 91 Nasal Cannula 5 01/06/24 09:46 01/06/24 12:01 01/06/24 12:01 01/06/24 09:46 01/06/24 09:46 01/06/24 09:46 01/06/24 09:46 Oxygen Flow Rate (L/min) 5 Oxygen Delivery Method Nasal Cannula Weight: 168 lb 4.8 oz Body Mass Index (BMI) 26.3 Intake & Output: Intake and Output for Last 24 Hours 01/04/24 01/05/24 01/06/24 23:59 23:59 23:59 Intake Total 324 / 324 224 / 224 112 / 112 Output Total 450 / 450 760 / 760 250 / 250 Balance -126 / -126 -536 / -536 -138 / -138 Lab / Micro Data 01/06/24 05:55 01/06/24 05:55 Labs: Laboratory Results - last 24 hr 01/05/24 17:58: POC Glucose 167 H 01/05/24 22:57: POC Glucose 173 H 01/06/24 05:55: WBC 7.7, RBC 4.33, Hgb 10.7 L, Hct 35.2 L, MCV 81.3, MCH 24.7 L, MCHC 30.4 L, RDW Std Deviation 54.5 H, RDW Coeff of Jacobo 18.6 H, Plt Count , MPV 11.1, Immature Gran % (Auto) 0.600, Neut % (Auto) 87.2 H, Lymph % (Auto) 6.4 L, [place] % (Auto) 5.7, Eos % (Auto) 0.0, Baso % (Auto) 0.1, Absolute Neuts (auto) 6.7, Absolute Lymphs (auto) 0.49 L, Nucleated RBC % 0, Differential Comment SCANNED, Platelet Estimate ADEQUATE, Sodium 141, Potassium 4.9, Chloride 107, Carbon Dioxide 26.0, Anion Gap 8, BUN 62 H, Creatinine 2.16 H, Estim Creat Clear Calc 21.03, Est GFR (MDRD) Af Amer 28 L, Est GFR (MDRD) Non-Af 23 L, B UN/Creatinine Ratio 28.7 H, Glucose 168 H, Calcium 8.4 L, Phosphorus 6.0 H, M agnesium 2.7 H, Troponin I High Sens 563 H* 01/06/24 06:36: POC Glucose 153 H Micro: Microbiology 01/05/24 08:35 Fluid - Pleural (Lung) Gram Stain - Final 01/05/24 08:35 Fluid - Pleural (Lung) Body Fluid Culture - Preliminary No growth-Final to follow 01/02/24 15:50 Stool Clostridioides difficile (PCR) - Final Rhythm Strip Rhythm Strip: Sinus bradycardia Rate: 55 Ectopy: None Physical Exam Const alert, oriented x3, no apparent distress and average body habitus; Negative for healthy appearing or well nourished Constitutional Narrative: General Appearance: cooperative HEENT normocephalic, head/scalp atraumatic and moist oral mucous membranes HEENT Narrative: Dentition is poor, Mallampati is 2-3, no thrush Resp normal respiratory effort, no retractions, no use of accessory muscles and clear to auscultation bilaterally Resp Narrative: Crackles at bases bilaterally right greater than left and left base is diminished compared to right Auscultation: crackles; Negative for rhonchi or wheezes Cardio regular rhythm, S1 normal heart sound, S2 normal heart sound, no murmurs, no rub, no gallops and no clicks Cardio Narrative: Bradycardia GI normal to inspection, nondistended, normoactive bowel sounds, soft to palpation and non-tender Extremity no clubbing, cyanosis or edema Extremity Narrative: 2+ pedal pulses Neuro oriented x3, moves all extremities and no focal motor deficits Neuro Narrative: Generalized weakness-proximal greater than distal Speech: speech normal Psych affect normal Psych Narrative: Pleasant, interacts appropriately Assessment & Plan Assessment/Plan (1) Acute respiratory distress: (2) Hypoxemia: (3) Chest pain: (4) Aspiration pneumonia: (5) Abnormal EKG: (6) Type 2 diabetes mellitus: (7) Dysphagia: (8) Esophageal diverticulum: PLAN: Very large. The opening to the diverticulum is much larger than the opening for the esophagus. She also has esophageal dysmotility. At the time of EGD she had retained pills and food in the diverticulum. PLAN: Plan Chest x-ray was obtained and showed infiltrate in the right base. There was also some mild blunting of the right costophrenic angle. CT of the chest: Pleural effusions right greater than left with mild bibasilar atelectasis. Focal area of bronchiectasis and volume loss with possible infiltrate in the posterior aspect of the right middle lobe abutting the minor fissure. Mucous plugging should be ruled out. Fluid-filled esophagus with the evidence of a stent in the distal portion of the esophagus extending to the gastroesophageal junction. Await further imaging of her esophageal stent to see if she needs repeat EGD with dilation or further distal displacement of the stent so it crosses the GE junction if anything is in the esophagus at the level of the stent seen in imaging. 01/05/2024-the plan is to remove the current stent and place another stent below the GE junction to allow for proper flow into the stomach. N.p.o. past midnight. 01/06/2024- The plan was explained to patient that we will go when and likely remove the current stent in place a longer stent to plasties the GE junction. Risk and benefits of the procedure are same as when she had her previous stent placed. The added risk with this is worsening reflux disease. If she does not tolerate this then she will need a PEG tube. Charges/Coding Visit Charges Inpatient E&M: 65059 Subs Hosp L3
--- NOTE | 2024-01-06 14:13 | RAD_ITS ---
STUDY: X-RAY CHEST REASON FOR EXAM: Female, 83 years old. Immediately post thoracentesis TECHNIQUE: AP inspiration and expiration views. COMPARISON: Comparison is made with prior study dated January 05, 2024. FINDINGS: The patient is status post left thoracentesis. There is no evidence of a pneumothorax. RAD/Chest Insp/Exp 2 View IMPRESSION: Status post left thoracentesis. No evidence of pneumothorax. Electronically Signed: Yuriy Gonzales MD at 15:25 EDT ,
[2024-01-06] MEDS: Lidocaine 2% (20 ml mdv) 20 ML Vial INFILT (14:58)
[2024-01-06 15:45] LABS: Pathologist Comment/Body Fluid Reviewed
--- NOTE | 2024-01-06 16:15 | RAD_ITS ---
PROCEDURE: Fluoroscopy for EGD DATE OF EXAMINATION: 01/06/2024 INDICATION: Female, 83 years old. Stent placement FLUOROSCOPY TIME (if supplied): 1.18 minutes NUMBER OF FLUOROSCOPIC IMAGES: 3 FINDINGS: 3 fluoroscopic images of the esophageal region were obtained for documentation. Examination was not performed for diagnostic purposes. RAD/Fluoroscopy 1 Hr or Less IMPRESSION: Fluoroscopy as described above. Electronically Signed: Shaun Antonio MD at 14:24 EDT ,
[2024-01-06] MEDS: Botulinum Toxin A 100 Units Vial IJ (17:01)
[2024-01-06] MEDS: 0.9% Normal Saline (Pres. free 10 ML Vial (17:01)
[2024-01-06] MEDS: 0.9% Saline Lock 10 ML Syringe IV ×2 (17:04→17:47)
--- NOTE | 2024-01-06 17:19 | OP.EGD_ITS ---
Patient Name: Haley Padgett Procedure Date: 01/06/2024 12:16 PM Date of : 1940 Age: 83 Procedure: Upper GI endoscopy Indications: For botulinum toxin injection of achalasia, Abnormal UGI series, Abnormal cine-esophagram Providers: Isra Hooker DO Medicines: Monitored Anesthesia Care Patient Profile: This is an 83 year old female. Refer to note in patient chart for documentation of history and physical. Patient has symptoms of dysphagia with both liquids and solids. Complications: No immediate complications. Procedure: Pre-Anesthesia Assessment: - Prior to the procedure, a History and Physical was performed, and patient medications and allergies were reviewed. The patient is competent. The risks and benefits of the procedure and the sedation options and risks were discussed with the patient. All questions were answered and informed consent was obtained. Patient identification and proposed procedure were verified by the physician in the pre-procedure area. Mental Status Examination: alert and oriented. Airway Examination: normal oropharyngeal airway and neck mobility. Respiratory Examination: clear to auscultation. CV Examination: normal. Prophylactic Antibiotics: The patient does not require prophylactic antibiotics. Prior Anticoagulants: The patient has taken no anticoagulant or antiplatelet agents. ASA Grade Assessment: IV - A patient with severe systemic disease that is a constant threat to life. After reviewing the risks and benefits, the patient was deemed in satisfactory condition to undergo the procedure. The anesthesia plan was to use monitored anesthesia care (MAC). Immediately prior to administration of medications, the patient was re-assessed for adequacy to receive sedatives. The heart rate, respiratory rate, oxygen saturations, blood pressure, adequacy of pulmonary ventilation, and response to care were monitored throughout the procedure. The physical status of the patient was re-assessed after the procedure. After obtaining informed consent, the endoscope was passed under direct vision. Throughout the procedure, the patient's blood pressure, pulse, and oxygen saturations were monitored continuously. The Endoscope was introduced through the mouth, and advanced to the second part of duodenum. The upper GI endoscopy was accomplished without difficulty. The patient tolerated the procedure well. Scope In: 4:35:32 PM Scope Out: 5:06:33 PM Total Procedure Duration Time 0 hours 31 minutes 1 second Findings: Abnormal motility was noted in the esophagus. The cricopharyngeus was abnormal. There are extra peristaltic waves in the esophageal body. The distal esophagus/lower esophageal sphincter is spastic, but gives up passage to the endoscope. Tertiary peristaltic waves are noted. Area was successfully injected with 60 units botulinum toxin. An esophageal stent was found in the middle third of the esophagus and in the lower third of the esophagus. Stent removal was accomplished with a Raptor grasping device. Verification of patient identification for the specimen was done. Estimated blood loss was minimal. One benign-appearing, intrinsic severe stenosis was found 28 to 32 cm from the incisors. This stenosis measured 3 mm (inner diameter) x 4 cm (in length). The stenosis was traversed after dilation. A guidewire was placed and the scope was withdrawn. Dilation was performed with a Savary dilator with no resistance at 45 Fr. The dilation site was examined and showed moderate mucosal disruption. A non-bleeding diverticulum with a large opening and no stigmata of recent bleeding was found in the middle third of the esophagus. This was stented with an 18 mm x 12.3 cm WallFlex covered stent under fluoroscopic guidance. Estimated blood loss was minimal. The entire examined stomach was normal. The duodenal bulb was normal. Impression: - Abnormal esophageal motility, consistent with achalasia. Injected with botulinum toxin. - Pre-existing esophageal stent, removed. - Benign-appearing esophageal stenosis. Dilated. 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 Prosthesis placed. - Normal stomach. - Normal duodenal bulb. Recommendation: - Return patient to [facility] for ongoing care. - Full liquid diet today. Patient must drink 20 ounces of liquid with each meal to wash to make sure that the stent does not get clogged. - Continue present medications. Procedure Code(s): --- Professional --- 14933, Esophagogastroduodenoscopy, flexible, transoral; with placement of endoscopic stent (includes pre- and post-dilation and guide wire passage, when performed) 19128, Esophagogastroduodenoscopy, flexible, transoral; with removal of foreign body(s) 04650, 59,51, Esophagogastroduodenoscopy, flexible, transoral; with directed submucosal injection(s), any substance 97672, 26, Intraluminal dilation of strictures and/or obstructions (eg, esophagus), radiological supervision and interpretation CPT copyright 2021 [employer]. All rights reserved. The codes documented in this report are preliminary and upon certified medical coder review may be revised to meet current compliance requirements. Isra Hooker DO 01/06/2024 5:19:28 PM This report has been signed electronically. Number of Addenda: 0 Note Initiated On: 01/06/2024 12:16 PM
--- NOTE | 2024-01-06 17:20 | OP.CCLET_ITS ---
01/06/[address] [facility] [place] [address] Re : Upper GI endoscopy procedure for Haley Padgett Dear Dr. Balbuena This procedure was performed on Saturday, January 06, 2024. My impressions and recommendations are as follows: Impressions : - Abnormal esophageal motility, consistent with achalasia. Injected with botulinum toxin. - Pre-existing esophageal stent, removed. - Benign-appearing esophageal stenosis. Dilated. 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 Prosthesis placed. - Normal stomach. - Normal duodenal bulb. Recommendations : - Return patient to hospital [facility] for ongoing care. - Full liquid diet today. Patient must drink 20 ounces of liquid with each meal to wash to make sure that the stent does not get clogged. - Continue present medications. My findings are described in the full procedure note, which is enclosed. If I can be of further assistance, please feel free to contact me at . Sincerely, Isra Hooker, 01/06/2024 5:19:28 PM This report has been signed electronically.
[2024-01-06 17:30] LABS: BNP,B-Type NATRIURETIC PEPTIDE 2853.6 pg/mL (0-100)
[2024-01-06 18:34] LABS: Bedside Glucose 152 mg/dL (74-106)
[2024-01-06 21:50] LABS: Bedside Glucose 145 mg/dL (74-106)
[2024-01-06] MEDS: Atorvastatin Calcium 40 MG Tablet PO (21:52)
[2024-01-07] VITALS (9 sets, daily range): BP systolic 106–118; BP diastolic 57–77; PULSE 51–68; RESP 12–18; TEMP 36.1–37.1; O2SAT 94–100; BMI 25.7
[2024-01-07 00:18] LABS: Bedside Glucose 147 mg/dL (74-106)
[2024-01-07 05:58] LABS: Bedside Glucose 122 mg/dL (74-106)
[2024-01-07] MEDS: Ipratropium/Albuterol Sulfate 3 ML AMPUL.NEB INHALATION ×3 (07:11→20:25)
[2024-01-07 07:39] LABS: Absolute Lymphocyte Count 0.91 X10^3/uL (0.83-4.51); Absolute Neutrophil Count 8.2 X10^3/uL (2.0-7.7); Hematocrit 36.4 % (37-47); Hemoglobin 11.1 g/dL (12.0-15.0); Lymphocyte # 0.91 X10^3/ul (0.83-4.51); Lymphocyte % 8.8 % (19-41); Mean Corp Hgb Conc 30.5 g/dL (32-36); Mean Corpuscular Hgb 24.6 pg (27.0-32.0); Mean Corpuscular Volume 80.7 fL (81-99); Mean Platelet Vol. 10.6 fl (6.2-12.0); Monocyte# 1.15 X10^3/uL; Monocyte% 11.2 % (0-10); NRBC Flagged by Analyzer 0 % (0-5); Neutrophil # 8.21 X10^3/uL (2.7-7.7); Neutrophil % 79.6 % (47-70); Platelet Count 255 K/mm3 (150-450); RBC Distribution Width CV 18.7 % (11.6-14.6); RBC Distribution Width SD 53.4 fl (35.1-43.9); Red Blood Count 4.51 M/mm3 (4.2-5.4); White Blood Count 10.3 K/mm3 (4.4-11.0)
[2024-01-07 08:06] LABS: Anion Gap 8 (5-15); BUN 66 mg/dL (7-18); BUN/Creat Ratio 31.7 RATIO (10-20); Calcium,Total 8.5 mg/dL (8.5-10.1); Chloride 105 mmol/L (98-107); Creatinine, Serum 2.08 mg/dL (0.55-1.02); EST Glomerular Filtration Rate 24 mL/min (>60); Est Glom Filt Rate - Afr Amer 29 mL/min (>60); Estimated Creatinine Clearance 21.61 ml/min; Glucose 133 mg/dL (74-106); Potassium 4.1 mmol/L (3.5-5.1); Sodium Level 144 mmol/L (136-145)
--- NOTE | 2024-01-07 08:42 | PCM.PN.HOSP ---
Reason for Visit Reason for Visit: Diagnoses Type 2 diabetes mellitus without complications (12/31/23) Essential (primary) hypertension (12/31/23) Atherosclerotic heart disease of [place] coronary artery without angina pectoris (12/31/23) Pneumonitis due to inhalation of food and vomit (12/31/23) Pleural effusion, not elsewhere classified (12/31/23) Acute respiratory failure with hypoxia (12/31/23) Dyskinesia of esophagus (12/31/23) Congenital diverticulum of esophagus (12/31/23) Bradycardia, unspecified (12/31/23) Acute respiratory distress (12/31/23) Chest pain, unspecified (12/31/23) Hypoxemia (12/31/23) Dysphagia, unspecified (12/31/23) Other specified abnormal findings of blood chemistry (12/31/23) Abnormal electrocardiogram [ECG] [EKG] (12/31/23) intermediate (current) use of anticoagulants (12/31/23) Personal history of other diseases of the circulatory system (12/31/23) Objective Data Objective Data Vital Signs: Vital Signs Temp Pulse Resp BP Pulse Ox O2 Del Method O2 Flow Rate 97.0 F L 63 18 106/57 L 96 Nasal Cannula 2 01/07/24 03:14 01/07/24 03:14 01/07/24 03:14 01/07/24 03:14 01/07/24 03:14 01/07/24 03:14 01/07/24 03:14 Oxygen Flow Rate (L/min) 2 Oxygen Delivery Method Nasal Cannula Weight: 164 lb 7.437 oz Body Mass Index (BMI) 25.7 Intake & Output: Intake and Output for Last 24 Hours 01/05/24 01/06/24 01/07/24 23:59 23:59 23:59 Intake Total 224 / 224 224 / 224 Output Total 760 / 760 700 / 1300 1100 / 1100 Balance -536 / -536 -476 / -1076 -1100 / -1100 Lab / Micro Data 01/07/24 06:52 01/07/24 06:52 Labs: Laboratory Results - last 24 hr 01/05/24 08:35: Fl Pathologist Comment Reviewed 01/06/24 05:55: Troponin I High Sens 563 H*, B-Natriuretic Peptide 2853.6 H 01/06/24 17:58: POC Glucose 152 H 01/06/24 21:28: POC Glucose 145 H 01/06/24 23:59: POC Glucose 147 H 01/07/24 05:37: POC Glucose 122 H 01/07/24 06:52: WBC 10.3, RBC 4.51, Hgb 11.1 L, Hct 36.4 L, MCV 80.7 L, MCH 24.6 L, MCHC 30.5 L, RDW Std Deviation 53.4 H, RDW Coeff of [place]o 18.7 H, Plt Count 255, MPV 10.6, Immature Gran % (Auto) 0.400, Neut % (Auto) 79.6 H, Lymph % (Auto) 8.8 L, [place] % (Auto) 11.2 H, Eos % (Auto) 0.0, Baso % (Auto) 0.0, Absolute Neuts (auto) 8.2 H, Absolute Lymphs (auto) 0.91, Nucleated RBC % 0, Sodium 144, Potassium 4.1, Chloride 105, Carbon Dioxide 31.0, Anion Gap 8, BUN 66 H, Creatinine 2.08 H, Estim Creat Clear Calc 21.61, Est GFR (MDRD) Af Amer 29 L, Est GFR (MDRD) Non-Af 24 L, BUN/Creatinine Ratio 31.7 H, Glucose 133 H, Calcium 8.5 Micro: Microbiology 01/05/24 08:35 Fluid - Pleural (Lung) Gram Stain - Final 01/05/24 08:35 Fluid - Pleural (Lung) Body Fluid Culture - Preliminary No growth-Final to follow 01/02/24 15:50 Stool Clostridioides difficile (PCR) - Final Radiography Diagnostic Testing: Radiology Impression Thoracentesis Ultrasound 01/06/24 07:51 IMPRESSION: Ultrasound-guided left thoracentesis. Electronically Signed: Yuriy Gonzales MD at 15:24 EDT , Chest X-Ray 01/06/24 14:13 IMPRESSION: Status post left thoracentesis. No evidence of pneumothorax. Electronically Signed: Yuriy Gonzales MD at 15:25 EDT , Rhythm Strip Rhythm Strip: Sinus bradycardia Rate: 55 Ectopy: None Physical Exam Narrative Seen and examined Patient on modified dysphagia diet. She she said that food passes through. No cough during swallowing. Mild shortness of breath on 2 L of oxygen. Physical exam General: Alert, Oriented x3, Cooperative HEENT: Atraumatic, PERRLA, EOMI, Normocephalic Oral: No Gingival or Mucosal Lesions/ Ulcerations Neck: Supple, No JVD, Negative Carotid Bruits Chest wall/Lungs: Air entry diminished in bilateral lung bases. No crepitation/rhonchi Cardiovascular: Regular rate, Regular Rhythm, Normal S1, Normal S2,Systolic murmur over right second ICS and LLSB. Abdomen: Bowel Sounds Present, Soft, Non Tender, Non-Distended : No dysuria. No renal angle tenderness. No suprapubic tenderness. Extremities: No edema, Capillary Refill Less than 3 Seconds Skin: No rashes, No breakdown Musculoskeletal: No Tenderness to Palpation of Joints or Extremities. ROM restricted. Neurological: Cranial nerves II-XII grossly intact, DTR 2+/4. No acute focal neurological deficit. Psych/Mental Status: Normal Affect, Appropriate. Assessment & Plan Assessment/Plan (1) Bradycardia: (2) Elevated troponin: (3) Acute hypoxic respiratory failure: (4) Esophageal dysmotility: (5) Bilateral pleural effusion: PLAN: Plan 83-year-old female admitted with concern for aspiration, mild chest discomfort and wheezing and sudden onset hypoxia. 1. Acute hypoxic respiratory failure secondary to suspected aspiration pneumonia/HFrEF/bilateral pleural effusion -On 2 L nasal cannula with improved oxygen saturations -Right-sided thoracentesis done for removal of 580 cc on 01/05/2024 Left-sided thoracocentesis 450 mL chang-colored fluid was drained on 01/05. -Echocardiogram c/w Takotsubo CM--> EF 40%, + diastolic dysfunction -Patient completed Unasyn day 7 2 days on 01/06 -Started on dysphagia diet initially was NPO. -Continue prednisone burst, end date 01/09/2024 -I-S -Acapella 10 times every 2 hours while awake -DuoNebs every 6 hours while awake with as needed albuterol 2. Esophageal motility dysfunction/dysphagia -EGD done 01/02/2024 with stent placement and findings were consistent with previous with diffuse esophageal spasm and diverticulum noted -Speech therapy following -on puree TL diet when not n.p.o. EGD on 01/06/2024 Impressions : - Abnormal esophageal motility, consistent with achalasia. Injected with botulinum toxin. - Pre-existing esophageal stent, removed. - Benign-appearing esophageal stenosis. Dilated. 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 Prosthesis placed. - Normal stomach. - Normal duodenal bulb. Recommendations : - [facility]. - Full liquid diet today. Patient must drink 20 ounces of liquid with each meal to wash to make sure that the stent does not get clogged. 3 acute heart failure with reduced ejection fraction 2/2 Takotsubo CM -Last echocardiogram from 2015 showed an EF of 70% with mild concentric LVH, moderate KALYN, right ventricular systolic pressure of 30 mmHg, moderate mitral valve annular calcification and trivial mitral valve insufficiency -EF 40%, + diastolic dysfunction, apical LV ballooning, mild RA enlargement -Stress test unremarkable for inducible ischemia -Restart Lasix at 40 IV push twice daily -Fluid restrict diet to 750 cc daily -Sodium restrict diet -Accurate I's and O's -Daily weights -Continue metoprolol 100 mg daily -Will need outpatient echocardiogram with cardiology follow-up in the next 6 to 8 weeks -Unable to use ALFRED or ARB due to renal disease Bilateral pleural effusion-transudative -Suspect related to heart failure with reduced ejection fraction -Restart diuretics -Plan for left-sided thoracentesis today if there is enough to tap Bradycardia -Intermittent and asymptomatic -Patient with a history of A-fib with RVR -Continue to hold donepezil -Continue metoprolol 100 mg daily -continue home amiodarone -Continue home timolol drops Currently sinus rhythm 62 bpm Generalized weakness/debility due to advancing age and multiple comorbidities/M?ni?re's disease -PT/OT following -Plan is for discharge to transitional care unit once medically stable PAF -Hold Eliquis until thoracentesis left and all procedures have been performed -Continue amiodarone -Continue metoprolol XR 100 mg daily Mild cognitive impairment/dementia-type unknown -Donepezil on hold--> bradycardia--> HR better -Patient is alert and oriented x 3 on presentation HTN/HPL -Continue home statin -Continue metoprolol 100 mg daily GERD -Famotidine has been verified will initiate DM-2 -Hold metformin--> would not restart if renal function does not improve -Accu-Cheks every 6 with SSI every 6 -Once diet initiated start cardiac/carb controlled diet NUBIA on CKD stage IIIb -Baseline serum creatinine appears to run between 1.3 and 1.6 -Currently 2.16 Changed from 40 mg IV twice daily to on furosemide 40 mg IV daily M?ni?re's disease/BPPV -Hold meclizine for now -PT/OT Seasonal allergies -Continue nasal sprays Nocturnal hypoxia -Will have her continue oxygen at discharge at night 2 to 3 L DVT prophylaxis -Hold Eliquis for potential procedures related to esophageal issues and thoracentesis -SCDs for now CODE STATUS -DNR CCA but okay for short-term intubation per discussion with patient at the time of admission Charges/Coding Visit Charges Inpatient E&M: 76691 Subs Hosp L2
[2024-01-07] MEDS: Azelastine HCl NASAL.SRY 2 SPRAY NASAL ×2 (09:01→20:06)
[2024-01-07] MEDS: Fluticasone 0.05% 1 SPRAY NASAL.SRY 2 SPRAY NASAL (09:02)
[2024-01-07] MEDS: Timolol 0.5% 5ML OPTH.BTL 1 DRP OPHTHALMIC ×2 (09:02→20:06)
[2024-01-07] MEDS: 0.9% Saline Lock 10 ML Syringe IV (09:18)
[2024-01-07] MEDS: predniSONE 20 MG Tablet 40 MG PO (09:18)
[2024-01-07] MEDS: Furosemide 40 MG/4 ML Vial IV (09:25)
[2024-01-07] MEDS: Amiodarone 200 MG Tablet 100 MG PO (09:25)
[2024-01-07] MEDS: Citalopram 10 MG Tablet PO (09:26)
[2024-01-07] MEDS: Famotidine 20 MG Tablet PO (09:26)
[2024-01-07] MEDS: Metoprolol(XL)Succ 100 MG Tablet PO (09:26)
[2024-01-07] MEDS: APIXABAN 2.5 MG TABLET (WCH) PO ×2 (09:27→20:10)
[2024-01-07] MEDS: Insulin Lispro 100 UNIT/ML INSULN.PEN SC ×2 (11:06→16:40)
[2024-01-07 16:57] LABS: Bedside Glucose 159 mg/dL (74-106)
[2024-01-07 17:56] LABS: Bedside Glucose 158 mg/dL (74-106)
[2024-01-07] MEDS: Atorvastatin Calcium 40 MG Tablet PO (20:08)
[2024-01-07 22:08] LABS: Bedside Glucose 161 mg/dL (74-106)
[2024-01-08] VITALS (12 sets, daily range): BP systolic 102–127; BP diastolic 57–71; PULSE 50–62; RESP 12–16; TEMP 36.1–36.9; O2SAT 93–98; BMI 25.2
[2024-01-08 00:07] LABS: Bedside Glucose 142 mg/dL (74-106)
[2024-01-08 06:25] LABS: Bedside Glucose 119 mg/dL (74-106)
[2024-01-08] MEDS: Ipratropium/Albuterol Sulfate 3 ML AMPUL.NEB INHALATION ×3 (07:31→19:25)
[2024-01-08] MEDS: Furosemide 40 MG/4 ML Vial IV (10:10)
[2024-01-08] MEDS: 0.9% Saline Lock 10 ML Syringe IV (10:10)
[2024-01-08] MEDS: Fluticasone 0.05% 1 SPRAY NASAL.SRY 2 SPRAY NASAL (10:10)
[2024-01-08] MEDS: Timolol 0.5% 5ML OPTH.BTL 1 DRP OPHTHALMIC ×2 (10:10→23:31)
[2024-01-08] MEDS: Azelastine HCl NASAL.SRY 2 SPRAY NASAL ×2 (10:10→23:32)
[2024-01-08] MEDS: Amiodarone 200 MG Tablet 100 MG PO (10:29)
[2024-01-08] MEDS: Famotidine 20 MG Tablet PO (10:29)
[2024-01-08] MEDS: Citalopram 10 MG Tablet PO (10:29)
[2024-01-08] MEDS: APIXABAN 2.5 MG TABLET (WCH) PO (10:29)
[2024-01-08] MEDS: predniSONE 20 MG Tablet 40 MG PO (10:29)
[2024-01-08] MEDS: Senna/Docusate Sodium 1 Tablet 2 TABLET PO (10:50)
[2024-01-08] MEDS: Metoprolol(XL)Succ 50 MG Tablet PO (10:50)
[2024-01-08 11:34] LABS: Bedside Glucose 121 mg/dL (74-106)
--- NOTE | 2024-01-08 11:55 | EKG12_ITS ---
Test Reason : Blood Pressure : / mmHG Vent. Rate : 049 BPM Atrial Rate : 049 BPM P-R Int : 112 ms QRS Dur : 128 ms QT Int : 526 ms P-R-T Axes : 000 -55 173 degrees QTc Int : 475 ms Sinus bradycardia Left axis deviation Non-specific intra-ventricular conduction block Possible Anterolateral infarct , age undetermined Abnormal ECG Non-specific ST & T wave changes Confirmed by Bruce Graham ([id number]), editor department SHERI [address] ([id number]) on 01/09/2024 9:29:14 AM Referred By: BRAD Confirmed By:Bruce Graham
[2024-01-08] MEDS: Nitroglycerin (INPATIENT USE) 0.4 MG TAB.SUBL SL (12:34)
--- NOTE | 2024-01-08 12:38 | PCM.PN.HOSP ---
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) Bradycardia, unspecified (12/31/23) Acute respiratory distress (12/31/23) Chest pain, unspecified (12/31/23) Hypoxemia (12/31/23) Dysphagia, unspecified (12/31/23) Other specified abnormal findings of blood chemistry (12/31/23) Abnormal electrocardiogram [ECG] [EKG] (12/31/23) petroleum terminal plant operator (current) use of anticoagulants (12/31/23) Personal history of other diseases of the circulatory system (12/31/23) Objective Data Objective Data Vital Signs: Vital Signs Temp Pulse Resp BP Pulse Ox O2 Del Method O2 Flow Rate 97.5 F L 53 L 16 115/64 97 Nasal Cannula 2 01/08/24 10:06 01/08/24 12:34 01/08/24 10:06 01/08/24 12:34 01/08/24 10:06 01/08/24 10:06 01/08/24 10:06 Oxygen Flow Rate (L/min) 2 Oxygen Delivery Method Nasal Cannula Weight: 161 lb 8 oz Body Mass Index (BMI) 25.2 Intake & Output: Intake and Output for Last 24 Hours 01/06/24 01/07/24 01/08/24 23:59 23:59 23:59 Intake Total 224 / 224 890 / 1140 250 / 250 Output Total 700 / 1300 2350 / 2350 300 / 300 Balance -476 / -1076 -1460 / -1210 -50 / -50 Lab / Micro Data 01/07/24 06:52 01/07/24 06:52 Labs: Laboratory Results - last 24 hr 01/07/24 11:05: POC Glucose 159 H 01/07/24 16:38: POC Glucose 158 H 01/07/24 20:03: POC Glucose 161 H 01/07/24 23:46: POC Glucose 142 H 01/08/24 05:04: POC Glucose 119 H 01/08/24 11:15: POC Glucose 121 H Micro: Microbiology 01/05/24 08:35 Fluid - Pleural (Lung) Gram Stain - Final 01/05/24 08:35 Fluid - Pleural (Lung) Body Fluid Culture - Final No growth aerobically. 01/05/24 08:35 Fluid - Pleural (Lung) Anaerobic Culture - Preliminary No growth in 48 hours. 01/02/24 15:50 Stool Clostridioides difficile (PCR) - Final Radiography Diagnostic Testing: Radiology Impression Fluoroscopy 01/06/24 16:15 IMPRESSION: Fluoroscopy as described above. Electronically Signed: Shaun Antonio MD at 14:24 EDT , Rhythm Strip Rhythm Strip: Sinus bradycardia Rate: 55 Ectopy: None Physical Exam Narrative Seen and examined Patient on modified dysphagia diet. In the morning, patient complained of chest pressure and states she feels difficulty in food passing through. Evaluated by speech therapist and felt not safe to feed and recommended NPO. No cough during swallowing. Mild shortness of breath on 2 L of oxygen. Physical exam General: Alert, Oriented x3, Cooperative HEENT: Atraumatic, PERRLA, EOMI, Normocephalic Oral: No Gingival or Mucosal Lesions/ Ulcerations Neck: Supple, No JVD, Negative Carotid Bruits Chest wall/Lungs: Air entry diminished in bilateral lung bases. No crepitation/rhonchi Cardiovascular: Regular rate, Regular Rhythm, Normal S1, Normal S2,Systolic murmur over right second ICS and LLSB. Abdomen: Bowel Sounds Present, Soft, Non Tender, Non-Distended : No dysuria. No renal angle tenderness. No suprapubic tenderness. Extremities: No edema, Capillary Refill Less than 3 Seconds Skin: No rashes, No breakdown Musculoskeletal: No Tenderness to Palpation of Joints or Extremities. ROM restricted. Neurological: Cranial nerves II-XII grossly intact, DTR 2+/4. No acute focal neurological deficit. Psych/Mental Status: Normal Affect, Appropriate. Assessment & Plan Assessment/Plan (1) Bradycardia: (2) Elevated troponin: (3) Acute hypoxic respiratory failure: (4) Esophageal dysmotility: (5) Bilateral pleural effusion: PLAN: Plan 83-year-old female admitted with concern for aspiration, mild chest discomfort and wheezing and sudden onset hypoxia. 1. Acute hypoxic respiratory failure secondary to suspected aspiration pneumonia/HFrEF/bilateral pleural effusion -On 2 L nasal cannula with improved oxygen saturations -Right-sided thoracentesis done for removal of 580 cc on 01/05/2024 Left-sided thoracocentesis 450 mL chang-colored fluid was drained on 01/05. -Echocardiogram c/w Takotsubo CM--> EF 40%, + diastolic dysfunction -Patient completed Unasyn day 7 2 days on 01/06 -Started on dysphagia diet initially was NPO. -Continue prednisone burst, end date 01/09/2024 -I-S -Acapella 10 times every 2 hours while awake -DuoNebs every 6 hours while awake with as needed albuterol 01/07: Respiratory function on baseline. Had left and right-sided thoracocentesis as mentioned above. 2. Esophageal motility dysfunction/dysphagia -EGD done 01/02/2024 with stent placement and findings were consistent with previous with diffuse esophageal spasm and diverticulum noted -Speech therapy following -on puree TL diet when not n.p.o. EGD on 01/06/2024 Impressions : - Abnormal esophageal motility, consistent with achalasia. Injected with botulinum toxin. - Pre-existing esophageal stent, removed. - Benign-appearing esophageal stenosis. Dilated. 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 Prosthesis placed. - Normal stomach. - Normal duodenal bulb. Recommendations : - [facility]. - Full liquid diet today. Patient must drink 20 ounces of liquid with each meal to wash to make sure that the stent does not get clogged. 01/07: Patient has chest pressure mainly after swallowing and does not feel a small passage of food or drink. Evaluated by speech therapist and recommended n.p.o. And oral contrast esophagram ordered but could not be done on the weekend because the radiologist not onsite. Discussed with Dr. Hooker. She already had esophageal stent and has diverticulum. Recommended PEG tube. Sublingual nitroglycerin as patient has chest pain she might be helpful to relieve esophageal spasm. Twelve-lead EKG did not show acute change compared to prior EKG. Medications changed to IV. 3. Acute heart failure with reduced ejection fraction 2/2 Takotsubo CM -Last echocardiogram from 2015 showed an EF of 70% with mild concentric LVH, moderate KALYN, right ventricular systolic pressure of 30 mmHg, moderate mitral valve annular calcification and trivial mitral valve insufficiency -EF 40%, + diastolic dysfunction, apical LV ballooning, mild RA enlargement -Stress test unremarkable for inducible ischemia -Restart Lasix at 40 IV push twice daily -Fluid restrict diet to 750 cc daily -Sodium restrict diet -Accurate I's and O's -Daily weights -Continue metoprolol 100 mg daily -Will need outpatient echocardiogram with cardiology follow-up in the next 6 to 8 weeks -Unable to use ALFRED or ARB due to renal disease Bilateral pleural effusion-transudative -Suspect related to heart failure with reduced ejection fraction -Restart diuretics -Plan for left-sided thoracentesis today if there is enough to tap Bradycardia -Intermittent and asymptomatic -Patient with a history of A-fib with RVR -Continue to hold donepezil -Continue metoprolol 100 mg daily -continue home amiodarone -Continue home timolol drops Currently sinus rhythm 62 bpm 01/17: Currently heart rate in 50s. Metoprolol dose decreased to 50 mg with holding parameters. Generalized weakness/debility due to advancing age and multiple comorbidities/M?ni?re's disease -PT/OT following -Plan is for discharge to transitional care unit once medically stable PAF -Hold Eliquis until thoracentesis left and all procedures have been performed -Continue amiodarone -Continue metoprolol XR 100 mg daily Mild cognitive impairment/dementia-type unknown -Donepezil on hold--> bradycardia--> HR better -Patient is alert and oriented x 3 on presentation HTN/HPL -Continue home statin -Continue metoprolol 100 mg daily GERD -Famotidine has been verified will initiate DM-2 -Hold metformin--> would not restart if renal function does not improve -Accu-Cheks every 6 with SSI every 6 -Once diet initiated start cardiac/carb controlled diet NUBIA on CKD stage IIIb -Baseline serum creatinine appears to run between 1.3 and 1.6 -Currently 2.16 Changed from 40 mg IV twice daily to on furosemide 40 mg IV daily M?ni?re's disease/BPPV -Hold meclizine for now -PT/OT Seasonal allergies -Continue nasal sprays Nocturnal hypoxia -Will have her continue oxygen at discharge at night 2 to 3 L DVT prophylaxis -Hold Eliquis for potential procedures related to esophageal issues and thoracentesis -SCDs for now CODE STATUS -DNR CCA but okay for short-term intubation per discussion with patient at the time of admission Charges/Coding Visit Charges Inpatient E&M: 93275 Subs Hosp L2
--- NOTE | 2024-01-08 13:51 | RAD_ITS ---
STUDY: XR Chest 1 View 01/08/2024 1:54 PM REASON FOR EXAM: Female, 83 years old. dysphagia COMPARISON: 5. TECHNIQUE: XR Chest 1 View FINDINGS: There are bilateral pleural effusions. There are bilateral infiltrates. Enlarged heart size. Normal mediastinum. Normal avtar. Prominent appearing increased interstitial lung markings. Normal visualized pulmonary arteries. There is atherosclerotic calcification of the aortic arch with tortuosity. There are diffuse degenerative changes of the visualized thoracic spine. There is degenerative osteoarthritis of the bilateral shoulders. There are no acute findings of the upper abdomen. RAD/Chest 1 View IMPRESSION: Pulmonary findings appear improved. Electronically Signed: Vaibhav Cosme MD at 14:27 EDT ,
[2024-01-08] MEDS: Dext 5%-0.45% NS 1,000 ML 50 ML IV (15:59)
[2024-01-08 16:26] LABS: Bedside Glucose 139 mg/dL (74-106)
[2024-01-08] MEDS: Insulin Lispro 100 UNIT/ML INSULN.PEN SC (23:40)
[2024-01-08 23:59] LABS: Bedside Glucose 153 mg/dL (74-106)
[2024-01-09] VITALS (13 sets, daily range): BP systolic 91–113; BP diastolic 48–63; PULSE 40–56; RESP 14–18; TEMP 36.2–36.9; O2SAT 92–98; BMI 25.4
[2024-01-09] MEDS: Ketorolac 15 MG/ML Vial IV ×2 (00:20→18:23)
[2024-01-09 05:17] LABS: Absolute Lymphocyte Count 0.72 X10^3/uL (0.83-4.51); Absolute Neutrophil Count 7.6 X10^3/uL (2.0-7.7); Basophil# 0.01 X10^3/uL; Basophil% 0.1 % (0-1); Eosinophil# 0.01 X10^3/uL; Eosinophils% 0.1 % (0-5); Hematocrit 32.5 % (37-47); Hemoglobin 9.8 g/dL (12.0-15.0); Lymphocyte # 0.72 X10^3/ul (0.83-4.51); Lymphocyte % 7.7 % (19-41); Mean Corp Hgb Conc 30.2 g/dL (32-36); Mean Corpuscular Hgb 24.8 pg (27.0-32.0); Mean Corpuscular Volume 82.3 fL (81-99); Mean Platelet Vol. 12.1 fl (6.2-12.0); Monocyte# 0.91 X10^3/uL; Monocyte% 9.7 % (0-10); NRBC Flagged by Analyzer 0 % (0-5); Neutrophil # 7.64 X10^3/uL (2.7-7.7); Neutrophil % 81.2 % (47-70); Platelet Count 211 K/mm3 (150-450); RBC Distribution Width CV 18.1 % (11.6-14.6); RBC Distribution Width SD 53.6 fl (35.1-43.9); Red Blood Count 3.95 M/mm3 (4.2-5.4); White Blood Count 9.4 K/mm3 (4.4-11.0)
[2024-01-09 05:30] LABS: Anion Gap 8 (5-15); BUN 61 mg/dL (7-18); BUN/Creat Ratio 35.5 RATIO (10-20); Chloride 102 mmol/L (98-107); Creatinine, Serum 1.72 mg/dL (0.55-1.02); EST Glomerular Filtration Rate 30 mL/min (>60); Est Glom Filt Rate - Afr Amer 36 mL/min (>60); Glucose 149 mg/dL (74-106); Potassium 3.8 mmol/L (3.5-5.1); Sodium Level 139 mmol/L (136-145)
[2024-01-09 06:51] LABS: Bedside Glucose 138 mg/dL (74-106)
[2024-01-09] MEDS: Ipratropium/Albuterol Sulfate 3 ML AMPUL.NEB INHALATION ×2 (07:19→19:48)
--- NOTE | 2024-01-09 08:18 | EKG12_ITS ---
Test Reason : CP Blood Pressure : / mmHG Vent. Rate : 039 BPM Atrial Rate : 039 BPM P-R Int : 120 ms QRS Dur : 116 ms QT Int : 610 ms P-R-T Axes : 087 -48 178 degrees QTc Int : 491 ms Critical Test Result: Low HR Poor data quality, interpretation may be adversely affected Marked sinus bradycardia Left axis deviation Anterolateral infarct , age undetermined T wave abnormality, consider inferior ischemia Abnormal ECG When compared with ECG of 08-JAN-2024 12:05, MANUAL COMPARISON REQUIRED, DATA IS UNCONFIRMED Confirmed by VERNON LLOYD, EDUIN ([id number]), assistant film editor HERNANDO PEREZ ([id number]) on 01/10/2024 6:07:45 AM Referred By: KACY Confirmed By:EDUIN JUNIOR MD
--- NOTE | 2024-01-09 09:34 | PN.HOSP_ITS ---
Reason for Visit Reason for Visit: Diagnoses Type 2 diabetes mellitus without complications (12/31/23) Essential (primary) hypertension (12/31/23) Atherosclerotic heart disease of [place] coronary artery without angina pectoris (12/31/23) Pneumonitis due to inhalation of food and vomit (12/31/23) Pleural effusion, not elsewhere classified (12/31/23) Acute respiratory failure with hypoxia (12/31/23) Dyskinesia of esophagus (12/31/23) Congenital diverticulum of esophagus (12/31/23) Bradycardia, unspecified (12/31/23) Acute respiratory distress (12/31/23) Chest pain, unspecified (12/31/23) Hypoxemia (12/31/23) Dysphagia, unspecified (12/31/23) Other specified abnormal findings of blood chemistry (12/31/23) Abnormal electrocardiogram [ECG] [EKG] (12/31/23) halfway (current) use of anticoagulants (12/31/23) Personal history of other diseases of the circulatory system (12/31/23) Objective Data Objective Data Vital Signs: Vital Signs Temp Pulse Resp BP Pulse Ox O2 Del Method O2 Flow Rate 97.9 F 53 L 14 111/59 L 97 Nasal Cannula 3 01/09/24 04:00 01/09/24 07:19 01/09/24 07:19 01/09/24 04:00 01/09/24 08:22 01/09/24 08:20 01/09/24 08:22 Oxygen Flow Rate (L/min) 3 Oxygen Delivery Method Nasal Cannula Weight: 73.6 kg Body Mass Index (BMI) 25.4 Intake & Output: Intake and Output for Last 24 Hours 01/07/24 01/08/24 01/09/24 23:59 23:59 23:59 Intake Total 890 / 1140 490 / 490 Output Total 2350 / 2350 1550 / 1900 350 / 350 Balance -1460 / -1210 -1060 / -1410 -350 / -350 Lab / Micro Data 01/09/24 04:55 01/09/24 04:55 Labs: Laboratory Results - last 24 hr 01/08/24 11:15: POC Glucose 121 H 01/08/24 16:07: POC Glucose 139 H 01/08/24 23:36: POC Glucose 153 H 01/09/24 04:55: WBC 9.4, RBC 3.95 L, Hgb 9.8 L, Hct 32.5 L, MCV 82.3, MCH 24.8 L , MCHC 30.2 L, RDW Std Deviation 53.6 H, RDW Coeff of Jacobo 18.1 H, Plt Count 211, MPV 12.1 H, Immature Gran % (Auto) 1.200 H, Neut % (Auto) 81.2 H, Lymph % (Auto) 7.7 L, [place] % (Auto) 9.7, Eos % (Auto) 0.1, Baso % (Auto) 0.1, Absolute Neuts (auto) 7.6, Absolute Lymphs (auto) 0.72 L, Nucleated RBC % 0, Sodium 139, Potassium 3.8, Chloride 102, Carbon Dioxide 29.0, Anion Gap 8, BUN 61 H, C reatinine 1.72 H, Estim Creat Clear Calc 24.10, Est GFR (MDRD) Af Amer 36 L, Est GFR (MDRD) Non-Af 30 L, BUN/Creatinine Ratio 35.5 H, Glucose 149 H, Calcium 8.0 L 01/09/24 06:20: POC Glucose 138 H Micro: Microbiology 01/05/24 08:35 Fluid - Pleural (Lung) Gram Stain - Final 01/05/24 08:35 Fluid - Pleural (Lung) Body Fluid Culture - Final No growth aerobically. 01/05/24 08:35 Fluid - Pleural (Lung) Anaerobic Culture - Preliminary No growth in 48 hours. 01/02/24 15:50 Stool Clostridioides difficile (PCR) - Final Radiography Diagnostic Testing: Radiology Impression Chest X-Ray 01/08/24 13:51 IMPRESSION: Pulmonary findings appear improved. Electronically Signed: Vaibhav Cosme MD at 14:27 EDT , Rhythm Strip Rhythm Strip: Sinus bradycardia Rate: 55 Ectopy: None Physical Exam Narrative GENERAL: cooperative HEENT: Atraumatic; normocephalic EYES; Anicteric, Normal Conjunctiva NECK; supple, normal thyroid, RESPIRATORY: Diminished to auscultation CARDIOVASCULAR: Regular S1 S2, GI: soft, normoactive bowel sounds, : No Renal angle tenderness; EXTREMITIES: No edema, no clubbing, MUSCULOSKELETAL: no muscle wasting NEURO: Awake; no lateralizing signs. SKIN: No Rash PSYCH; Flat affect Assessment & Plan Assessment/Plan (1) Bradycardia: (2) Elevated troponin: (3) Acute hypoxic respiratory failure: (4) Esophageal dysmotility: (5) Bilateral pleural effusion: PLAN: Plan 83-year-old female admitted with concern for aspiration, mild chest discomfort and wheezing and sudden onset hypoxia. 1. Acute hypoxic respiratory failure secondary to suspected aspiration pneumonia/HFrEF/bilateral pleural effusion -On 2 L nasal cannula with improved oxygen saturations -Right-sided thoracentesis done for removal of 580 cc on 01/05/2024 Left-sided thoracocentesis 450 mL chang-colored fluid was drained on 01/05. -Echocardiogram c/w Takotsubo CM--> EF 40%, + diastolic dysfunction -Patient completed Unasyn day 7 2 days on 01/06 -Started on dysphagia diet initially was NPO. -Continue prednisone burst, end date 01/09/2024 -I-S -Acapella 10 times every 2 hours while awake -DuoNebs every 6 hours while awake with as needed albuterol 01/07: Respiratory function on baseline. Had left and right-sided thoracocentesis as mentioned above. 2. Esophageal motility dysfunction/dysphagia -EGD done 01/02/2024 with stent placement and findings were consistent with previous with diffuse esophageal spasm and diverticulum noted -Speech therapy following -on puree TL diet when not n.p.o. EGD on 01/06/2024 Impressions : - Abnormal esophageal motility, consistent with achalasia. Injected with botulinum toxin. - Pre-existing esophageal stent, removed. - Benign-appearing esophageal stenosis. Dilated. 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 Prosthesis placed. - Normal stomach. - Normal duodenal bulb. Recommendations : - [facility]. - Full liquid diet today. Patient must drink 20 ounces of liquid with each meal to wash to make sure that the stent does not get clogged. /: Patient has chest pressure mainly after swallowing and does not feel a small passage of food or drink. Evaluated by speech therapist and recommended n.p.o. And oral contrast esophagram ordered but could not be done on the weekend because the radiologist not onsite. Discussed with Dr. Hooker. She already had esophageal stent and has diverticulum. Recommended PEG tube. Sublingual nitroglycerin as patient has chest pain she might be helpful to relieve esophageal spasm. Twelve-lead EKG did not show acute change compared to prior EKG. Medications changed to IV. 3. Acute heart failure with reduced ejection fraction 2/2 Takotsubo CM -Last echocardiogram from 2015 showed an EF of 70% with mild concentric LVH, moderate KALYN, right ventricular systolic pressure of 30 mmHg, moderate mitral valve annular calcification and trivial mitral valve insufficiency -EF 40%, + diastolic dysfunction, apical LV ballooning, mild RA enlargement -Stress test unremarkable for inducible ischemia -Restart Lasix at 40 IV push twice daily -Fluid restrict diet to 750 cc daily -Sodium restrict diet -Accurate I's and O's -Daily weights -Continue metoprolol 100 mg daily -Will need outpatient echocardiogram with cardiology follow-up in the next 6 to 8 weeks -Unable to use ALFRED or ARB due to renal disease Bilateral pleural effusion-transudative -Suspect related to heart failure with reduced ejection fraction -Restart diuretics -Plan for left-sided thoracentesis today if there is enough to tap Bradycardia -Intermittent and asymptomatic -Patient with a history of A-fib with RVR -Continue to hold donepezil -Continue metoprolol 100 mg daily -continue home amiodarone -Continue home timolol drops Currently sinus rhythm 62 bpm 01/17: Currently heart rate in 50s. Metoprolol dose decreased to 50 mg with holding parameters. Generalized weakness/debility due to advancing age and multiple comorbidities/M?ni?re's disease -PT/OT following -Plan is for discharge to transitional care unit once medically stable PAF -Hold Eliquis until thoracentesis left and all procedures have been performed -Continue amiodarone -Continue metoprolol XR 100 mg daily Mild cognitive impairment/dementia-type unknown -Donepezil on hold--> bradycardia--> HR better -Patient is alert and oriented x 3 on presentation HTN/HPL -Continue home statin -Continue metoprolol 100 mg daily GERD -Famotidine has been verified will initiate DM-2 -Hold metformin--> would not restart if renal function does not improve -Accu-Cheks every 6 with SSI every 6 -Once diet initiated start cardiac/carb controlled diet NUBIA on CKD stage IIIb -Baseline serum creatinine appears to run between 1.3 and 1.6 -Currently 2.16 Changed from 40 mg IV twice daily to on furosemide 40 mg IV daily M?ni?re's disease/BPPV -Hold meclizine for now -PT/OT Seasonal allergies -Continue nasal sprays Nocturnal hypoxia -Will have her continue oxygen at discharge at night 2 to 3 L DVT prophylaxis -Hold Eliquis for potential procedures related to esophageal issues and thoracentesis -SCDs for now CODE STATUS -DNR CCA but okay for short-term intubation per discussion with patient at the time of admission
--- NOTE | 2024-01-09 09:34 | PCM.PN.HOSP ---
Reason for Visit Reason for Visit: Diagnoses Type 2 diabetes mellitus without complications (12/31/23) Essential (primary) hypertension (12/31/23) Atherosclerotic heart disease of [place] coronary artery without angina pectoris (12/31/23) Pneumonitis due to inhalation of food and vomit (12/31/23) Pleural effusion, not elsewhere classified (12/31/23) Acute respiratory failure with hypoxia (12/31/23) Dyskinesia of esophagus (12/31/23) Congenital diverticulum of esophagus (12/31/23) Bradycardia, unspecified (12/31/23) Acute respiratory distress (12/31/23) Chest pain, unspecified (12/31/23) Hypoxemia (12/31/23) Dysphagia, unspecified (12/31/23) Other specified abnormal findings of blood chemistry (12/31/23) Abnormal electrocardiogram [ECG] [EKG] (12/31/23) termite control technician (current) use of anticoagulants (12/31/23) Personal history of other diseases of the circulatory system (12/31/23) Subjective Subjective 83-year-old female admitted with concern for aspiration, mild chest discomfort and wheezing and sudden onset hypoxia. Objective Data Objective Data Vital Signs: Vital Signs Temp Pulse Resp BP Pulse Ox O2 Del Method O2 Flow Rate 97.9 F 53 L 14 111/59 L 97 Nasal Cannula 3 01/09/24 04:00 01/09/24 07:19 01/09/24 07:19 01/09/24 04:00 01/09/24 08:22 01/09/24 08:20 01/09/24 08:22 Oxygen Flow Rate (L/min) 3 Oxygen Delivery Method Nasal Cannula Weight: 73.6 kg Body Mass Index (BMI) 25.4 Intake & Output: Intake and Output for Last 24 Hours 01/07/24 01/08/24 01/09/24 23:59 23:59 23:59 Intake Total 890 / 1140 490 / 490 Output Total 2350 / 2350 1550 / 1900 350 / 350 Balance -1460 / -1210 -1060 / -1410 -350 / -350 Lab / Micro Data 01/09/24 04:55 01/09/24 04:55 Labs: Laboratory Results - last 24 hr 01/08/24 11:15: POC Glucose 121 H 01/08/24 16:07: POC Glucose 139 H 01/08/24 23:36: POC Glucose 153 H 01/09/24 04:55: WBC 9.4, RBC 3.95 L, Hgb 9.8 L, Hct 32.5 L, MCV 82.3, MCH 24.8 L, MCHC 30.2 L, RDW Std Deviation 53.6 H, RDW Coeff of Jacobo 18.1 H, Plt Count 211, MPV 12.1 H, Immature Gran % (Auto) 1.200 H, Neut % (Auto) 81.2 H, Lymph % (Auto) 7.7 L, [place] % (Auto) 9.7, Eos % (Auto) 0.1, Baso % (Auto) 0.1, Absolute Neuts (auto) 7.6, Absolute Lymphs (auto) 0.72 L, Nucleated RBC % 0, Sodium 139, Potassium 3.8, Chloride 102, Carbon Dioxide 29.0, Anion Gap 8, BUN 61 H, Creatinine 1.72 H, Estim Creat Clear Calc 24.10, Est GFR (MDRD) Af Amer 36 L, Est GFR (MDRD) Non-Af 30 L, BUN/Creatinine Ratio 35.5 H, Glucose 149 H, Calcium 8.0 L 01/09/24 06:20: POC Glucose 138 H Micro: Microbiology 01/05/24 08:35 Fluid - Pleural (Lung) Gram Stain - Final 01/05/24 08:35 Fluid - Pleural (Lung) Body Fluid Culture - Final No growth aerobically. 01/05/24 08:35 Fluid - Pleural (Lung) Anaerobic Culture - Preliminary No growth in 48 hours. 01/02/24 15:50 Stool Clostridioides difficile (PCR) - Final Radiography Diagnostic Testing: Radiology Impression Chest X-Ray 01/08/24 13:51 IMPRESSION: Pulmonary findings appear improved. Electronically Signed: Vaibhav Cosme MD at 14:27 EDT , Rhythm Strip Rhythm Strip: Sinus bradycardia Rate: 55 Ectopy: None Physical Exam Narrative GENERAL: cooperative HEENT: Atraumatic; normocephalic EYES; Anicteric, Normal Conjunctiva NECK; supple, normal thyroid, RESPIRATORY: Diminished to auscultation CARDIOVASCULAR: Regular S1 S2, GI: soft, normoactive bowel sounds, : No Renal angle tenderness; EXTREMITIES: No edema, no clubbing, MUSCULOSKELETAL: no muscle wasting NEURO: Awake; no lateralizing signs. SKIN: No Rash PSYCH; Flat affect Assessment & Plan Assessment/Plan (1) Bradycardia: (2) Elevated troponin: (3) Acute hypoxic respiratory failure: (4) Esophageal dysmotility: (5) Bilateral pleural effusion: PLAN: Plan 83-year-old female admitted with concern for aspiration, mild chest discomfort and wheezing and sudden onset hypoxia. 1. Acute hypoxic respiratory failure Multifactorial including suspected aspiration pneumonia, heart failure with reduced ejection fraction as well as bilateral pleural effusion 2. Acute on chronic congestive heart failure with reduced ejection fraction ? Echo performed came back consistent with Takotsubo cardiomyopathy with ejection fraction of 40% patient responded to diuretic therapy 3. Bilateral pleural effusion ? Patient underwent bilateral thoracocentesis. Fluid analysis consistent with transudate 4. Aspiration pneumonia ? Patient completed treatment with Unasyn 5 . Esophageal motility dysfunction/dysphagia -EGD done 01/02/2024 with stent placement and findings were consistent with previous with diffuse esophageal spasm and diverticulum noted. Patient continued to experience esophageal epigastric discomfort. Subsequent esophagram ordered for evaluation. Dr. Avalos following 6. Bradycardia Patient has history of A-fib with RVR. On metoprolol as well as donepezil and amiodarone. Donepezil was held given her bradycardia 7. A-fib with with variable rates ? Currently on metoprolol and amiodarone as well as systemic anticoagulation with apixaban. Apixaban has been held for patient thoracocentesis and has since been resumed 8. Hypertension - Blood pressure controlled, home medications continued with dose adjustment as needed 9. Mild cognitive impairment ? Patient was on donepezil held given her bradycardia 10. Hypertension - Blood pressure controlled, home medications continued with dose adjustment as needed 11. Dyslipidemia -Patient is on statin therapy, continued at home dose 12. Physical deconditioning - Requested for PT OT eval and social media strategist to assist with discharge planning 13. GERD -Patient is on famotidine 14. Diabetes mellitus type 2 ? Patient is on metformin held placed on Accu-Cheks before meals and at bedtime with sliding scale coverage 14. Acute kidney injury ? Superimposed on chronic kidney disease stage III baseline creatinine has ranged from 1.3-1.6 creatinine on admission was 2.16. Improved with treatment 1.72 16. Anemia - Secondary to chronic disorder monitoring H&H and transfuse if patient becomes symptomatic or hemoglobin falls below 7 17. 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 Seasonal allergies ? Did continue patient fluticasone nasal spray 19. Nocturnal hypoxia ? Plan is to discharge patient with 2 to 3 L of oxygen at at bedtime 20. DVT prophylaxis ? On apixaban Time spent in the patient's overall evaluation,decision-making process, review of diagnostic data, adjustment of management, discussion with other providers, nursing nursing and ancillary staff involved in patient's care documentation, 54 Minutes Charges/Coding Visit Charges Inpatient E&M: 29775 [facility] Hosp L3
--- NOTE | 2024-01-09 09:48 | RAD_ITS ---
STUDY: X-RAY - ESOPHAGUS (BARIUM SWALLOW) WITH FLUOROSCOPY REASON FOR EXAM: Female, 83 years old. Esophageal dysphagia TECHNIQUE: 32 view(s) of the esophagus were obtained following swallowing of barium. FLUOROSCOPY TIME (if supplied): (1 minute) minutes/seconds. 37.67 mGy COMPARISON: Comparison is made with prior study May 30, 2017. FINDINGS: There is no demonstrated esophageal foreign body. Tertiary contractions are seen in the mid and distal esophagus. A traction diverticulum is seen in the mid esophagus. There is circumferential narrowing in the distal esophagus at the level of the gastroesophageal junction. There is atherosclerotic calcification of the aortic arch with tortuosity of the descending aorta. Normal visualized pulmonary parenchyma. There are diffuse degenerative changes of the visualized thoracic spine. RAD/Esophagus Dual Contrast IMPRESSION: Circumferential narrowing at the gastroesophageal junction. Endoscopic correlation is recommended. 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 Electronically Signed: Yuriy Gonzales MD at 11:10 EDT ,
[2024-01-09] MEDS: Furosemide 40 MG/4 ML Vial IV (09:52)
[2024-01-09] MEDS: Azelastine HCl NASAL.SRY 2 SPRAY NASAL ×2 (09:52→19:40)
[2024-01-09] MEDS: Timolol 0.5% 5ML OPTH.BTL 1 DRP OPHTHALMIC ×2 (09:52→19:40)
[2024-01-09] MEDS: Fluticasone 0.05% 1 SPRAY NASAL.SRY 2 SPRAY NASAL (09:52)
[2024-01-09 15:09] LABS: Bedside Glucose 136 mg/dL (74-106)
[2024-01-09] MEDS: Senna/Docusate Sodium 1 Tablet 2 TABLET PO ×2 (15:49→19:40)
[2024-01-09] MEDS: Citalopram 10 MG Tablet PO (15:49)
[2024-01-09] MEDS: APIXABAN 2.5 MG TABLET (WCH) PO ×2 (15:49→19:40)
[2024-01-09] MEDS: Famotidine 20 MG Tablet PO (15:50)
--- NOTE | 2024-01-09 15:55 | NURSING ---
Meds given late d/t waiting on order from MD with okay to give.
[2024-01-09 17:23] LABS: Bedside Glucose 140 mg/dL (74-106)
[2024-01-09] MEDS: Atorvastatin Calcium 40 MG Tablet PO (19:40)
[2024-01-09 21:36] LABS: Bedside Glucose 116 mg/dL (74-106)
[2024-01-10] VITALS (13 sets, daily range): BP systolic 91–119; BP diastolic 46–72; PULSE 43–66; RESP 16–20; TEMP 35.9–36.8; O2SAT 93–98; BMI 25.7
[2024-01-10] MEDS: 0.9% Saline Lock 10 ML Syringe IV ×2 (01:23→08:43)
[2024-01-10] MEDS: 0.9% Normal Saline (500mL Bag) 500 ML 999 ML IV (01:24)
[2024-01-10 05:48] LABS: Bedside Glucose 83 mg/dL (74-106)
[2024-01-10 06:41] LABS: Absolute Lymphocyte Count 1.54 X10^3/uL (0.83-4.51); Absolute Neutrophil Count 7.7 X10^3/uL (2.0-7.7); Basophil# 0.02 X10^3/uL; Basophil% 0.2 % (0-1); Eosinophil# 0.17 X10^3/uL; Eosinophils% 1.6 % (0-5); Hematocrit 32.8 % (37-47); Lymphocyte # 1.54 X10^3/ul (0.83-4.51); Lymphocyte % 14.5 % (19-41); Mean Corp Hgb Conc 30.5 g/dL (32-36); Mean Corpuscular Hgb 24.9 pg (27.0-32.0); Mean Corpuscular Volume 81.6 fL (81-99); Mean Platelet Vol. 12.2 fl (6.2-12.0); Monocyte# 1.08 X10^3/uL; Monocyte% 10.2 % (0-10); NRBC Flagged by Analyzer 0 % (0-5); Neutrophil # 7.67 X10^3/uL (2.7-7.7); Neutrophil % 72.5 % (47-70); Platelet Count 218 K/mm3 (150-450); RBC Distribution Width CV 18.2 % (11.6-14.6); Red Blood Count 4.02 M/mm3 (4.2-5.4); White Blood Count 10.6 K/mm3 (4.4-11.0)
[2024-01-10] MEDS: Ipratropium/Albuterol Sulfate 3 ML AMPUL.NEB INHALATION ×3 (06:53→19:44)
[2024-01-10 07:12] LABS: Anion Gap 7 (5-15); BUN 60 mg/dL (7-18); BUN/Creat Ratio 33.3 RATIO (10-20); Chloride 103 mmol/L (98-107); EST Glomerular Filtration Rate 29 mL/min (>60); Est Glom Filt Rate - Afr Amer 35 mL/min (>60); Estimated Creatinine Clearance 24.97 ml/min; Glucose 85 mg/dL (74-106); Potassium 3.3 mmol/L (3.5-5.1); Sodium Level 141 mmol/L (136-145)
--- NOTE | 2024-01-10 07:45 | PCM.PN.HOSP ---
Reason for Visit Reason for Visit: Diagnoses Type 2 diabetes mellitus without complications (12/31/23) Essential (primary) hypertension (12/31/23) Atherosclerotic heart disease of [place] coronary artery without angina pectoris (12/31/23) Pneumonitis due to inhalation of food and vomit (12/31/23) Pleural effusion, not elsewhere classified (12/31/23) Acute respiratory failure with hypoxia (12/31/23) Dyskinesia of esophagus (12/31/23) Congenital diverticulum of esophagus (12/31/23) Bradycardia, unspecified (12/31/23) Acute respiratory distress (12/31/23) Chest pain, unspecified (12/31/23) Hypoxemia (12/31/23) Dysphagia, unspecified (12/31/23) Other specified abnormal findings of blood chemistry (12/31/23) Abnormal electrocardiogram [ECG] [EKG] (12/31/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 Objective Data Objective Data Vital Signs: Vital Signs Temp Pulse Resp BP Pulse Ox O2 Del Method O2 Flow Rate 96.9 F L 52 L 16 119/49 L 94 Nasal Cannula 2 01/10/24 02:50 01/10/24 06:54 01/10/24 06:54 01/10/24 02:50 01/10/24 06:54 01/10/24 06:54 01/10/24 06:54 Oxygen Flow Rate (L/min) 2 Oxygen Delivery Method Nasal Cannula Weight: 74.6 kg Body Mass Index (BMI) 25.7 Intake & Output: Intake and Output for Last 24 Hours 01/08/24 01/09/24 01/10/24 23:59 23:59 23:59 Intake Total 490 / 490 1440 / 1440 500 / 500 Output Total 1550 / 1900 975 / 975 100 / 100 Balance -1060 / -1410 465 / 465 400 / 400 Lab / Micro Data 01/10/24 05:21 01/10/24 05:21 Labs: Laboratory Results - last 24 hr 01/09/24 11:59: POC Glucose 136 H 01/09/24 16:02: POC Glucose 140 H 01/09/24 21:12: POC Glucose 116 H 01/10/24 05:21: WBC 10.6, RBC 4.02 L, Hgb 10.0 L, Hct 32.8 L, MCV 81.6, MCH 24.9 L, MCHC 30.5 L, RDW Std Deviation 54.0 H, RDW Coeff of Jacobo 18.2 H, Plt Count 218, MPV 12.2 H, Immature Gran % (Auto) 1.000 H, Neut % (Auto) 72.5 H, Lymph % (Auto) 14.5 L, [place] % (Auto) 10.2 H, Eos % (Auto) 1.6, Baso % (Auto) 0.2, Absolute Neuts (auto) 7.7, Absolute Lymphs (auto) 1.54, Nucleated RBC % 0, Sodium 141, Potassium 3.3 L, Chloride 103, Carbon Dioxide 31.0, Anion Gap 7, BUN 60 H, Creatinine 1.80 H, Estim Creat Clear Calc 24.97, Est GFR (MDRD) Af Amer 35 L, Est GFR (MDRD) Non-Af 29 L, BUN/Creatinine Ratio 33.3 H, Glucose 85, Calcium 8.0 L 01/10/24 05:27: POC Glucose 83 Micro: Microbiology 01/05/24 08:35 Fluid - Pleural (Lung) Gram Stain - Final 01/05/24 08:35 Fluid - Pleural (Lung) Body Fluid Culture - Final No growth aerobically. 01/05/24 08:35 Fluid - Pleural (Lung) Anaerobic Culture - Preliminary No growth in 48 hours. 01/02/24 15:50 Stool Clostridioides difficile (PCR) - Final Radiography Diagnostic Testing: Radiology Impression Barium Swallow X-Ray 01/09/24 09:48 IMPRESSION: Circumferential narrowing at the gastroesophageal junction. Endoscopic correlation is recommended. 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 Electronically Signed: Yuriy Gonzales MD at 11:10 EDT , Rhythm Strip Rhythm Strip: Sinus bradycardia Rate: 55 Ectopy: None Physical Exam Narrative GENERAL: cooperative HEENT: Atraumatic; normocephalic EYES; Anicteric, Normal Conjunctiva NECK; supple, normal thyroid, RESPIRATORY: Diminished to auscultation CARDIOVASCULAR: Regular S1 S2, GI: soft, normoactive bowel sounds, : No Renal angle tenderness; EXTREMITIES: No edema, no clubbing, MUSCULOSKELETAL: no muscle wasting NEURO: Awake; no lateralizing signs. SKIN: No Rash PSYCH; Flat affect Assessment & Plan Assessment/Plan (1) Bradycardia: (2) Elevated troponin: (3) Acute hypoxic respiratory failure: (4) Esophageal dysmotility: (5) Bilateral pleural effusion: PLAN: Plan 83-year-old female admitted with concern for aspiration, mild chest discomfort and wheezing and sudden onset hypoxia. 1. Acute hypoxic respiratory failure Multifactorial including suspected aspiration pneumonia, heart failure with reduced ejection fraction as well as bilateral pleural effusion 2. Acute on chronic congestive heart failure with reduced ejection fraction ? Echo performed came back consistent with Takotsubo cardiomyopathy with ejection fraction of 40% patient responded to diuretic therapy 3. Bilateral pleural effusion ? Patient underwent bilateral thoracocentesis. Fluid analysis consistent with transudate 4. Aspiration pneumonia ? Patient completed treatment with Unasyn 5 . Esophageal motility dysfunction/dysphagia -EGD done 01/02/2024 with stent placement and findings were consistent with previous with diffuse esophageal spasm and diverticulum noted. Patient continued to experience esophageal epigastric discomfort. Subsequent esophagram ordered for evaluation. Dr. Hooker following ? 01/10/2024 esophagram demonstrated Circumferential narrowing at the gastroesophageal junction. Endoscopic correlation is recommended. 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 6. Bradycardia Patient has history of A-fib with RVR. On metoprolol as well as donepezil and amiodarone. Donepezil was held given her bradycardia 7. A-fib with with variable rates ? Currently on metoprolol and amiodarone as well as systemic anticoagulation with apixaban. Apixaban has been held for patient thoracocentesis and has since been resumed 8. Hypertension - Blood pressure controlled, home medications continued with dose adjustment as needed 9. Mild cognitive impairment ? Patient was on donepezil held given her bradycardia 10. Hypertension - Blood pressure controlled, home medications continued with dose adjustment as needed 11. Dyslipidemia -Patient is on statin therapy, continued at home dose 12. Physical deconditioning - Requested for PT OT eval and school social worker to assist with discharge planning 13. GERD -Patient is on famotidine 14. Diabetes mellitus type 2 ? Patient is on metformin held placed on Accu-Cheks before meals and at bedtime with sliding scale coverage 14. Acute kidney injury ? Superimposed on chronic kidney disease stage III baseline creatinine has ranged from 1.3-1.6 creatinine on admission was 2.16. Improved with treatment 1.72 16. Anemia - Secondary to chronic disorder monitoring H&H and transfuse if patient becomes symptomatic or hemoglobin falls below 7 17. 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 Seasonal allergies ? Did continue patient fluticasone nasal spray 19. Nocturnal hypoxia ? Plan is to discharge patient with 2 to 3 L of oxygen at at bedtime 20. Elevated troponin -due to myocardial injury due to chf, PNA, and resp failure DVT prophylaxis ? On apixaban Time spent in the patient's overall evaluation,decision-making process, review of diagnostic data, adjustment of management, discussion with other providers, nursing nursing and ancillary staff involved in patient's care documentation, 35 Minutes Charges/Coding Visit Charges Inpatient E&M: 10118 Subs Hosp L2
[2024-01-10] MEDS: Azelastine HCl NASAL.SRY 2 SPRAY NASAL ×2 (08:37→22:07)
[2024-01-10] MEDS: Furosemide 40 MG/4 ML Vial IV (08:40)
[2024-01-10] MEDS: Fluticasone 0.05% 1 SPRAY NASAL.SRY 2 SPRAY NASAL (08:40)
[2024-01-10] MEDS: Timolol 0.5% 5ML OPTH.BTL 1 DRP OPHTHALMIC ×2 (08:40→22:06)
[2024-01-10] MEDS: Ensure Plus High Protein 120 ML LIQUID PO ×3 (08:47→16:58)
[2024-01-10 11:20] LABS: Bedside Glucose 102 mg/dL (74-106)
--- NOTE | 2024-01-10 11:33 | TREXTCAR_ITS ---
Diet Diet Order/Speech Therapy: 01/09/24 13:47 Diet: Regular - General Food consistency:: Pureed Liquid Consistency:: Regular/Thin Dietary Modifications:: Sodium Restricted Type of Dietary Supplement:: MC w/ lunch and dinner Is pt able to select menu?: Yes Fluid restriction:: 1750 mL Routine Orders/Code Status Code Status: DNRCC-A Wound(s) right mid back: Wound Type: Puncture Therapies Physical Therapy: Eval and Treat Occupational Therapy: Eval and Treat Speech Therapy: Eval and Treat Problem/Diagnosis (1) Bradycardia: Status: Acute Code(s): R00.1 - Bradycardia, unspecified (2) Elevated troponin: Status: Acute Code(s): R79.89 - Other specified abnormal findings of blood chemistry (3) Acute hypoxic respiratory failure: Status: Acute Code(s): J96.01 - Acute respiratory failure with hypoxia (4) Esophageal dysmotility: Status: Acute Code(s): K22.4 - Dyskinesia of esophagus (5) Bilateral pleural effusion: Status: Acute Code(s): J90 - Pleural effusion, not elsewhere classified Plan 83-year-old female admitted with concern for aspiration, mild chest discomfort and wheezing and sudden onset hypoxia. 1. Acute hypoxic respiratory failure Multifactorial including suspected aspiration pneumonia, heart failure with reduced ejection fraction as well as bilateral pleural effusion 2. Acute on chronic congestive heart failure with reduced ejection fraction ? Echo performed came back consistent with Takotsubo cardiomyopathy with ejection fraction of 40% patient responded to diuretic therapy 3. Bilateral pleural effusion ? Patient underwent bilateral thoracocentesis. Fluid analysis consistent with transudate 4. Aspiration pneumonia ? Patient completed treatment with Unasyn 5 . Esophageal motility dysfunction/dysphagia -EGD done 01/02/2024 with stent placement and findings were consistent with previous with diffuse esophageal spasm and diverticulum noted. Patient continued to experience esophageal epigastric discomfort. Subsequent esophagram ordered for evaluation. Dr. Hooker following ? 01/10/2024 esophagram demonstrated Circumferential narrowing at the gastroesophageal junction. Endoscopic correlation is recommended. 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 6. Bradycardia Patient has history of A-fib with RVR. On metoprolol as well as donepezil and amiodarone. Donepezil was held given her bradycardia 7. A-fib with with variable rates ? Currently on metoprolol and amiodarone as well as systemic anticoagulation with apixaban. Apixaban has been held for patient thoracocentesis and has since been resumed 8. Hypertension - Blood pressure controlled, home medications continued with dose adjustment as needed 9. Mild cognitive impairment ? Patient was on donepezil held given her bradycardia 10. Hypertension - Blood pressure controlled, home medications continued with dose adjustment as needed 11. Dyslipidemia -Patient is on statin therapy, continued at home dose 12. Physical deconditioning - Requested for PT OT eval and social work supervisor to assist with discharge planning 13. GERD -Patient is on famotidine 14. Diabetes mellitus type 2 ? Patient is on metformin held placed on Accu-Cheks before meals and at bedtime with sliding scale coverage 14. Acute kidney injury ? Superimposed on chronic kidney disease stage III baseline creatinine has ranged from 1.3-1.6 creatinine on admission was 2.16. Improved with treatment 1.72 16. Anemia - Secondary to chronic disorder monitoring H&H and transfuse if patient becomes symptomatic or hemoglobin falls below 7 17. 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 Seasonal allergies ? Did continue patient fluticasone nasal spray 19. Nocturnal hypoxia ? Plan is to discharge patient with 2 to 3 L of oxygen at at bedtime 20. Elevated troponin -due to myocardial injury due to chf, PNA, and resp failure DVT prophylaxis ? On apixaban Time spent in the patient's overall evaluation,decision-making process, review of diagnostic data, adjustment of management, discussion with other providers, nursing nursing and ancillary staff involved in patient's care documentation, 35 Minutes Allergies/Procedures Done in Hospital Allergies benzonatate (From Ruthann Vazquez) Allergy (Verified 12/31/23 12:05) Hives cat dander Allergy (Verified 12/31/23 12:05) Unknown Type of Care/Length of Stay Estimated LOS: Convalescent Care Less Than 30 days Type of Care Needed: Skilled Rehab Potential: Good Prognosis: Good Additional Orders/Day of Discharge Day of Discharge: 01/10/24 Dietary and Speech Recommendations Dietitian Recommendations/Changes: Continue regular, sodium restricted diet w/ consistency and texture as per [employer] Order 4 oz ensure plus high protein tid w/ medpass Provide magic cup ice cream w/ lunch and dinner for increased nutrition if consumed. Adjust ONS as needed once PO adequacy established at meals; pt is dependent at meals, total feed. Discharge Plan Admission Admit Date/Time: 12/31/23 13:49 Primary Reason for Your Visit: Shortness of Breath Attending Provider: Matheus Sanders Primary Care Provider: Hortensia Balbuena Consulting Providers: Bruce Graham; Merline Kimbrough; Rupesh Castillo Discharge Orders/Prescriptions Prescriptions: No Action atorvastatin 40 mg tablet 40 mg PO QHS metformin 500 mg tablet 250 mg PO BID donepezil 10 mg tablet 10 mg PO QHS citalopram [Celexa] 10 mg tablet 10 mg PO DAILY fluticasone propionate 50 mcg/actuation spray,suspension 2 spray INTRANASAL DAILY Qty: 16 11RF azelastine 137 mcg (0.1 %) aerosol,spray 2 spray INTRANASAL BID Qty: 30 11RF Rx Instructions: administer into each nostril mirabegron 50 MG tablet extended release 24 hr 50 mg PO DAILY meclizine 25 mg tablet 12.5 mg PO TID PRN PRN (Reason: Dizziness) famotidine 20 mg tablet 20 mg PO BID lisinopril 2.5 mg tablet 2.5 mg PO DAILY Eliquis 2.5 mg tablet 2.5 mg PO BID furosemide 40 mg tablet 40 mg PO DAILY Patient Comments: ON HOLD D/T KIDNEY FUNCTION timolol maleate 0.5 % drops 1 drp ophthalmic (eye) BID cefdinir 300 mg Capsule 300 mg PO Q12 Qty: 9 0RF diltiazem HCl 180 mg capsule,extended release 24hr 180 mg PO BID Qty: 180 3RF amiodarone 200 mg tablet 100 mg PO DAILY Qty: 90 3RF Referrals / Follow Up: Hortensia Balbuena DO [Primary Care Provider] - Within 1 Week (after d/c from TCU) Bruce Graham MD [Med Staff - Active Staff] - Within 1 Month Isra Hooker DO [Med Staff - Active Staff] - Within 1 Month Disposition Disposition (needs filled in before D/C Order can be placed): [facility]
--- NOTE | 2024-01-10 11:35 | PCM.DC.SUM ---
Providers Date of Admission: 12/31/23 Date of Discharge: 01/10/24 Primary Care Physician: Dr. Hortensia Balbuena, Consultations 12/31/23 15:14 Consult: Gastroenterology Routine Consulting Provider: [facility] Reason for Consult: esophageal motility dysfunction EMERGENT Consult: No Notified: Yes Date Notified: 12/31/23 Time Notified: 15:19 Method of Notification: Text 12/31/23 16:34 Consult: Cardiology Routine Consulting Provider: Bruce Graham Reason for Consult: Elevated troponin EMERGENT Consult: No Notified: Yes Date Notified: 12/31/23 Time Notified: 16:34 Method of Notification: Text Reason For Visit: ACUTE HYPOXIA SECONDARY TO ASPIRATION PNEUMONIA Diagnosis Discharge Diagnosis (1) Bradycardia: Status: Acute Code(s): R00.1 - Bradycardia, unspecified (2) Elevated troponin: Status: Acute Code(s): R79.89 - Other specified abnormal findings of blood chemistry (3) Acute hypoxic respiratory failure: Status: Acute Code(s): J96.01 - Acute respiratory failure with hypoxia (4) Esophageal dysmotility: Status: Acute Code(s): K22.4 - Dyskinesia of esophagus (5) Bilateral pleural effusion: Status: Acute Code(s): J90 - Pleural effusion, not elsewhere classified Plan 83-year-old female admitted with concern for aspiration, mild chest discomfort and wheezing and sudden onset hypoxia. 1. Acute hypoxic respiratory failure Multifactorial including suspected aspiration pneumonia, heart failure with reduced ejection fraction as well as bilateral pleural effusion 2. Acute on chronic congestive heart failure with reduced ejection fraction ? Echo performed came back consistent with Takotsubo cardiomyopathy with ejection fraction of 40% patient responded to diuretic therapy 3. Bilateral pleural effusion ? Patient underwent bilateral thoracocentesis. Fluid analysis consistent with transudate 4. Aspiration pneumonia ? Patient completed treatment with Unasyn 5 . Esophageal motility dysfunction/dysphagia -EGD done 01/02/2024 with stent placement and findings were consistent with previous with diffuse esophageal spasm and diverticulum noted. Patient continued to experience esophageal epigastric discomfort. Subsequent esophagram ordered for evaluation. Dr. Hooker following ? 01/10/2024 esophagram demonstrated Circumferential narrowing at the gastroesophageal junction. Endoscopic correlation is recommended. 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 6. Bradycardia Patient has history of A-fib with RVR. On metoprolol as well as donepezil and amiodarone. Donepezil was held given her bradycardia 7. A-fib with with variable rates ? Currently on metoprolol and amiodarone as well as systemic anticoagulation with apixaban. Apixaban has been held for patient thoracocentesis and has since been resumed 8. Hypertension - Blood pressure controlled, home medications continued with dose adjustment as needed 9. Mild cognitive impairment ? Patient was on donepezil held given her bradycardia 10. Hypertension - Blood pressure controlled, home medications continued with dose adjustment as needed 11. Dyslipidemia -Patient is on statin therapy, continued at home dose 12. Physical deconditioning - Requested for PT OT eval and geriatric social worker to assist with discharge planning 13. GERD -Patient is on famotidine 14. Diabetes mellitus type 2 ? Patient is on metformin held placed on Accu-Cheks before meals and at bedtime with sliding scale coverage 14. Acute kidney injury ? Superimposed on chronic kidney disease stage III baseline creatinine has ranged from 1.3-1.6 creatinine on admission was 2.16. Improved with treatment 1.72 16. Anemia - Secondary to chronic disorder monitoring H&H and transfuse if patient becomes symptomatic or hemoglobin falls below 7 17. 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 Seasonal allergies ? Did continue patient fluticasone nasal spray 19. Nocturnal hypoxia ? Plan is to discharge patient with 2 to 3 L of oxygen at at bedtime 20. Elevated troponin -due to myocardial injury due to chf, PNA, and resp failure DVT prophylaxis ? On apixaban Time spent in the patient's overall evaluation,decision-making process, review of diagnostic data, adjustment of management, discussion with other providers, nursing nursing and ancillary staff involved in patient's care documentation, 35 Minutes Medications at Discharge Home Medications mirabegron 50 mg tablet,extended release 24 hr 50 mg PO DAILY URINARY FREQUENCY 07/11/16 atorvastatin 40 mg tablet 40 mg PO QHS 05/13/21 famotidine 20 mg tablet 20 mg PO BID GERD 07/01/21 lisinopril 2.5 mg tablet 2.5 mg PO DAILY BP 07/01/21 metformin 500 mg tablet 250 mg PO BID DM 06/09/22 apixaban 2.5 mg tablet (Eliquis) 2.5 mg PO BID BLOOD THINNER 05/24/23 azelastine 137 mcg (0.1 %) nasal spray aerosol 2 spray intranasal BID #30 mL 09/05/23 fluticasone propionate 50 mcg/actuation nasal spray,suspension 2 spray intranasal DAILY #16 grams 09/05/23 amiodarone 200 mg tablet 100 mg (1/2 x 200 mg) PO DAILY #90 tabs 12/01/23 citalopram 10 mg tablet (Celexa) 10 mg PO DAILY 12/16/23 furosemide 40 mg tablet 40 mg PO DAILY 12/19/23 timolol maleate 0.5 % eye drops 1 drp ophthalmic (eye) BID 12/19/23 acetaminophen 325 mg tablet 650 mg (2 x 325 mg) PO Q6H PRN PRN Pain 1-10 Or Fever>100.7 #0 tabs 01/10/24 albuterol sulfate 2.5 mg/3 mL (0.083 %) solution for nebulization 2.5 mg (3 mL) inhalation Q2H PRN PRN SOB &/OR WHEEZING #0 mL 01/10/24 food supplemt, lactose-reduced 0.08 gram-1.5 kcal/mL oral liquid (Ensure Plus High Protein) 120 ml PO TIDCM #0 mL 01/10/24 insulin lispro 100 unit/mL subcutaneous pen (Humalog KwikPen (U-100) Insulin) See Protocol subcut Q6 #0 mL 01/10/24 ipratropium 0.5 mg-albuterol 3 mg (2.5 mg base)/3 mL nebulization soln 3 ml inhalation Q6HWA.RT #0 mL 01/10/24 melatonin 3 mg tablet 3 mg PO QHS PRN PRN Insomnia #0 tabs 01/10/24 metoprolol succinate 50 mg tablet,extended release 24 hr 50 mg PO DAILY #0 tabs 01/10/24 nitroglycerin 0.4 mg sublingual tablet 0.4 mg sublingual Q5M PRN Cardiac/Chest Pain #0 tabs 01/10/24 sennosides 8.6 mg-docusate sodium 50 mg tablet (Stool Softener-Stimulant Laxative) 2 tab PO BID #0 tabs 01/10/24 Physical Exam Narrative GENERAL: cooperative HEENT: Atraumatic; normocephalic EYES; Anicteric, Normal Conjunctiva NECK; supple, normal thyroid, RESPIRATORY: Diminished to auscultation CARDIOVASCULAR: Regular S1 S2, GI: soft, normoactive bowel sounds, : No Renal angle tenderness; EXTREMITIES: No edema, no clubbing, MUSCULOSKELETAL: no muscle wasting NEURO: Awake; no lateralizing signs. SKIN: No Rash PSYCH; Flat affect Weight / BMI Weight Weight: 74.6 kg Body Mass Index (BMI) 25.7 ABG / Lab / Microbiology Data 01/10/24 05:21 01/10/24 05:21 Laboratory: Laboratory Results - last 24 hr 01/05/24 08:35: Miscellaneous Cytology SEE PATHOLOGY REPORT 01/09/24 11:59: POC Glucose 136 H 01/09/24 16:02: POC Glucose 140 H 01/09/24 21:12: POC Glucose 116 H 01/10/24 05:21: WBC 10.6, RBC 4.02 L, Hgb 10.0 L, Hct 32.8 L, MCV 81.6, MCH 24.9 L, MCHC 30.5 L, RDW Std Deviation 54.0 H, RDW Coeff of Jacobo 18.2 H, Plt Count 218, MPV 12.2 H, Immature Gran % (Auto) 1.000 H, Neut % (Auto) 72.5 H, Lymph % (Auto) 14.5 L, [place] % (Auto) 10.2 H, Eos % (Auto) 1.6, Baso % (Auto) 0.2, Absolute Neuts (auto) 7.7, Absolute Lymphs (auto) 1.54, Nucleated RBC % 0, Sodium 141, Potassium 3.3 L, Chloride 103, Carbon Dioxide 31.0, Anion Gap 7, BUN 60 H, Creatinine 1.80 H, Estim Creat Clear Calc 24.97, Est GFR (MDRD) Af Amer 35 L, Est GFR (MDRD) Non-Af 29 L, BUN/Creatinine Ratio 33.3 H, Glucose 85, Calcium 8.0 L 01/10/24 05:27: POC Glucose 83 01/10/24 10:58: POC Glucose 102 Microbiology: Microbiology 01/05/24 08:35 Fluid - Pleural (Lung) Gram Stain - Final 01/05/24 08:35 Fluid - Pleural (Lung) Body Fluid Culture - Final No growth aerobically. 01/05/24 08:35 Fluid - Pleural (Lung) Anaerobic Culture - Preliminary No growth in 48 hours. 01/02/24 15:50 Stool Clostridioides difficile (PCR) - Final D/C Instructions Discharge Diet: Light diet - advance as tolerated Discharge Activity: Return to Normal Activity Call your doctor if you observe: Fever of 101 or Higher, Shortness of breath, Fainting spells and Chest pain Meaningful Use Info Meaningful Use Meaningful Use Diagnoses (Choose all that apply): CHF CHF ALFRED/ARB ordered at discharge?: Yes Documented LVEF (%): 40 Ischemic Stroke Statin Dosing Therapy Reference: STATIN DOSE THERAPY REFERENCE: * Patients > 75 years receive moderate or high dose statin therapy. * Patients 75 years or YOUNGER should receive HIGH intensity statin dose unless contraindicated. You will be required to document reason for non-treatment if statin daily dose does not meet guidelines. HIGH DOSE STATIN THERAPY DAILY Atorvastatin > than or = to 40 mg Rosuvastatin > than or = to 20 mg Amlodipine + Atorvastatin > than or = to 2.5/40 mg Ezetimibe + Simvastatin 10/80 mg Simvastatin 80mg Discharge Plan Admission Admit Date/Time: 12/31/23 13:49 Primary Reason for Your Visit: Shortness of Breath Attending Provider: Matheus Sanders Primary Care Provider: Hortensia Balbuena Consulting Providers: Bruce Graham; Merline Kimbrough; Rupesh Castillo Discharge Orders/Prescriptions Prescriptions: New acetaminophen 325 mg Tablet 650 mg PO Q6H PRN PRN (Reason: Pain 1-10 Or Fever>100.7) Qty: 0 0RF ipratropium-albuterol 0.5 mg-3 mg(2.5 mg base)/3 mL Solution For Nebulization 3 ml inhalation Q6HWA.RT Qty: 0 0RF albuterol sulfate 2.5 mg /3 mL (0.083 %) Solution For Nebulization 2.5 mg inhalation Q2H PRN PRN (Reason: SOB &/OR WHEEZING) Qty: 0 0RF metoprolol succinate 50 mg Tablet Extended Release 24 Hr 50 mg PO DAILY Qty: 0 0RF sennosides-docusate sodium [Stool Softener-Stimulant Laxat] 8.6-50 mg Tablet 2 tab PO BID Qty: 0 0RF melatonin 3 mg Tablet 3 mg PO QHS PRN PRN (Reason: Insomnia) Qty: 0 0RF nitroglycerin 0.4 mg Tablet, Sublingual 0.4 mg sublingual Q5M PRN (Reason: Cardiac/Chest Pain) Qty: 0 0RF insulin lispro [Humalog KwikPen Insulin] 100 unit/mL Insulin Pen See Protocol subcut Q6 Qty: 0 0RF Protocol: 3. Sliding Scale Insulin Med Dosing Condition: 150-189 mg/dl = 1 unit Condition: 190-229 mg/dl = 2 units Condition: 230-269 mg/dl = 3 units Condition: 270-309 mg/dl = 4 units Condition: 310-349 mg/dl = 5 units Condition: 350-399 mg/dl = 6 units Condition: 400-449 mg/dl = 7 units Condition: Greater than 449 call physician Protocol Text: - Use for Total Daily Dose of Insulin 37-55 units - Obsese, infected, or steroid patients MEDIUM DOSING ALGORITHIM Ensure Plus High Protein 0.08 gram-1.5 kcal/mL Liquid 120 ml PO TIDCM Qty: 0 0RF Continued atorvastatin 40 mg tablet 40 mg PO QHS metformin 500 mg tablet 250 mg PO BID citalopram [Celexa] 10 mg tablet 10 mg PO DAILY fluticasone propionate 50 mcg/actuation spray,suspension 2 spray INTRANASAL DAILY Qty: 16 11RF azelastine 137 mcg (0.1 %) aerosol,spray 2 spray INTRANASAL BID Qty: 30 11RF Rx Instructions: administer into each nostril mirabegron 50 MG tablet extended release 24 hr 50 mg PO DAILY famotidine 20 mg tablet 20 mg PO BID lisinopril 2.5 mg tablet 2.5 mg PO DAILY Eliquis 2.5 mg tablet 2.5 mg PO BID furosemide 40 mg tablet 40 mg PO DAILY Patient Comments: ON HOLD D/T KIDNEY FUNCTION timolol maleate 0.5 % drops 1 drp ophthalmic (eye) BID amiodarone 200 mg tablet 100 mg PO DAILY Qty: 90 3RF Discontinued donepezil 10 mg tablet 10 mg PO QHS meclizine 25 mg tablet 12.5 mg PO TID PRN PRN (Reason: Dizziness) cefdinir 300 mg Capsule 300 mg PO Q12 Qty: 9 0RF diltiazem HCl 180 mg capsule,extended release 24hr 180 mg PO BID Qty: 180 3RF Referrals / Follow Up: Hortensia Balbuena DO [Primary Care Provider] - Within 1 Week (after d/c from TCU) Bruce Graham MD [Med Staff - Active Staff] - Within 1 Month Isra Hooker DO [Med Staff - Active Staff] - Within 1 Week Disposition Disposition (needs filled in before D/C Order can be placed): [facility] Facility Charges/Coding Visit Charges Inpatient E&M: 30869 Disch Hosp >30min
[2024-01-10] MEDS: Senna/Docusate Sodium 1 Tablet 2 TABLET PO (12:31)
[2024-01-10] MEDS: Citalopram 10 MG Tablet PO (12:31)
[2024-01-10] MEDS: APIXABAN 2.5 MG TABLET (WCH) PO ×2 (12:31→22:06)
[2024-01-10] MEDS: Famotidine 20 MG Tablet PO (12:32)
[2024-01-10] MEDS: 0.9% Normal Saline (1000mL) 1,000 ML 15 ML IV (12:43)
[2024-01-10 16:13] LABS: Bedside Glucose 128 mg/dL (74-106)
--- NOTE | 2024-01-10 17:48 | PN.GI_ITS ---
Subjective Subjective Patient was able to eat a little more today with a modified diet. Objective Data Objective Data Vital Signs: Vital Signs Temp Pulse Resp BP Pulse Ox O2 Del Method O2 Flow Rate 96.6 F L 64 16 110/72 98 Nasal Cannula 2 01/10/24 16:16 01/10/24 16:16 01/10/24 16:16 01/10/24 16:16 01/10/24 16:16 01/10/24 16:16 01/10/24 16:16 Oxygen Flow Rate (L/min) 2 Oxygen Delivery Method Nasal Cannula Weight: 164 lb 7.437 oz Body Mass Index (BMI) 25.7 Intake & Output: Intake and Output for Last 24 Hours 01/08/24 01/09/24 01/10/24 23:59 23:59 23:59 Intake Total 490 / 490 1440 / 1440 1280 / 1280 Output Total 1550 / 1900 975 / 975 650 / 650 Balance -1060 / -1410 465 / 465 630 / 630 Lab / Micro Data 01/10/24 05:21 01/10/24 05:21 Labs: Laboratory Results - last 24 hr 01/05/24 08:35: Miscellaneous Cytology SEE PATHOLOGY REPORT 01/09/24 21:12: POC Glucose 116 H 01/10/24 05:21: WBC 10.6, RBC 4.02 L, Hgb 10.0 L, Hct 32.8 L, MCV 81.6, MCH 24.9 L, MCHC 30.5 L, RDW Std Deviation 54.0 H, RDW Coeff of Jacobo 18.2 H, Plt Count 218, MPV 12.2 H, Immature Gran % (Auto) 1.000 H, Neut % (Auto) 72.5 H, Lymph % (Auto) 14.5 L, [place] % (Auto) 10.2 H, Eos % (Auto) 1.6, Baso % (Auto) 0.2, Absolute Neuts (auto) 7.7, Absolute Lymphs (auto) 1.54, Nucleated RBC % 0, Sodium 141, Potassium 3.3 L, Chloride 103, Carbon Dioxide 31.0, Anion Gap 7, BUN 60 H, Creatinine 1.80 H, Estim Creat Clear Calc 24.97, Est GFR (MDRD) Af Amer 35 L, Est GFR (MDRD) Non-Af 29 L, BUN/Creatinine Ratio 33.3 H, Glucose 85, Calcium 8.0 L 01/10/24 05:27: POC Glucose 83 01/10/24 10:58: POC Glucose 102 01/10/24 15:55: POC Glucose 128 H Micro: Microbiology 01/05/24 08:35 Fluid - Pleural (Lung) Gram Stain - Final 01/05/24 08:35 Fluid - Pleural (Lung) Body Fluid Culture - Final No growth aerobically. 01/05/24 08:35 Fluid - Pleural (Lung) Anaerobic Culture - Final No growth in 5 days. 01/02/24 15:50 Stool Clostridioides difficile (PCR) - Final Rhythm Strip Rhythm Strip: Sinus bradycardia Rate: 55 Ectopy: None Assessment & Plan Assessment/Plan (1) Bradycardia: (2) Elevated troponin: (3) Acute hypoxic respiratory failure: (4) Esophageal dysmotility: (5) Bilateral pleural effusion: PLAN: Plan 83-year-old female admitted with concern for aspiration, mild chest discomfort and wheezing and sudden onset hypoxia. Esophageal motility dysfunction/dysphagia -EGD done 01/02/2024 with stent placement and findings were consistent with previous with diffuse esophageal spasm and diverticulum noted. Patient continued to experience esophageal epigastric discomfort. Subsequent esophagram ordered for evaluation. Dr. Hooker following ? 01/10/2024 esophagram demonstrated Circumferential narrowing at the gastroesophageal junction. Endoscopic correlation is recommended. 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 -Patient did get mild amount of Botox to the distal esophagus. Hopefully that will help the distal esophagus open. I would give her more Botox prior to her getting a PEG tube if needed.
[2024-01-10] MEDS: Atorvastatin Calcium 40 MG Tablet PO (22:06)
[2024-01-10 22:38] LABS: Bedside Glucose 128 mg/dL (74-106)
[2024-01-11 04:00] VITALS: BP 106/58; PULSE 52; RESP 16; TEMP 36.7; O2SAT 97
[2024-01-11 04:50] VITALS: BMI 25.9
[2024-01-11 07:09] LABS: Bedside Glucose 106 mg/dL (74-106)
[2024-01-11 07:10] VITALS: PULSE 61; RESP 17
[2024-01-11] MEDS: Ipratropium/Albuterol Sulfate 3 ML AMPUL.NEB INHALATION (07:12)
[2024-01-11 07:58] VITALS: O2SAT 93
[2024-01-11 09:26] VITALS: BP 104/52; PULSE 56; RESP 18; TEMP 36.6; O2SAT 100
[2024-01-11] MEDS: Ensure Plus High Protein 120 ML LIQUID PO ×2 (09:33→12:06)
[2024-01-11] MEDS: Azelastine HCl NASAL.SRY 2 SPRAY NASAL (09:33)
[2024-01-11] MEDS: Famotidine 20 MG Tablet PO (09:34)
[2024-01-11] MEDS: APIXABAN 2.5 MG TABLET (WCH) PO (09:34)
[2024-01-11] MEDS: Citalopram 10 MG Tablet PO (09:34)
[2024-01-11] MEDS: Fluticasone 0.05% 1 SPRAY NASAL.SRY 2 SPRAY NASAL (09:34)
[2024-01-11] MEDS: Furosemide 40 MG/4 ML Vial IV (09:34)
[2024-01-11] MEDS: Timolol 0.5% 5ML OPTH.BTL 1 DRP OPHTHALMIC (09:35)
--- NOTE | 2024-01-11 09:57 | CASEMGMT ---
Patient is ready for discharge back to [facility] today. AGATA notified Tonia that patient will be returning today. AGATA notified patient and patient asked that SW call her daughter Lesly. AGATA called Lesly and let her know patient will be going back to TCU today. Lesly thanked AGATA for letting her know. Plan: d/c back to [facility] under skilled level of care. Whit KELLOGG
--- NOTE | 2024-01-11 10:28 | PHA.DC.MR.R ---
Pharmacy PR Med Reconciliation Pharmacy Service has performed discharge medication reconciliation for this patient. The patient's discharge medication list was reviewed for discrepancies and discrepancies were resolved. Medications at Discharge Home Medications mirabegron 50 mg tablet,extended release 24 hr 50 mg PO DAILY URINARY FREQUENCY 07/11/16 atorvastatin 40 mg tablet 40 mg PO QHS 05/13/21 famotidine 20 mg tablet 20 mg PO BID GERD 07/01/21 lisinopril 2.5 mg tablet 2.5 mg PO DAILY BP 07/01/21 metformin 500 mg tablet 250 mg PO BID DM 06/09/22 apixaban 2.5 mg tablet (Eliquis) 2.5 mg PO BID BLOOD THINNER 05/24/23 azelastine 137 mcg (0.1 %) nasal spray aerosol 2 spray intranasal BID #30 mL 09/05/23 fluticasone propionate 50 mcg/actuation nasal spray,suspension 2 spray intranasal DAILY #16 grams 09/05/23 amiodarone 200 mg tablet 100 mg (1/2 x 200 mg) PO DAILY #90 tabs 12/01/23 citalopram 10 mg tablet (Celexa) 10 mg PO DAILY 12/16/23 furosemide 40 mg tablet 40 mg PO DAILY 12/19/23 timolol maleate 0.5 % eye drops 1 drp ophthalmic (eye) BID 12/19/23 acetaminophen 325 mg tablet 650 mg (2 x 325 mg) PO Q6H PRN PRN Pain 1-10 Or Fever>100.7 #0 tabs 01/10/24 albuterol sulfate 2.5 mg/3 mL (0.083 %) solution for nebulization 2.5 mg (3 mL) inhalation Q2H PRN PRN SOB &/OR WHEEZING #0 mL 01/10/24 food supplemt, lactose-reduced 0.08 gram-1.5 kcal/mL oral liquid (Ensure Plus High Protein) 120 ml PO TIDCM #0 mL 01/10/24 insulin lispro 100 unit/mL subcutaneous pen (Humalog KwikPen (U-100) Insulin) See Protocol subcut Q6 #0 mL 01/10/24 ipratropium 0.5 mg-albuterol 3 mg (2.5 mg base)/3 mL nebulization soln 3 ml inhalation Q6HWA.RT #0 mL 01/10/24 melatonin 3 mg tablet 3 mg PO QHS PRN PRN Insomnia #0 tabs 01/10/24 metoprolol succinate 50 mg tablet,extended release 24 hr 50 mg PO DAILY #0 tabs 01/10/24 nitroglycerin 0.4 mg sublingual tablet 0.4 mg sublingual Q5M PRN Cardiac/Chest Pain #0 tabs 01/10/24 sennosides 8.6 mg-docusate sodium 50 mg tablet (Stool Softener-Stimulant Laxative) 2 tab PO BID #0 tabs 01/10/24
[2024-01-11 12:15] LABS: Bedside Glucose 99 mg/dL (74-106)
== END 2024-01-11 13:15 | disposition skilled nursing facility (03) | DRG 177 ==
LOC: ED 14:12 → PCU 14:31
PROVIDERS: Anesthesiology; Internal Medicine; Internal Medicine Gastroenterology; Admitting Provider Internal Medicine; Emergency Provider Emergency Medicine; PCP Family Medicine; Visit Provider Internal Medicine
PROC: 0DJ08ZZ Inspection of Upper Intestinal Tract, Via Natural or Artificial Opening Endoscopic (ICD-10-PCS; CPT 43235; principal; 2024-01-03 11:55)
DX: J69.0 Pneumonitis due to inhalation of food and vomit (principal); J96.01 Acute respiratory failure with hypoxia; I50.23 Acute on chronic systolic (congestive) heart failure; I5A Non-ischemic myocardial injury (non-traumatic); I48.20 Chronic atrial fibrillation, unspecified; N17.9 Acute kidney failure, unspecified; J90 Pleural effusion, not elsewhere classified; I13.0 Hypertensive heart and chronic kidney disease with heart failure and stage 1 through stage 4 chronic kidney disease, or unspecified chronic kidney disease; J98.11 Atelectasis; K22.2 Esophageal obstruction; E86.9 Volume depletion, unspecified; E11.22 Type 2 diabetes mellitus with diabetic chronic kidney disease; N18.32 Chronic kidney disease, stage 3b; J47.9 Bronchiectasis, uncomplicated; E11.65 Type 2 diabetes mellitus with hyperglycemia; G31.84 Mild cognitive impairment of uncertain or unknown etiology; E78.5 Hyperlipidemia, unspecified; K57.90 Diverticulosis of intestine, part unspecified, without perforation or abscess without bleeding; K22.4 Dyskinesia of esophagus; R00.1 Bradycardia, unspecified; K22.5 Diverticulum of esophagus, acquired; J30.2 Other seasonal allergic rhinitis; I25.10 Atherosclerotic heart disease of native coronary artery without angina pectoris; I44.4 Left anterior fascicular block; K21.9 Gastro-esophageal reflux disease without esophagitis; K22.89 Other specified disease of esophagus; Z87.891 Personal history of nicotine dependence; R13.10 Dysphagia, unspecified; R53.81 Other malaise; Z66 Do not resuscitate; Z90.49 Acquired absence of other specified parts of digestive tract; Z79.01 Long term (current) use of anticoagulants; Z86.79 Personal history of other diseases of the circulatory system
CPT/HCPCS: 32555; 36415; 71045; 71046; 71250; 74221; 76000; 78452; 80048; 80053; 80076; 82945; 82962; 83036; 83615; 83735; 83880; 84100; 84157; 84484; 85025; 85027; 87070; 87075; 87205; 87493; 88108; 88305; 88313; 89050; 92526; 92610; 93005; 93017; 93306; 94640; 94668; 97110; 97162; 97166; 97530; 97535; 97802; 99252; 99285; A9500; J7030; J7040; J7120; A4216; C1769; G0463; J0295; J0585; J1940; J2405; J2785; J3490; J7799

== ENCOUNTER 2024-01-11 13:25 | Inpatient (IN) | payer MEDICARE, OTHER, SELFPAY ==
[2024-01-11 13:39] VITALS: BP 127/66; PULSE 57; RESP 16; RESP 18; TEMP 36.4; O2SAT 96; BMI 25.7
--- NOTE | 2024-01-11 15:54 | NURSING ---
Call placed to PCP regarding pneumonia vaccine, message left.
[2024-01-11 16:37] LABS: Bedside Glucose 155 mg/dL (74-106)
--- NOTE | 2024-01-11 16:46 | NURSING ---
UPDATED PT DAUGHTER THAT SHE WAS HERE ON TCU,ANSWERED HER QUESTIONS AND ASKED DAUGHTER SCOUT IF WE COULD PUT A CAMERA ON HER MOM FOR A FEW DAYS TILL WE FELT SHE WOULD NOT TRY AND GET UP DUE TO CONFUSION. PT DAUGHTER STATED IT WOULD BE FINE. RN AWARE
--- NOTE | 2024-01-11 17:27 | HP.PCM_ITS ---
HPI - General General Date of Admission: 01/11/24 Date of Service: 01/11/24 Chief Complaint: Here for rehabilitation. HPI Narrative 12/31/2023 RJAAT PASTRANA, is a 83 Female who presents to [facility] ED, TCU resident with shortness of breath. Chest pain, SOB, concern for aspiration, large esophageal diverticulum. Pulsox 95% on 3 liters oxygen. Chest X-ray Cardiomegaly, right lower lobe infiltrate. Unasyn iv for aspiration pneumonia. 12/31/2023 Admit to [facility]. Unasyn iv for aspiration pneumonia. Solu-medrol 40mg iv q8, Duoneb q6, oxygen for copd exacerbation. Consult GI for esophageal diverticulum. Lasix 40mg iv daily, echo, for elevated bnp. Cycle troponin for elevated troponin. 12/31/2023 Echo EF 40%. Takotsubo cardiomyopathy. 01/01/2024 SOB improved, persists. Continue Unasyn iv for aspiration pneumonia. GI recommended peg vs esophageal stent with botox injection for esophageal spasm. Lasix 40mg iv bid for acute HFrEF 2/2 Takotsubo cardiomyopathy. 01/02/2024 Breathing better. Change Unasyn to Augmentin tomorrow for aspiration pneumonia. Lasix 40mg iv bid to po bid for acute HFrEF. 01/02/2024 Nuclear stress test negative, EF 44%. 01/03/2024 Dr. Hooker EGD abnormal esophageal motility c/w presbyesophagus. Esophageal stent for esophageal diverticulum. 01/03/2024 Lasix 40mg po daily tomorrow. Hold Donepezil. Stop Cardizem. 01/04/2024 Intermittent SOB, oxygen 2 liters per nasal cannula. Augmentin for aspiration pneumonia. Prednisone burst for copd exacerbation. 01/05/2024 MBS cancelled, esophagus fluid filled to top on CT chest. Thoracentesis removed 560cc fluid. Dr. Hooker to discuss options with patient/family. Creatinine 2.34, Hold Lasix [address] Hooker recommended removing esophageal stent, placing stent at GE junction. 01/06/2024 Breathing labored, anxious. PT/OT Debility. NPO, oxygen [address] Hooker removed esophageal stent, placed longer stent. if fails recommends PEG tube. 01/07/2024 Modified dysphagia diet, food passes thru, oxygen 2 liters per NC. Full liquid diet. 01/08/2024 Modified dysphagia diet, chest pressure, food stuck. ST recommended NPO, PEG recommended. 01/09/2024 HFrEF 2/2 Takotsubo improved with diuretics. Aspiration pneumonia resolved with Unasyn. Esophagram narrowing at GE junction, tertiary contractions, traction diverticulum mid esophagus. 01/10/2024 Ate better today. Friend botox to distal esophagus, more botox, prior to PEG. 01/11/2024 Admit to TCU with debility, here for rehabilitation, strengthening, prior to discharge home alone. [facility] Medical History (Updated 01/11/24 @ 17:[address] Newton Ulloa MD) Chronic anemia CKD stage 3b, GFR 30-44 ml/min Dysphagia Transition of care Forgetfulness Wears glasses Diabetes Walker as ambulation aid Blood disorder Dietary restriction History of diverticulitis Difficulty swallowing Gastric reflux On home oxygen therapy History of stress test Cardiology follow-up encounter History of edema History of echocardiogram PAF (paroxysmal atrial fibrillation) Ambulatory dysfunction Generalized weakness Acute cystitis without hematuria Depression Diabetes GERD (gastroesophageal reflux disease) Atrial fibrillation Irregular heart beat Hypertension DVT (deep venous thrombosis) Fall Weakness UTI (urinary tract infection) Fatigue On amiodarone therapy Essential hypertension Abnormal pulmonary function test Nonrheumatic mitral (valve) prolapse Menieres disease Depression Meningioma Hyperlipidemia Atherosclerotic heart disease of [place] coronary artery without angina pectoris Palpitations Long-term use of high-risk medication Type 2 diabetes mellitus Osteoarthritis Family history of CVA Atrial ectopic tachycardia Paroxysmal atrial fibrillation Hypertension Home Medications ?Medication ?Instructions ?Recorded ?Last Taken ?Type mirabegron 50 mg tablet,extended 50 mg PO DAILY URINARY FREQUENCY 07/11/16 07/01/21 History release 24 hr atorvastatin 40 mg tablet 40 mg PO QHS Cholesterol 05/13/21 01/09/24 History famotidine 20 mg tablet 20 mg PO BID GERD 07/01/21 01/09/24 History lisinopril 2.5 mg tablet 2.5 mg PO DAILY BP 07/01/21 12/29/23 09:30 History metformin 500 mg tablet 250 mg PO BID DM 06/09/22 Unknown History apixaban 2.5 mg tablet (Eliquis) 2.5 mg PO BID BLOOD THINNER 05/24/23 01/09/24 History azelastine 137 mcg (0.1 %) nasal 2 spray intranasal BID Nasal 09/05/23 01/10/24 Rx spray aerosol Congestion #30 mL fluticasone propionate 50 2 spray intranasal DAILY Allergies 09/05/23 01/10/24 Rx mcg/actuation nasal #16 grams spray,suspension amiodarone 200 mg tablet 100 mg (1/2 x 200 mg) PO DAILY 12/01/23 12/29/23 09:30 Rx Heart Rate #90 tabs citalopram 10 mg tablet (Celexa) 10 mg PO DAILY Mood 12/16/23 01/09/24 History furosemide 40 mg tablet 40 mg PO DAILY Edema 12/19/23 Unknown History timolol maleate 0.5 % eye drops 1 drp ophthalmic (eye) BID Eyes 12/19/23 Unknown History acetaminophen 325 mg tablet 650 mg (2 x 325 mg) PO Q6H PRN PRN 01/10/24 01/04/24 Rx Pain 1-10 Or Fever>100.7 #0 tabs albuterol sulfate 2.5 mg/3 mL 2.5 mg (3 mL) inhalation Q2H PRN 01/10/24 Unknown Rx (0.083 %) solution for nebulization PRN SOB &/OR WHEEZING #0 mL food supplemt, lactose-reduced 120 ml PO TIDCM Supplement #0 mL 01/10/24 Unknown Rx 0.08 gram-1.5 kcal/mL oral liquid (Ensure Plus High Protein) insulin lispro 100 unit/mL See Protocol subcut Q6 Diabetes #0 01/10/24 01/08/24 Rx subcutaneous pen (Humalog KwikPen mL (U-100) Insulin) ipratropium 0.5 mg-albuterol 3 mg 3 ml inhalation Q6HWA.RT Shortness 01/10/24 01/10/24 Rx (2.5 mg base)/3 mL nebulization of Breath #0 mL soln melatonin 3 mg tablet 3 mg PO QHS PRN PRN Insomnia #0 01/10/24 Unknown Rx tabs metoprolol succinate 50 mg 50 mg PO DAILY BP #0 tabs 01/10/24 Unknown Rx tablet,extended release 24 hr nitroglycerin 0.4 mg sublingual 0.4 mg sublingual Q5M PRN 01/10/24 Unknown Rx tablet Cardiac/Chest Pain #0 tabs sennosides 8.6 mg-docusate sodium 2 tab PO BID Constipation #0 tabs 01/10/24 Unknown Rx 50 mg tablet (Stool Softener-Stimulant Laxative) Allergy/AdvReac Type Severity Reaction Status Date / Time benzonatate (From Tessalon Allergy Hives Verified 12/31/23 12:05 Perles) cat dander Allergy Unknown Verified 12/31/23 12:05 Family History Father CAD (coronary artery disease) CHF (congestive heart failure) History of DVT (deep vein thrombosis) Mother Diabetes Grandfather CAD (coronary artery disease) History of DVT (deep vein thrombosis) Grandmother CVA (cerebral vascular accident) Surgical History History of cardiac catheterization Hx of colonoscopy History of esophagogastroduodenoscopy (EGD) History of cataract extraction History of tonsillectomy and adenoidectomy History of tubal ligation Social History housing: retirement Smoking Status: Former smoker second hand exposure: No alcohol intake: never substance use type: does not use caffeine: No what type of physical activity do you participate in: none ROS Constitutional Constitutional: Reports weakness; Denies chills, fever(s) or weight gain ENT HEENT: Denies headache(s), nasal congestion or nasal discharge Cardiovascular Cardiovascular: Denies chest pain or palpitations Respiratory/Chest Respiratory/Chest: Denies cough, excessive phlegm production or shortness of breath with exertion Gastrointestinal Gastrointestinal: Reports dysphagia and heartburn; Denies abdominal pain, nausea or vomiting Genitourinary Genitourinary: Denies dysuria Musculoskeletal Musculoskeletal: Denies joint pain or joint swelling Integumentary Integumentary: Denies rash or wounds Neurologic Neurologic: Denies focal weakness, numbness or tingling Psychiatric Psychiatric: Denies anxiety, auditory hallucinations, depression, homicidal ideation or suicidal ideation Vital Signs Vital Signs Vital Signs: 01/11/24 13:39 01/11/24 13:39 Temperature 97.5 F L Temperature Source Temporal Pulse Rate 57 L Pulse Rhythm Regular Pulse Strength Normal (2+) Respiratory Rate 18 16 Respiratory Effort Normal Non-Labored Respiratory Depth Normal Respiratory Pattern Normal Blood Pressure 127/66 H Blood Pressure Mean 86 Blood Pressure Source Monitor Blood Pressure Position Semi-Fowlers Blood Pressure Location Right Arm Pulse Ox 96 Oxygen Delivery Method Nasal Cannula Nasal Cannula Oxygen Flow Rate (L/min) 3 3 Weight Weight: 70.08 kg Body Mass Index (BMI) 25.7 Physical Exam Const alert General Appearance: cooperative HEENT normocephalic Eyes PERRL and EOMs intact bilaterally Neck supple, no JVD and no carotid bruits Resp normal respiratory effort, normal air movement and clear to auscultation bilaterally Cardio regular rate and regular rhythm GI normal to inspection, nondistended, normoactive bowel sounds, non-tender and non-distended Extremity normal capillary refill General Extremity: Negative for edema Skin no rashes or lesions noted General Skin Exam: no breakdown Psych affect normal Appearance: appropriate Results Lab / Micro Data Labs: Laboratory Results - last 24 hr 01/11/24 16:15: POC Glucose 155 H Assessment & Plan Assessment/Plan (1) Debility: (2) Acute hypoxic respiratory failure: (3) Aspiration pneumonia: (4) COPD exacerbation: (5) Acute HFrEF (heart failure with reduced ejection fraction): (6) Takotsubo cardiomyopathy: (7) Dysphagia: (8) Esophageal diverticulum: (9) Atrial fibrillation: (10) Hyperlipidemia: QUALIFIERS: Hyperlipidemia type: unspecified Qualified Code(s): E78.5 - Hyperlipidemia, unspecified (11) Allergic rhinitis: (12) Depression: (13) Alzheimer disease: (14) GERD (gastroesophageal reflux disease): (15) Hypertension: (16) BPPV (benign paroxysmal positional vertigo): (17) Diabetes: (18) Overactive bladder: (19) Glaucoma: PLAN: Plan 83 year old female with below past medical history hospitalized for acute respiratory failure with hypoxia 2/2 aspiration pneumonia, copd exacerbation, acute HFrEF 2/2 Takotsubo cardiomyopathy, complicated by dysphagia 2/2 esophageal dysmotility, esophageal diverticulum, admitted to TCU with debility, here for rehabilitation, strengthening, prior to disposition determination. * Debility - PT/OT. * Dysphagia - ST. * Pain - Tylenol 650mg q6 prn pain (1-10). * Bowel - senna/colace 2 tablets bid. * Adult immunization - Administer pneumonia vaccine, covid vaccine, flu vaccine as appropriate. * DVT prophylaxis - on Eliquis. * Dysphagia/esophageal dysmotility - s/p esophageal stent, s/p botox injection, if problem persists, either PEG or Hospice. * COPD - Duoneb 3ml neb q6wart, Albuterol 2.5mg neb q2h prn. * Atrial fibrillation - Metoprolol succinate 50mg daily, Amiodarone 100mg daily, Eliquis 2.5mg bid. * Hyperlipidemia - Atorvastatin 40mg qhs. * Allergic rhinitis - Astelin 2 sprays nasal bid, Fluticasone 2 sprays nasal daily. * Depression - Citalopram 10mg daily, stable chronic exterminator helper termite use, GDR not recommended. * GERD - Famotidine 20mg bid. * Acute HFrEF - Metoprolol succinate 50mg daily, Lisinopril 2.5mg daily, Hold Furosemide, monitor. * Coronary Artery Disease - Metoprolol succinate 50mg daily, Lisinopril 2.5mg daily, Eliquis 2.5mg bid, NTG 0.4mg sl q5m prn. * Glaucoma - Timolol 0.5% 1gtt ou bid. * OAB - Gemtasa 75mg daily. * Insomnia - Melatonin 3mg qhs prn. * Skin irritation - Calmoseptine topical bid. * Diabetes Mellitus II - Metformin 250mg bidcm.
[2024-01-11] MEDS: Ensure Plus High Protein 120 ML LIQUID PO (17:49)
[2024-01-11] MEDS: metFORMIN HCl 500 MG Tablet 250 MG PO (17:52)
[2024-01-11 20:09] VITALS: PULSE 66; RESP 18; O2SAT 98
[2024-01-11] MEDS: Ipratropium/Albuterol Sulfate 3 ML AMPUL.NEB INHALATION (20:09)
[2024-01-11] MEDS: APIXABAN 2.5 MG TABLET (WCH) PO (20:23)
[2024-01-11] MEDS: Famotidine 20 MG Tablet PO (20:23)
[2024-01-11] MEDS: Atorvastatin Calcium 40 MG Tablet PO (20:23)
[2024-01-11] MEDS: Azelastine HCl NASAL.SRY 2 SPRAY NASAL (20:23)
[2024-01-11] MEDS: Senna/Docusate Sodium 1 Tablet 2 TABLET PO (20:23)
[2024-01-11] MEDS: Timolol 0.5% 5ML OPTH.BTL 1 DRP OPHTHALMIC (20:24)
[2024-01-11] MEDS: Menthol/Lanolin/Calamine/Znox 113 GM Tube 1 APPLIC TOPICAL (20:29)
[2024-01-11 21:54] LABS: Bedside Glucose 124 mg/dL (74-106)
[2024-01-12 06:00] LABS: Absolute Lymphocyte Count 1.95 X10^3/uL (0.83-4.51); Absolute Neutrophil Count 11.2 X10^3/uL (2.0-7.7); Basophil# 0.04 X10^3/uL; Basophil% 0.3 % (0-1); Eosinophil# 0.34 X10^3/uL; Eosinophils% 2.3 % (0-5); Hematocrit 38.9 % (37-47); Hemoglobin 11.8 g/dL (12.0-15.0); Lymphocyte # 1.95 X10^3/ul (0.83-4.51); Mean Corp Hgb Conc 30.3 g/dL (32-36); Mean Corpuscular Hgb 24.6 pg (27.0-32.0); Monocyte# 1.27 X10^3/uL; Monocyte% 8.5 % (0-10); NRBC Flagged by Analyzer 0 % (0-5); Neutrophil # 11.15 X10^3/uL (2.7-7.7); Neutrophil % 74.5 % (47-70); Platelet Count 233 K/mm3 (150-450); RBC Distribution Width CV 18.5 % (11.6-14.6); RBC Distribution Width SD 52.1 fl (35.1-43.9)
[2024-01-12 06:31] LABS: Bedside Glucose 111 mg/dL (74-106)
[2024-01-12 06:37] LABS: Anion Gap 7 (5-15); BUN 49 mg/dL (7-18); BUN/Creat Ratio 29.2 RATIO (10-20); Calcium,Total 8.4 mg/dL (8.5-10.1); Chloride 101 mmol/L (98-107); Creatinine, Serum 1.68 mg/dL (0.55-1.02); EST Glomerular Filtration Rate 31 mL/min (>60); Est Glom Filt Rate - Afr Amer 37 mL/min (>60); Estimated Creatinine Clearance 24.93 ml/min; Glucose 116 mg/dL (74-106); Potassium 3.3 mmol/L (3.5-5.1); Sodium Level 140 mmol/L (136-145)
[2024-01-12 07:58] VITALS: PULSE 71; RESP 20; O2SAT 94
[2024-01-12] MEDS: Ipratropium/Albuterol Sulfate 3 ML AMPUL.NEB INHALATION ×3 (07:58→20:43)
[2024-01-12] MEDS: Amiodarone 200 MG Tablet 100 MG PO (09:23)
[2024-01-12] MEDS: Ensure Plus High Protein 120 ML LIQUID PO ×3 (09:23→17:51)
[2024-01-12] MEDS: metFORMIN HCl 500 MG Tablet 250 MG PO ×2 (09:24→17:43)
[2024-01-12] MEDS: Potassium Chloride Oral Soln 20 MEQ/15 ML UDC 40 MEQ PO (09:24)
[2024-01-12] MEDS: Senna/Docusate Sodium 1 Tablet 2 TABLET PO ×2 (09:25→20:23)
[2024-01-12] MEDS: Famotidine 20 MG Tablet PO ×2 (09:25→20:23)
[2024-01-12] MEDS: Citalopram 10 MG Tablet PO (09:25)
[2024-01-12] MEDS: Vibegron 75 MG TABLET PO (09:25)
[2024-01-12] MEDS: APIXABAN 2.5 MG TABLET (WCH) PO ×2 (09:25→20:21)
[2024-01-12 09:27] VITALS: BP 116/55; PULSE 60
[2024-01-12] MEDS: Metoprolol(XL)Succ 50 MG Tablet PO (09:27)
[2024-01-12] MEDS: Timolol 0.5% 5ML OPTH.BTL 1 DRP OPHTHALMIC ×2 (09:28→20:23)
[2024-01-12] MEDS: Azelastine HCl NASAL.SRY 2 SPRAY NASAL ×2 (09:29→20:18)
[2024-01-12] MEDS: Fluticasone 0.05% 1 SPRAY NASAL.SRY 2 SPRAY NASAL (09:29)
[2024-01-12] MEDS: Menthol/Lanolin/Calamine/Znox 113 GM Tube 1 APPLIC TOPICAL ×2 (09:53→20:18)
[2024-01-12] MEDS: Lisinopril 2.5 MG Tablet PO (09:54)
[2024-01-12 11:54] LABS: Bedside Glucose 123 mg/dL (74-106)
[2024-01-12 13:00] VITALS: PULSE 65; RESP 18
[2024-01-12 14:11] VITALS: O2SAT 97
[2024-01-12] MEDS: 0.9% Saline Lock 10 ML Syringe IV (14:28)
[2024-01-12 14:43] VITALS: BP 103/57; PULSE 59; RESP 17; TEMP 36.2; O2SAT 95
--- NOTE | 2024-01-12 18:42 | NURSING ---
Potassium 3.[address] Ulloa made aware. NO for 1x dose potassium 40meq which was administered this AM. Family discuss possible PEG tube placement with Dr. Ulloa and family wants to wait a couple weeks to see if intake improves.
[2024-01-12] MEDS: Atorvastatin Calcium 40 MG Tablet PO (20:21)
[2024-01-12 20:44] VITALS: PULSE 64; RESP 20; O2SAT 96
[2024-01-13 05:56] LABS: Absolute Lymphocyte Count 1.84 X10^3/uL (0.83-4.51); Absolute Neutrophil Count 12.9 X10^3/uL (2.0-7.7); Basophil# 0.03 X10^3/uL; Basophil% 0.2 % (0-1); Eosinophil# 0.43 X10^3/uL; Eosinophils% 2.6 % (0-5); Hematocrit 36.7 % (37-47); Hemoglobin 11.2 g/dL (12.0-15.0); Lymphocyte # 1.84 X10^3/ul (0.83-4.51); Mean Corp Hgb Conc 30.5 g/dL (32-36); Mean Corpuscular Hgb 24.8 pg (27.0-32.0); Mean Corpuscular Volume 81.2 fL (81-99); Mean Platelet Vol. 12.3 fl (6.2-12.0); Monocyte# 1.38 X10^3/uL; Monocyte% 8.2 % (0-10); NRBC Flagged by Analyzer 0 % (0-5); Neutrophil # 12.87 X10^3/uL (2.7-7.7); Neutrophil % 76.8 % (47-70); Platelet Count 222 K/mm3 (150-450); RBC Distribution Width CV 18.4 % (11.6-14.6); RBC Distribution Width SD 52.8 fl (35.1-43.9); Red Blood Count 4.52 M/mm3 (4.2-5.4); White Blood Count 16.8 K/mm3 (4.4-11.0)
[2024-01-13 06:00] VITALS: BMI 26.2
[2024-01-13 06:42] LABS: Bedside Glucose 93 mg/dL (74-106)
[2024-01-13 06:57] VITALS: PULSE 60; RESP 16; O2SAT 97
[2024-01-13] MEDS: Ipratropium/Albuterol Sulfate 3 ML AMPUL.NEB INHALATION ×2 (06:57→13:00)
[2024-01-13 07:21] LABS: Anion Gap 5 (5-15); BUN 57 mg/dL (7-18); BUN/Creat Ratio 29.5 RATIO (10-20); Calcium,Total 8.3 mg/dL (8.5-10.1); Chloride 102 mmol/L (98-107); Creatinine, Serum 1.93 mg/dL (0.55-1.02); EST Glomerular Filtration Rate 26 mL/min (>60); Est Glom Filt Rate - Afr Amer 32 mL/min (>60); Glucose 112 mg/dL (74-106); Potassium 3.6 mmol/L (3.5-5.1); Sodium Level 139 mmol/L (136-145)
[2024-01-13] MEDS: Ensure Plus High Protein 120 ML LIQUID PO ×3 (07:52→16:51)
[2024-01-13] MEDS: Fluticasone 0.05% 1 SPRAY NASAL.SRY 2 SPRAY NASAL (07:52)
[2024-01-13] MEDS: Amiodarone 200 MG Tablet 100 MG PO (07:52)
[2024-01-13] MEDS: Vibegron 75 MG TABLET PO (07:53)
[2024-01-13] MEDS: Timolol 0.5% 5ML OPTH.BTL 1 DRP OPHTHALMIC ×2 (07:53→20:59)
[2024-01-13] MEDS: Azelastine HCl NASAL.SRY 2 SPRAY NASAL ×2 (07:53→20:55)
[2024-01-13] MEDS: Famotidine 20 MG Tablet PO ×2 (07:53→20:58)
[2024-01-13] MEDS: Citalopram 10 MG Tablet PO (07:53)
[2024-01-13] MEDS: Senna/Docusate Sodium 1 Tablet 2 TABLET PO ×2 (07:53→20:59)
[2024-01-13] MEDS: Lisinopril 2.5 MG Tablet PO (07:53)
[2024-01-13] MEDS: metFORMIN HCl 500 MG Tablet 250 MG PO ×2 (07:53→16:51)
[2024-01-13] MEDS: APIXABAN 2.5 MG TABLET (WCH) PO ×2 (07:53→20:57)
[2024-01-13 07:54] VITALS: PULSE 49
[2024-01-13] MEDS: Menthol/Lanolin/Calamine/Znox 113 GM Tube 1 APPLIC TOPICAL ×2 (07:54→20:56)
--- NOTE | 2024-01-13 08:51 | NS ---
MST score = 5
[2024-01-13 10:03] VITALS: BP 118/59; PULSE 49; RESP 18; TEMP 36.4; O2SAT 99
[2024-01-13] MEDS: Nystatin Powder 15gm Bottle 1 APPLIC TOPICAL ×2 (10:19→20:58)
--- NOTE | 2024-01-13 10:47 | PHA.CONS_ITS ---
TCU RX Drug Regimen Review Subjective/Objective Subjective/Objective: Subjective: 83 YOF admitted to TCU on 01/11/24 s/p hospitalization at [facility] secondary to COPD exacerbation/ aspiration pneumonia. Admitted to TCU for strengthening and rehabilitation prior to discharge home where she resides alone. Objective: Allergies benzonatate (From Ruthann Vazquez) Allergy (Verified 12/31/23 12:05) Hives cat dander Allergy (Verified 12/31/23 12:05) Unknown Current Medications Generic Name Dose Route Start Last Admin Trade Name Freq PRN Reason Stop Dose Admin Acetaminophen 650 mg 01/11/24 14:17 Acetaminophen 325 Mg Tablet PO Q6H PRN PRN Pain 1-10 Or Fever>100.7 Albuterol Sulfate 2.5 mg 01/11/24 14:17 Albuterol 2.5 Mg/3 Ml Vial.Neb. INHALATION Q2H PRN PRN SOB &/OR WHEEZING Albuterol/Ipratropium 3 ml 01/11/24 14:30 01/13/24 06:57 Ipratropium/Albuterol Sulfate 3 Ml Ampul.Neb INHALATION 3 ml Q6HWA.RT JAMEY Administration Amiodarone HCl 100 mg 01/12/24 08:00 01/13/24 07:52 Amiodarone 200 Mg Tablet PO 100 mg DAILYCM JAMEY Administration Apixaban 2.5 mg 01/11/24 22:00 01/13/24 07:53 Apixaban 2.5 Mg Tablet ([facility]) PO 2.5 mg BID JAMEY Administration Atorvastatin Calcium 40 mg 01/11/24 22:00 01/12/24 20:21 Atorvastatin Calcium 40 Mg Tablet PO 40 mg QHS JAMEY Administration Azelastine HCl 2 spray 01/11/24 22:00 01/13/24 07:53 Azelastine Hcl Nasal.Sry NASAL 2 spray BID JAMEY Administration Calamine/Phenol 1 applic 01/11/24 22:00 01/13/24 07:54 Menthol/Lanolin/Calamine/Znox 113 Gm Tube TOPICAL 1 applic BID JAMEY Administration Protocol Citalopram Hydrobromide 10 mg 01/12/24 10:00 01/13/24 07:53 Citalopram 10 Mg Tablet PO 10 mg DAILY JAMEY Administration Famotidine 20 mg 01/11/24 22:00 01/13/24 07:53 Famotidine 20 Mg Tablet PO 20 mg BID JAMEY Administration Fluticasone Propionate 2 spray 01/12/24 10:00 01/13/24 07:52 Fluticasone 0.05% 1 [place] Nasal.Sry NASAL 2 spray DAILY JAMEY Administration Lisinopril 2.5 mg 01/12/24 10:00 01/13/24 07:53 Lisinopril 2.5 Mg Tablet PO 2.5 mg DAILY JAMEY Administration Protocol Melatonin 3 mg 01/11/24 14:17 Melatonin 3 Mg Tablet PO QHS PRN PRN Insomnia Metformin HCl 250 mg 01/11/24 17:00 01/13/24 07:53 Metformin Hcl 500 Mg Tablet PO 250 mg BIDCM JAMEY Administration Metoprolol Succinate 50 mg 01/12/24 10:00 01/13/24 07:54 Metoprolol(Xl)Succ 50 Mg Tablet PO Not Given DAILY JAMEY Protocol Nitroglycerin 0.4 mg 01/11/24 15:10 Nitroglycerin (Inpatient Use) 0.4 Mg Tab.Subl SL Q5M PRN CARDIAC/CHEST PAIN Nutritional Formula (Lactose Free) 120 ml 01/11/24 17:45 01/13/24 07:52 Ensure Plus High Protein 120 Ml Liquid PO 120 ml TIDCM JAMEY Administration Nystatin 1 applic 01/13/24 11:00 01/13/24 10:19 Nystatin Powder 15gm Bottle TOPICAL 1 applic BID JAMEY Administration Protocol Senna/Docusate Sodium 2 tablet 01/11/24 22:00 01/13/24 07:53 Senna/Docusate Sodium 1 Tablet PO 2 tablet BID JAMEY Administration Sodium Chloride 10 - 40 ml 01/11/24 14:51 01/12/24 14:28 0.9% Saline Lock 10 Ml Syringe IV 10 ml UD PRN Administration SALINE FLUSH Timolol Maleate 1 drp 01/11/24 22:00 01/13/24 07:53 Timolol 0.5% 5ml Opth.Btl OPHTHALMIC 1 drp BID JAMEY Administration Tuberculin PPD 0.1 ml 01/19/24 10:00 Tuberculin,Purif.Prot.Deriv. 50 Tu/Ml Vial ID 01/19/24 10:01 X1 ONE Problem List Hypertension (Chronic) Alzheimer disease (Acute) Takotsubo cardiomyopathy (Acute) Acute HFrEF (heart failure with reduced ejection fraction) (Acute) COPD exacerbation (Chronic) Acute hypoxic respiratory failure (Acute) Aspiration pneumonia (Acute) Esophageal diverticulum (Acute) Dysphagia (Acute) Allergic rhinitis (Acute) Glaucoma (Acute) BPPV (benign paroxysmal positional vertigo) (Acute) Overactive bladder (Acute) Debility (Acute) Depression (Acute) Atrial fibrillation (Acute) Diabetes (Acute) GERD (gastroesophageal reflux disease) (Acute) Hyperlipidemia (Chronic) Vital Signs Temp Pulse Resp BP Pulse Ox O2 Del Method O2 Flow Rate 97.6 F L 49 L 18 118/59 L 99 Nasal Cannula 3 01/13/24 10:03 01/13/24 10:03 01/13/24 10:03 01/13/24 10:01/13/24 10:01/13/24 10:01/13/24 10:03 Oxygen Flow Rate (L/min) 3 Oxygen Delivery Method Nasal Cannula Weight: 71.577 kg Body Mass Index (BMI) 26.2 Sodium 139 mmol/L (136-145) 01/13/24 05:32 Potassium 3.6 mmol/L (3.5-5.1) 01/13/24 05:32 Chloride 102 mmol/L (98-107) 01/13/24 05:32 Carbon Dioxide 32.0 mmol/L (21.0-32.0) 01/13/24 05:32 Anion Gap 5 (5-15) 01/13/24 05:32 BUN 57 mg/dL (7-18) H 01/13/24 05:32 Creatinine 1.93 mg/dL (0.55-1.02) H 01/13/24 05:32 Est GFR (MDRD) Af Amer 32 mL/min (>60) L 01/13/24 05:32 Est GFR (MDRD) Non-Af 26 mL/min (>60) L 01/13/24 05:32 BUN/Creatinine Ratio 29.5 RATIO (10-20) H 01/13/24 05:32 Glucose 112 mg/dL (74-106) H 01/13/24 05:32 Assessment/Plan: 1. COPD- Duoneb inhalation q6h, albuterol 2.5 mg inhalation q2h prn. Please monitor pulse (last 49 BPM), worsening cardiomyopathy, tremor, insomnia, and s/s of infection. 2. Acute HFrEF- metoprolol succinate 50mg tablet PO daily and lisinopril 2.5 mg PO daily. Please monitor for bradycardia (pulse 49 BPM), hypotension (BP 118/59), renal function (CrCl 22 mL/min on 01/12), and hyperkalemia (K 3.6 on 01/12). 3. CAD- metoprolol succinate 50mg PO daily, lisinopril 2.5mg PO daily, Eliquis 2.5mg PO BID, nitroglycerin0.4mg sl q5m prn. Please monitor for blood in the urine or stool, falls, and hemorrhage, pulse (49 BPM), hypotension (BP 118/59). 4. Atrial fibrillation- metoprolol succinate 50 mg PO daily, amiodarone 100mg PO daily, Eliquis 2.5 mg PO BID. Please monitor for hepatotoxicity (black box), QTc prolongation (BEERs), bradycardia, hypotension, thyroid levels, and pulmonary toxicity, S/S bleeding/bruising, H/H (hgb 11.2, hct 36.7 on 01/12). 5. OAB- Gemtesa 75mg PO daily, Please monitor for s/s of urinary retention. 6. Hyperlipidemia- atorvastatin 40mg PO qhs. Please continue to monitor lipid panel annually (panel WNL on 12/2023), myalgia and myopathy. 7. GERD- famotidine 20mg PO BID. Please monitor for agitation and confusion. Please consider decreasing dose to 20mg daily per residents creatinine clearance (CrCl 22mL/min on 01/12). 8. Pain- acetaminophen 650mg PO q6h prn pain 1-10. Please continue to monitor for S/S increased/decreased pain, PRN medication usage. -To date, the patient has not required any PRN medication doses. Pain appears managed at this time with current regimen. 9. Glaucoma- Timolol 0.5% 1 ggt ou bid. Please monitor for blurred vision, burning of eyes and stinging of eyes. 10. Diabetes Mellitus 2- Metformin 250mg PO BID. Please continue to monitor for vitamin b12 deficiency, and diarrhea, A1c (last 5.9% on 01/03/24), S/S hypoglycemia. 11. Insomnia- melatonin 3 mg PO qhs prn. Please monitor for over-sedation. If medication does not show effectiveness, please try administering 2 hours before bedtime. 12. Allergic rhinitis- azelastine 2 sprays nasally bid, fluticasone 50mcg 2 sprays nasally daily. Please monitor for nasal irritation and s/s improvement. 13. Skin irritation- calmoseptine topically BID, nystatin powder topically BID. Please monitor for skin irritation, redness, and ulcer formation. 14. Bowel regimen- sennosides/docusate 8.6/50mg 2 tablets PO BID. Please continue to monitor for increased/decreased constipation and/or diarrhea. -To date, the patient has had 2 bowel movements documented on 01/11/24. Assessment/Plan for indications treated with psychotropic medications: 1. Depression- citalopram 10mg PO daily. Please monitor for suicidal thoughts (black box) and QTc prolongation, See provider's note on GDR. Medical chart and medication regimen reviewed. The following medication irregularities or issues were identified: 1. GERD: Famotidine 20mg PO BID. Patient's estimated CrCl is 22mL/min, please consider decreasing dose to 20mg PO Daily based on renal function, thank you. Date Date of Note:: 01/13/24
--- NOTE | 2024-01-13 11:51 | NURSING ---
Personal Development Mentor Note; Activity Asset: Complete
--- NOTE | 2024-01-13 12:46 | NURSING ---
Updated patient and family via phone that a patient on the unit tested positive for covid.
[2024-01-13 13:00] VITALS: PULSE 62; RESP 16
[2024-01-13 16:51] VITALS: O2SAT 99
[2024-01-13 20:00] VITALS: PULSE 64; O2SAT 97
[2024-01-13] MEDS: Atorvastatin Calcium 40 MG Tablet PO (20:58)
[2024-01-14] VITALS (7 sets, daily range): BP systolic 82–120; BP diastolic 48–59; PULSE 57–64; RESP 16–20; TEMP 36.1–36.6; O2SAT 90–99; BMI 26.2
[2024-01-14 07:01] LABS: Bedside Glucose 111 mg/dL (74-106)
[2024-01-14] MEDS: Menthol/Lanolin/Calamine/Znox 113 GM Tube 1 APPLIC TOPICAL ×2 (07:50→21:59)
[2024-01-14] MEDS: Timolol 0.5% 5ML OPTH.BTL 1 DRP OPHTHALMIC ×2 (07:51→21:57)
[2024-01-14] MEDS: Azelastine HCl NASAL.SRY 2 SPRAY NASAL ×2 (07:51→21:58)
[2024-01-14] MEDS: Nystatin Powder 15gm Bottle 1 APPLIC TOPICAL ×2 (07:51→21:59)
[2024-01-14] MEDS: Fluticasone 0.05% 1 SPRAY NASAL.SRY 2 SPRAY NASAL (07:51)
[2024-01-14] MEDS: Ensure Plus High Protein 120 ML LIQUID PO ×3 (07:52→17:14)
[2024-01-14] MEDS: Metoprolol(XL)Succ 50 MG Tablet PO (07:52)
[2024-01-14] MEDS: Famotidine 20 MG Tablet PO ×2 (07:52→21:58)
[2024-01-14] MEDS: Lisinopril 2.5 MG Tablet PO (07:52)
[2024-01-14] MEDS: metFORMIN HCl 500 MG Tablet 250 MG PO ×2 (07:52→17:13)
[2024-01-14] MEDS: APIXABAN 2.5 MG TABLET (WCH) PO ×2 (07:52→21:58)
[2024-01-14] MEDS: Amiodarone 200 MG Tablet 100 MG PO (07:52)
[2024-01-14] MEDS: Senna/Docusate Sodium 1 Tablet 2 TABLET PO (07:52)
[2024-01-14] MEDS: Citalopram 10 MG Tablet PO (07:52)
[2024-01-14] MEDS: Vibegron 75 MG TABLET PO (07:52)
[2024-01-14] MEDS: Ipratropium/Albuterol Sulfate 3 ML AMPUL.NEB INHALATION ×2 (08:05→13:45)
--- NOTE | 2024-01-14 20:00 | EKG12_ITS ---
Test Reason : CHEST PAIN Blood Pressure : / mmHG Vent. Rate : 060 BPM Atrial Rate : 060 BPM P-R Int : 168 ms QRS Dur : 128 ms QT Int : 440 ms P-R-T Axes : 000 214 247 degrees QTc Int : 440 ms Normal sinus rhythm Non-specific intra-ventricular conduction block Nonspecific T wave abnormality Abnormal ECG When compared with ECG of 14-JAN-2024 20:23, MANUAL COMPARISON REQUIRED, DATA IS UNCONFIRMED Confirmed by VERNON LLOYD, EDUIN ([id number]), food expeditor HERNANDO PEREZ ([id number]) on 01/17/2024 5:52:22 AM Referred By: Newton Ulloa Confirmed By:EDUIN JUNIOR MD
--- NOTE | 2024-01-14 20:07 | NURSING ---
Respiratory verbalizes concerns of decreased air movement to left upper lobe and thinks resident appears more pale, dry, and fingers cool to touch. Vital signs obtained and recorded. O2 increased to 3 lpm via nc from 2 lpm d/t spO2 between 88-90%. EKG ordered. Alert but drowsy and oriented x 3. Answers all additional questions asked appropriately. Previous nurse reports resident has had 4 moderate loose stools today and placed in enteric precautions. Initially upon assessment, resident denies any chest pain or shortness of breath at rest. Denies nausea or vomiting. HR regular, bradycardic. Lung sounds to left upper lobe is slightly more diminished than the rt upper and mid lobes. Intermittent dry cough noted when auscultating lung sounds. Resident notes the cough has been non-productive. Reproducible chest pain to rt lower ribcage bear base of sternum. When repositioned in bed, resident reports chest pressure at 7/10 that extends from the rt clavicle along the rt sternal border to the lower edge and to the mid chest w/ slight radiation to the left sternal border adjacent to the midsternal are the resident is identifying the location of pain. Did belch x1 notes w/ belching and rest the pain does subside. Movement increases the character of pain. Abdomen soft and slightly distended. Bowel sounds normoactive to rt lower and upper quadrant. Hypoactive to lt upper and lower quadrants. Slight discomfort when assessing LLQ. Spoke w/ RT on unit and she notes recently decreasing liter flow to 2lpm d/t spO2 of 97% in attempt to wean O2. In no acute distress. Will continue to monitor.
--- NOTE | 2024-01-14 21:20 | RAD_ITS ---
STUDY: X-RAY CHEST REASON FOR EXAM: Female, 83 years old. Chest pain, decreased breath sounds- lt upper lobe TECHNIQUE: Frontal and lateral views of the chest. COMPARISON: 01/08/2024. FINDINGS: Bilateral pulmonary opacities are seen in the lower lung cortes, worse on the left when compared to prior exam. Findings are consistent with atelectasis or infiltrate with pleural effusions. Mild cardiomegaly. Stable appearance and positioning of esophageal stent. In the distal esophageal stent there is a collection of of retained contrast from contrast administration on 01/09/2024. A separate small collection of contrast is seen external to the stent along the right side. Although this could still be intraluminal within a distended esophagus, a leak is not excluded. There is moderate cardiac enlargement. Normal mediastinum and avtar. Normal visualized pulmonary arteries. Normal visualized aortic arch and descending thoracic aorta. There are diffuse degenerative changes of the visualized thoracic spine. Stable compression fracture of the mid thoracic spine. Normal visualized ribs, clavicles, and shoulders. There is no demonstrated abnormality of the visualized soft tissue structures of the upper abdomen. RAD/Chest PA and Lateral IMPRESSION: Worsening of atelectasis or infiltrate in the lower left lung with pleural effusion. Stable atelectasis or infiltrate and pleural effusion in the lower right lung. Oral contrast in distal esophageal stent as described. Electronically Signed: Alvarado Shea MD at 22:28 EDT ,
[2024-01-14] MEDS: 0.9% Normal Saline (1000mL) 1,000 ML 999 ML IV (21:52)
[2024-01-14] MEDS: Atorvastatin Calcium 40 MG Tablet PO (21:58)
[2024-01-14] MEDS: 0.9% Normal Saline (1000mL) 1,000 ML 75 ML IV (23:01)
[2024-01-14] MEDS: levoFLOXacin IV 750 MG/150 ML BAG 100 MG IV (23:26)
[2024-01-15 06:00] VITALS: BMI 26.2
[2024-01-15 06:09] LABS: Absolute Lymphocyte Count 1.36 X10^3/uL (0.83-4.51); Absolute Neutrophil Count 10.4 X10^3/uL (2.0-7.7); Basophil# 0.04 X10^3/uL; Basophil% 0.3 % (0-1); Eosinophil# 0.23 X10^3/uL; Eosinophils% 1.7 % (0-5); Hematocrit 32.1 % (37-47); Hemoglobin 9.6 g/dL (12.0-15.0); Lymphocyte # 1.36 X10^3/ul (0.83-4.51); Lymphocyte % 10.2 % (19-41); Mean Corp Hgb Conc 29.9 g/dL (32-36); Mean Corpuscular Hgb 24.7 pg (27.0-32.0); Mean Corpuscular Volume 82.7 fL (81-99); Mean Platelet Vol. 11.5 fl (6.2-12.0); NRBC Flagged by Analyzer 0 % (0-5); Neutrophil # 10.38 X10^3/uL (2.7-7.7); Neutrophil % 77.8 % (47-70); Platelet Count 159 K/mm3 (150-450); RBC Distribution Width CV 18.9 % (11.6-14.6); RBC Distribution Width SD 54.9 fl (35.1-43.9); Red Blood Count 3.88 M/mm3 (4.2-5.4); White Blood Count 13.4 K/mm3 (4.4-11.0)
[2024-01-15 06:12] LABS: Bedside Glucose 91 mg/dL (74-106)
[2024-01-15 07:40] LABS: Anion Gap 8 (5-15); BUN 48 mg/dL (7-18); BUN/Creat Ratio 27.1 RATIO (10-20); Calcium,Total 7.8 mg/dL (8.5-10.1); Chloride 108 mmol/L (98-107); Creatinine, Serum 1.77 mg/dL (0.55-1.02); EST Glomerular Filtration Rate 29 mL/min (>60); Est Glom Filt Rate - Afr Amer 35 mL/min (>60); Estimated Creatinine Clearance 23.89 ml/min; Glucose 95 mg/dL (74-106); Potassium 3.2 mmol/L (3.5-5.1); Sodium Level 137 mmol/L (136-145)
[2024-01-15 07:50] VITALS: PULSE 60; RESP 18; O2SAT 98
[2024-01-15] MEDS: Ipratropium/Albuterol Sulfate 3 ML AMPUL.NEB INHALATION ×3 (07:50→19:20)
--- NOTE | 2024-01-15 07:57 | NURSING ---
Late entry for 01/13: Spoke w/ Dr. Ulloa via phone to update on resident's condition. New orders received and read back for NS 1L bolus then 75ml/hr, CXR PA and lateral, dc Toprol XL and Lisinopril, and check BMP and CBC in the am. Spoke w/ Dr. Ulloa again after CXR results received and new orders received and read back for Levaquin 750mg IV daily x 7 days- pharmacy may dose if needed and stool for CDiff and Enteric panel.
[2024-01-15] MEDS: Timolol 0.5% 5ML OPTH.BTL 1 DRP OPHTHALMIC ×2 (08:11→22:06)
[2024-01-15] MEDS: Amiodarone 200 MG Tablet 100 MG PO (08:11)
[2024-01-15] MEDS: Azelastine HCl NASAL.SRY 2 SPRAY NASAL ×2 (08:11→22:01)
[2024-01-15] MEDS: Fluticasone 0.05% 1 SPRAY NASAL.SRY 2 SPRAY NASAL (08:11)
[2024-01-15] MEDS: metFORMIN HCl 500 MG Tablet 250 MG PO (08:11)
[2024-01-15] MEDS: Ensure Plus High Protein 120 ML LIQUID PO ×2 (08:12→12:00)
[2024-01-15] MEDS: Vibegron 75 MG TABLET PO (08:12)
[2024-01-15] MEDS: Famotidine 20 MG Tablet PO ×2 (08:12→22:04)
[2024-01-15] MEDS: Menthol/Lanolin/Calamine/Znox 113 GM Tube 1 APPLIC TOPICAL ×2 (08:12→22:02)
[2024-01-15] MEDS: Citalopram 10 MG Tablet PO (08:12)
[2024-01-15] MEDS: APIXABAN 2.5 MG TABLET (WCH) PO ×2 (08:12→22:03)
[2024-01-15] MEDS: Nystatin Powder 15gm Bottle 1 APPLIC TOPICAL ×2 (08:12→22:03)
[2024-01-15 09:19] VITALS: BP 104/50; PULSE 58; RESP 20; TEMP 36.2; O2SAT 96
[2024-01-15] MEDS: 0.9% Normal Saline (1000mL) 1,000 ML 75 ML IV (13:42)
[2024-01-15] MEDS: Potassium Chloride Oral Soln 20 MEQ/15 ML UDC 40 MEQ PO (13:43)
[2024-01-15 13:52] VITALS: PULSE 65; RESP 18
--- NOTE | 2024-01-15 17:21 | NURSING ---
xray called to verify order and time for KUB previously ordered stat today
--- NOTE | 2024-01-15 17:45 | RAD_ITS ---
EXAM: XR ABDOMEN, 1 VIEW CLINICAL INDICATION: Hypoactive bowel sounds to L quadrants TECHNIQUE: Frontal supine view of the abdomen/pelvis. COMPARISON: Chest radiograph, 01/14/2024. FINDINGS: LOWER THORAX: Esophageal stent with retained distal esophageal contrast. Additional adjacent accumulation of contrast to the right of the esophagus in the lower mediastinum. GASTROINTESTINAL TRACT: Nonobstructed bowel gas pattern. ORGANS: Normal as visualized. No organomegaly. No abnormal calcifications. BONES/JOINTS: Degenerative changes in the spine, pelvis, and hips. SOFT TISSUES: Bilateral tubal ligation clips. RAD/Abdomen Single View IMPRESSION: 1. Esophageal stent with retained distal esophageal contrast. Additional adjacent accumulation of contrast to the right of the esophagus in the lower mediastinum. 2. Nonobstructed bowel gas pattern. Electronically Signed: Devendra Toure DO at 18:31 EDT ,
--- NOTE | 2024-01-15 17:53 | NURSING ---
to x-ray via bed and returned, continue to have abdominal discomfort and esophageal discomfort-she states she has had the esophageal/sternal and right nipple down since she awakened from EGD when stents were placed
[2024-01-15 19:17] VITALS: PULSE 74; RESP 18
--- NOTE | 2024-01-15 20:10 | NURSING ---
Results of KUB noted. Abdomen remains softly distended. Bowel sounds hypoactive to the left upper and lower quadrants. Normoactive to the rt upper and lower quadrants. Abdomen remains tender upon palpation- primarily to the left lateral aspect of the upper and lower quadrants. Had a bm for the previous shift which was negative for CDiff. Per report, there was not enough stool for an enteric panel to be completed. In no acute distress.
--- NOTE | 2024-01-15 21:00 | NURSING ---
Spoke w/ Dr. Ulloa via phone to update on KUB results and this nurse's abdominal assessment completed previously this shift. New orders received and read back for a CT of the abdomen and pelvis with contrast. If unable to have testing completed today d/t insurance, the scan may be completed tomorrow.
--- NOTE | 2024-01-15 21:10 | NURSING ---
Spoke w/ Dr. Ulloa via phone to verify route of contrast after speaking w/ Pro in CT scan that oral, IV, or both needs verified. Order received and read back per Dr. Ulloa for contrast via both routes.
--- NOTE | 2024-01-15 21:19 | NURSING ---
Addendum entered by Janett Davenport 01/17/24 13:03: Dr. Ulloa discontinued metformin order this morning. Original Note: Spoke w/ pharmacist, Sánchez, questioning if an order was received for Metformin to be held for 48 hours post-scan to prevent decline in renal function. Informed Sánchez this nurse did not receive an order and will leave a note for Dr. Ulloa to address tomorrow am. Sánchez will place an order for Metformin to be held on the MAR until clarified per Dr. Ulloa.
--- NOTE | 2024-01-15 21:54 | NURSING ---
Oral contrast received on unit at 2130. Spoke w/ Pro in CT via phone w/ goal for resident to drink half of contrast between 2155-0134 and the second half of the contrast from 9051-6034 with the goal of the scan to be completed around 2330. Face sheet and written telephone order faxed to CT at [phone] w/ confirmation page received. Resident was given contrast and instructed on above noted instructions per CT staff.
[2024-01-15] MEDS: Contrast Allergy Safety Check IV (21:59)
[2024-01-15] MEDS: Atorvastatin Calcium 40 MG Tablet PO (22:04)
--- NOTE | 2024-01-15 23:29 | NURSING ---
Patient left floor at [address] scan with PO and IV contrast.
--- NOTE | 2024-01-15 23:53 | NURSING ---
Patient returned from CT scan at 8403.
--- NOTE | 2024-01-16 00:58 | NURSING ---
Resident heard yelling from room. Upon entering room, resident is calling out for Ramses. Reoriented to place and time. Acknowledges she is at the hospital. Positioned in bed for comfort. O2 via nc in use and NS infusing. Call light w/ in reach. Will continue to monitor.
[2024-01-16] MEDS: 0.9% Normal Saline (1000mL) 1,000 ML 75 ML IV ×2 (03:16→16:45)
[2024-01-16 06:00] VITALS: BMI 26.6
[2024-01-16 06:09] LABS: Bedside Glucose 99 mg/dL (74-106)
[2024-01-16 07:28] LABS: Anion Gap 5 (5-15); BUN 53 mg/dL (7-18); BUN/Creat Ratio 33.8 RATIO (10-20); Calcium,Total 8.1 mg/dL (8.5-10.1); Chloride 112 mmol/L (98-107); Creatinine, Serum 1.57 mg/dL (0.55-1.02); EST Glomerular Filtration Rate 33 mL/min (>60); Est Glom Filt Rate - Afr Amer 40 mL/min (>60); Estimated Creatinine Clearance 26.93 ml/min; Glucose 102 mg/dL (74-106); Sodium Level 139 mmol/L (136-145)
[2024-01-16] MEDS: Ipratropium/Albuterol Sulfate 3 ML AMPUL.NEB INHALATION ×3 (07:30→19:25)
[2024-01-16 08:04] VITALS: BP 155/71; PULSE 58
[2024-01-16] MEDS: Nitroglycerin (INPATIENT USE) 0.4 MG TAB.SUBL SL (08:04)
--- NOTE | 2024-01-16 08:08 | EKG12_ITS ---
Test Reason : IRREG HR Blood Pressure : / mmHG Vent. Rate : 060 BPM Atrial Rate : 060 BPM P-R Int : 160 ms QRS Dur : 134 ms QT Int : 574 ms P-R-T Axes : 000 -57 120 degrees QTc Int : 574 ms Normal sinus rhythm Left axis deviation Non-specific intra-ventricular conduction block T wave abnormality, consider lateral ischemia Abnormal ECG When compared with ECG of 09-JAN-2024 08:23, Significant changes have occurred Confirmed by VERNON LLOYD, EDUIN ([id number]), medical editor HERNANDO PEREZ ([id number]) on 01/17/2024 5:52:43 AM Referred By: DR ROUSE Confirmed By:EDUIN JUNIOR MD
[2024-01-16 08:13] VITALS: PULSE 66; RESP 18; O2SAT 97
--- NOTE | 2024-01-16 08:15 | NURSING ---
pt called out c/o CP 6/10 pain during brkfst. vitals obtained, x1 nitro given, EKG ordered. Dr Ulloa aware, would like pt to think about hospice d/t medical issues. Family will be in later today to discuss with patient.
[2024-01-16] MEDS: Azelastine HCl NASAL.SRY 2 SPRAY NASAL ×2 (09:16→21:17)
[2024-01-16] MEDS: Amiodarone 200 MG Tablet 100 MG PO (09:17)
[2024-01-16] MEDS: Famotidine 20 MG Tablet PO ×2 (09:17→21:15)
[2024-01-16] MEDS: Ensure Plus High Protein 120 ML LIQUID PO (09:18)
[2024-01-16] MEDS: Vibegron 75 MG TABLET PO (09:18)
[2024-01-16] MEDS: Fluticasone 0.05% 1 SPRAY NASAL.SRY 2 SPRAY NASAL (09:18)
[2024-01-16] MEDS: Citalopram 10 MG Tablet PO (09:18)
[2024-01-16] MEDS: APIXABAN 2.5 MG TABLET (WCH) PO ×2 (09:18→22:35)
[2024-01-16] MEDS: Timolol 0.5% 5ML OPTH.BTL 1 DRP OPHTHALMIC ×2 (09:19→21:17)
[2024-01-16] MEDS: Menthol/Lanolin/Calamine/Znox 113 GM Tube 1 APPLIC TOPICAL ×2 (09:23→21:16)
[2024-01-16] MEDS: Nystatin Powder 15gm Bottle 1 APPLIC TOPICAL ×2 (09:23→21:16)
[2024-01-16] MEDS: Acetaminophen 325 MG Tablet 650 MG PO (09:52)
--- NOTE | 2024-01-16 10:21 | NURSING ---
Patient complaining of esophageal pain, says 04/17. Tylenol given. Updated Dr. Ulloa, order for morphine 10mg PO Q1hr PRN.
--- NOTE | 2024-01-16 11:09 | CASEMGMT ---
Social Work SW met with patient at bedside to complete initial intake assessment. Patient is A&Ox3 (person, place, situation) disoriented to time. Patient confirmed demographics/ contact information. Patient informed SW that she was residing alone prior to admission. SW informed patient that there are concerns for superintendent container terminal care potentially. Patient informed SW that she would likely require superintendent container terminal care. Patient confirm code status- [id number]. Patient has advanced directive; located in medical charts. Patient informed SW that she has son, Phil as primary decision maker. Patient's goal would be to return home, but she informed SW that she does not believe that is possible at this time. Patient's family to meet with physician, Dr. Ulloa to discuss hospice tonight, 01/16/24. SW will continue to follow to support care planning. VALDEZ Banks
[2024-01-16 12:50] VITALS: PULSE 70; RESP 17
[2024-01-16 12:55] VITALS: BP 143/64; PULSE 66; RESP 17; TEMP 36.9; O2SAT 100
[2024-01-16] MEDS: morphine (oral solution) 10MG/0.5ML Syringe 10 MG PO (17:40)
--- NOTE | 2024-01-16 17:46 | CON.PCM.GI_ITS ---
HPI Consult Data Date of Consult: 01/16/24 HPI Narrative Reason for Consultation: Esophageal dysphagia and aspiration pneumonia HPI Narrative: RAJAT PASTRANA, is a 83-year-old female was admitted through the ED on 12/24/2023 with a complaint of weakness and mechanical fall. Symptoms had began about a week prior to admission and weakness that gradually worsened. She said she lived alone and had been getting weaker because trying to ambulate with her walker. She says she went to the bathroom and had to prop head against the wall due to weakness and was even unable to pull her pants up. She subsequently fell and hit the lower portion of her back and pelvis resulting in significant pain. She therefore pressed her alert button and EMS brought her into the ED. Urinalysis showed evidence of UTI. CT of the brain showed no acute intracranial pathology and showed a meningioma of the left parietal lobe. Pelvic x-ray showed no evidence of any acute fracture or dislocation. She was admitted and managed for UTI as well as debility and weakness due to mechanical fall. She was hydrated with IV fluids and started on IV ceftriaxone. PT OT was consulted. Urine cultures grew E. coli which was pansensitive. Antibiotics were therefore switched to p.o. cefdinir. She worked with physical therapy and was deemed as needing further skilled care. She was discharged to SNF on 12/22/2023. She was given a prescription for p.o. cefdinir to complete a 5-day course. She was referred for ST consult due to swallowing difficulty. BSE 12/21/23 recommended puree textures / thin liquids with plans for MBSS in upcoming sessions. She underwent a repeat video swallow it displayed severe retention of liquids and pudding with little to no emptying through the LES. Esophagus appears tortuous with very narrow lower esophagus. Esophagus also appears to have food particles suspended in the barium. Patient reports regurgitating 5X/week. Recommended GI consultation. She underwent an upper endoscopy and was discovered to have severe esophageal spasm , large mid esophageal diverticulum with inappropriate esophageal relaxation and possible achalasia. She underwent esophageal stent placement she underwent repeat video swallow and was supposed to get an esophagram. However she was noted to have severe contraction of the distal esophagus likely consistent with achalasia. That stent was removed and a longer stent was placed down to the lower esophageal sphincter and Botox was injected into the lower esophageal sphincter. Currently she still having aspiration pneumonia and complains of mid substernal pain. She says she has had this pain for a long time. I am anticipating that this pain is coming from esophageal spasm. I had discussed possibly placing a PEG tube with her daughters at the bedside. It was some question regarding who would take care of her with the PEG tube. I explained to them that a PEG tube would also increase her risk of aspiration because she not only has oropharyngeal dysphagia for which she aspirated from and esophageal dysphagia from which she aspirated from due to inappropriate esophageal motility and achalasia. [facility] Medical History (Updated 01/11/24 @ 17:[address] Newton Ulloa MD) Chronic anemia CKD stage 3b, GFR 30-44 ml/min Dysphagia Transition of care Forgetfulness Wears glasses Diabetes Walker as ambulation aid Blood disorder Dietary restriction History of diverticulitis Difficulty swallowing Gastric reflux On home oxygen therapy History of stress test Cardiology follow-up encounter History of edema History of echocardiogram PAF (paroxysmal atrial fibrillation) Ambulatory dysfunction Generalized weakness Acute cystitis without hematuria Depression Diabetes GERD (gastroesophageal reflux disease) Atrial fibrillation Irregular heart beat Hypertension DVT (deep venous thrombosis) Fall Weakness UTI (urinary tract infection) Fatigue On amiodarone therapy Essential hypertension Abnormal pulmonary function test Nonrheumatic mitral (valve) prolapse Menieres disease Depression Meningioma Hyperlipidemia Atherosclerotic heart disease of circle coronary artery without angina pectoris Palpitations Long-term use of high-risk medication Type 2 diabetes mellitus Osteoarthritis Family history of CVA Atrial ectopic tachycardia Paroxysmal atrial fibrillation Hypertension Home Medications ?Medication ?Instructions ?Recorded ?Last Taken ?Type mirabegron 50 mg tablet,extended 50 mg PO DAILY URINARY FREQUENCY 07/11/16 07/01/21 History release 24 hr atorvastatin 40 mg tablet 40 mg PO QHS Cholesterol 05/13/21 01/09/24 History famotidine 20 mg tablet 20 mg PO BID GERD 07/01/21 01/09/24 History lisinopril 2.5 mg tablet 2.5 mg PO DAILY BP 07/01/21 12/29/23 09:30 History metformin 500 mg tablet 250 mg PO BID DM 06/09/22 Unknown History apixaban 2.5 mg tablet (Eliquis) 2.5 mg PO BID BLOOD THINNER 05/24/23 01/09/24 History azelastine 137 mcg (0.1 %) nasal 2 spray intranasal BID Nasal 09/05/23 01/10/24 Rx spray aerosol Congestion #30 mL fluticasone propionate 50 2 spray intranasal DAILY Allergies 09/05/23 01/10/24 Rx mcg/actuation nasal #16 grams spray,suspension amiodarone 200 mg tablet 100 mg (1/2 x 200 mg) PO DAILY 12/01/23 12/29/23 09:30 Rx Heart Rate #90 tabs citalopram 10 mg tablet (Celexa) 10 mg PO DAILY Mood 12/16/23 01/09/24 History furosemide 40 mg tablet 40 mg PO DAILY Edema 12/19/23 Unknown History timolol maleate 0.5 % eye drops 1 drp ophthalmic (eye) BID Eyes 12/19/23 Unknown History acetaminophen 325 mg tablet 650 mg (2 x 325 mg) PO Q6H PRN PRN 01/10/24 01/04/24 Rx Pain 1-10 Or Fever>100.7 #0 tabs albuterol sulfate 2.5 mg/3 mL 2.5 mg (3 mL) inhalation Q2H PRN 01/10/24 Unknown Rx (0.083 %) solution for nebulization PRN SOB &/OR WHEEZING #0 mL food supplemt, lactose-reduced 120 ml PO TIDCM Supplement #0 mL 01/10/24 Unknown Rx 0.08 gram-1.5 kcal/mL oral liquid (Ensure Plus High Protein) insulin lispro 100 unit/mL See Protocol subcut Q6 Diabetes #0 01/10/24 01/08/24 Rx subcutaneous pen (Humalog KwikPen mL (U-100) Insulin) ipratropium 0.5 mg-albuterol 3 mg 3 ml inhalation Q6HWA.RT Shortness 01/10/24 01/10/24 Rx (2.5 mg base)/3 mL nebulization of Breath #0 mL soln melatonin 3 mg tablet 3 mg PO QHS PRN PRN Insomnia #0 01/10/24 Unknown Rx tabs metoprolol succinate 50 mg 50 mg PO DAILY BP #0 tabs 01/10/24 Unknown Rx tablet,extended release 24 hr nitroglycerin 0.4 mg sublingual 0.4 mg sublingual Q5M PRN 01/10/24 Unknown Rx tablet Cardiac/Chest Pain #0 tabs sennosides 8.6 mg-docusate sodium 2 tab PO BID Constipation #0 tabs 01/10/24 Unknown Rx 50 mg tablet (Stool Softener-Stimulant Laxative) Allergy/AdvReac Type Severity Reaction Status Date / Time benzonatate (From Tessalon Allergy Hives Verified 12/31/23 12:05 Taylor) cat dander Allergy Unknown Verified 12/31/23 12:05 Family History Father CAD (coronary artery disease) CHF (congestive heart failure) History of DVT (deep vein thrombosis) Mother Diabetes Grandfather CAD (coronary artery disease) History of DVT (deep vein thrombosis) Grandmother CVA (cerebral vascular accident) Surgical History History of cardiac catheterization Hx of colonoscopy History of esophagogastroduodenoscopy (EGD) History of cataract extraction History of tonsillectomy and adenoidectomy History of tubal ligation Social History housing: long-term Smoking Status: Former smoker second hand exposure: No alcohol intake: never substance use type: does not use caffeine: No what type of physical activity do you participate in: none ROS Constitutional Constitutional: Reports weakness; Denies chills, fever(s) or weight gain ENT HEENT: Denies headache(s), nasal congestion or nasal discharge Cardiovascular Cardiovascular: Denies chest pain or palpitations Respiratory/Chest Respiratory/Chest: Denies cough, excessive phlegm production or shortness of breath with exertion Gastrointestinal Gastrointestinal: Reports dysphagia and heartburn; Denies abdominal pain, nausea or vomiting Genitourinary Genitourinary: Denies dysuria Musculoskeletal Musculoskeletal: Denies joint pain or joint swelling Integumentary Integumentary: Denies rash or wounds Neurologic Neurologic: Denies focal weakness, numbness or tingling Psychiatric Psychiatric: Denies anxiety, auditory hallucinations, depression, homicidal ideation or suicidal ideation Physical Exam Const alert General Appearance: cooperative HEENT normocephalic Eyes PERRL and EOMs intact bilaterally Neck supple, no JVD and no carotid bruits Resp normal respiratory effort, normal air movement and clear to auscultation bilaterally Cardio regular rate and regular rhythm GI normal to inspection, nondistended, normoactive bowel sounds, non-tender and non-distended Extremity normal capillary refill General Extremity: Negative for edema Skin no rashes or lesions noted General Skin Exam: no breakdown Psych affect normal Appearance: appropriate Medical Records Data Medical Nutrition Assessment Dietitian: Malnutrition Criteria Met Start: 01/12/24 14:49 Freq: Status: Active Protocol: Document 01/12/24 14:49 LO (Rec: 01/12/24 14:49 LO [id number]) Nutrition Malnutrition Evidence of Malnutrition Exists Yes Malnutrition (severe): Acute Illness/Injury Clinical Problem Acute Disease or Injury Related Malnutrition Etiology severe related to dysphagia and need for modified food consistency Signs/Symptoms as evidenced by 7.3% unintentional weight loss in ~ 3.5 weeks and PO intakes <50% of estimated needs for ~3.5 weeks. Status Active Problem Recommendation Dietitian Recommendations/Changes Continue Regular diet with texture/consistency per NURSE INFECTION CONTROL to optimize oral intakes and manage dysphagia. Continue 120mL Ensure Plus High Protein TID with medpass to provide supplemental energy Lab / Micro Data 01/15/24 05:32 01/16/24 05:20 Labs: Laboratory Results - last 24 hr 01/16/24 05:20: Sodium 139, Potassium 4.0, Chloride 112 H, Carbon Dioxide 22.0, Anion Gap 5, BUN 53 H, Creatinine 1.57 H, Estim Creat Clear Calc 26.93, Est GFR (MDRD) Af Amer 40 L, Est GFR (MDRD) Non-Af 33 L, BUN/Creatinine Ratio 33.8 H, Glucose 102, Calcium 8.1 L 01/16/24 05:51: POC Glucose 99 Imaging Radiology Impression KUB X-Ray 01/15/24 17:45 IMPRESSION: 1. Esophageal stent with retained distal esophageal contrast. Additional adjacent accumulation of contrast to the right of the esophagus in the lower mediastinum. 2. Nonobstructed bowel gas pattern. Electronically Signed: Devendra Toure DO at 18:31 EDT , Assessment & Plan Assessment/Plan (1) Bradycardia: (2) Elevated troponin: (3) Acute hypoxic respiratory failure: (4) Esophageal dysmotility: (5) Bilateral pleural effusion: PLAN: Plan 83-year-old female admitted with concern for aspiration, mild chest discomfort and wheezing and sudden onset hypoxia. Esophageal motility dysfunction/dysphagia -EGD done 01/02/2024 with stent placement and findings were consistent with previous with diffuse esophageal spasm and diverticulum noted. Patient continued to experience esophageal epigastric discomfort. Subsequent esophagram ordered for evaluation. ? 01/10/2024 esophagram demonstrated Circumferential narrowing at the gastroesophageal junction. correlation is recommended. 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 -Patient did get mild amount of Botox to the distal esophagus. Patient is still having trouble swallowing and still having oropharyngeal dysphagia and esophageal dysphagia. I told the family that her options are very limited at this time regarding her trouble swallowing. They said they would get back to me regarding what they would like to do. Charges/Coding Visit Charges Inpatient E&M: 84873 SNF Init L2
--- NOTE | 2024-01-16 18:36 | NURSING ---
Patient experiencing pain throughout day. Dr. Hooker was consulted, no further measures available for patient. Patient and family understanding of this, agreed to hospice consult. DNC signed, message for SW to consult hospice.
[2024-01-16 19:25] VITALS: PULSE 64; RESP 16; O2SAT 100
[2024-01-16] MEDS: Atorvastatin Calcium 40 MG Tablet PO (21:15)
[2024-01-16] MEDS: Senna/Docusate Sodium 1 Tablet 2 TABLET PO (21:15)
[2024-01-16] MEDS: levoFLOXacin IV 750 MG in Empty Viaflex Q48 100 MG IV (21:15)
[2024-01-16 21:20] VITALS: PULSE 64; RESP 16; O2SAT 99
[2024-01-17] MEDS: 0.9% Normal Saline (1000mL) 1,000 ML 75 ML IV (06:29)
[2024-01-17 06:30] VITALS: PULSE 69; RESP 18; O2SAT 98
[2024-01-17] MEDS: Ipratropium/Albuterol Sulfate 3 ML AMPUL.NEB INHALATION ×2 (06:30→13:39)
[2024-01-17 06:38] LABS: Bedside Glucose 94 mg/dL (74-106)
[2024-01-17 06:45] VITALS: O2SAT 98
--- NOTE | 2024-01-17 09:17 | CASEMGMT ---
Addendum entered by Janett Davenport 01/17/24 18:52: [facility] nurse Miranda in this evening and met with pt and family. Family has decided to move pt to [facility] in-patient unit. Dr. Ulloa notified, gave order to d/c. SW called [facility], who arrived and transported pt off unit @1850. Original Note: Social Work- Hospice SW received notification from [facility] that they will be meeting with patient's daughter, Lesly and son, Phil today, 01/16 at 5PM Truck [employer]er will continue to follow to support discharge planning. VALDEZ Banks
[2024-01-17 09:46] VITALS: BP 131/65; PULSE 68; RESP 18; O2SAT 97
[2024-01-17] MEDS: Citalopram 10 MG Tablet PO (09:49)
[2024-01-17] MEDS: Famotidine 20 MG Tablet PO (09:49)
[2024-01-17] MEDS: Fluticasone 0.05% 1 SPRAY NASAL.SRY 2 SPRAY NASAL (09:49)
[2024-01-17] MEDS: Senna/Docusate Sodium 1 Tablet 2 TABLET PO (09:49)
[2024-01-17] MEDS: Ensure Plus High Protein 120 ML LIQUID PO ×2 (09:49→12:01)
[2024-01-17] MEDS: Amiodarone 200 MG Tablet 100 MG PO (09:49)
[2024-01-17] MEDS: Nystatin Powder 15gm Bottle 1 APPLIC TOPICAL (09:50)
[2024-01-17] MEDS: Timolol 0.5% 5ML OPTH.BTL 1 DRP OPHTHALMIC (09:50)
[2024-01-17] MEDS: Azelastine HCl NASAL.SRY 2 SPRAY NASAL (09:52)
[2024-01-17] MEDS: Menthol/Lanolin/Calamine/Znox 113 GM Tube 1 APPLIC TOPICAL (09:57)
[2024-01-17] MEDS: morphine (oral solution) 10MG/0.5ML Syringe 10 MG PO (10:08)
--- NOTE | 2024-01-17 12:10 | NURSING ---
Notified pt that a pt on this unit tested Covid positive. Pt refused offer to call and notify family. no comments/concerns expressed at this time.
[2024-01-17 13:41] VITALS: PULSE 70; RESP 16
[2024-01-17 14:42] VITALS: TEMP 36.7
--- NOTE | 2024-01-17 17:47 | CASEMGMT ---
Social Work AGATA received notification from bedside RN that the patient's family is meeting with hospice. AGATA met with patient's daughter, Lesly who requested for a list for potential intermediate frame tender care facilities. Patient signed into hospice with [facility]. SW provided patient's daughter, Lesly with nursing facility list. AGATA was notified [facility] [place] pals specialist, Miranda that the patient has approved patient for inpatient hospice. Patient will require transportation. AGATA contacted [facility] to arrange transportation to [facility] located at [address], [place] [address]. Transportation is confirmed for 630P pick on Today, 01/17/2024. SW completed patient's MDS. BIM () and PhQ-2 (). Patient score indicates for severe depression. Patient indicates feeling depressed daily, lack of interest in I-pad, feeling tired daily, and poor appetite. Patient reports feeling like she let her family down due to losing independence and functional status. Family noticed a decline in strength to move due to medical decline. Patient's functional decline, medical changes/ prognosis, failure to thrive status has contribute to severe depression. Patient is currently prescribe Celexa. Discharge: [facility] VALDEZ Banks
[2024-01-17 17:59] VITALS: BP 136/62; PULSE 67; RESP 18; TEMP 36.6; O2SAT 3
--- NOTE | 2024-01-17 20:08 | DS.PCM_ITS ---
Providers Date of Admission: 01/11/24 Primary Care Physician: Dr. Hortensia Balbuena, Consultations 01/16/24 17:43 Consult: Gastroenterology Routine Consulting Provider: [facility] Reason for Consult: Swallowing EMERGENT Consult: No MD Notified: No Date Notified: 01/16/24 Time Notified: 17:43 01/16/24 17:48 Consult: Gastroenterology Routine Consulting Provider: [facility] Reason for Consult: Swallowing EMERGENT Consult: No MD Notified: Yes Date Notified: 01/16/24 Time Notified: 17:48 Method of Notification: Verbal Reason For Visit: ACUTE HYOPXIA SECONDARY TO ASPIRATION PNUEMONIA Diagnosis Discharge Diagnosis (1) Bradycardia: Status: Acute Code(s): R00.1 - Bradycardia, unspecified (2) Elevated troponin: Status: Acute Code(s): R79.89 - Other specified abnormal findings of blood chemistry (3) Acute hypoxic respiratory failure: Status: Acute Code(s): J96.01 - Acute respiratory failure with hypoxia (4) Esophageal dysmotility: Status: Acute Code(s): K22.4 - Dyskinesia of esophagus (5) Bilateral pleural effusion: Status: Acute Code(s): J90 - Pleural effusion, not elsewhere classified Plan 83 year old female with below past medical history hospitalized for acute respiratory failure with hypoxia 2/2 aspiration pneumonia, copd exacerbation, acute HFrEF 2/2 Takotsubo cardiomyopathy, complicated by dysphagia 2/2 esophageal dysmotility, esophageal diverticulum, admitted to TCU with debility, here for rehabilitation, strengthening, prior to disposition determination. * Debility - PT/OT. * Dysphagia - ST. * Pain - Tylenol 650mg q6 prn pain (1-10). * Bowel - senna/colace 2 tablets bid. * Adult immunization - Administer pneumonia vaccine, covid vaccine, flu vaccine as appropriate. * DVT prophylaxis - on Eliquis. * Dysphagia/esophageal dysmotility - s/p esophageal stent, s/p botox injection, if problem persists, either PEG or Hospice. * COPD - Duoneb 3ml neb q6wart, Albuterol 2.5mg neb q2h prn. * Atrial fibrillation - Metoprolol succinate 50mg daily, Amiodarone 100mg daily, Eliquis 2.5mg bid. * Hyperlipidemia - Atorvastatin 40mg qhs. * Allergic rhinitis - Astelin 2 sprays nasal bid, Fluticasone 2 sprays nasal daily. * Depression - Citalopram 10mg daily, stable chronic manager terminal use, GDR not recommended. * GERD - Famotidine 20mg bid. * Acute HFrEF - Metoprolol succinate 50mg daily, Lisinopril 2.5mg daily, Hold Furosemide, monitor. * Coronary Artery Disease - Metoprolol succinate 50mg daily, Lisinopril 2.5mg daily, Eliquis 2.5mg bid, NTG 0.4mg sl q5m prn. * Glaucoma - Timolol 0.5% 1gtt ou bid. * OAB - Gemtasa 75mg daily. * Insomnia - Melatonin 3mg qhs prn. * Skin irritation - Calmoseptine topical bid. * Diabetes Mellitus II - Metformin 250mg bidcm. Hospital Course Operations None Procedures None Summary of Care Provided Minutes Spent on Discharge: 35 Hospital Course: 83 year old female with below past medical history hospitalized for acute respiratory failure with hypoxia 2/2 aspiration pneumonia, copd exacerbation, acute HFrEF 2/2 Takotsubo cardiomyopathy, complicated by dysphagia 2/2 esophageal dysmotility, esophageal diverticulum, admitted to TCU with debility, here for rehabilitation, strengthening, prior to disposition determination. Resident dying uncomfortably, chest discomfort difficult to control. Discharge to Inpatient Hospice Facility 01/17/2024 for symptom control, terminal care. Physical Exam Const alert General Appearance: cooperative HEENT normocephalic Eyes PERRL and EOMs intact bilaterally Neck supple, no JVD and no carotid bruits Resp normal respiratory effort, normal air movement and clear to auscultation bilaterally Cardio regular rate and regular rhythm GI normal to inspection, nondistended, normoactive bowel sounds, non-tender and non-distended Extremity normal capillary refill General Extremity: Negative for edema Skin no rashes or lesions noted General Skin Exam: no breakdown Psych affect normal Appearance: appropriate Weight / BMI Weight Weight: 72.575 kg Body Mass Index (BMI) 26.6 ABG / Lab / Microbiology Data 01/15/24 05:32 01/16/24 05:20 Laboratory: Laboratory Results - last 24 hr 01/17/24 06:01: POC Glucose 94 Microbiology: Microbiology 01/15/24 10:52 Stool Clostridioides difficile (PCR) - Final 01/13/24 10:00 Nasal Secretion SARS-CoV-2 Antigen (Rapid) - Final D/C Instructions Discharge Diet: No restrictions Discharge Activity: Return to Normal Activity Weight Bearing Status: Weight bearing as tolerated Additional Instructions: Discharge to Inpatient Hospice Facility 01/17/2024 for symptom control, terminal care. Meaningful Use Info Meaningful Use Meaningful Use Diagnoses (Choose all that apply): None applicable Ischemic Stroke Statin Dosing Therapy Reference: STATIN DOSE THERAPY REFERENCE: * Patients > 75 years receive moderate or high dose statin therapy. * Patients 75 years or YOUNGER should receive HIGH intensity statin dose unless contraindicated. You will be required to document reason for non-treatment if statin daily dose does not meet guidelines. HIGH DOSE STATIN THERAPY DAILY Atorvastatin > than or = to 40 mg Rosuvastatin > than or = to 20 mg Amlodipine + Atorvastatin > than or = to 2.5/40 mg Ezetimibe + Simvastatin 10/80 mg Simvastatin 80mg Discharge Plan Admission Admit Date/Time: 01/11/24 13:25 Primary Reason for Your Visit: Debility. Attending Provider: Newton Ulloa Chi Primary Care Provider: Hortensia Balbuena Instructions Additional Instructions / Restrictions: Discharge to Inpatient Hospice Facility 01/17/2024 for symptom control, terminal care. Discharge Orders/Prescriptions Prescriptions: Discontinued atorvastatin 40 mg tablet 40 mg PO QHS metformin 500 mg tablet 250 mg PO BID citalopram [Celexa] 10 mg tablet 10 mg PO DAILY fluticasone propionate 50 mcg/actuation spray,suspension 2 spray INTRANASAL DAILY Qty: 16 11RF azelastine 137 mcg (0.1 %) aerosol,spray 2 spray INTRANASAL BID Qty: 30 11RF Rx Instructions: administer into each nostril mirabegron 50 MG tablet extended release 24 hr 50 mg PO DAILY famotidine 20 mg tablet 20 mg PO BID lisinopril 2.5 mg tablet 2.5 mg PO DAILY Eliquis 2.5 mg tablet 2.5 mg PO BID furosemide 40 mg tablet 40 mg PO DAILY Patient Comments: ON HOLD D/T KIDNEY FUNCTION timolol maleate 0.5 % drops 1 drp ophthalmic (eye) BID acetaminophen 325 mg Tablet 650 mg PO Q6H PRN PRN (Reason: Pain 1-10 Or Fever>100.7) Qty: 0 0RF ipratropium-albuterol 0.5 mg-3 mg(2.5 mg base)/3 mL Solution For Nebulization 3 ml inhalation Q6HWA.RT Qty: 0 0RF albuterol sulfate 2.5 mg /3 mL (0.083 %) Solution For Nebulization 2.5 mg inhalation Q2H PRN PRN (Reason: SOB &/OR WHEEZING) Qty: 0 0RF metoprolol succinate 50 mg Tablet Extended Release 24 Hr 50 mg PO DAILY Qty: 0 0RF sennosides-docusate sodium [Stool Softener-Stimulant Laxat] 8.6-50 mg Tablet 2 tab PO BID Qty: 0 0RF melatonin 3 mg Tablet 3 mg PO QHS PRN PRN (Reason: Insomnia) Qty: 0 0RF nitroglycerin 0.4 mg Tablet, Sublingual 0.4 mg sublingual Q5M PRN (Reason: Cardiac/Chest Pain) Qty: 0 0RF insulin lispro [Humalog KwikPen Insulin] 100 unit/mL Insulin Pen See Protocol subcut Q6 Qty: 0 0RF Protocol: 3. Sliding Scale Insulin Med Dosing Condition: 150-189 mg/dl = 1 unit Condition: 190-229 mg/dl = 2 units Condition: 230-269 mg/dl = 3 units Condition: 270-309 mg/dl = 4 units Condition: 310-349 mg/dl = 5 units Condition: 350-399 mg/dl = 6 units Condition: 400-449 mg/dl = 7 units Condition: Greater than 449 call physician Protocol Text: - Use for Total Daily Dose of Insulin 37-55 units - Obsese, infected, or steroid patients MEDIUM DOSING ALGORITHIM Ensure Plus High Protein 0.08 gram-1.5 kcal/mL Liquid 120 ml PO TIDCM Qty: 0 0RF amiodarone 200 mg tablet 100 mg PO DAILY Qty: 90 3RF Referrals / Follow Up: Hortensia Balbuena DO [Primary Care Provider] - Disposition Disposition (needs filled in before D/C Order can be placed): Hospice in Medical Facility
--- NOTE | 2024-01-24 09:21 | MDS.RN ---
Information for the MDS was obtained from review of the clinical record, interview of resident, staff, and direct observation of resident?s care.
== END 2024-01-17 18:52 | disposition hospice, inpatient (51) | DRG 177 ==
PROVIDERS: Admitting Provider Family Medicine Geriatric Medicine; PCP Family Medicine; Visit Provider Family Medicine Geriatric Medicine
DX: J69.0 Pneumonitis due to inhalation of food and vomit (principal); J96.01 Acute respiratory failure with hypoxia; I50.21 Acute systolic (congestive) heart failure; E44.0 Moderate protein-calorie malnutrition; J44.1 Chronic obstructive pulmonary disease with (acute) exacerbation; I51.81 Takotsubo syndrome; I13.0 Hypertensive heart and chronic kidney disease with heart failure and stage 1 through stage 4 chronic kidney disease, or unspecified chronic kidney disease; I48.0 Paroxysmal atrial fibrillation; E11.22 Type 2 diabetes mellitus with diabetic chronic kidney disease; G30.9 Alzheimer's disease, unspecified; N18.32 Chronic kidney disease, stage 3b; E11.39 Type 2 diabetes mellitus with other diabetic ophthalmic complication; Z79.4 Long term (current) use of insulin; F02.80 Dementia in other diseases classified elsewhere, unspecified severity, without behavioral disturbance, psychotic disturbance, mood disturbance, and anxiety; F32.A Depression, unspecified; K22.0 Achalasia of cardia; K22.5 Diverticulum of esophagus, acquired; E78.5 Hyperlipidemia, unspecified; K21.9 Gastro-esophageal reflux disease without esophagitis; I25.10 Atherosclerotic heart disease of native coronary artery without angina pectoris; K22.4 Dyskinesia of esophagus; Z87.891 Personal history of nicotine dependence; R13.12 Dysphagia, oropharyngeal phase; N32.81 Overactive bladder; H40.9 Unspecified glaucoma; Z99.81 Dependence on supplemental oxygen; Z68.25 Body mass index [BMI] 25.0-25.9, adult
CPT/HCPCS: 36415; 71046; 74018; 80048; 82962; 85025; 87493; 87811; 92526; 92610; 93005; 94640; 97110; 97162; 97166; 97530; 97535; J7030; A4216

== ENCOUNTER → 2024-01-15 | Outpatient (CLI) | payer MEDICARE, OTHER, SELFPAY ==
--- NOTE | 2024-01-15 20:51 | CT_ITS ---
STUDY: CT ABDOMEN AND PELVIS WITH CONTRAST REASON FOR EXAM: Female, 83 years old. Abnormalites on KUB RADIATION DOSAGE (If Supplied By Facility): CTDIvol = ( 14.13 ) mGy, DLP = ( 1339.35 ) mGycm TECHNIQUE: Oral and amp; IV Gastrografin and amp; 100mL Isovue-370 was administered. Transaxial images were obtained from the dome of the diaphragm to the symphysis pubis in the portal venous phase. Multiplanar coronal and sagittal images were reformatted. Individualized Dose Optimization Techniques Were Used For This CT. COMPARISON: No relevant prior comparison study available FINDINGS: LOWER CHEST: Small bilateral pleural effusions. Bilateral lower lobe atelectasis. Coronary artery calcifications. No cardiomegaly or pericardial effusion. LIVER: The liver is normal in size, shape, and attenuation. No focal mass. GALLBLADDER AND BILIARY TREE: The gallbladder is normally distended. No definite gallstones. There may be a small amount of layering sludge.. No gallbladder wall thickening or edema. No pericholecystic fluid. No intra- or extrahepatic biliary ductal dilation. PANCREAS: No focal cystic or solid mass. SPLEEN: Normal size without focal cystic or solid mass. ADRENAL GLANDS: Normal right adrenal gland. There is a left adrenal gland nodule measuring 2.3 cm meeting criteria for a lipid rich adenoma. No specific follow-up recommended. KIDNEYS AND URETERS: Normal renal size and position. No hydronephrosis or nephrolithiasis. PERITONEUM: No ascites or free air. No other fluid collection. BOWEL: Esophageal stent noted. The stomach is unremarkable. Normal caliber small bowel. There is no obstruction. No colonic wall thickening or inflammation. Colonic diverticulosis noted without diverticulitis. No evidence of acute appendicitis. Contrast extends throughout the small bowel and colon. LYMPH NODES: No enlarged mesenteric or retroperitoneal lymph nodes. VESSELS: The aorta is normal in caliber with mild atherosclerotic calcification. URINARY BLADDER: Significantly distended bladder. No wall thickening. No calculi. REPRODUCTIVE ORGANS: No pelvic masses. ABDOMINAL WALL: No discrete abdominal or pelvic wall hernia. BONES: No lytic or blastic abnormality. CT/Abdomen/Pelvis WITH Contrast IMPRESSION: No acute finding in the abdomen or pelvis. No obstruction. Small bilateral pleural effusions with bilateral lower lobe atelectasis. Electronically Signed: Luis Chaudhry MD at 0:05 EDT ,
== END | disposition home or self-care (01) ==
PROVIDERS: PCP Family Medicine; Referring Provider Family Medicine Geriatric Medicine; Visit Provider Family Medicine Geriatric Medicine
DX: R10.9 Unspecified abdominal pain (principal); R93.41 Abnormal radiologic findings on diagnostic imaging of renal pelvis, ureter, or bladder
CPT/HCPCS: 74177; Q9967